=== PATIENT | male | born 1965 | race Caucasian/White ===

== ENCOUNTER 2017-08-17 21:53 | Inpatient (IN) | payer SELFPAY ==
[2017-08-17] MEDS ORDERED: Multivitamins, Adult 10 ML, Thiamine HCl 100 MG, Folic Acid 1 MG in Dextrose 5 %-0.45 %... IV SCH ×4 (22:30)
[2017-08-17 23:04] LABS: Acetaminophen Less than 6.0 mcg/mL (10.0-30.0); Lipase 147 U/L (8-78); Salicylate Less than 8.0 mg/dL (15.0-30.0)
--- NOTE | 2017-08-17 23:04 | RAD ---
PORTABLE CHEST: Date: 08/17/17 HISTORY: Chest pain. COMPARISON: 11/25/16. FINDINGS: Stranding in the upper lobes appear stable. No infiltrate or vascular congestion. Heart and mediastin um unremarkable. IMPRESSION: No acute finding or interval change apparent. POS: [facility]
[2017-08-17 23:05] LABS: ALT (SGPT) 85 U/L (8-55); AST (SGOT) 250 U/L (5-34); Albumin 2.7 g/dL (3.5-5.0); Alkaline Phosphatase 227 U/L (40-150); Anion Gap 16 mmol/L (10-20); BUN (Urea Nitrogen) 7 mg/dL (8.9-20.6); Bilirubin, Total 0.5 mg/dL (0.2-1.2); CK (CPK) 51 U/L (30-200); Calc. Creatinine Clearance 0 mL/min (70-130); Calcium 7.6 mg/dL (7.8-10.44); Carbon Dioxide 35 mmol/L (22-29); Chloride 92 mmol/L (98-107); Estimated GFR-MDRD Greater than 90; Glucose 109 mg/dL (70-105); Protein, Total 6.7 g/dL (6.0-8.3); Sodium 141 mmol/L (136-145)
--- NOTE | 2017-08-17 23:08 | CT ---
CT HEAD WITHOUT CONTRAST: Date: 08/17/17 Multiple axial tomograms obtained through the head without IV enhancement. HISTORY: Mental status change. FINDINGS: There is a focal lucency in the right cerebellum. This was present on a MRI from 2002 and is stable a nd represents possibly a benign cystic lesion or small focus of volume loss. There is no infarct, mass, or hemorrhage seen. IMPRESSION: No acute abnormality. POS: [facility]
[2017-08-17 23:09] LABS: Alcohol 445 mg/dL (Less than 10); CKMB 1.2 ng/mL (0-6.6); Potassium 2.2 mmol/L (3.5-5.1); Troponin I 0.032 ng/mL (< 0.028)
[2017-08-17 23:20] LABS: #Monocytes 0.4 thou/uL (0.11-0.59); #Neutrophils 7.2 thou/uL (1.40-6.50); %Basophils 0.4 % (0.0-1.0); %Eosinophils 0.3 % (0.0-10.0); %Lymphocytes 11.9 % (21.0-51.0); %Monocytes 4.7 % (0.0-10.0); %Neutrophils 82.7 % (42.0-75.0); Band 4 % (5-11); Eosinophils 1 % (0-10); Hemoglobin 11.3 g/dL (14.0-18.0); Lymphocytes 8 % (21-51); MDiff Complete? YES; Macrocytosis MODERATE=16-30 cells (100X) (0-5/hpf); Mean Corpuscular HGB CONC 33.2 g/dL (32.0-36.0); Mean Corpuscular Hemoglobin 36.2 pg (27.0-31.0); Mean Platelet Volume 7.8 fL (7.4-10.4); Monocytes 6 % (0-10); Neutrophil 80 % (42-75); PLT Morphology Comment Appears Adequate; Platelet Count 232 thou/uL (130-400); RBC Distribution Width 12.9 % (11.5-14.5); Reactive Lymphocytes 1 % (0-10); Red Blood Cell (RBC) Count 3.11 mill/uL (4.70-6.10); White Blood Cell (WBC) Count 8.7 thou/uL (4.8-10.8)
[2017-08-18] MEDS ORDERED: NS 0.9% w/ 40 MEQ KCL 1,000 ML IV SCH (00:30)
[2017-08-18] MEDS ORDERED: Lorazepam 2 MG/ML VIAL ONE ×2 (00:40→03:27)
[2017-08-18] MEDS ORDERED: Magnesium Sulfate 2 GM/100 ML BAG ONE (00:44)
--- NOTE | 2017-08-18 02:22 | PDOC.FPRHP ---
- History of Present Illness Chief Complaint: intoxication, found down History of Present Illness: Pt seen @ 0200 08/18 52 yo M w/ PMH of alcohol abuse, cirrhosis, and COPD presents via ems after family member found pt unresponsive, passed out with a bottle of alcohol next to him. Pt reports he is here "beacause of alcoholism." The pt is a poor historian and currently extremely intoxicated, but from what he did state he denied any cp, sob, fever, chills, nvdc, abd pain. He does report increased alcohol consumption over the last month and reports he drinks approx 1/2 bottle of liquor per day and is a current smoker. He also reports h/o of chronic pain. ED Course: 2mg ativan 2gm mag sulfate 40meq K+ 3.375 zosyn - Allergies/Adverse Reactions Allergies Allergy/AdvReac Type Severity Reaction Status Date / Time metaxalone [From Skelaxin] Allergy Verified 01/24/17 20:26 - Home Medications Medication Instructions Recorded Confirmed Type Acetaminophen With Codeine 1 tab PO BID 01/24/17 08/18/17 History [Tylenol with Codeine #4] tiZANidine HCl [Tizanidine HCl] 4 mg PO HS PRN 08/18/17 08/18/17 History - History PMHx: Cirrhosis, COPD, alcohol abuse, tobacco abuse PSHx: None FHx: Unable to obtain Social: Current everyday smoker, chronic alcohol abuse - Review of Systems ROS unobtainable: other (partially able to obtain, incomplete due to pts mentation) General: denies: fever/chills, night sweats, fatigue Respiratory: reports: cough. denies: congestion, shortness of breath Cardiovascular: denies: chest pain, palpitation Gastrointestinal: denies: nausea, vomiting, diarrhea, abdominal pain Genitourinary: reports: polyuria - Vital signs BP: 122/91 HR: 96 RR: 18 Tmax: 99.1 Pox: 92% on 3LNRB Wt: 57KG - Physical Exam Constitutional: other (intoxicated,) HEENT: normocephalic and atraumatic, PERRLA, EOMI, grossly normal hearing ( scleral icterus), MMM, oropharynx clear Neck: supple, trachea midline, no LAD, no thyromegaly, no bruits Chest: no-tender to palpation, no lesions Heart: RRR, normal S1/S2, no murmurs/rubs/gallops, pulses present, no edema Lungs: good air movement, no wheezing, no retractions, other (rhonchi, diffuse) Abdomen: soft, bowel sounds present, no masses/distention, other (ttp periumbilical, no epigastric pain) Neurological: no focal deficit, normal sensation Skin: no rash/lesions, good turgor, capillary refill <2 seconds, no jaundice Heme/Lymphatic: no unusual bruising or bleeding, no purpura Psychiatric: other (agitated while awake) FMR H&P: Results - Labs Result Diagrams: 08/17/17 22:39 08/18/17 16:10 Lab results: WBC 8.7 thou/uL (4.8-10.8) 08/17/17 22:39 Hgb 11.3 g/dL (14.0-18.0) L 08/17/17 22:39 Hct 34.0 % (42.0-52.0) L 08/17/17 22:39 MCV 109.0 fl (80.0-94.0) H 08/17/17 22:39 Plt Count 232 thou/uL (130-400) 08/17/17 22:39 Neutrophils % 82.7 % (42.0-75.0) H 08/17/17 22:39 Band Neuts % (Manual) 4 % (5-11) L 08/17/17 22:39 ESR Westergren 60 mm/hr (Less than 20) 08/17/17 22:39 Sodium 141 mmol/L (136-145) 08/17/17 22:39 Potassium 2.2 mmol/L (3.5-5.1) L* 08/17/17 22:39 Chloride 92 mmol/L (98-107) L 08/17/17 22:39 Carbon Dioxide 35 mmol/L (22-29) H 08/17/17 22:39 BUN 7 mg/dL (8.9-20.6) L 08/17/17 22:39 Creatinine 0.57 mg/dL (0.6-1.3) L 08/17/17 22:39 Glucose 109 mg/dL (70-105) H 08/17/17 22:39 Calcium 7.6 mg/dL (7.8-10.44) L 08/17/17 22:39 Total Bilirubin 0.5 mg/dL (0.2-1.2) 08/17/17 22:39 AST 250 U/L (5-34) H 08/17/17 22:39 ALT 85 U/L (8-55) H 08/17/17 22:39 Alkaline Phosphatase 227 U/L (40-150) H 08/17/17 22:39 Ammonia 31 umol/L (18-72) 08/17/17 22:39 Creatine Kinase 51 U/L (30-200) 08/17/17 22:39 CK-MB (CK-2) 1.2 ng/mL (0-6.6) 08/17/17 22:39 Serum Total Protein 6.7 g/dL (6.0-8.3) 08/17/17 22:39 Albumin 2.7 g/dL (3.5-5.0) L 08/17/17 22:39 Lipase 147 U/L (8-78) H 08/17/17 22:39 - EKG Interpretation EKG: sinus rhythm, 1st degree av block, rate 96, non-specific st changes - Radiology Interpretation CT scan - head Status: report reviewed by me Additional comment: No acute process Chest x-ray Status: report reviewed by me Additional comment: RENATO FMR H&P: A/P - Problem List (1) Respiratory failure Current Visit: Yes Status: Acute Code(s): J96.90 - RESPIRATORY FAILURE, UNSP , UNSP W HYPOXIA OR HYPERCAPNIA (2) Alcohol intoxication Current Visit: No Status: Acute (3) Hypokalemia Current Visit: Yes Status: Acute Code(s): E87.6 - HYPOKALEMIA (4) Transaminitis Current Visit: Yes Status: Acute Code(s): R74.0 - NONSPEC ELEV OF LEVELS OF TRANSAMNS & LACTIC ACID DEHYDRGNSE (5) Elevated troponin I level Current Visit: Yes Status: Acute Code(s): R74.8 - ABNORMAL LEVELS OF OTHER SERUM ENZYMES (6) Hypoalbuminemia Current Visit: Yes Status: Acute Code(s): E88.09 - OTH DISORDERS OF PLASMA- PROTEIN METABOLISM, NEC (7) Macrocytic anemia Current Visit: Yes Status: Acute Code(s): D53.9 - NUTRITIONAL ANEMIA, UNSPECIFIED - Plan 1) Acute alcohol intoxication - admit tele - Supportive care - IVF w/ NS @ 125 - ASE protocol 2) Hypokalemia: - 40 meq K+ given, recheck bmp - replace as needed - Check mag and replace if indicated - continuous cardiac monitoring 3) Transaminitis: - 2/2 alcohol abuse - subjective h/o cirrhosis - will trend 4) Elevated troponin - indeterminent, no ekg changes - admit to tele -have trended down 5) Respiratory failure: - 2/2 #1 - supportive care - maintain sats 88-92 6) COPD: - needs medication reconcilliation - duonebs prn until med rec, then continue home meds Disposition/LOS: >/= 2 days, stable, symptomatic meds will be provided FMR H&P: Upper Level - Pertinent history Patient is a 52yo CM with PMHx of chronic alcohol abuse, COPD and T2DM who presents in acute intoxication. Difficult to obtain history but states that he had a couple shots today and normally drinks about half a bottle of whiskey a day. Per ED report, patient was found unresponsive by caregiver with an almost empty bottle of whiskey next to him. Last seen normal around 8pm on 08/16. - Pertinent findings Vital signs BP 115/86 HR 117 RR 24 O2: 100% on non rebreather Gen: thin, no acute distress HEENT: pinpoint pupils BL, reactive to light, poor dentition Heart: S1 S2, RRR Lungs: dec BS BL Ext: no cyanosis or edema - Plan Date/Time: 08/18/17 0221 Bernard Reeves, have evaluated this patient and agree with findings/plan as outlined by corporate communications intern resident. Pertinent changes/additions are listed here. 1. Acute Alcohol Intoxication: initial alcohol level of 445. Cont IVF, thiamine and folate. 2. Acute Respiratory Failure: 2/2 #1 and possible aspiration. Currently on non- breather in no acute distress with O2 sats in 90s. 3. Hypokalemia: Given 40mEq IV and cont IVF with K+. Monitor. 4. Indeterminate troponins: trop of .032. Asymptomatic and no hx of CAD. Trend trops q3H. 5. Transaminitis: 2/2 chronic alcohol use. Monitor. 6. Elevated lipase: lipase of 147. Possible alcoholic pancreatitis but denies any epigastric pain. CT Abd/Pelv pending. Cont IVF and monitor. 7. T2DM: reports taking PO meds but doesnt know name. SSI and accuchecks ACHS. 8. Hypoalbuminemia: 2/2 alcohol use. 9. Macrocytic anemia: obtain B12 and rbc folate. 10. Diet: NPO 11. PPx: SCDs 12. Code Status: Full. Attending Addendum - Attending Addendum Date/Time: 08/18/17 6986 I personally evaluated the patient and discussed the management with Dr. Burleson. I have reviewed the H&P and it is repeated by me. I agree with the History, Examination, Assessment and Plan documented above with any addition or exceptions noted below.
[2017-08-18 02:55] LABS: Troponin I 0.064 ng/mL (< 0.028)
[2017-08-18] MEDS ORDERED: Piperacillin/Tazobactam 3.375 GM in Sodium Chloride 0.9% 100 ML IVPB SCH (03:00)
[2017-08-18 05:23] LABS: Troponin I 0.057 ng/mL (< 0.028)
[2017-08-18 07:02] LABS: Bilirubin Negative (Negative); Blood, Urine Trace (Negative); Clarity CLEAR (Clear); Glucose, Urine (Dipstick) Negative (Negative); Leukocyte Negative (Negative); Nitrite Positive (Negative); Protein, Urine (Dipstick) Trace mg/dL (Neg-Trace)
[2017-08-18 07:06] LABS: Bacteria/HPF 4+ HPF (None Seen); Hyaline Casts/LPF 0-3 HYALINE CAST LPF (0-3 Hyaline); Pathc Cast-AUWi Flag 0.27 (0-2.49); RBC/HPF 0-3 HPF (0-3); Squamous Epithelial 0-3 HPF (0-3)
[2017-08-18] MEDS ORDERED: Ondansetron HCl/PF 4 MG/2 ML Vial IVP PRN (07:26)
[2017-08-18] MEDS ORDERED: Dextrose 5% in Water 1,000 ML IV PRN (07:26)
[2017-08-18] MEDS ORDERED: Dextrose 50% Abboject 50 ML SYRINGE SLOW IVP PRN (07:26)
[2017-08-18] MEDS ORDERED: Acetaminophen 325 MG TAB PO PRN (07:26)
[2017-08-18 07:38] LABS: Amphetamine Not Detected (NotDetected); Barbiturates Screen Not Detected (NotDetected); Benzodiazepine Screen Not Detected (NotDetected); Cocaine Metabolite Screen Not Detected (NotDetected); Medtox Control Line Valid? VALID (VALID); Medtox Reader # READER 1; Methadone Not Detected (NotDetected); Methamphetamine Not Detected (NotDetected); Opiate Screen Detected (NotDetected); Oxycodone Screen Not Detected (NotDetected); Phencyclidine (PCP) Not Detected (NotDetected); THC/Cannabinoid Screen Not Detected (NotDetected); Tricyclic Screen Not Detected (NotDetected)
[2017-08-18] MEDS ORDERED: ISOVUE-370 76%-LOCM 1 ML ONE (07:42)
[2017-08-18] MEDS ORDERED: Potassium Chloride 40 MEQ in Sodium Chloride 0.9% 250 ML 250 ML IVPB SCH ×2 (08:00→13:00)
--- NOTE | 2017-08-18 08:23 | CT ---
PRELIMINARY REPORT/[facility]/EMERGENCY AFTER HOURS PROCEDURE: EXAM: CT Abdomen and Pelvis With Intravenous Contrast EXAM DATE/TIME: Exam ordered 08/18/2017 12:21 AM CLINICAL HISTORY: 52 years old, male; Pain; Abdominal pain; Generalized; Patient HX: Er 3; Abdominal pain (generalized) ; M52 is a chronic alcoholic that takes his pain RX with alcohol. HX of copd, diabetes, liver failure . 90% room air, glucose 168, BP 118/77 pulse 100, respirations 20. 100 thiamin, 500 fluids. TECHNIQUE: Axial computed tomography images of the abdomen and pelvis with intravenous contrast. Coronal reformatted images were created and reviewed. COMPARISON: No relevant prior studies available. FINDINGS: Lower thorax: Dependent consolidation in left lower lobe is suspicious for pneumonia/aspiration. ABDOMEN: Liver: Severe hepatic steatosis and hepatomegaly. Gallbladder and bile ducts: Unremarkable. No calcified stones. No ductal dilation. Pancreas: Unremarkable. No mass. No ductal dilation. Spleen: Unremarkable. No splenomegaly. Adrenals: Unremarkable. No mass. Kidneys and ureters: Unremarkable. No solid mass. No hydronephrosis. Stomach and bowel: Incidental transient nonobstructing non-strangulated short segment jejunaljejunal intussusception. Colonic diverticulosis. No diverticulitis. No bowel wall thickening or intestinal ob struction. Appendix: Normal appendix. PELVIS: Bladder: Unremarkable. No mass. Reproductive: Unremarkable as visualized. ABDOMEN and PELVIS: Intraperitoneal space: Unremarkable. No free air. No significant fluid collection. Bones/joints: No acute fracture. No dislocation. Soft tissues: Unremarkable. Vasculature: Unremarkable. No abdominal aortic aneurysm. Lymph nodes: Unremarkable. No enlarged lymph nodes. IMPRESSION: 1. Dependent consolidation in left lower lobe is suspicious for pneumonia/aspiration. 2. Severe hepatic steatosis and hepatomegaly. Thank you for allowing us to participate in the care of your patient. Dictated and Authenticated by: Jimmy Chavez MD 08/18/2017 12:45 AM Central Time ([place] & [place]) FINAL REPORT CT ABDOMEN AND PELVIS WITH CONTRAST: Date: 08/18/17 HISTORY: Abdominal pain. Liver failure. COMPARISON: None. FINDINGS: There is consolidation in the left lower lobe. No pericardial effusion. Severe hepatic steatosis. Transient small bowel with small bowel intussusception left upper quadrant of the abdomen. Extensive submucosal edema throughout the sigmoid colon, also the rectum. There is an intrapolar cyst right kidney. Aortoiliac contour is nonaneurysmal. Moderate atherosclerot ic plaque of the common iliac arteries. No abnormal enhancing liver mass. IMPRESSION: Findings and impression are concordant with preliminary report by Rosalee. In addition, there is transie nt small bowel with small bowel intussusception left upper quadrant of abdomen. In addition, there is severe submucosal edema of the sigmoid colon which may represent colitis, although in a patient of t his age, follow-up colonoscopy is recommended. POS: [facility]
[2017-08-18 08:45] LABS: Anion Gap 16 mmol/L (10-20); BUN (Urea Nitrogen) 5 mg/dL (8.9-20.6); Calc. Creatinine Clearance 0 mL/min (70-130); Calcium 6.8 mg/dL (7.8-10.44); Carbon Dioxide 30 mmol/L (22-29); Chloride 94 mmol/L (98-107); Estimated GFR-MDRD Greater than 90; Glucose 159 mg/dL (70-105); Sodium 137 mmol/L (136-145)
[2017-08-18 08:50] LABS: Potassium 2.5 mmol/L (3.5-5.1)
[2017-08-18] MEDS ORDERED: Folic Acid 1 MG TAB ONE (11:34)
[2017-08-18] MEDS ORDERED: Enoxaparin Sodium 40 MG/0.4 ML SYRINGE ONE (11:34)
[2017-08-18] MEDS ORDERED: Famotidine/PF 20 mg/2ml Vial ONE (11:35)
[2017-08-18 12:13] LABS: Alcohol 16 mg/dL (Less than 10); Anion Gap 13 mmol/L (10-20); BUN (Urea Nitrogen) 4 mg/dL (8.9-20.6); Calc. Creatinine Clearance 0 mL/min (70-130); Calcium 6.6 mg/dL (7.8-10.44); Carbon Dioxide 30 mmol/L (22-29); Chloride 93 mmol/L (98-107); Estimated GFR-MDRD Greater than 90; Glucose 132 mg/dL (70-105); Magnesium 1.1 mg/dL (1.6-2.6); Sodium 133 mmol/L (136-145)
[2017-08-18 12:20] LABS: Troponin I 0.053 ng/mL (< 0.028)
[2017-08-18 12:22] LABS: Potassium 2.5 mmol/L (3.5-5.1)
[2017-08-18] MEDS ORDERED: Acetaminophen 325 MG TAB ONE (13:06)
[2017-08-18 13:22] LABS: Folate (Folic Acid) 13.6 ng/mL (7.0-31.4)
[2017-08-18] MEDS: NS 0.9% w/ 40 MEQ KCL 1,000 ML IV SCH ×2 (15:46→17:08)
[2017-08-18] MEDS: Folic Acid 1 MG TAB PO SCH (15:48)
[2017-08-18] MEDS: Famotidine/PF 20 mg/2ml Vial SLOW IVP SCH ×2 (15:48→20:42)
[2017-08-18] MEDS: Nicotine 14 MG PATCH TD SCH (15:48)
[2017-08-18] MEDS: Enoxaparin Sodium 40 MG/0.4 ML SYRINGE SC SCH (15:48)
[2017-08-18 17:03] LABS: Potassium 2.5 mmol/L (3.5-5.1)
[2017-08-18] MEDS ORDERED: tiZANidine HCl 4 MG TAB PO PRN (17:39)
[2017-08-18] MEDS ORDERED: Sodium Chloride 0.9% 10 ML ONE (20:34)
[2017-08-18] MEDS: Acetaminophen/Codeine 30-300mg Tablet PO PRN (20:41)
[2017-08-19 00:54] LABS: Magnesium 1.1 mg/dL (1.6-2.6)
[2017-08-19 00:58] LABS: Potassium 2.8 mmol/L (3.5-5.1)
[2017-08-19] MEDS ORDERED: Magnesium 2 GM/NS 0.9% 100 ML 2 GM in Premix Bag 1 BAG IVPB SCH (01:30)
[2017-08-19] MEDS ORDERED: Sodium Chloride 0.9% 20 ML ONE (02:23)
[2017-08-19] MEDS ORDERED: Potassium Chloride 40 MEQ in Sodium Chloride 0.9% 250 ML 250 ML IVPB SCH (02:30)
[2017-08-19 05:48] LABS: #Eosinphils 0.1 thou/uL (0.0-0.7); #Lymphocytes 0.8 thou/uL (1.20-3.40); #Monocytes 0.3 thou/uL (0.11-0.59); #Neutrophils 6.8 thou/uL (1.40-6.50); %Basophils 0.3 % (0.0-1.0); %Eosinophils 0.8 % (0.0-10.0); %Lymphocytes 10.3 % (21.0-51.0); %Monocytes 3.9 % (0.0-10.0); %Neutrophils 84.8 % (42.0-75.0); Mean Corpuscular HGB CONC 31.4 g/dL (32.0-36.0); Mean Corpuscular Hemoglobin 34.6 pg (27.0-31.0); Mean Platelet Volume 9.2 fL (7.4-10.4); Platelet Count 150 thou/uL (130-400); RBC Distribution Width 13.2 % (11.5-14.5); Red Blood Cell (RBC) Count 2.31 mill/uL (4.70-6.10)
[2017-08-19 05:55] LABS: Anion Gap 10 mmol/L (10-20); BUN (Urea Nitrogen) Less than 4 mg/dL (8.9-20.6); Calc. Creatinine Clearance 133 mL/min (70-130); Calcium 7.4 mg/dL (7.8-10.44); Carbon Dioxide 32 mmol/L (22-29); Chloride 97 mmol/L (98-107); Estimated GFR-MDRD Greater than 90; Glucose 135 mg/dL (70-105); Sodium 136 mmol/L (136-145)
[2017-08-19] MEDS ORDERED: Sodium Chloride 0.9% 10 ML ONE (06:14)
[2017-08-19 06:21] LABS: Potassium 2.8 mmol/L (3.5-5.1)
[2017-08-19] MEDS: NS 0.9% w/ 40 MEQ KCL 1,000 ML IV SCH ×2 (06:23→16:12)
[2017-08-19] MEDS ORDERED: Potassium Chloride 20 MEQ TAB PO SCH (06:45)
[2017-08-19] MEDS: Potassium Chloride 20 MEQ TAB PO SCH ×2 (07:30→16:16)
[2017-08-19 08:45] VITALS: BMI 14.5
[2017-08-19] MEDS: Enoxaparin Sodium 40 MG/0.4 ML SYRINGE SC SCH (09:59)
[2017-08-19] MEDS: Nicotine 14 MG PATCH TD SCH (09:59)
[2017-08-19] MEDS: Folic Acid 1 MG TAB PO SCH (09:59)
[2017-08-19] MEDS: Magnesium Chloride 64 MG TAB PO SCH ×2 (09:59→21:23)
[2017-08-19] MEDS: Famotidine/PF 20 mg/2ml Vial SLOW IVP SCH ×2 (09:59→21:23)
[2017-08-19 11:53] LABS: Hemoglobin 8.9 g/dL (14.0-18.0); Mean Corpuscular HGB CONC 32.7 g/dL (32.0-36.0); Mean Corpuscular Hemoglobin 36.1 pg (27.0-31.0); Mean Platelet Volume 8.9 fL (7.4-10.4); Platelet Count 176 thou/uL (130-400); RBC Distribution Width 13.4 % (11.5-14.5); Red Blood Cell (RBC) Count 2.47 mill/uL (4.70-6.10); White Blood Cell (WBC) Count 7.5 thou/uL (4.8-10.8)
[2017-08-19 12:02] LABS: Anion Gap 11 mmol/L (10-20); BUN (Urea Nitrogen) Less than 4 mg/dL (8.9-20.6); Calc. Creatinine Clearance 133 mL/min (70-130); Calcium 7.6 mg/dL (7.8-10.44); Carbon Dioxide 29 mmol/L (22-29); Chloride 99 mmol/L (98-107); Estimated GFR-MDRD Greater than 90; Glucose 155 mg/dL (70-105); Potassium 3.4 mmol/L (3.5-5.1); Sodium 136 mmol/L (136-145)
--- NOTE | 2017-08-19 12:07 | PDOC.FM ---
- Subjective Subjective: This morning patient reports is feeling stronger. He reports that he had a few loose stools overnight. He denies feeling excessively shakes. He denies ESCALERA, nausea, or vomiting. - Objective Vital Signs & Weight: Vital Signs (12 hours) Temp Pulse Pulse Pulse Resp BP BP 08/19/17 11:05 97 99 128/90 08/19/17 09:57 98.6 F 91 18 08/19/17 04:00 98.6 F 97 20 133/84 08/19/17 00:20 133/88 BP BP Pulse Ox 08/19/17 11:05 134/89 08/19/17 09:57 131/90 76 L 08/19/17 04:00 133/84 95 08/19/17 00:20 98 Weight Admit Weight 51.982 kg Weight 51.256 kg I&O: 08/18/17 08/19/17 08/20/17 06:59 06:59 06:59 Intake Total 2499 Balance 2499 Result Diagrams: 08/19/17 11:36 08/19/17 11:36 <Louis Tomlinson - Last Filed: 08/19/17 13:56> - Objective Vital Signs & Weight: Vital Signs (12 hours) Temp Pulse Pulse Pulse Resp BP BP 08/19/17 12:44 98.7 F 91 18 08/19/17 11:05 97 99 128/90 08/19/17 09:57 98.6 F 91 18 08/19/17 04:00 98.6 F 97 20 133/84 BP BP Pulse Ox 08/19/17 12:44 132/93 H 96 08/19/17 11:05 134/89 08/19/17 09:57 131/90 76 L 08/19/17 04:00 133/84 95 Weight Admit Weight 51.982 kg Weight 51.256 kg I&O: 08/18/17 08/19/17 08/20/17 06:59 06:59 06:59 Intake Total 2499 Balance 2499 Result Diagrams: 08/19/17 11:36 08/19/17 11:36 <Ally Jaramillo - Last Filed: 08/19/17 15:06> Phys Exam - Physical Examination HEENT: PERRLA, moist MMs Neck: no nodes, full ROM Respiratory: no wheezing, clear to auscultation bilateral Cardiovascular: RRR, no significant murmur Gastrointestinal: soft, non-tender, no distention, positive bowel sounds Musculoskeletal: no edema, pulses present Neurological: non-focal, moves all 4 limbs Psychiatric: normal affect, A&O x 3 Skin: no rash, normal turgor, cap refill <2 seconds <Louis Tomlinson - Last Filed: 08/19/17 13:56> Dx/Plan (1) Hypoalbuminemia Code(s): E88.09 - OTH DISORDERS OF PLASMA-PROTEIN METABOLISM, NEC Status: Acute (2) Hypokalemia Code(s): E87.6 - HYPOKALEMIA Status: Acute (3) Macrocytic anemia Code(s): D53.9 - NUTRITIONAL ANEMIA, UNSPECIFIED Status: Acute (4) Respiratory failure Code(s): J96.90 - RESPIRATORY FAILURE, UNSP, UNSP W HYPOXIA OR HYPERCAPNIA Status: Acute (5) Transaminitis Code(s): R74.0 - NONSPEC ELEV OF LEVELS OF TRANSAMNS & LACTIC ACID DEHYDRGNSE Status: Acute (6) Alcohol intoxication Status: Acute - Plan Plan: 1) Acute alcohol intoxication - admit tele - Supportive care - IVF w/ NS @ 125 - ASE protocol 2) Hypokalemia: - Continue to replete - scheduled PO BID - Check mag and replace if indicated - continuous cardiac monitoring 3) Transaminitis: - 2/2 alcohol abuse - subjective h/o cirrhosis - will trend 4) Elevated troponin - indeterminent, no ekg changes - admit to tele -have trended down 5) Respiratory failure: - 2/2 #1 - supportive care - maintain sats 88-92 6) COPD: - needs medication reconcilliation - duonebs prn until med rec, then continue home meds 7) Anemia - Hgb dropped to 8.0 overnight - will recheck at noon - FOBT - Type and cross 8) Diarrhea - C diff labs pending - afebrile <Louis Tomlinson - Last Filed: 08/19/17 13:56> Attending Addendum - Attending Addendum Date/Time: 08/19/17 6065 I personally evaluated the patient and discussed the management with Dr. Tomlinson on 08/19/17. I agree with the History, Examination, Assessment and Plan documented above with any addition or exceptions noted below. Patient with severe alcoholism desiring to stop drinking. Continues to have severely depleted magnesium and postassium, likely from poor nutritional status. In addition, patient is C Diff antigen positive, C Diff toxin pending. Currently is starting to feel anxious and tremulous. Has never had DTs or seizures. Will observe and continue to discuss withdrawal management, including close outpatient follow up and possible benzo taper. <Ally Jaramillo - Last Filed: 08/19/17 15:06>
[2017-08-19 12:40] LABS: HIV (1/2) Antibody/Antigen Non-Reactive (NonReactive); HIV 1/2 INDEX 0.13 S/CO (<1.00)
[2017-08-19] MEDS ORDERED: HumaLOG 300 UNITS/3 ML VIAL SC PRN (13:06)
[2017-08-19] MEDS: chlordiazePOXIDE HCl 25 MG CAP PO SCH ×2 (14:08→21:23)
[2017-08-19] MEDS: Acetaminophen/Codeine 30-300mg Tablet PO PRN (14:08)
[2017-08-20] MEDS: NS 0.9% w/ 40 MEQ KCL 1,000 ML IV SCH ×3 (01:39→22:19)
[2017-08-20] MEDS: Acetaminophen/Codeine 30-300mg Tablet PO PRN (02:41)
[2017-08-20 05:27] LABS: #Eosinphils 0.1 thou/uL (0.0-0.7); #Lymphocytes 0.9 thou/uL (1.20-3.40); #Monocytes 0.2 thou/uL (0.11-0.59); %Basophils 0.6 % (0.0-1.0); %Eosinophils 1.9 % (0.0-10.0); %Lymphocytes 17.3 % (21.0-51.0); %Monocytes 3.9 % (0.0-10.0); %Neutrophils 76.2 % (42.0-75.0); Hemoglobin 8.3 g/dL (14.0-18.0); Mean Corpuscular HGB CONC 32.1 g/dL (32.0-36.0); Mean Corpuscular Hemoglobin 36.1 pg (27.0-31.0); Mean Platelet Volume 9.3 fL (7.4-10.4); Platelet Count 182 thou/uL (130-400); RBC Distribution Width 13.4 % (11.5-14.5); Red Blood Cell (RBC) Count 2.31 mill/uL (4.70-6.10); White Blood Cell (WBC) Count 5.3 thou/uL (4.8-10.8)
[2017-08-20 05:34] LABS: Anion Gap 9 mmol/L (10-20); BUN (Urea Nitrogen) 4 mg/dL (8.9-20.6); Calc. Creatinine Clearance 139 mL/min (70-130); Calcium 7.8 mg/dL (7.8-10.44); Carbon Dioxide 27 mmol/L (22-29); Chloride 104 mmol/L (98-107); Estimated GFR-MDRD Greater than 90; Glucose 97 mg/dL (70-105); Magnesium 1.3 mg/dL (1.6-2.6); Potassium 4.5 mmol/L (3.5-5.1); Sodium 135 mmol/L (136-145)
[2017-08-20] MEDS ORDERED: Magnesium 2 GM/NS 0.9% 100 ML 2 GM in Premix Bag 1 BAG IVPB SCH (06:00)
--- NOTE | 2017-08-20 08:01 | PDOC.FM ---
- Subjective Subjective: This morning patient states he had on/off sleep overnight due to chronic back/ neck pain which was relieved with a muscle relaxer. He denies headaches, shakes , or hallucinations. States his walking is improving, but still unable to walk on his own. He is not interested in help quitting drinking, he says he is going to quit cold turkey on his own. - Objective Vital Signs & Weight: Vital Signs (12 hours) Temp Pulse Resp BP BP BP Pulse Ox 08/20/17 04:01 132/93 H 08/20/17 04:00 98.4 F 86 18 132/93 H 94 L 08/20/17 00:40 97.9 F 114 H 16 143/87 H 143/87 H 95 08/19/17 21:27 99.6 F 98 16 131/92 H 94 L 08/19/17 20:34 16 Weight Admit Weight 51.982 kg Weight 51.211 kg I&O: 08/19/17 08/20/17 08/21/17 06:59 06:59 06:59 Intake Total 2499 3694 Output Total 1150 Balance 2499 2540 Result Diagrams: 08/20/17 04:57 08/20/17 04:57 <Louis Tomlinson - Last Filed: 08/20/17 09:36> - Objective Vital Signs & Weight: Vital Signs (12 hours) Temp Pulse Pulse Resp BP BP BP 08/20/17 11:21 85 121/81 08/20/17 04:01 132/93 H 08/20/17 04:00 98.4 F 86 18 132/93 H Pulse Ox Pulse Ox 08/20/17 11:21 96 08/20/17 04:01 08/20/17 04:00 94 L Weight Admit Weight 51.982 kg Weight 51.211 kg I&O: 08/19/17 08/20/17 08/21/17 06:59 06:59 06:59 Intake Total 2499 3694 Output Total 1150 Balance 2499 2544 Result Diagrams: 08/20/17 04:57 08/20/17 04:57 <Ally Jaramillo - Last Filed: 08/20/17 14:05> Phys Exam - Physical Examination HEENT: PERRLA, moist MMs Neck: no nodes, full ROM Respiratory: no wheezing, clear to auscultation bilateral Cardiovascular: RRR, no significant murmur Gastrointestinal: soft, non-tender, no distention, positive bowel sounds Musculoskeletal: no edema, pulses present Neurological: non-focal, moves all 4 limbs No liver flaps Psychiatric: normal affect, A&O x 3 Skin: no rash, normal turgor, cap refill <2 seconds <Louis Tomlinson - Last Filed: 08/20/17 09:36> Dx/Plan (1) Hypoalbuminemia Code(s): E88.09 - OTH DISORDERS OF PLASMA-PROTEIN METABOLISM, NEC Status: Acute (2) Hypokalemia Code(s): E87.6 - HYPOKALEMIA Status: Acute (3) Macrocytic anemia Code(s): D53.9 - NUTRITIONAL ANEMIA, UNSPECIFIED Status: Acute (4) Respiratory failure Code(s): J96.90 - RESPIRATORY FAILURE, UNSP, UNSP W HYPOXIA OR HYPERCAPNIA Status: Acute (5) Transaminitis Code(s): R74.0 - NONSPEC ELEV OF LEVELS OF TRANSAMNS & LACTIC ACID DEHYDRGNSE Status: Acute (6) Alcohol intoxication Status: Acute - Plan Plan: 1) Acute alcohol intoxication - Supportive care - IVF w/ NS @ 125 - ASE protocol - started librium 08/19 2) Hypokalemia: - up to 4.5 this AM - scheduled PO BID - Mag at 1.3 this AM, PO BID, added 2g IV this AM 3) Transaminitis: - 2/2 alcohol abuse - subjective h/o cirrhosis - will trend 4) Elevated troponin - indeterminent, no ekg changes -have trended down 5) Respiratory failure: - resolved, RA - supportive care 6) COPD: - resolved - duoneb PRN 7) Anemia - Hgb increased to 8.3 - Type and crossed 8) Diarrhea - diarrhea resolved - C diff labs antigen +, toxins negative - afebrile Dispo: possibly this PM pending PT eval and Mag re-check, patient does not want to attend alcoholic rehab <Louis Tomlinson - Last Filed: 08/20/17 09:36> Attending Addendum - Attending Addendum Date/Time: 08/20/17 1401 I personally evaluated the patient and discussed the management with Dr. Tomlinson on 08/20/17. I agree with the History, Examination, Assessment and Plan documented above with any addition or exceptions noted below. Patient's symptoms of withdrawal resolved on Librium taper. Discussed alcohol cessation at length, patient desires [facility] abstinence. Discussed benefit of Librium taper to help with withdrawal, but recommended treatment for alcohol cessation maintenance but patient declines. Also discussed danger of combining Librium and alcohol. Patient did fall this morning when he disregarded fall precautions, bed alarm, and bedside commode and tried to go to the restroom by himself. He had minor trauma to his skin on his back but otherwise no trauma. PT will reevaluate today for recommendations on dispo home with PT vs inpt rehab /SNF. <Ally Jaramillo - Last Filed: 08/20/17 14:05>
[2017-08-20] MEDS: Enoxaparin Sodium 40 MG/0.4 ML SYRINGE SC SCH (08:33)
[2017-08-20] MEDS: Famotidine/PF 20 mg/2ml Vial SLOW IVP SCH ×2 (08:33→21:05)
[2017-08-20] MEDS: chlordiazePOXIDE HCl 25 MG CAP PO SCH ×3 (08:34→21:05)
[2017-08-20] MEDS: Nicotine 14 MG PATCH TD SCH (08:34)
[2017-08-20] MEDS: Folic Acid 1 MG TAB PO SCH (08:34)
[2017-08-20] MEDS: Potassium Chloride 20 MEQ TAB PO SCH ×2 (08:34→16:30)
[2017-08-20] MEDS: Magnesium Chloride 64 MG TAB PO SCH ×2 (08:35→21:05)
[2017-08-21 06:13] LABS: Anion Gap 8 mmol/L (10-20); BUN (Urea Nitrogen) 4 mg/dL (8.9-20.6); Calc. Creatinine Clearance 133 mL/min (70-130); Calcium 8.3 mg/dL (7.8-10.44); Carbon Dioxide 22 mmol/L (22-29); Chloride 108 mmol/L (98-107); Estimated GFR-MDRD Greater than 90; Glucose 95 mg/dL (70-105); Potassium 5.1 mmol/L (3.5-5.1); Sodium 133 mmol/L (136-145)
[2017-08-21 06:16] LABS: Band 2 % (5-11); Eosinophils 2 % (0-10); Hemoglobin 8.9 g/dL (14.0-18.0); Lymphocytes 15 % (21-51); MDiff Complete? YES; Macrocytosis SLIGHT = 6-15 cells (100X) (0-5/hpf); Mean Corpuscular HGB CONC 32.5 g/dL (32.0-36.0); Mean Corpuscular Hemoglobin 36.1 pg (27.0-31.0); Mean Platelet Volume 8.8 fL (7.4-10.4); Monocytes 3 % (0-10); Neutrophil 78 % (42-75); Platelet Count 239 thou/uL (130-400); Red Blood Cell (RBC) Count 2.46 mill/uL (4.70-6.10); White Blood Cell (WBC) Count 7.8 thou/uL (4.8-10.8)
--- NOTE | 2017-08-21 08:19 | PDOC.FM ---
- Subjective Subjective: This morning patient states he is feeling well. He continues to have chronic back and neck pain bothering him at times. He denies headache, hallucinations, or shakes. He is still having difficulty walking on his own. States he is able to eat about 1/2 a meal. States he looks forward to ensure shakes today as he likes the taste. - Objective Vital Signs & Weight: Vital Signs (12 hours) Temp Pulse Resp BP BP Pulse Ox 08/21/17 04:00 97.5 F L 105 H 18 122/93 H 122/93 H 97 08/21/17 00:20 97 18 96 08/20/17 20:50 99.1 F 112 H 18 112/78 100 Weight Admit Weight 51.982 kg Weight 51.211 kg I&O: 08/20/17 08/21/17 08/22/17 06:59 06:59 06:59 Intake Total 3694 3280 Output Total 1150 950 Balance 2544 2330 Result Diagrams: 08/21/17 04:52 08/21/17 04:52 <Louis Tomlinson - Last Filed: 08/21/17 09:15> - Objective Vital Signs & Weight: Vital Signs (12 hours) Temp Pulse Pulse Pulse Pulse Resp BP 08/21/17 12:00 98.1 F 105 H 20 08/21/17 09:57 106 H 118 H 105 H 08/21/17 07:22 96.7 F L 100 18 111/81 08/21/17 04:00 97.5 F L 105 H 18 122/93 H BP BP BP BP Pulse Ox 08/21/17 12:00 97/72 08/21/17 09:57 110/85 110/82 107/80 08/21/17 07:22 111/81 98 08/21/17 04:00 122/93 H 97 Weight Admit Weight 51.982 kg Weight 51.211 kg I&O: 08/20/17 08/21/17 08/22/17 06:59 06:59 06:59 Intake Total 3694 3280 Output Total 1150 950 Balance 2544 2330 Result Diagrams: 08/21/17 04:52 08/21/17 04:52 <Ally Jaramlilo - Last Filed: 08/21/17 12:46> Phys Exam - Physical Examination Constitutional: NAD HEENT: PERRLA, moist MMs Neck: no nodes, full ROM Respiratory: no wheezing, clear to auscultation bilateral Cardiovascular: RRR, no significant murmur, no rub Gastrointestinal: soft, non-tender, no distention, positive bowel sounds Musculoskeletal: no edema, pulses present still unable to support his own weight for ambulation Neurological: non-focal, moves all 4 limbs Psychiatric: normal affect, A&O x 3 Skin: no rash, normal turgor, cap refill <2 seconds <Louis Tomlinson - Last Filed: 08/21/17 09:15> Dx/Plan (1) Hypoalbuminemia Code(s): E88.09 - [facility] DISORDERS OF PLASMA-PROTEIN METABOLISM, NEC Status: Acute (2) Hypokalemia Code(s): E87.6 - HYPOKALEMIA Status: Acute (3) Macrocytic anemia Code(s): D53.9 - NUTRITIONAL ANEMIA, UNSPECIFIED Status: Acute (4) Respiratory failure Code(s): J96.90 - RESPIRATORY FAILURE, UNSP, UNSP W HYPOXIA OR HYPERCAPNIA Status: Acute (5) Transaminitis Code(s): R74.0 - NONSPEC ELEV OF LEVELS OF TRANSAMNS & LACTIC ACID DEHYDRGNSE Status: Acute (6) Alcohol intoxication Status: Acute - Plan Plan: 1) Acute alcohol intoxication - Supportive care - IVF w/ NS @ 125 - ASE protocol - started librium 08/19 2) Hypokalemia: - 5.1 this AM, down to K 40meq once daily - Mag at 1.7 this AM 3) Transaminitis: - 2/2 alcohol abuse - subjective h/o cirrhosis - will trend 4) Elevated troponin - indeterminent, no ekg changes -have trended down 5) Respiratory failure: - resolved, RA - supportive care 6) COPD: - resolved - duoneb PRN 7) Anemia - Hgb increased to 8.9 - Type and crossed 8) Diarrhea - diarrhea resolved - C diff labs antigen +, toxins negative - FBOT+ - afebrile - will discuss outpatient colonoscopy Dispo: awating rehab placement <Louis Tomlinson - Last Filed: 08/21/17 09:15> Attending Addendum - Attending Addendum Date/Time: 08/21/17 1242 I personally evaluated the patient and discussed the management with Dr. Tomlinson on 08/21/17. I agree with the History, Examination, Assessment and Plan documented above with any addition or exceptions noted below. Patient's alcohol withdrawal improved on Librium. Is still extremely weak and unstable, will need to be discharged to either SNF or rehab, as he is safe to go home. Patient with 3 point drop in Hg and FOBT pos, will consult GI for colonoscopy. <Ally Jaramillo - Last Filed: 08/21/17 12:46>
[2017-08-21] MEDS: chlordiazePOXIDE HCl 25 MG CAP PO SCH ×3 (09:13→21:22)
[2017-08-21] MEDS: Enoxaparin Sodium 40 MG/0.4 ML SYRINGE SC SCH (09:14)
[2017-08-21] MEDS: Nicotine 14 MG PATCH TD SCH (09:14)
[2017-08-21] MEDS: Famotidine/PF 20 mg/2ml Vial SLOW IVP SCH ×2 (09:14→21:23)
[2017-08-21] MEDS: Folic Acid 1 MG TAB PO SCH (09:14)
[2017-08-21] MEDS: NS 0.9% w/ 40 MEQ KCL 1,000 ML IV SCH (09:14)
[2017-08-21] MEDS: Magnesium Chloride 64 MG TAB PO SCH ×2 (09:28→21:22)
--- NOTE | 2017-08-21 14:00 | CON ---
DATE OF CONSULTATION: 08/21/2017 REASON FOR CONSULTATION: Heme positive stool and anemia. HISTORY OF PRESENT ILLNESS: Mr. Serrano is a 52-year-old gentleman who was admitted to the hospital o n the after presenting to the emergency room with complaints of drinking too much. He tells me that is the main reason he came in to see if he could stop drinking. He does note he has had chronic problems with diarrhea and IBS, in fact, I saw for this in 2006 at which time he had upper and lower endoscopies which were negative. Biopsies were negative. Small bowel follow through was negative. He was diagnosed with functional bowel disorder. He also has issues with chronic pain, he sees a reji pain medicine doctor at [facility] where he gets Tylenol #3. He also sees Dr. Eligio borja. He drinks he states 8 shots of whiskey a day. According to H&P from Family Practice attending, he was brought in by EMS when the family members found him unresponsive, passed out next to an alcoh ol bottle. PAST MEDICAL HISTORY: Notable for IBS, COPD, chronic alcohol abuse, ongoing tobacco abuse, possible cirrhosis. ALLERGIES: METAXALONE. HOME MEDICATIONS: Tylenol with codeine, tizanidine. MEDICATIONS HERE: In the emergency room he received Ativan, mag sulfate, potassium and Zosyn. Prese ntly he is on Tylenol daily p.r.n., Librium, Lovenox, Pepcid, folic acid 1 mg a day, glucagon 1 mg a day, insulin sliding scale, magnesium b.i.d., nicotine patch, Zofran, Zanaflex, thiamine 100 mg daily , normal saline. REVIEW OF SYSTEMS: The patient denies any dysphasia, odynophagia. He had no vomiting. Nurses note no hematemesis, melena or hematochezia. IMAGING STUDIES: On 08/18/2017 - He had a CT scan of abdomen and pelvis showing fatty liver with hep atomegaly, possible pneumonia versus aspiration left lower lung. Chest x-ray, no acute changes. CT scan showed no signs of intracranial abnormalities. PHYSICAL EXAMINATION: GENERAL: The patient is sitting in bed. VITAL SIGNS: Temperature is 98, pulse is 105, blood pressure 97/72 to 111/81. HEENT: Cachectic mildly confused. He is mildly icteric. He has temporal wasting and generalized mu scle wasting. LUNGS: Clear with decreased breath sounds at bases. HEART: He is mildly tachycardic. ABDOMEN: Soft and nontender, without rebound or guarding. LABORATORY AND X-RAY FINDINGS: White count 7.8, hemoglobin 8.9, MCV 111, platelet count 293, 78 segs , 2 bands. INR was 1 on admission. Sodium 133, potassium 5.1, BUN and creatinine are 4 and 0.48. A dmission labs, AST of 250, ALT of 85, alkaline phosphatase 227. Magnesium was 1.7 on 08/20/2017, 1.4 on 08/18/2017, phosphorus has never been checked. Albumin is 2.7. B12 1679. TSH 1.4. ASSESSMENT: 1. Alcoholism. 2. Severe cachexia, malnutrition secondary to alcoholism, COPD is probably a contributing factor. 3. Abnormal liver enzymes likely related to fatty liver disease. 4. Severe malnutrition. 5. Heme positive stool by report with anemia with no signs of acute gastrointestinal bleeding. RECOMMENDATIONS: 1. Multivitamin, thiamine and folate daily. 2. With his relative hypotension will start him on some IV fluids with dextrose. 3. He needs to be on a calorie count and he needs to drink 3-4 Ensure's daily. I will remove all no n-nutritional beverages from his room. If he does not take much in calorie-dotson, he needs to have a Dobbhoff tube placed for feeding if he would be agreeable to that. 4. There is no role for endoscopy at this point in time. He is not a candidate for screening colono scopy. His anemia is likely related to his alcohol abuse and severe malnutrition. He is not a mi date for sedation at endoscopy presently. If he ever began to have acute bleeding, we could reconsid er that. 5. Would avoid Tylenol and hydrocodone with this patient alcoholic liver disease. This can exacerba te the issues of alcohol toxicity. At this time, he has been hospital 3 days, there is probably no r ole in checking alcohol level. I am not sure that he would benefit from placing him on, as his level was 445 on admission, it was 16 the day after. At that time it may have been reasonable to consider starting treatment for possible Tylenol toxicity with him being a daily alcohol user, would not take much in terms of Tylenol toxicity to bother him and you can see Tylenol toxicity develop more easily in daily alcohol drinkers. I would go ahead and get a Tylenol level now. We will follow along with you.
[2017-08-22 05:47] LABS: #Basophils 0.1 thou/uL (0.0-0.2); #Eosinphils 0.1 thou/uL (0.0-0.7); #Monocytes 0.9 thou/uL (0.11-0.59); #Neutrophils 7.3 thou/uL (1.40-6.50); %Basophils 0.6 % (0.0-1.0); %Lymphocytes 10.7 % (21.0-51.0); %Monocytes 9.2 % (0.0-10.0); %Neutrophils 78.5 % (42.0-75.0); Hemoglobin 8.7 g/dL (14.0-18.0); Mean Corpuscular HGB CONC 32.4 g/dL (32.0-36.0); Mean Corpuscular Hemoglobin 36.3 pg (27.0-31.0); Mean Platelet Volume 8.1 fL (7.4-10.4); Platelet Count 325 thou/uL (130-400); RBC Distribution Width 14.6 % (11.5-14.5); Red Blood Cell (RBC) Count 2.41 mill/uL (4.70-6.10); White Blood Cell (WBC) Count 9.3 thou/uL (4.8-10.8)
[2017-08-22 05:50] LABS: ALT (SGPT) 63 U/L (8-55); AST (SGOT) 83 U/L (5-34); Albumin 2.5 g/dL (3.5-5.0); Alkaline Phosphatase 185 U/L (40-150); Anion Gap 9 mmol/L (10-20); BUN (Urea Nitrogen) 6 mg/dL (8.9-20.6); Bilirubin, Total 0.7 mg/dL (0.2-1.2); Calc. Creatinine Clearance 119 mL/min (70-130); Calcium 8.3 mg/dL (7.8-10.44); Carbon Dioxide 24 mmol/L (22-29); Chloride 104 mmol/L (98-107); Estimated GFR-MDRD Greater than 90; Globulin 3.6 g/dL (2.4-3.5); Glucose 92 mg/dL (70-105); Magnesium 1.5 mg/dL (1.6-2.6); Phosphorus 3.3 mg/dL (2.3-4.7); Potassium 4.1 mmol/L (3.5-5.1); Protein, Total 6.1 g/dL (6.0-8.3); Sodium 133 mmol/L (136-145)
[2017-08-22 07:20] LABS: Acetaminophen Less than 6.0 mcg/mL (10.0-30.0)
[2017-08-22 07:50] VITALS: TEMP 98.3
[2017-08-22] MEDS ORDERED: Potassium Chloride 20 MEQ TAB PO SCH (08:00)
[2017-08-22] MEDS: Nicotine 14 MG PATCH TD SCH (08:30)
[2017-08-22] MEDS: chlordiazePOXIDE HCl 25 MG CAP PO SCH ×2 (08:31→14:50)
[2017-08-22] MEDS: Enoxaparin Sodium 40 MG/0.4 ML SYRINGE SC SCH (08:31)
[2017-08-22] MEDS: Magnesium Chloride 64 MG TAB PO SCH (08:31)
[2017-08-22] MEDS: Famotidine/PF 20 mg/2ml Vial SLOW IVP SCH (08:31)
[2017-08-22] MEDS: Folic Acid 1 MG TAB PO SCH (08:32)
--- NOTE | 2017-08-22 09:13 | PDOC.FM ---
- Subjective Subjective: This morning patient states he is still having chronic neck pain. States he thinks he is getting mildly stronger. States his goal is to be able to walk without feeling like he is going to fall. Discussed the importance of improving nutrition, avoiding alcohol, and continuing to participate in PT. - Objective Vital Signs & Weight: Vital Signs (12 hours) Temp Pulse Resp BP BP Pulse Ox 08/22/17 07:00 98.3 F 103 H 18 128/82 128/82 94 L 08/22/17 04:00 113/80 08/22/17 03:33 98.7 F 113 H 18 113/80 95 08/22/17 00:00 98.6 F 107 H 18 98/68 98/68 95 Weight Admit Weight 51.982 kg Weight 51.211 kg I&O: 08/21/17 08/22/17 08/23/17 06:59 06:59 06:59 Intake Total 3280 1330 Output Total 950 Balance 2330 1330 Result Diagrams: 08/22/17 04:51 08/22/17 04:51 <Louis Tomlinson - Last Filed: 08/22/17 09:14> - Objective Vital Signs & Weight: Weight Admit Weight 51.982 kg Weight 51.211 kg I&O: 08/22/17 08/23/17 08/24/17 06:59 06:59 06:59 Intake Total 1330 Balance 1330 Result Diagrams: 08/22/17 04:51 08/22/17 04:51 <Ally Jaramillo - Last Filed: 08/23/17 09:26> Phys Exam - Physical Examination HEENT: PERRLA, moist MMs Neck: no nodes, full ROM Respiratory: no wheezing, clear to auscultation bilateral Cardiovascular: RRR, no significant murmur Gastrointestinal: soft, non-tender, no distention, positive bowel sounds Musculoskeletal: no edema, pulses present Neurological: non-focal, moves all 4 limbs Psychiatric: normal affect, A&O x 3 Skin: no rash, normal turgor, cap refill <2 seconds <Louis Tomlinson - Last Filed: 08/22/17 09:14> Dx/Plan (1) Hypoalbuminemia Code(s): E88.09 - OTH DISORDERS OF PLASMA-PROTEIN METABOLISM, NEC Status: Acute (2) Hypokalemia Code(s): E87.6 - HYPOKALEMIA Status: Acute (3) Macrocytic anemia Code(s): D53.9 - NUTRITIONAL ANEMIA, UNSPECIFIED Status: Acute (4) Respiratory failure Code(s): J96.90 - RESPIRATORY FAILURE, UNSP, UNSP W HYPOXIA OR HYPERCAPNIA Status: Acute (5) Transaminitis Code(s): R74.0 - NONSPEC ELEV OF LEVELS OF TRANSAMNS & LACTIC ACID DEHYDRGNSE Status: Acute (6) Alcohol intoxication Status: Acute - Plan Plan: # Acute alcohol intoxication - Supportive care - IVF w/ NS @ 125 - ASE protocol - started librium 08/19, wean today # FOBT + - GI consulted, appreciate recs - checking tyl level, discussed improved nutrition w/ patient along w/ ensure , continue thiamine/folate supplementation - anemia likely 2/2 nutrition/alcoholism - patient scoped in 2006, hx of IBS - diarrhea resolved - C diff labs antigen +, toxins negative - afebrile # Hypokalemia: - 4.1 this AM, continue to monitor K+/mag # Transaminitis: - 2/2 alcohol abuse - subjective h/o cirrhosis - will trend # Elevated troponin - indeterminent, no ekg changes -have trended down # Respiratory failure: - resolved, RA - supportive care # COPD: - resolved - duoneb PRN # Anemia - Hgb increased to 8.9 - Type and crossed Dispo: awaiting rehab placement <Louis Tomlinson - Last Filed: 08/22/17 09:14> Attending Addendum - Attending Addendum Date/Time: 08/23/17924 I personally evaluated the patient and discussed the management with Dr. Tomlinson on 08/22/17. I agree with the History, Examination, Assessment and Plan documented above with any addition or exceptions noted below. DIscharge home without Librium per Dr. Monroe' recommendations. <Ally Jaramillo - Last Filed: 08/23/17 09:26>
[2017-08-22 14:47] VITALS: BP 125/77
--- NOTE | 2017-08-22 16:19 | PRG ---
DATE OF SERVICE: 08/22/2017 SUBJECTIVE: Mr. Serrano is eating some macaroni and cheese. He denies any pain, but he states he fee ls very weak. MEDICATIONS: Librium 50 t.i.d., Lovenox, Pepcid, Folvite, glucagon, Humalog, Slow-Mag, Nicoderm patc h, Zofran, thiamine, and Zanaflex. PHYSICAL EXAMINATION: GENERAL: He is cachectic, thin. VITAL SIGNS: Pulse rate is about 91-103, temperature is 98, blood pressure 125/75. SKIN: Nonicteric. Spider angioma and bruising on his skin. LUNGS: Clear. HEART: Regular rate and rhythm. ABDOMEN: Slightly protuberant, soft. There is no shifting dullness or fluid wave. EXTREMITIES: No clubbing, cyanosis or edema. LABORATORY STUDIES: Sodium 133, potassium 4.1, BUN and creatinine are 6 and 0.59, magnesium 1.5, aubrey irubin 0.7, AST and ALT are 83 and 63, alkaline phosphatase 185, albumin is 2.5, total protein is 6.1 . B12 was 1679. TSH 1.6. Tylenol level normal. Serology, HIV negative. White count of 9.3, hemogl obin 8.7, platelet count 325, MCV 112. ASSESSMENT: 1. Anemia, stable. No signs of overt gastrointestinal bleed. He was Hemoccult positive on admissio n. Previous endoscopies have been negative and this has been some time ago. At present status, he i s not a candidate for screening colonoscopy and he is not having active bleeding. 2. Chronic diarrhea with extensive workup for celiac in the past, negative. 3. C. diff toxin negative, antigen positive. No signs of overt Clostridium difficile colitis. 4. Alcohol abuse. He has been weaned off of alcohol. 5. Delirium tremens. He has completed withdrawals. He is still on high dose Librium however. RECOMMENDATIONS: 1. The holley to this gentleman having improvement in clinical status is nutrition. I have instructed him that he needs to be eating, drinking quite a bit of protein. Avoid carbohydrates and sugar free drinks. I recommend he drink 3 Ensures a day. 2. He needs to be on multivitamin, thiamine, and folate daily. 3. He needs to abstain completely from alcohol. 4. He has overall clinical improvement. Over time, we can consider screening colonoscopy; however, at this time, I think his anemia is multifactorial and related to mainly alcohol toxicity and poor nu trition. 5. With regard to his delirium tremens, these are complete. He is very sleepy and slurred in his sp eech. I think he needs to be weaned off the Librium. He does not need that now. We will continue t o follow along in the hospital.
--- NOTE | 2017-08-23 00:28 | DIS-2 ---
DATE OF ADMISSION: 08/18/2017 DATE OF DISCHARGE: 08/22/2017 RESIDENT: Louis Tomlinson MD ADMITTING ATTENDING: Dr. Paulie Manley. CONSULT: Gastroenterology. PROCEDURES: None. PRIMARY DIAGNOSIS: Alcohol withdrawal. SECONDARY DIAGNOSES: Malnutrition, hypokalemia, transaminitis, elevated troponin, respiratory failur e, chronic obstructive pulmonary disease, macrocytic anemia, hypoalbuminemia, deconditioning. DISCHARGE MEDICATIONS: Librium 25 mg t.i.d. for 3 days, folic acid 1 mg daily, magnesium 64 mg daily , thiamine 100 mg daily. DISCONTINUED MEDICATIONS: None. HISTORY OF PRESENT ILLNESS AND HOSPITAL COURSE: A 52-year-old male with history of alcohol abuse, ci rrhosis, and COPD, presented via EMS after family member found him unresponsive, passed out with a henrik ttle of alcohol next to him. The patient was alert and oriented in the ED and was able to state that he was there in the ER because of alcoholism. His alcohol level in the ER was 445. He denied chest pain, shortness of breath, fevers, chills, sweats, nausea, vomiting, or abdominal pain at the time o f admission. Patient stated he drinks approximately half a bottle of liquor a day. During the course of the hospital stay, the patient's electrolyte imbalances were managed. Specifica lly, he needed potassium and magnesium supplementation along with thiamine and folate. The patient w as seen and evaluated by GI because of a fecal occult blood positive test. GI attributed in his anem ia to malnutrition and alcoholism and noted that he had a colonoscopy in 2006 and one was not indicat ed for evaluation of anemia at this time. The patient was seen by dietitian who recommended diet sup plementation with Ensure. Attempted to obtain placement for the patient, but due to insurance issues and primary diagnosis, placement was unable to be obtained. Discussed with the family. Discussed h sammyg help at home, but the patient was not interested. The patient was also not interested in [facility] for placement and opted to go home with family who said that they would be able to handle his care. Patient is discharged home on Librium taper for 3 days. DISPOSITION: Stable. DISCHARGE INSTRUCTIONS: 1. Location: Home. 2. Diet: Regular. 3. Activity: As tolerated. 4. Followup: Follow up with PCP in 3-5 days.
--- NOTE | 2017-08-23 06:59 | ADD-PRG ---
ADDENDUM: 08/22/2017 RECOMMENDATIONS: Additionally, he should get magnesium replacement on discharge. I think he usually should be on probiotic daily with a Clostridium difficile antigen positive, toxin negative in the [facility].
--- NOTE | 2017-08-23 15:18 | EKG ---
Test Reason : Blood Pressure : / mmHG Vent. Rate : 096 BPM Atrial Rate : 096 BPM P-R Int : 230 ms QRS Dur : 102 ms QT Int : 362 ms P-R-T Axes : 079 096 127 degrees QTc Int : 457 ms Sinus rhythm with 1st degree A-V block Rightward axis Anterior infarct , age undetermined Abnormal ECG Confirmed by ENZO LOPEZ ([id number]), scientific publications editor JENY ROJAS ([id number]) on 08/23/2017 3:18:19 PM Referred By: Confirmed By:ENZO LOPEZ
== END 2017-08-22 17:09 | disposition home or self-care (01) | DRG 896 ==
LOC: ERS 21:53 → ERHOLD 08-18 05:17 → 2NO 08-18 14:44
PROVIDERS: ADMIT Emergency Medicine; ATTEND Emergency Medicine
DX: F10.231 Alcohol dependence with withdrawal delirium (principal); J96.00 Acute respiratory failure, unspecified whether with hypoxia or hypercapnia; E43 Unspecified severe protein-calorie malnutrition; E88.09 Other disorders of plasma-protein metabolism, not elsewhere classified; D53.9 Nutritional anemia, unspecified; E11.9 Type 2 diabetes mellitus without complications; E87.6 Hypokalemia; Z68.1 Body mass index [BMI] 19.9 or less, adult; F10.229 Alcohol dependence with intoxication, unspecified; J44.9 Chronic obstructive pulmonary disease, unspecified; R19.5 Other fecal abnormalities; R74.0 Nonspecific elevation of levels of transaminase and lactic acid dehydrogenase [LDH]; R74.8 Abnormal levels of other serum enzymes; F17.210 Nicotine dependence, cigarettes, uncomplicated; R19.7 Diarrhea, unspecified; Y90.8 Blood alcohol level of 240 mg/100 ml or more; Z88.8 Allergy status to other drugs, medicaments and biological substances
CPT/HCPCS: 36415; 36416; 70450; 71045; 74177; 80048; 80053; 80306; 80307; 81003; 81015; 82140; 82274; 82553; 82607; 82746; 83690; 83735; 84100; 84443; 84484; 85025; 85610; 85652; 87324; 87389; 87449; 87493; 93005; 94760; 96365; 96366; 96368; 96375; 99406; A4216; G8978-GP-CK; G8979-GP-CI; G8987-GO-CK; G8988-GO-CI; J1650; J2060; J2543; J3411; J3475; J3480; J7042; J7050; S0028

== ENCOUNTER 2017-11-23 13:24 | Inpatient (IN) | payer SELFPAY ==
[2017-11-23 13:48] LABS: Hemoglobin 15.2 g/dL (14.0-18.0); Mean Corpuscular HGB CONC 32.7 g/dL (32.0-36.0); Mean Corpuscular Hemoglobin 34.4 pg (27.0-31.0); Mean Platelet Volume 7.5 fL (7.4-10.4); Platelet Count 278 thou/uL (130-400); RBC Distribution Width 15.3 % (11.5-14.5); Red Blood Cell (RBC) Count 4.42 mill/uL (4.70-6.10); White Blood Cell (WBC) Count 5.5 thou/uL (4.8-10.8)
[2017-11-23 14:01] LABS: Acetaminophen Less than 6.0 mcg/mL (10.0-30.0); Alcohol 338 mg/dL (Less than 10); Salicylate Less than 8.0 mg/dL (15.0-30.0)
[2017-11-23 14:04] LABS: ALT (SGPT) 70 U/L (8-55); AST (SGOT) 153 U/L (5-34); Albumin 3.8 g/dL (3.5-5.0); Alkaline Phosphatase 122 U/L (40-150); Anion Gap 21 mmol/L (10-20); BUN (Urea Nitrogen) 9 mg/dL (8.9-20.6); Bilirubin, Total 0.7 mg/dL (0.2-1.2); Calc. Creatinine Clearance 0 mL/min (70-130); Calcium 8.6 mg/dL (7.8-10.44); Carbon Dioxide 22 mmol/L (22-29); Chloride 96 mmol/L (98-107); Estimated GFR-MDRD Greater than 90; Globulin 4.8 g/dL (2.4-3.5); Glucose 141 mg/dL (70-105); Lipase 182 U/L (8-78); Potassium 3.1 mmol/L (3.5-5.1); Protein, Total 8.6 g/dL (6.0-8.3); Sodium 136 mmol/L (136-145)
[2017-11-23 14:06] LABS: Troponin I 0.022 ng/mL (< 0.028)
[2017-11-23] MEDS ORDERED: Heparin 1,000 UNITS/ML VIAL ONE (14:17)
[2017-11-23 14:21] LABS: #Basophils 0.1 thou/uL (0.0-0.2); #Lymphocytes 1.2 thou/uL (1.20-3.40); #Monocytes 0.3 thou/uL (0.11-0.59); #Neutrophils 3.9 thou/uL (1.40-6.50); %Basophils 1.2 % (0.0-1.0); %Eosinophils 0.7 % (0.0-10.0); %Lymphocytes 21.3 % (21.0-51.0); %Monocytes 5.1 % (0.0-10.0); %Neutrophils 71.6 % (42.0-75.0)
[2017-11-23 14:22] LABS: Anisocytosis SLIGHT = 6-15 cells (100X) (0-5/hpf); MDiff Complete? YES; PLT Morphology Comment Appears Adequate
--- NOTE | 2017-11-23 14:46 | RAD ---
PORTABLE CHEST 1 VIEW: Date: 11/23/17 Time: 1339 hours HISTORY: Altered mental status. FINDINGS: Comparison made with exam of 08/17/17 . The heart size is normal. The aorta is tortuous. The lungs are expanded without focal areas of consol idation, pneumothorax, or pleural effusions. Chronic changes in the lung apices are again seen. IMPRESSION: No radiographic evidence of acute cardiopulmonary process. POS: [facility]
--- NOTE | 2017-11-23 15:12 | CT ---
BRAIN CT WITHOUT IV CONTRAST: Date: 11/23/17 HISTORY: 52-year-old male with history of altered mental status. COMPARISON: 08/17/17. 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 No focal mass or midline shift. No intra or extra-axial hemorrhage. 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 No mass or bleed. Stable from prior study. POS: [facility]
[2017-11-23] MEDS ORDERED: Multivitamins, Adult 10 ML, Thiamine HCl 100 MG, Folic Acid 1 MG in Dextrose 5 %-0.45 %... IV SCH (15:15)
[2017-11-23] MEDS ORDERED: Ondansetron HCl/PF 4 MG/2 ML Vial IVP PRN (18:16)
[2017-11-23] MEDS ORDERED: Milk Of Magnesia 30 ML UDCUP PO PRN (18:16)
[2017-11-23] MEDS ORDERED: Lorazepam 2 MG/ML VIAL SLOW IVP PRN (18:28)
[2017-11-23] MEDS ORDERED: Sodium Chloride 0.9% 1,000 ML IV SCH (18:30)
[2017-11-23] MEDS: Albuterol Sulfate 2.5 mg/3 ml Neb NEB SCH ×2 (19:10→23:45)
--- NOTE | 2017-11-23 19:10 | HP ---
PRIMARY CARE PHYSICIAN: None. PRESENTING COMPLAINT: Altered mental status and vomiting. HISTORY OF PRESENT ILLNESS: Mr. London Serrano is a 52-year-old man with a history of chronic alcohol abuse who presented to the emergency room after being brought by his family on account of altered mentation and vomiting. According to them, he had no vomiting since yesterday. He has a history of severe alcoholism, but reports that he has not drank anything about 4 days and believes he might be going into DTs. According to patient, however, he has been drinking much in the past 2 days and yesterday had multiple shots of whiskey. He complains of poor appetite. He reports he has been drinking throughout the day for the past months, usually drinking up to half a gallon of whiskey. In addition, patient has a history of chronic left shoulder pain for which he reports taking alcohol to help with the pain. He has been taking Tylenol for pain, but ran out of the medication about a month ago after which he significantly increased his drinking. He also reports generalized weakness, has been unable to get out of bed for several days and not walking. There is no history of fevers or chills. He denies chest pain, shortness of breath, PND , orthopnea, or lower extremity edema. PAST MEDICAL HISTORY: Alcohol abuse and chronic shoulder pain. PAST SURGICAL HISTORY: Shoulder surgery. FAMILY HISTORY: Reviewed and noncontributory. SOCIAL HISTORY: He smokes 1 pack of cigarettes a day and alcohol history as above. He denies using illicit drugs. ALLERGIES: Metaxalone. HOME MEDICATIONS: Folic acid 1 mg daily, magnesium chloride 64 mg b.i.d., thiamine 100 mg daily, and tizanidine 4 mg at bedtime. PHYSICAL EXAMINATION: VITAL SIGNS: Blood pressure 133/88, pulse rate 79, respiratory rate 18, oxygen saturation 95% on room air. GENERAL: Not in acute distress, sitting comfortably in bed. HEENT: Normocephalic, atraumatic. Not pale, anicteric. Dry mucous membranes. PERRLA, EOMI. NECK: Supple, full range of movement, no edema. CARDIOVASCULAR: S1, S2 only. Regular rate and rhythm. No murmurs, rubs or gallops. RESPIRATORY: Vesicular breath sounds bilaterally. No wheezes, rales or rhonchi. ABDOMEN: Soft, tender, not distended, no hepatosplenomegaly. Bowel sounds. NEUROLOGIC: Alert and oriented to time, place and person. No focal deficits. No tremors appreciated. PSYCHIATRIC: Normal mood and affect. SKIN: Warm, dry, well-perfused. No rashes or lesions. MUSCULOSKELETAL: No edema. LABORATORY DATA: CBC is only significant for macrocytosis. Serum chemistry showed hypokalemia, elevated anion gap, glucose of 141 and elevated transaminases. Troponin was 0.022. Urine toxicology showed plasma alcohol of 338. Brain CT shows no acute abnormalities and chest x-ray showed no acute pulmonary process. ASSESSMENT AND PLAN: 1. Dehydration 2/2 chronic alcohol abuse. Will hydrate parenterally. 2. Chronic alcohol abuse. Patient with reported chronic alcoholism, presenting with vomiting. It does not seem to be an acute pancreatitis for now as he does not have abdominal pain, although his lipase was markedly elevated. This could be of a chronic issue. We will start him on a clear liquid diet and he does not have abdominal pain and advance as tolerated. He has also been given a banana bag in the emergency room, so we will continue with IV hydration. He will also be given thiamine, folate, and multivitamins. He will be placed on CIWA protocol for alcohol withdrawal as well. 3. Elevated lipase: As above. 4. Chronic shoulder pain: We will put on pain control. 5. The patient reports being diagnosed with diabetes mellitus. We will obtain hemoglobin A1c. 6. Hypokalemia: Likely secondary to his chronic alcohol abuse and poor p.o. intake. We will replete and check serum magnesium. 7. Chronic tobacco abuse: The patient will be counseled on the importance of cessation and placed on nicotine patch while in the hospital. Deep venous thrombosis prophylaxis with subcutaneous heparin. CODE STATUS: FULL CODE. MTDD
[2017-11-23] MEDS ORDERED: Magnesium 2 GM/NS 0.9% 100 ML 2 GM in Premix Bag 1 BAG IVPB SCH (19:45)
[2017-11-23] MEDS: Nicotine 21 MG PATCH TD SCH (21:40)
[2017-11-23] MEDS: Magnesium Oxide 400 MG TAB PO SCH (21:41)
[2017-11-23] MEDS: Docusate 100 MG CAP PO SCH (21:41)
[2017-11-23] MEDS: Sodium Chloride 0.9% 1,000 ML IV SCH (21:41)
[2017-11-23] MEDS: Heparin 5,000 UNITS/ML VIAL SC SCH (21:47)
[2017-11-24 01:03] VITALS: BMI 15.3
[2017-11-24 04:47] LABS: Hemoglobin 11.2 g/dL (14.0-18.0); Mean Corpuscular Hemoglobin 33.9 pg (27.0-31.0); Mean Platelet Volume 7.7 fL (7.4-10.4); Platelet Count 206 thou/uL (130-400); White Blood Cell (WBC) Count 8.9 thou/uL (4.8-10.8)
[2017-11-24 04:50] LABS: Hemoglobin A1c 4.3 % (4.0-6.0)
[2017-11-24 05:18] LABS: ALT (SGPT) 46 U/L (8-55); AST (SGOT) 93 U/L (5-34); Albumin 3.1 g/dL (3.5-5.0); Alkaline Phosphatase 93 U/L (40-150); Anion Gap 12 mmol/L (10-20); BUN (Urea Nitrogen) 9 mg/dL (8.9-20.6); Bilirubin, Total 1.3 mg/dL (0.2-1.2); Calc. Creatinine Clearance 125 mL/min (70-130); Calcium 8.2 mg/dL (7.8-10.44); Carbon Dioxide 29 mmol/L (22-29); Chloride 95 mmol/L (98-107); Estimated GFR-MDRD Greater than 90; Globulin 3.6 g/dL (2.4-3.5); Glucose 86 mg/dL (70-105); Potassium 3.1 mmol/L (3.5-5.1); Protein, Total 6.7 g/dL (6.0-8.3); Sodium 133 mmol/L (136-145)
[2017-11-24 06:02] LABS: Folate (Folic Acid) 16.6 ng/mL (7.0-31.4)
[2017-11-24] MEDS: Albuterol Sulfate 2.5 mg/3 ml Neb NEB SCH (06:27)
[2017-11-24] MEDS: Sodium Chloride 0.9% 1,000 ML IV SCH ×4 (06:34→22:52)
[2017-11-24 08:29] LABS: Bilirubin Negative (Negative); Blood, Urine Large (Negative); Clarity TURBID (Clear); Glucose, Urine (Dipstick) Negative (Negative); Leukocyte Large (Negative); Nitrite Positive (Negative); Protein, Urine (Dipstick) 30 mg/dL (Neg-Trace); Specific Gravity, Urine 1.015 (1.002-1.036); pH, Urine 7.5 (5.0-9.0)
[2017-11-24 08:32] LABS: Bacteria/HPF 4+ HPF (None Seen); Hyaline Casts/LPF 0-3 HYALINE CAST LPF (0-3 Hyaline); Pathc Cast-AUWi Flag 0.43 (0-2.49); RBC/HPF 21-50 HPF (0-3); Squamous Epithelial 0-3 HPF (0-3)
[2017-11-24] MEDS: Potassium Chloride 20 MEQ TAB PO SCH ×2 (09:37→17:18)
[2017-11-24] MEDS: Magnesium Oxide 400 MG TAB PO SCH ×2 (09:37→20:18)
[2017-11-24] MEDS: Heparin 5,000 UNITS/ML VIAL SC SCH ×3 (09:38→20:17)
[2017-11-24] MEDS: Folic Acid/Vit B Comp W-C PO SCH (09:38)
[2017-11-24] MEDS: Docusate 100 MG CAP PO SCH ×2 (09:38→20:18)
[2017-11-24 10:04] LABS: Magnesium 1.8 mg/dL (1.6-2.6); Phosphorus 2.2 mg/dL (2.3-4.7)
--- NOTE | 2017-11-24 12:41 | PDOC.PN ---
- Subjective Encounter Start Date: 11/24/17 Encounter Start Time: 12:40 Patient seen and examined following admission for dehydration 2/2 chronic acohol abuse, hypokalemia and pneumaturia. He only complains of suprapubic tenderness this morning. No acute events overnight. - Objective Resuscitation Status: Resuscitation Status FULL:Full Resuscitation MAR Reviewed: Yes Vital Signs & Weight: Vital Signs (12 hours) Temp Pulse Resp BP BP Pulse Ox 11/24/17 12:00 98.1 F 88 20 146/94 H 95 11/24/17 08:04 98.2 F 91 18 147/90 H 93 L 11/24/17 06:27 100 16 94 L Weight Admit Weight 119 lb 0.794 oz Weight 119 lb 0.794 oz I&O: 11/23/17 11/24/17 11/25/17 06:59 06:59 06:59 Intake Total 2000 500 Output Total 600 Balance 1400 500 Result Diagrams: 11/24/17 03:26 11/24/17 03:26 Phys Exam - Physical Examination Constitutional: NAD HEENT: PERRLA, moist MMs, sclera anicteric, oral pharynx no lesions Neck: no JVD, supple, full ROM Respiratory: no wheezing, no rales, no rhonchi, clear to auscultation bilateral Cardiovascular: RRR, no significant murmur, no rub Gastrointestinal: soft, no distention, positive bowel sounds suprapubic tenderness Musculoskeletal: no edema, pulses present Neurological: non-focal, moves all 4 limbs Psychiatric: normal affect, A&O x 3 Skin: no rash, normal turgor Dx/Plan (1) Pneumaturia Code(s): R39.89 - OTHER SYMPTOMS AND SIGNS INVOLVING THE GENITOURINARY SYSTEM Status: Acute Comment: Reports 2 weeks of pnumaturia. No signs of sepsis. Concern for possible enterovesical fistula. GI consulted for colonoscopy. (2) Chronic alcohol abuse Code(s): F10.10 - ALCOHOL ABUSE, UNCOMPLICATED Status: Chronic Comment: Stable. Monitor for signs of alcohol withdrawal. THiamine, Folate and multivitamins. (3) Tobacco abuse Code(s): Z72.0 - TOBACCO USE Status: Acute Comment: Counselled on cessation. Nicotine patch while in hospital. (4) Dehydration Code(s): E86.0 - DEHYDRATION Status: Acute Comment: Improving with hydration. (5) Hypokalemia Code(s): E87.6 - HYPOKALEMIA Status: Acute Comment: Replete. Monitor magnesium and phosphorus. (6) Malnutrition of moderate degree Code(s): E44.0 - MODERATE PROTEIN-CALORIE MALNUTRITION Status: Chronic Comment: 2/2 chronic alcohol abuse. Continue nutritional supplements. - Plan cont current plan of care, PT/OT, respiratory therapy, out of bed/ambulate, DVT proph w/heparin GI consult for colonoscopy. Might also need surgical intervention depending on scope findings. NPO from now. Review of Systems - Review of Systems Gastrointestinal: Other (suprapubic tenderness) - Medications/Allergies Allergies/Adverse Reactions: Allergies Allergy/AdvReac Type Severity Reaction Status Date / Time metaxalone [From Skelaxin] Allergy Verified 01/24/17 20:26 Medications: Current Medications Hydrocodone Bitart/Acetaminophen ([place] 5/325) 1 tab PO Q4H PRN PRN Reason: Severe Pain (7-10) Albuterol/Ipratropium (Duoneb) 3 ml NEB Q4H PRN PRN Reason: SOB Docusate Sodium (Colace) 100 mg PO BID [facility] Last Admin: 11/24/17 09:38 Dose: 100 mg Heparin Sodium (Porcine) (Heparin) 5,000 units SC TID [facility] Last Admin: 11/24/17 09:38 Dose: 5,000 units Sodium Chloride (Normal Saline 0.9%) 1,000 mls @ 125 mls/hr IV .Q8H [facility] Last Admin: 11/24/17 06:44 Dose: 1,000 mls Levofloxacin 750 mg/ Device 150 mls @ 100 mls/hr IVPB Q24HR@0800 [facility] Last Admin: 11/24/17 09:37 Dose: 150 mls Lorazepam (Ativan) 1 mg SLOW IVP Q4H PRN PRN Reason: Anxiety/Agitation Magnesium Hydroxide (Milk Of Magnesium) 30 ml PO DAILYPRN PRN PRN Reason: Constipation Magnesium Oxide (Magnesium Oxide) 400 mg PO BID [facility] Last Admin: 11/24/17 09:37 Dose: 400 mg Nicotine (Nicoderm Patch) 21 mg TD Q24HR [facility] Last Admin: 11/23/17 21:40 Dose: 21 mg Ondansetron HCl (Zofran) 4 mg IVP Q6H PRN PRN Reason: Nausea/Vomiting Last Admin: 11/24/17 06:41 Dose: 4 mg Potassium Chloride (K-Dur) 40 meq PO BID-[facility] Stop: 11/25/17 17:01 Last Admin: 11/24/17 09:37 Dose: 40 meq Sodium Chloride (Flush - Normal Saline) 10 ml IVF Q12HR [facility] Last Admin: 11/24/17 09:39 Dose: Not Given Sodium Chloride (Flush - Normal Saline) 10 ml IVF PRN PRN PRN Reason: Saline Flush Thiamine HCl (Thiamine) 100 mg PO DAILY [facility] Last Admin: 11/24/17 09:38 Dose: 100 mg Tramadol HCl (Ultram) 50 mg PO Q6H PRN PRN Reason: Moderate Pain (4-6) Vitamin B Complex/Vit C/Folic Acid (Nephro-Melissa Tablet) 1 tab PO DAILY [facility] Last Admin: 11/24/17 09:38 Dose: 1 tab
--- NOTE | 2017-11-24 13:22 | CON ---
DATE OF CONSULTATION: DATE 11/24/2017 REASON FOR CONSULTATION: Possible enterovesical fistula. HISTORY: Mr. Serrano is a 52-year-old gentleman admitted to the hospital on 08/2017 for abdominal pain and vomiting. He was brought in by his family. The patient has a long history of alcohol abuse. They became worried about him due to altered mental status and vomiting. After admission, a catheter was placed for a urine sample and significantly contaminated urine was noted consistent with possible fistula. The patient actually denies any significant urinary symptoms. When asked about his urine quality states it is kind of dark (kind of dark yellow). Denies any gross hematuria. On further questioning, he does state that he has been passing gas through his urinary tract for approximately 2 -3 weeks. Denies fevers or chills. His prior history is significant for diverticulosis noted on a CT scan in the past. He also has a history of jejunojejunal intussusception. He denies gross hematuria. Denies fevers or chills. PAST MEDICAL HISTORY: Chronic alcohol abuse, chronic shoulder pain, diverticulosis. SOCIAL HISTORY: He abuses alcohol and cigarettes. MEDICATIONS: METAXALONE medicines at home, THIAMIN, FOLIC ACID, MAGNESIUM CHLORIDE. REVIEW OF SYSTEMS: Respiratory: No shortness of breath. Cardiovascular: Denies chest pain or palpitations. Gastrointestinal: Please see history of present illness. Genitourinary: Please see history of present illness. Neurologic: Denies prior history of stroke. PHYSICAL EXAMINATION: SKIN: He is thin to the point of appearing cachectic. VITAL SIGNS: Most recent, temperature 98.1, blood pressure 146/94, pulse 88, respiratory rate 20. HEENT: Normocephalic, atraumatic. NECK: Supple, without masses. CHEST: Clear to auscultation. ABDOMEN: No peritoneal signs noted. No palpable masses noted. No hernias noted. GENITOURINARY: Penis is circumcised. No penile lesions. Urethral meatus appears normal. Scrotum: No lesions. Testicles palpably normal bilaterally without lesions. LABORATORY DATA: On admission, white count 5.5, hemoglobin 15.2, hematocrit 46.4, platelet count 278. Chemistry: Sodium 133, potassium 3.1, chloride 95, CO2 29, BUN 9, creatinine 0.54. Urinalysis demonstrates bacteria. IMPRESSION: Mr. Serrano is a 52-year-old gentleman with pneumaturia and abnormal urine consistent with enterovesical fistula. 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 He will need colonoscopy to rule out the possibility of a colon malignancy as a source of his enterovesical fistula. In addition, we will send urine for cytology, although bladder cancer is a rare cause of enterovesical fistula, we will obtain a urine cytology. RECOMMENDATIONS: 1. Urine for cytology. 2. GI consultation. 3. Eventual surgical consultation will be necessary 4. CT abdomen and pelvis. [facility]
[2017-11-24] MEDS ORDERED: ISOVUE-370 76%-LOCM 1 ML ONE (14:55)
[2017-11-24] MEDS ORDERED: Iopamidol 370 76% 50 ML VIAL FS ONE (14:55)
--- NOTE | 2017-11-24 18:18 | CT ---
CT ABDOMEN AND PELVIS PERFORMED WITH CONTRAST ENHANCEMENT: HISTORY: Intravesicular fistula. The patient states he feels air when he urinates. COMPARISON: 08/18/2017 FINDINGS: ABDOMEN: The lung bases show some minimal linear interstitial change, which could represent atelecta sis. There are diffuse fatty changes of the liver, which measures 18.3 cm in length. The spleen is within normal limits. The pancreas and gallbladder regions appear unremarkable. The right and left adrenal glands and the right and left kidneys are normal in size. There is no sig nificant periaortic or mesenteric adenopathy present. PELVIS: There is air present within the bladder. There is bladder wall thickening, and there is wal l thickening to the sigmoid colon. There are some diverticular changes in this area. This is direct ly along the posterior border of the bladder and associated with an area of bladder wall thickening a long the posterior bladder wall. I believe this is the probable site of a fistulous connection with the sigmoid. The wall thickening appears more than what would be expected on just the basis of diver ticular disease. IMPRESSION: 1. Moderate wall thickening of the sigmoid colon. This was noted on the prior examination. This is directly adjacent to the base of the bladder, where there is some asymmetric wall thickening, and th ere is air within the bladder. A colovesical fistula is felt to be the underlying etiology of the ai r within the bladder. The cause of the bladder wall thickening is unclear. It could represent colit is. There are diverticular changes in this area, and it could just be related to diverticulitis. Th ere appears to be an outpouching of barium, which is probably related to a diverticulum, which is dir ectly adjacent to the base of the bladder, best seen on axial image 70. This is felt to be the likel y point of the fistula. A neoplasm is not excluded and colonoscopy is recommended. 2. Diffuse fatty changes of the liver, which is borderline in size. POS: TOM
[2017-11-24] MEDS: Nicotine 21 MG PATCH TD SCH (20:14)
[2017-11-25] MEDS ORDERED: Dextrose 5 % And 0.9 % NaCl 1,000 ML IV SCH (00:45)
--- NOTE | 2017-11-25 01:39 | CON ---
DATE OF CONSULTATION: 11/24/2017 REASON FOR CONSULT: Request for colonoscopy for possible diverticulitis. HISTORY OF PRESENT ILLNESS: Mr. Serrano is a 52-year-old who was admitted to the hospital on 11/24/19 18 with vomiting and altered mental status. His family brought him in because they were concerned th at he was confused and he had vomiting for a couple of days. They are also concerned that if he is u ndergoing any DTs as he had not been drank any alcohol in 4 days. He has been drinking heavily befor e that. The patient has a history of chronic diarrhea, poor appetite. He reports he has IBS. He has been a heavy abuser of alcohol. He is actually here in the hospital recently in July and he was [facility] [place] [facility] in early August. At that time, he came in mainly discharge to stop drinking and was found to have alcoholic hepatitis, macrocytic anemia, COPD and he had a CAT scan showing some questionable si gmoid thickening and possible intussusception that was on 08/18/2017. He had no signs of diverticuli tis at that time and has some shortness of breath, jejunal intussusception and he had severe he patic steatosis. At that time, he did have some stool positive for Clostridium difficile antigen and we treated empirically for C. diff. The patient notes at this time he came back in mainly for confusion. I was asked to see him in his l ast visit, he was Hemoccult positive, but at that time he had no acute bleeding. PAST MEDICAL HISTORY: Alcohol abuse, chronic shoulder pain, IBS COPD FAMILY HISTORY: Noncontributory. SOCIAL HISTORY: The patient continues to smoke. Drinks alcohol daily. Denies drug use. HOME MEDICATIONS: Folic acid, magnesium, thiamine, tizanidine. PRESENT MEDICATIONS HERE: Albuterol, Colace, heparin, hydrocodone, lorazepam, Milk of Magnesia, mag oxide, Nicoderm patch, Zofran, potassium, multivitamin, thiamine, and folate. PHYSICAL EXAMINATION: VITAL SIGNS: Temperature is 98.1, pulse 88, blood pressure 146/94. GENERAL: The patient looks drawn out. He is awake. He is cachectic. LUNGS: Decreased breath sounds at bases. HEART: Has regular rhythm. ABDOMEN: Soft. There is really no tenderness, no rebound or guarding. EXTREMITIES: No clubbing, cyanosis or edema. HOSPITAL COURSE: He had a consult with Urology today for possible enterovesicular fistula. He notic ed he had been passing air when he urinates at times. Urologist thought he should have a colonoscopy to rule out a cancer and another CAT scan. The patient denies any symptoms such as this in the past . LABORATORY DATA: White count is 8.9, hemoglobin 11.2, platelet count 206, MCV is 103. INR is 1. So dium is 133, potassium is 3.1, BUN and creatinine are 9 and 0.54, bilirubin is 1.3, AST and ALT are 9 3 and 46, albumin 3.1, protein 6.7, B12 is 759, magnesium was 1.4 yesterday and 1.8 today. Phosphoru s 2.2. HIV nonreactive in July of this year. Serum ETOH this admission was 338. Urine showed 21-50 red blood cells and greater than 15 red cells, 4+ bacteria. Microbiology, occult blood last admission was positive. C. diff last visit was positive for antigen. No toxin was ever d etected. ASSESSMENT: The patient reports some history of pneumaturia. He has known diverticular disease on t he CAT scan in July, but there were no signs of acute diverticulitis or inflammation. Urology wa s concerned about the possibility of malignancy causing a fistula. If that is positive, we will cert ainly consider the most common cause of coloenteric fistulas with the diverticular disease. At this point in time, the patient does have a history of chronic diarrhea, but relates this to IBS as he is a chronic alcoholic as well and tends to have diarrhea, poor nutrition. RECOMMENDATIONS: The first step in working up the concern for possible colovesicular fistula at this time, would be to repeat his CAT scan with oral and IV contrast. We will follow along with you.
[2017-11-25 05:19] LABS: ALT (SGPT) 39 U/L (8-55); AST (SGOT) 71 U/L (5-34); Albumin 3.2 g/dL (3.5-5.0); Alkaline Phosphatase 93 U/L (40-150); Anion Gap 12 mmol/L (10-20); BUN (Urea Nitrogen) Less than 4 mg/dL (8.9-20.6); Bilirubin, Total 1.6 mg/dL (0.2-1.2); Calc. Creatinine Clearance 132 mL/min (70-130); Calcium 8.6 mg/dL (7.8-10.44); Carbon Dioxide 26 mmol/L (22-29); Chloride 99 mmol/L (98-107); Estimated GFR-MDRD Greater than 90; Globulin 3.9 g/dL (2.4-3.5); Glucose 70 mg/dL (70-105); Potassium 3.3 mmol/L (3.5-5.1); Protein, Total 7.1 g/dL (6.0-8.3); Sodium 134 mmol/L (136-145)
[2017-11-25] MEDS: Docusate 100 MG CAP PO SCH ×2 (08:07→20:21)
[2017-11-25] MEDS: Folic Acid/Vit B Comp W-C PO SCH (08:07)
[2017-11-25] MEDS: Potassium Chloride 20 MEQ TAB PO SCH ×2 (08:07→16:48)
[2017-11-25] MEDS: Magnesium Oxide 400 MG TAB PO SCH ×2 (08:08→20:21)
[2017-11-25] MEDS ORDERED: Morphine 4 MG/ML VIAL IV SCH (09:30)
[2017-11-25] MEDS: Dextrose 5 %-0.45 % NaCl 1,000 ML IV SCH ×2 (09:37→19:29)
[2017-11-25] MEDS: Heparin 5,000 UNITS/ML VIAL SC SCH ×3 (09:37→20:21)
--- NOTE | 2017-11-25 13:38 | PDOC.PN ---
- Subjective Encounter Start Date: 11/25/17 Encounter Start Time: 13:37 Patient seen and examined following admission for dehydration 2/2 chronic acohol abuse, hypokalemia and pneumaturia. HE also c/o pneumaturia and CT abdomen confirmed a colovesical fistula. GI consulted. No acute events overnight. - Objective Resuscitation Status: Resuscitation Status FULL:Full Resuscitation MAR Reviewed: Yes Vital Signs & Weight: Vital Signs (12 hours) Temp Pulse Pulse Pulse Resp BP BP 11/25/17 11:00 97.8 F 91 16 11/25/17 08:55 93 94 148/99 H 146/87 H 11/25/17 08:00 98.2 F 91 20 11/25/17 07:43 146/94 H 148/111 H 11/25/17 07:11 98.2 F 91 16 11/25/17 04:00 98.2 F 101 H 16 11/25/17 03:56 BP BP BP Pulse Ox Pulse Ox Pulse Ox 11/25/17 11:00 141/96 H 95 11/25/17 08:55 96 97 11/25/17 08:00 148/101 H 96 11/25/17 07:43 11/25/17 07:11 11/25/17 04:00 144/93 H 95 11/25/17 03:56 96 Weight Admit Weight 119 lb 0.794 oz Weight 119 lb 0.794 oz I&O: 11/24/17 11/25/17 11/26/17 06:59 06:59 06:59 Intake Total 1999 2614 Output Total 600 Balance 1400 2614 Result Diagrams: 11/24/17 03:26 11/25/17 04:41 Additional Labs: Accuchecks 11/25/17 11/25/17 11/25/17 11:51 06:18 00:10 POC Glucose 96 93 71 Phys Exam - Physical Examination Constitutional: NAD HEENT: moist MMs, sclera anicteric, oral pharynx no lesions Neck: supple, full ROM Respiratory: no wheezing, no rales, no rhonchi, clear to auscultation bilateral Cardiovascular: RRR, no significant murmur, no rub Gastrointestinal: soft, no distention, positive bowel sounds mild suprapubic discomfort Musculoskeletal: no edema, pulses present Neurological: non-focal, moves all 4 limbs Psychiatric: normal affect, A&O x 3 Dx/Plan (1) [place]-vesical fistula Code(s): N32.1 - VESICOINTESTINAL FISTULA Status: Acute Comment: Reports 2 weeks of pnumaturia. No signs of sepsis. GI on board. (2) Chronic alcohol abuse Code(s): F10.10 - ALCOHOL ABUSE, UNCOMPLICATED Status: Chronic Comment: Stable. Monitor for signs of alcohol withdrawal. THiamine, Folate and multivitamins. (3) Tobacco abuse Code(s): Z72.0 - TOBACCO USE Status: Chronic Comment: Counselled on cessation. Nicotine patch while in hospital. (4) Hypokalemia Code(s): E87.6 - HYPOKALEMIA Status: Acute Comment: Replete. Monitor magnesium and phosphorus. (5) Malnutrition of moderate degree Code(s): E44.0 - MODERATE PROTEIN-CALORIE MALNUTRITION Status: Chronic Comment: 2/2 chronic alcohol abuse. Continue nutritional supplements. - Plan cont current plan of care, PT/OT, out of bed/ambulate, DVT proph w/heparin * . Review of Systems - Medications/Allergies Allergies/Adverse Reactions: Allergies Allergy/AdvReac Type Severity Reaction Status Date / Time metaxalone [From Skelaxin] Allergy Verified 01/24/17 20:26 Medications: Current Medications Hydrocodone Bitart/Acetaminophen ([place] 5/325) 1 tab PO Q4H PRN PRN Reason: Severe Pain (7-10) Albuterol/Ipratropium (Duoneb) 3 ml NEB Q4H PRN PRN Reason: SOB Docusate Sodium (Colace) 100 mg PO BID [facility] Last Admin: 11/25/17 08:07 Dose: Not Given Heparin Sodium (Porcine) (Heparin) 5,000 units SC TID [facility] Last Admin: 11/25/17 09:37 Dose: Not Given Levofloxacin 750 mg/ Device 150 mls @ 100 mls/hr IVPB Q24HR@0800 [facility] Last Admin: 11/25/17 09:40 Dose: 150 mls Dextrose/Sodium Chloride (D5 1/2 Ns) 1,000 mls @ 100 mls/hr IV .Q10H [facility] Last Admin: 11/25/17 09:37 Dose: 1,000 mls Lorazepam (Ativan) 1 mg SLOW IVP Q4H PRN PRN Reason: Anxiety/Agitation Magnesium Hydroxide (Milk Of Magnesium) 30 ml PO DAILYPRN PRN PRN Reason: Constipation Magnesium Oxide (Magnesium Oxide) 400 mg PO BID [facility] Last Admin: 11/25/17 08:08 Dose: Not Given Morphine Sulfate (Morphine) 2 mg SLOW IVP Q4H PRN PRN Reason: Severe Pain (7-10) Nicotine (Nicoderm Patch) 21 mg TD Q24HR [facility] Last Admin: 11/24/17 20:14 Dose: 21 mg Ondansetron HCl (Zofran) 4 mg IVP Q6H PRN PRN Reason: Nausea/Vomiting Last Admin: 11/24/17 06:41 Dose: 4 mg Polyethylene Glycol/Electrolytes (Golytely) 4,000 ml PO ONE [facility] Stop: 11/26/17 16:01 Potassium Chloride (K-Dur) 40 meq PO BID-[facility] Stop: 11/25/17 17:01 Last Admin: 11/25/17 08:07 Dose: Not Given Sodium Chloride (Flush - Normal Saline) 10 ml IVF Q12HR [facility] Last Admin: 11/25/17 08:08 Dose: Not Given Sodium Chloride (Flush - Normal Saline) 10 ml IVF PRN PRN PRN Reason: Saline Flush Sodium Chloride (Flush - Normal Saline) 10 ml IVF PRN PRN PRN Reason: Saline Flush Thiamine HCl (Thiamine) 100 mg PO DAILY [facility] Last Admin: 11/25/17 08:08 Dose: Not Given Tramadol HCl (Ultram) 50 mg PO Q6H PRN PRN Reason: Moderate Pain (4-6) Vitamin B Complex/Vit C/Folic Acid (Nephro-Melissa Tablet) 1 tab PO DAILY [facility] Last Admin: 11/25/17 08:07 Dose: Not Given
[2017-11-25] MEDS ORDERED: GoLYTELY 4,000 ml Bottle PO SCH (16:00)
[2017-11-25] MEDS: HYDROcodone/Acetaminophen 5/325 mg Tablet PO PRN (19:27)
[2017-11-25] MEDS: Nicotine 21 MG PATCH TD SCH (19:29)
[2017-11-26 05:23] LABS: ALT (SGPT) 31 U/L (8-55); AST (SGOT) 48 U/L (5-34); Albumin 3.2 g/dL (3.5-5.0); Alkaline Phosphatase 90 U/L (40-150); Anion Gap 10 mmol/L (10-20); BUN (Urea Nitrogen) Less than 4 mg/dL (8.9-20.6); Bilirubin, Total 0.9 mg/dL (0.2-1.2); Calc. Creatinine Clearance 125 mL/min (70-130); Calcium 8.4 mg/dL (7.8-10.44); Carbon Dioxide 30 mmol/L (22-29); Chloride 98 mmol/L (98-107); Estimated GFR-MDRD Greater than 90; Globulin 3.7 g/dL (2.4-3.5); Glucose 88 mg/dL (70-105); Protein, Total 6.9 g/dL (6.0-8.3); Sodium 135 mmol/L (136-145)
[2017-11-26 05:31] LABS: Potassium 2.9 mmol/L (3.5-5.1)
--- NOTE | 2017-11-26 05:39 | PRG ---
DATE OF SERVICE: 11/25/2017 SUBJECTIVE: Mr. Serrano denies any pain. OBJECTIVE: ABDOMEN: Soft and nontender. VITAL SIGNS: Stable. He is afebrile. LABORATORY DATA: No labs today. Sodium 134, potassium 3.3, BUN and creatinine are 4 and 0.51, bilir ubin 1.6, AST 71, ALT 39, albumin 3.2, protein 3.1. ASSESSMENT: Alcoholic liver disease came in yesterday with alcohol 338 and not drinking presently th ree days ago, no signs of DTs at this time. CT scan with a colovesicular fistula. This could be malignancy or could be related to diverticular d isease that would be the most likely diagnosis. He states he had had some pain in the lower abdomen a few weeks ago. When he was here in July, denied any abdominal pain, but he did have some mild thickening in the sigmoid colon and no leukocytosis at that time. PLAN: Colonoscopy tomorrow, colovesicular fistula inflammatory versus malignant cause.
[2017-11-26] MEDS ORDERED: Potassium Chloride 20 MEQ in Premix Bag 1 BAG IVPB SCH (06:00)
[2017-11-26] MEDS: Dextrose 5 %-0.45 % NaCl 1,000 ML IV SCH ×3 (06:35→21:29)
[2017-11-26] MEDS: MEROPENEM 1 GM/50 ML 1 GM in Premix Bag 1 BAG IVPB SCH ×4 (09:17→21:27)
[2017-11-26] MEDS: Docusate 100 MG CAP PO SCH ×2 (09:18→20:35)
[2017-11-26] MEDS: Folic Acid/Vit B Comp W-C PO SCH ×2 (09:19→15:21)
[2017-11-26] MEDS: Magnesium Oxide 400 MG TAB PO SCH ×3 (09:19→20:35)
[2017-11-26] MEDS: Heparin 5,000 UNITS/ML VIAL SC SCH ×3 (09:19→20:35)
--- NOTE | 2017-11-26 13:05 | PDOC.PN ---
- Subjective Encounter Start Date: 11/26/17 Encounter Start Time: 08:20 Pt seen for followup re: UTI. Denies chest pain or shortness of breath. Nursing staff report an episode of disorientation. - Objective Resuscitation Status: Resuscitation Status FULL:Full Resuscitation Vital Signs & Weight: Vital Signs (12 hours) Temp Pulse Resp BP BP Pulse Ox 11/26/17 11:43 97.7 F 87 16 145/102 H 100 11/26/17 08:00 97.9 F 84 18 134/101 H 11/26/17 07:45 97.9 F 84 18 181/101 H 93 L Weight Admit Weight 119 lb 0.794 oz Weight 119 lb 0.794 oz I&O: 11/25/17 11/26/17 11/27/17 06:59 06:59 06:59 Intake Total 2614 2960 Balance 2614 2960 Result Diagrams: 11/24/17 03:26 11/26/17 03:55 Additional Labs: Accuchecks 11/26/17 11/26/17 11/26/17 11:46 07:45 05:30 POC Glucose 104 110 114 H 11/25/17 11/25/17 20:58 16:36 POC Glucose 123 H 88 Phys Exam - Physical Examination Constitutional: NAD HEENT: moist MMs, sclera anicteric, oral pharynx no lesions, 2+ tonsils Neck: no nodes, no JVD, supple, full ROM Respiratory: no wheezing, no rales, no rhonchi, clear to auscultation bilateral Cardiovascular: RRR, no rub S1, S2 Gastrointestinal: soft, non-tender, no distention, positive bowel sounds Neurological: moves all 4 limbs Psychiatric: normal affect Deviation from normal: Oriented to person and place only, not to time Dx/Plan (1) UTI (urinary tract infection) Status: Acute Comment: E. coli resistant to levofloxacin, switch to meropenem. True infection vs. bacteria entering urinary tract via colovesical fistula. (2) [place]-vesical fistula Code(s): N32.1 - VESICOINTESTINAL FISTULA Status: Acute Comment: For colonoscopy today (3) Pneumaturia Code(s): R39.89 - OTHER SYMPTOMS AND SIGNS INVOLVING THE GENITOURINARY SYSTEM Status: Acute Comment: secondary to colovesical fistula. (4) Chronic alcohol abuse Code(s): F10.10 - ALCOHOL ABUSE, UNCOMPLICATED Status: Chronic Comment: Continue thiamine, Folate and multivitamins. Start ASE protocol. (5) Tobacco abuse Code(s): Z72.0 - TOBACCO USE Status: Chronic Comment: Continue nicotine replacement therapy (6) Moderate protein-calorie malnutrition Code(s): E44.0 - MODERATE PROTEIN-CALORIE MALNUTRITION Status: Chronic - Plan * . Review of Systems - Review of Systems Constitutional: negative: fever, chills, sweats, weakness, malaise Respiratory: negative: Cough, Shortness of Breath, SOB with Excertion, Pleuritic Pain, Wheezing Cardiovascular: negative: chest pain, palpitations, orthopnea, paroxysmal nocturnal dyspnea, edema, light headedness Gastrointestinal: negative: Nausea, Vomiting, Abdominal Pain, Diarrhea, Constipation, Melena, Hematochezia Genitourinary: Other (Pneumaturia). negative: Dysuria, Frequency, Incontinence , Hematuria, Retention - Medications/Allergies Allergies/Adverse Reactions: Allergies Allergy/AdvReac Type Severity Reaction Status Date / Time metaxalone [From Skelaxin] Allergy Verified 01/24/17 20:26 Medications: Current Medications Hydrocodone Bitart/Acetaminophen ([place] 5/325) 1 tab PO Q4H PRN PRN Reason: Severe Pain (7-10) Last Admin: 11/25/17 19:27 Dose: 1 tab Albuterol/Ipratropium (Duoneb) 3 ml NEB Q4H PRN PRN Reason: SOB Docusate Sodium (Colace) 100 mg PO BID [facility] Last Admin: 11/26/17 09:18 Dose: Not Given Heparin Sodium (Porcine) (Heparin) 5,000 units SC TID [facility] Last Admin: 11/26/17 09:19 Dose: Not Given Dextrose/Sodium Chloride (D5 1/2 Ns) 1,000 mls @ 100 mls/hr IV .Q10H [facility] Last Admin: 11/26/17 06:35 Dose: Not Given Meropenem 1 gm/ Device 50 mls @ 100 mls/hr IVPB Q8HR [facility] Last Admin: 11/26/17 09:17 Dose: 50 mls Lorazepam (Ativan) 1 mg SLOW IVP Q4H PRN PRN Reason: Anxiety/Agitation Magnesium Hydroxide (Milk Of Magnesium) 30 ml PO DAILYPRN PRN PRN Reason: Constipation Magnesium Oxide (Magnesium Oxide) 400 mg PO BID [facility] Last Admin: 11/26/17 09:19 Dose: Not Given Morphine Sulfate (Morphine) 2 mg SLOW IVP Q4H PRN PRN Reason: Severe Pain (7-10) Nicotine (Nicoderm Patch) 21 mg TD Q24HR [facility] Last Admin: 11/25/17 19:29 Dose: 21 mg Ondansetron HCl (Zofran) 4 mg IVP Q6H PRN PRN Reason: Nausea/Vomiting Last Admin: 11/24/17 06:41 Dose: 4 mg Polyethylene Glycol/Electrolytes (Golytely) 4,000 ml PO ONE [facility] Stop: 11/26/17 16:01 Sodium Chloride (Flush - Normal Saline) 10 ml IVF Q12HR [facility] Last Admin: 11/26/17 09:18 Dose: Not Given Sodium Chloride (Flush - Normal Saline) 10 ml IVF PRN PRN PRN Reason: Saline Flush Thiamine HCl (Thiamine) 100 mg PO DAILY [facility] Last Admin: 11/26/17 09:19 Dose: Not Given Tramadol HCl (Ultram) 50 mg PO Q6H PRN PRN Reason: Moderate Pain (4-6) Vitamin B Complex/Vit C/Folic Acid (Nephro-Melissa Tablet) 1 tab PO DAILY [facility] Last Admin: 11/26/17 09:19 Dose: Not Given
[2017-11-26] MEDS ORDERED: Meropenem 1 GM in Sodium Chloride 0.9% 100 ML IVPB SCH (14:00)
--- NOTE | 2017-11-26 14:26 | OP ---
PREOPERATIVE DIAGNOSIS: Colovesical fistula. PROCEDURE IN DETAIL: After informed consent was obtained, the patient was placed in the left lateral decubitus position. Anesthesia was administered per the Anesthesia Department. Forward-viewing col onoscope was inserted into the rectum and passed to the hepatic flexure with much difficulty secondar y to a fixed colon. The scope was removed with difficulty again secondary to a fixed colon and sigmo id edema was noted. No signs of malignancy were seen. As previously mentioned, the colon was very t hick. The sigmoid colon was very fixed and difficult to transverse. Sigmoid diverticula were noted. In the proximal sigmoid, a pedunculated polyp was seen. This was unable to be removed secondary to the edema of fixed colon and multiple other factors. Incomplete colonoscopy to this hepatic flexure as previously mentioned. ASSESSMENT: 1. Sigmoid edema and fixed sigmoid colon. 2. Sigmoid diverticulosis coli. 3. Proximal sigmoid pedunculated polyp - unable to remove secondary to edema and fixed colon; this p olyp appears benign. 4. Incomplete colonoscopy to hepatic flexure. RECOMMENDATIONS: 1. Proceed with surgery. 2. Completion colonoscopy 8 weeks after surgery.
[2017-11-26] MEDS ORDERED: Lidocaine 1% PF 5 ML VIAL ONE (15:09)
[2017-11-26] MEDS ORDERED: PROPOFOL 200 MG/20 ML VIAL ONE (15:09)
[2017-11-26] MEDS: traMADol HCl 50 MG TAB PO PRN (19:40)
[2017-11-26] MEDS: Nicotine 21 MG PATCH TD SCH (19:43)
--- NOTE | 2017-11-26 20:03 | PRG ---
DATE OF SERVICE: 11/26/2017 CHIEF COMPLAINT: No new complaints. PHYSICAL EXAMINATION: VITAL SIGNS: Blood pressure 135/91, temperature 97.2, pulse 80, O2 sats 95%, and respiratory rate 16. GENERAL: Patient is awake and alert. He is in no distress at this time. Urine culture results E. coli resistant to ampicillin, ceftazidime, ceftriaxone , Cipro, gentamicin, Levaquin, and Bactrim. IMPRESSION: Status post colonoscopy today. No evidence of malignancy noted. Findings consistent with diverticulitis and associated enterovesical fistula as a result of diverticular disease. He is now on appropriate antibiotic therapy based on urine culture results and remains clinically stable without evidence of sepsis RECOMMENDATIONS: No new recommendations at this time. Will defer to General Surgery in regards to management of the enterovesical fistula. [facility]
[2017-11-26] MEDS: HYDROcodone/Acetaminophen 5/325 mg Tablet PO PRN (20:36)
[2017-11-27] MEDS: MEROPENEM 1 GM/50 ML 1 GM in Premix Bag 1 BAG IVPB SCH ×3 (05:07→21:15)
[2017-11-27 05:27] LABS: Hemoglobin 11.2 g/dL (14.0-18.0); Mean Corpuscular HGB CONC 33.7 g/dL (32.0-36.0); Mean Corpuscular Hemoglobin 35.3 pg (27.0-31.0); Mean Platelet Volume 8.1 fL (7.4-10.4); Platelet Count 194 thou/uL (130-400); RBC Distribution Width 14.2 % (11.5-14.5); Red Blood Cell (RBC) Count 3.17 mill/uL (4.70-6.10); White Blood Cell (WBC) Count 5.8 thou/uL (4.8-10.8)
[2017-11-27 05:32] LABS: ALT (SGPT) 26 U/L (8-55); AST (SGOT) 35 U/L (5-34); Albumin 2.8 g/dL (3.5-5.0); Alkaline Phosphatase 77 U/L (40-150); Anion Gap 11 mmol/L (10-20); BUN (Urea Nitrogen) Less than 4 mg/dL (8.9-20.6); Bilirubin, Total 0.6 mg/dL (0.2-1.2); Calc. Creatinine Clearance 125 mL/min (70-130); Calcium 8.3 mg/dL (7.8-10.44); Carbon Dioxide 27 mmol/L (22-29); Chloride 101 mmol/L (98-107); Estimated GFR-MDRD Greater than 90; Globulin 3.4 g/dL (2.4-3.5); Glucose 102 mg/dL (70-105); Protein, Total 6.2 g/dL (6.0-8.3); Sodium 136 mmol/L (136-145)
[2017-11-27 05:41] LABS: Potassium 2.8 mmol/L (3.5-5.1)
[2017-11-27 07:06] LABS: Magnesium 1.4 mg/dL (1.6-2.6)
[2017-11-27 07:10] LABS: Potassium 2.7 mmol/L (3.5-5.1)
[2017-11-27] MEDS: Potassium Chloride 20 MEQ TAB PO SCH ×2 (08:09→13:09)
[2017-11-27] MEDS: Docusate 100 MG CAP PO SCH ×2 (08:09→20:01)
[2017-11-27] MEDS: Folic Acid/Vit B Comp W-C PO SCH (08:09)
[2017-11-27] MEDS: Heparin 5,000 UNITS/ML VIAL SC SCH ×3 (08:10→20:01)
[2017-11-27] MEDS: Magnesium Oxide 400 MG TAB PO SCH ×2 (08:10→20:01)
[2017-11-27] MEDS: traMADol HCl 50 MG TAB PO PRN ×2 (08:18→17:45)
--- NOTE | 2017-11-27 10:16 | CON ---
DATE OF CONSULTATION: 11/27/2017 REQUESTING PHYSICIAN: Dr. Butler HISTORY OF PRESENT ILLNESS: This is a 52-year-old man with history of chronic alcoholism. The patient was admitted 4 days ago with acute pancreatitis and delirium tremens. He further gave a history of passing gas when he urinates. The patient reports chronic fatigue. Denies any hematochezia or melena. He reports significant weight loss which he attributes to anorexia as he has replaced his calorie intake with a half a gallon of whiskey, which he consumes per day. He has not had any colonoscopy prior to this admission. CT scan of the abdomen and pelvis was obtained 3 days ago, which revealed thickening of the sigmoid colonic wall with evidence of a colovesical fistula. The patient underwent attempted colonoscopy yesterday where diverticulosis coli was noted. There was significant edema involving the sigmoid colon and the endoscopist was unable to go beyond the hepatic flexure. Currently, the patient denies any abdominal pain. He does indeed confirm that when he urinates he passes gas through his penis. Denies any fevers or chills. PAST MEDICAL HISTORY: Pertinent for chronic pain syndrome. PAST SURGICAL HISTORY: He denies any previous surgeries to his abdomen or chest. He did have some surgery to his left shoulder in 1992. This has left him with chronic pain. SOCIAL HISTORY: He lives independently. He drinks half a gallon of whiskey per day and has done so for many years now. He smokes a pack and half of cigarettes per day and has done so for over 20 years. He denies any illicit drug abuse. FAMILY HISTORY: Notable for colon cancer in a grandfather. He denies any family history of diabetes mellitus, heart disease or essential hypertension. PREHOSPITAL MEDICATION: Includes Tylenol, which he had been taking for a couple weeks prior to admission. ALLERGIES: METAXALONE. REVIEW OF SYSTEMS: A 10 point review of systems essentially unremarkable except for as stated in past medical history and chief complaint. PHYSICAL EXAMINATION: GENERAL: This reveals a 52-year-old cachectic appearing man who is otherwise coherent and interactive and appears stated age. The patient is alert and oriented x3, appears to be in no acute distress at the time of my evaluation. VITAL SIGNS: Includes blood pressure 144/98, pulse is 78, respiratory rate is 20, temperature is 97.9 degrees Fahrenheit, oxygen saturation is 97% on room air. HEENT: Reveals normocephalic and atraumatic. Pupils equal, round, reactive to light and accommodation. Extraocular movements are intact bilaterally. No sclerae icterus present. HEART: Reveals regular rate and rhythm, no murmurs or gallops auscultated. LUNGS: Clear to auscultation bilaterally. Breathing regular and unlabored. ABDOMEN: Soft and scaphoid. He has no abdominal tenderness to palpation. Liver and spleen nonpalpable below costal margins. EXTREMITIES: Reveals 2+ radial and pedal pulses bilaterally. No ankle edema is present. NEUROLOGIC: Reveals no focal deficits present. PERTINENT LABORATORY DATA: Today includes a CBC which is stable with 5800 white blood cells today. Hemoglobin and hematocrit 11.2 and 33.2 respectively. Platelet count is 194,000. Metabolic profile: Sodium 136, potassium is 2.8, chloride is 101, bicarbonate is 27, BUN less than 4, creatinine 0.54, glucose 102. AST and ALT noted at 35 and 26 respectively. Total bilirubin normal at 0.6. I have personally reviewed the CT scan of the abdomen and pelvis obtained on 09/2017 which indeed does reveal thickening of the sigmoid colonic wall. There is a small collection of gas in the sigmoid colon wall right adjacent to the urinary bladder. There is also gas within the urinary bladder itself. IMPRESSION: 1. Acute on chronic diverticulitis. 2. Colovesical fistula secondary to chronic diverticulitis. RECOMMENDATIONS: 1. Complete a 2 week course of antibiotic therapy to treat the acute diverticulitis. 2. Following completion of the antibiotic therapy the patient will need a prepped colon, repeat colonoscopy to evaluate the remainder of the colon following which the patient will undergo elective sigmoidectomy with primary anastomosis, this should treat the colovesicular fistula. 3. There is no acute surgical indication for this patient at this time. An operative intervention right now will probably lead to a diverting colostomy which really could be avoided if the patient could be adequately prepped following completion of the antibiotic treatment. 4. Given the patient has a significant history of chronic alcoholism, I am recommending that that the patient be transferred to either a skilled facility unit or swing bed during the duration of the antibiotic treatment to avoid the temptation of return to alcoholism during the course of this treatment. The patient will be considering this approach. 5. Once the colonoscopy has been performed beyond the antibiotic treatment, the patient will be reevaluated for operative intervention. The patient indicates understanding of the information I have given him today. I have answered his questions. Thank you again, Dr. Butler for allowing me the opportunity to participate in the care of this patient. HARRISON
[2017-11-27] MEDS: Dextrose 5 %-0.45 % NaCl 1,000 ML IV SCH ×2 (13:10→21:15)
--- NOTE | 2017-11-27 13:48 | PDOC.PN ---
- Subjective Encounter Start Date: 11/27/17 Encounter Start Time: 13:47 Pt seen for followup re: UTI. More alert today. Denies chest pain, shortness of breath, fevers or chills. - Objective Resuscitation Status: Resuscitation Status FULL:Full Resuscitation MAR Reviewed: Yes Vital Signs & Weight: Vital Signs (12 hours) Temp Pulse Resp BP BP BP Pulse Ox 11/27/17 10:56 97.8 F 78 14 125/95 H 11/27/17 08:00 97.8 F 78 14 125/95 H 11/27/17 07:51 97.9 F 74 14 136/94 H 94 L 11/27/17 04:32 97.9 F 78 20 144/98 H 97 Weight Admit Weight 119 lb 0.794 oz Weight 119 lb 0.794 oz I&O: 11/26/17 11/27/17 11/28/17 06:59 06:59 06:59 Intake Total 2960 4060 Output Total 900 Balance 2960 3160 Result Diagrams: 11/27/17 04:01 11/27/17 06:49 Additional Labs: Accuchecks 11/27/17 11/27/17 11/26/17 10:59 04:41 20:28 POC Glucose 78 184 H 198 H 11/26/17 16:52 POC Glucose 134 H Labs reviewed by me Phys Exam - Physical Examination Constitutional: NAD HEENT: moist MMs, sclera anicteric, oral pharynx no lesions, 2+ tonsils Neck: no nodes, no JVD, supple, full ROM Respiratory: no wheezing, no rales, no rhonchi, clear to auscultation bilateral Cardiovascular: RRR, no rub Gastrointestinal: soft, non-tender, no distention, positive bowel sounds Neurological: moves all 4 limbs Psychiatric: normal affect Deviation from normal: Oriented to person and place, not to time Dx/Plan (1) UTI (urinary tract infection) Status: Acute Comment: True infection vs. bacteria entering urinary tract via colovesical fistula. Consult ID for opinion and help with management. (2) [place]-vesical fistula Code(s): N32.1 - VESICOINTESTINAL FISTULA Status: Acute Comment: d/w general surgery, plan to treat infection first (3) Pneumaturia Code(s): R39.89 - OTHER SYMPTOMS AND SIGNS INVOLVING THE GENITOURINARY SYSTEM Status: Acute Comment: secondary to colovesical fistula. (4) Chronic alcohol abuse Code(s): F10.10 - ALCOHOL ABUSE, UNCOMPLICATED Status: Chronic Comment: Continue ASE protocol. (5) Tobacco abuse Code(s): Z72.0 - TOBACCO USE Status: Chronic Comment: Continue nicotine replacement therapy (6) Moderate protein-calorie malnutrition Code(s): E44.0 - MODERATE PROTEIN-CALORIE MALNUTRITION Status: Chronic - Plan * . Review of Systems - Review of Systems Constitutional: negative: fever, chills, sweats, weakness, malaise Cardiovascular: negative: chest pain, palpitations, orthopnea, paroxysmal nocturnal dyspnea, edema, light headedness Gastrointestinal: negative: Nausea, Vomiting, Abdominal Pain, Diarrhea, Constipation, Melena, Hematochezia Genitourinary: Other (pneumaturia). negative: Dysuria, Frequency, Incontinence , Hematuria, Retention Skin: negative: Rash, Lesions, Ganga, Bruising Neurological: negative: Weakness, Numbness, Incoordination, Change in Speech, Confusion, Seizures - Medications/Allergies Allergies/Adverse Reactions: Allergies Allergy/AdvReac Type Severity Reaction Status Date / Time metaxalone [From Skelaxin] Allergy Verified 01/24/17 20:26 Medications: Current Medications Hydrocodone Bitart/Acetaminophen ([place] 5/325) 1 tab PO Q4H PRN PRN Reason: Severe Pain (7-10) Last Admin: 11/26/17 20:36 Dose: 1 tab Albuterol/Ipratropium (Duoneb) 3 ml NEB Q4H PRN PRN Reason: SOB Docusate Sodium (Colace) 100 mg PO BID [facility] Last Admin: 11/27/17 08:09 Dose: Not Given Heparin Sodium (Porcine) (Heparin) 5,000 units SC TID [facility] Last Admin: 11/27/17 08:10 Dose: 5,000 units Dextrose/Sodium Chloride (D5 1/2 Ns) 1,000 mls @ 100 mls/hr IV .Q10H [facility] Last Admin: 11/27/17 13:10 Dose: 1,000 mls Meropenem 1 gm/ Device 50 mls @ 100 mls/hr IVPB Q8HR [facility] Last Admin: 11/27/17 13:13 Dose: 50 mls Lorazepam (Ativan) 1 mg SLOW IVP Q4H PRN PRN Reason: Anxiety/Agitation Magnesium Hydroxide (Milk Of Magnesium) 30 ml PO DAILYPRN PRN PRN Reason: Constipation Magnesium Oxide (Magnesium Oxide) 400 mg PO BID [facility] Last Admin: 11/27/17 08:10 Dose: 400 mg Morphine Sulfate (Morphine) 2 mg SLOW IVP Q4H PRN PRN Reason: Severe Pain (7-10) Nicotine (Nicoderm Patch) 21 mg TD Q24HR [facility] Last Admin: 11/26/17 19:43 Dose: 21 mg Ondansetron HCl (Zofran) 4 mg IVP Q6H PRN PRN Reason: Nausea/Vomiting Last Admin: 11/24/17 06:41 Dose: 4 mg Sodium Chloride (Flush - Normal Saline) 10 ml IVF Q12HR [facility] Last Admin: 11/27/17 09:18 Dose: Not Given Sodium Chloride (Flush - Normal Saline) 10 ml IVF PRN PRN PRN Reason: Saline Flush Thiamine HCl (Thiamine) 100 mg PO DAILY [facility] Last Admin: 11/27/17 08:10 Dose: 100 mg Tramadol HCl (Ultram) 50 mg PO Q6H PRN PRN Reason: Moderate Pain (4-6) Last Admin: 11/27/17 08:18 Dose: 50 mg Vitamin B Complex/Vit C/Folic Acid (Nephro-Melissa Tablet) 1 tab PO DAILY [facility] Last Admin: 11/27/17 08:09 Dose: 1 tab
--- NOTE | 2017-11-27 19:53 | PRG ---
DATE OF SERVICE: 11/27/2017 SUBJECTIVE: Mr. Serrano had colonoscopy yesterday. He had basically an immobile colon with signs of intraabdominal fixation of the colon. There were chronic inflammatory changes in the sigmoid colon, which was difficult to traverse. There was also pedunculated polyp in his proximal sigmoid colon, wh ich is not able to be removed secondary to edema and the fixed nature of the colon. The colon could not be examined past the hepatic flexure. The patient today has no pain. He still has fistula sympt oms. He has got no fever. OBJECTIVE: VITAL SIGNS: Temperature is 97, pulse 78, blood pressure 125/95. CAT scan of the abdomen and pelvis again from 11/24/2017 showed moderate wall thickening in the sigmo id colon, similar to the CAT scan 3 months ago, there was some wall thickening there. There was a fi stula. There was no evidence of abscesses or fat stranding. ASSESSMENT: 1. Chronic diverticulitis. 2. Fixed sigmoid colon, unable to traverse to complete colonoscopy. 3. Proximal sigmoid colon polyp. RECOMMENDATIONS: 1. Surgery at Surgery's discretion. 2. Completion colonoscopy 8 weeks after surgical resection. At this time, we will sign off and follow from a distance. We will be happy to see him back once the surgery is complete.
[2017-11-27] MEDS: Nicotine 21 MG PATCH TD SCH (20:01)
[2017-11-28] MEDS: traMADol HCl 50 MG TAB PO PRN ×2 (04:00→21:00)
[2017-11-28] MEDS: MEROPENEM 1 GM/50 ML 1 GM in Premix Bag 1 BAG IVPB SCH ×3 (05:13→21:05)
[2017-11-28 05:15] LABS: ALT (SGPT) 29 U/L (8-55); AST (SGOT) 35 U/L (5-34); Albumin 3.1 g/dL (3.5-5.0); Alkaline Phosphatase 80 U/L (40-150); Anion Gap 11 mmol/L (10-20); BUN (Urea Nitrogen) 4 mg/dL (8.9-20.6); Bilirubin, Total 0.4 mg/dL (0.2-1.2); Calc. Creatinine Clearance 118 mL/min (70-130); Calcium 8.9 mg/dL (7.8-10.44); Carbon Dioxide 26 mmol/L (22-29); Chloride 104 mmol/L (98-107); Estimated GFR-MDRD Greater than 90; Globulin 3.7 g/dL (2.4-3.5); Glucose 122 mg/dL (70-105); Potassium 3.8 mmol/L (3.5-5.1); Protein, Total 6.8 g/dL (6.0-8.3); Sodium 137 mmol/L (136-145)
[2017-11-28] MEDS: Heparin 5,000 UNITS/ML VIAL SC SCH ×3 (08:10→21:04)
[2017-11-28] MEDS: Folic Acid/Vit B Comp W-C PO SCH (08:10)
[2017-11-28] MEDS: Magnesium Oxide 400 MG TAB PO SCH ×2 (08:10→21:04)
[2017-11-28] MEDS: Docusate 100 MG CAP PO SCH ×2 (08:10→21:04)
[2017-11-28] MEDS: Dextrose 5 %-0.45 % NaCl 1,000 ML IV SCH ×2 (08:12→21:11)
--- NOTE | 2017-11-28 11:18 | PRG ---
DATE OF SERVICE: 11/28/2017 Mr. Serrano is a 52-year-old man with a history of chronic diverticulitis and a colovesicular fistula. The patient has a significant history of chronic alcoholism. I discussed with him today the option of going to a skilled facility unit for a 2 week course of anti biotic therapy is not available to the patient due to funds. I am concerned that the patient wants to go home. He would certainly not be compliant with antibioti c therapy which ultimately will lead to an exploratory laparotomy and colostomy for failed treatment of a chronic diverticulitis. In this setting, I discussed with the patient this morning about michael vaughan with a sigmoidectomy with end colostomy and eventual reversal at 6 months. At time, he reports adequate pain control. He has no fevers or chills. He tolerates oral intake. H e does pass flatus. PHYSICAL EXAMINATION: VITAL SIGNS: Includes blood pressure 133/87, pulse 70, respiratory rate 14, maximum temperature in t he last 24 hours is 98 degrees Fahrenheit, oxygen saturation 97% on room air. HEART: Reveals regular rate and rhythm, no murmurs or gallops auscultated. CHEST: Clear to auscultation bilaterally. Breathing regular and unlabored. ABDOMEN: Soft and nondistended. Bowel sounds in all 4 quadrants appear normoactive. NEUROLOGIC: Reveals no focal deficits present. LABORATORY DATA: Today includes metabolic profile: Sodium 137, potassium 3.8, chloride is 104, bica rbonate is 26, BUN 4, creatinine 0.57, glucose is 122, AST and ALT noted at 35 and 29 respectively. IMPRESSION: 1. Acute on chronic diverticulitis. 2. Colovesicular fistula. PLAN: 1. Continue with antibiotic therapy. 2. Exploratory laparotomy, sigmoidectomy with end colostomy and closure of colovesicular fistula. I have made the patient aware that if this fistula is not mature, it is unlikely to be found, however , end colostomy will probably be adequate for ultimate fistula closure. The patient indicates understanding of the information given. I have advised him of the risk and hailey efits of the proposed surgery. Risks include, but not limited to bleeding, infection, injury to surr ounding structures. I will ask Urology to see patient for possible placement of a left ureteral stent prior to abdominal exploration. The patient indicates understanding of this information. I have answered his questions.
--- NOTE | 2017-11-28 13:42 | PDOC.PN ---
- Subjective Encounter Start Date: 11/28/17 Encounter Start Time: 08:40 Pt seen for followup re: UTI. Feels better, denies chest pain or fevers. Reports rectal spasm when urinating. - Objective Resuscitation Status: Resuscitation Status FULL:Full Resuscitation MAR Reviewed: Yes Vital Signs & Weight: Vital Signs (12 hours) Temp Pulse Resp BP BP Pulse Ox 11/28/17 08:00 98.0 F 70 14 133/87 97 11/28/17 04:00 97.8 F 72 18 149/94 H 97 Weight Admit Weight 119 lb 0.794 oz Weight 119 lb 0.794 oz I&O: 11/27/17 11/28/17 11/29/17 06:59 06:59 06:59 Intake Total 4060 2870 600 Output Total 900 500 Balance 3160 2370 600 Result Diagrams: 11/27/17 04:01 11/28/17 04:17 Additional Labs: Accuchecks 11/28/17 11/28/17 11/27/17 11:32 05:16 20:23 POC Glucose 89 179 H 148 H Labs reviewed by me Phys Exam - Physical Examination Constitutional: NAD HEENT: moist MMs, sclera anicteric, oral pharynx no lesions, 2+ tonsils Neck: no nodes, no JVD, supple, full ROM Respiratory: no wheezing, no rales, no rhonchi, clear to auscultation bilateral Cardiovascular: RRR, no significant murmur, no rub S1, S2 Gastrointestinal: soft, non-tender, no distention, positive bowel sounds Neurological: moves all 4 limbs Psychiatric: normal affect, A&O x 3 Dx/Plan (1) UTI (urinary tract infection) Status: Acute Comment: True infection vs. bacteria entering urinary tract via colovesical fistula. Continue antibiotics, await ID input. (2) [place]-vesical fistula Code(s): N32.1 - VESICOINTESTINAL FISTULA Status: Acute Comment: d/w general surgery, plan to treat infection first (3) Pneumaturia Code(s): R39.89 - OTHER SYMPTOMS AND SIGNS INVOLVING THE GENITOURINARY SYSTEM Status: Acute Comment: secondary to colovesical fistula. Plan to treat with IV antibiotics prior to surgery (4) Chronic alcohol abuse Code(s): F10.10 - ALCOHOL ABUSE, UNCOMPLICATED Status: Chronic Comment: Continue ASE protocol. (5) Tobacco abuse Code(s): Z72.0 - TOBACCO USE Status: Chronic Comment: On nicotine replacement therapy (6) Moderate protein-calorie malnutrition Code(s): E44.0 - MODERATE PROTEIN-CALORIE MALNUTRITION Status: Chronic - Plan * . Review of Systems - Review of Systems Constitutional: negative: fever, chills, sweats, weakness, malaise Respiratory: negative: Cough, Dry, Shortness of Breath, Hemoptysis, SOB with Excertion, Pleuritic Pain, Sputum, Wheezing Cardiovascular: other. negative: chest pain, palpitations, orthopnea, paroxysmal nocturnal dyspnea, edema, light headedness Gastrointestinal: negative: Nausea, Vomiting, Abdominal Pain, Diarrhea, Constipation, Melena, Hematochezia Genitourinary: Other (Rectal spasm with urination; pneumaturia) Skin: negative: Rash, Lesions, Ganga, Bruising - Medications/Allergies Allergies/Adverse Reactions: Allergies Allergy/AdvReac Type Severity Reaction Status Date / Time metaxalone [From Skelaxin] Allergy Verified 01/24/17 20:26 Medications: Current Medications Hydrocodone Bitart/Acetaminophen ([place] 5/325) 1 tab PO Q4H PRN PRN Reason: Severe Pain (7-10) Last Admin: 11/26/17 20:36 Dose: 1 tab Albuterol/Ipratropium (Duoneb) 3 ml NEB Q4H PRN PRN Reason: SOB Docusate Sodium (Colace) 100 mg PO BID [facility] Last Admin: 11/28/17 08:10 Dose: 100 mg Heparin Sodium (Porcine) (Heparin) 5,000 units SC TID [facility] Last Admin: 11/28/17 08:10 Dose: 5,000 units Dextrose/Sodium Chloride (D5 1/2 Ns) 1,000 mls @ 100 mls/hr IV .Q10H [facility] Last Admin: 11/28/17 08:12 Dose: 1,000 mls Meropenem 1 gm/ Device 50 mls @ 100 mls/hr IVPB Q8HR [facility] Last Admin: 11/28/17 05:13 Dose: 50 mls Lorazepam (Ativan) 1 mg SLOW IVP Q4H PRN PRN Reason: Anxiety/Agitation Magnesium Hydroxide (Milk Of Magnesium) 30 ml PO DAILYPRN PRN PRN Reason: Constipation Magnesium Oxide (Magnesium Oxide) 400 mg PO BID [facility] Last Admin: 11/28/17 08:10 Dose: 400 mg Morphine Sulfate (Morphine) 2 mg SLOW IVP Q4H PRN PRN Reason: Severe Pain (7-10) Nicotine (Nicoderm Patch) 21 mg TD Q24HR [facility] Last Admin: 11/27/17 20:01 Dose: 21 mg Ondansetron HCl (Zofran) 4 mg IVP Q6H PRN PRN Reason: Nausea/Vomiting Last Admin: 11/24/17 06:41 Dose: 4 mg Sodium Chloride (Flush - Normal Saline) 10 ml IVF Q12HR [facility] Last Admin: 11/28/17 08:15 Dose: Not Given Sodium Chloride (Flush - Normal Saline) 10 ml IVF PRN PRN PRN Reason: Saline Flush Thiamine HCl (Thiamine) 100 mg PO DAILY [facility] Last Admin: 11/28/17 08:10 Dose: 100 mg Tramadol HCl (Ultram) 50 mg PO Q6H PRN PRN Reason: Moderate Pain (4-6) Last Admin: 11/28/17 04:00 Dose: 50 mg Vitamin B Complex/Vit C/Folic Acid (Nephro-Melissa Tablet) 1 tab PO DAILY [facility] Last Admin: 11/28/17 08:10 Dose: 1 tab
--- NOTE | 2017-11-28 14:53 | EKG ---
Test Reason : Blood Pressure : / mmHG Vent. Rate : 087 BPM Atrial Rate : 087 BPM P-R Int : 186 ms QRS Dur : 084 ms QT Int : 466 ms P-R-T Axes : 088 132 059 degrees QTc Int : 560 ms Normal sinus rhythm Right axis deviation Anteroseptal infarct , age undetermined T wave abnormality, consider lateral ischemia Prolonged QT Abnormal ECG Confirmed by JUANITA BLAKE, GARRY ([id number]), scientific publications editor MAYDA ACHARYA ([id number]) on 11/28/2017 2:52:29 PM Referred By: Confirmed By:GARRY GRANT MD
[2017-11-28] MEDS: Nicotine 21 MG PATCH TD SCH (21:04)
--- NOTE | 2017-11-28 21:27 | CON ---
DATE OF CONSULTATION: 11/29/2017 REASON FOR CONSULTATION: Enterovesical fistula with cystitis. HISTORY OF PRESENT ILLNESS: Zach is a 52-year-old gentleman who has a history of alcoholism, malnu trition, and COPD with chronic smoking as well as chronic liver disease due to alcoholism, who presen annika on 11/23 with altered mental status and vomiting. He apparently has a chronic pain in the cervic al area, posterior aspect of shoulders. Reportedly drinks alcoholic beverages to alleviate the pain. He had discontinued drinking for the past 3-4 days before admission. There had been no reported he adaches, no visual symptoms, sore throat odynophagia, dysphagia. No vomiting, no bleeding, no dyspne a, or cough. No abdominal pain until the past 2 days. Now every time, he has a bowel movement. He complains of cramps in the anorectal area. Every time he voids, he also has cramps in the lower abdo lidya anorectal area. PAST MEDICAL HISTORY: Alcoholism, chronic back pain and shoulder pain. PAST SURGICAL HISTORY: Some form of shoulder surgery probably arthroscopy. FAMILY HISTORY: Noncontributory. ALLERGIES: METAXALONE. 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 Lives in [place], by himself, still smoking and still dri nking heavily. No IV drug use history. CURRENT MEDICATIONS: [place], DuoNeb, Colace, heparin, Ativan, magnesium, meropenem, morphine, thiamin e, vitamin D. PHYSICAL EXAMINATION: VITAL SIGNS: T-max 98, blood pressure 130/87, pulse 70, respirations 14, O2 sat 97%. GENERAL: Appears chronically ill, but in no acute distress. SKIN: Few areas of excoriation in the upper anterior chest area quite superficial. Some bruising in the forearm and there is a round shaped area of superficial ulceration measuring about [address] with granulation based and an area of cellulitis surrounding this site. There is an irregular ul cer is smaller than this initial one immediately lower to this to the right side more to the midline in this lumbosacral skin area. No lymphadenopathy. Quite significant maceration. Temporal wasting noted. Quite a bit of muscle wasting in the upper and lower extremities. No lymphadenopathy. HEENT: Ocular movements conjugate. Conjunctivae are somewhat pale. Nasal passages are patent. Ora l cavity with still quite a few teeth in place with some decay and gum disease. No thrush. NECK: Supple. No jugular vein distention, no carotid bruits. LUNGS: Symmetric clear breath sounds. HEART: S1, S2, without murmurs. No S3, S4. Left shoulder is tender to range of motion. No swellin g or erythema. ABDOMEN: Soft, not distended, or tender. No ascites. No bladder distention, no organomegaly. GENITOURINARY: Genital examination was normal. EXTREMITIES: No joint inflammatory activity noted. Pulses 1+ in dorsalis pedis. NEUROLOGIC: Plantar responses are flexure. No clonus. Cognitive function: The patient is awake, k nows his name, knows where he is. Follows commands. Recollection: Seems to be intact. LABORATORY DATA: WBC count 5.5 and now 5.8, hemoglobin 11, MCV 105, platelets 194, normal differenti al. Sodium 137, creatinine 0.57. AST 35, ALT 29, alkaline phosphatase 80, albumin 3.1. Urinalysis greater than 50 wbc's. Plasma alcohol level on the admission was 338 and reports include an abdomen and pelvis CT scan from 11/24/2017 showed moderate wall thickening of the sigmoid colon. Some asymme tric wall thickening and air within bladder. Diverticular changes in the area and outpouching of bar ium probably related to diverticulum directly adjacent to the base of the bladder, fatty liver change s in the liver. E. coli identified from urine culture with resistant profile susceptible only to ab openem, nitrofurantoin, and Zosyn, which has basically had an ESBL phenotype. A C. diff antigen toxi n showed antigen positive, but no toxigenic C. diff identified by PCR. ASSESSMENT AND DISCUSSION: 1. Malnutrition secondary to alcoholism. 2. Colovesical fistula with cystitis. DISCUSSION: Patient will need PICC line placement and continuation of meropenem and then transitione d to Invanz for outpatient management. Patient is eligible for repair of the fistula or will be elig ible once his nutritional status improved and infection is treated. Evidently as long as the coloves ical fistula remains, he is liable to become colonized by resistant pathogen associated with antimicr obial therapy administration. Therefore, I would not wait too long before repairing this communicati on.
[2017-11-29] MEDS: Dextrose 5 %-0.45 % NaCl 1,000 ML IV SCH ×2 (04:00→16:54)
[2017-11-29 05:07] LABS: ALT (SGPT) 23 U/L (8-55); AST (SGOT) 25 U/L (5-34); Albumin 2.7 g/dL (3.5-5.0); Alkaline Phosphatase 68 U/L (40-150); Anion Gap 8 mmol/L (10-20); BUN (Urea Nitrogen) 5 mg/dL (8.9-20.6); Bilirubin, Total 0.3 mg/dL (0.2-1.2); Calc. Creatinine Clearance 135 mL/min (70-130); Calcium 8.1 mg/dL (7.8-10.44); Carbon Dioxide 28 mmol/L (22-29); Chloride 103 mmol/L (98-107); Estimated GFR-MDRD Greater than 90; Globulin 3.1 g/dL (2.4-3.5); Glucose 87 mg/dL (70-105); Protein, Total 5.8 g/dL (6.0-8.3); Sodium 136 mmol/L (136-145)
[2017-11-29] MEDS: MEROPENEM 1 GM/50 ML 1 GM in Premix Bag 1 BAG IVPB SCH ×3 (05:35→22:30)
[2017-11-29] MEDS ORDERED: Iothalamate Meglumine 60% 50 ML VIAL FS ONE (06:47)
[2017-11-29] MEDS ORDERED: HYDROmorphone 0.5 MG/0.5 ML SYRINGE ONE (07:22)
[2017-11-29] MEDS ORDERED: Fentanyl 100 MCG/2 ML VIAL ONE (07:22)
[2017-11-29] MEDS ORDERED: CEFAZOLIN/Water 2 GM/20 ML SYRINGE ONE (07:33)
[2017-11-29] MEDS: Docusate 100 MG CAP PO SCH ×2 (08:20→19:58)
[2017-11-29] MEDS: Magnesium Oxide 400 MG TAB PO SCH ×2 (08:20→19:58)
[2017-11-29] MEDS: Folic Acid/Vit B Comp W-C PO SCH (08:20)
[2017-11-29] MEDS: Heparin 5,000 UNITS/ML VIAL SC SCH (08:30)
[2017-11-29] MEDS ORDERED: Ondansetron HCl/PF 4 MG/2 ML Vial IVP PRN ×3 (11:40→12:16)
[2017-11-29] MEDS ORDERED: Promethazine HCl 25 MG/ML VIAL IM PRN ×2 (11:40→12:14)
[2017-11-29] MEDS ORDERED: Promethazine HCl 25 MG/ML VIAL SLOW IVP PRN (11:40)
[2017-11-29] MEDS ORDERED: Midazolam HCl 2 mg/2 ml Vial SLOW IVP PRN (11:40)
[2017-11-29] MEDS ORDERED: HYDROmorphone 2 MG/ML VIAL SLOW IVP PRN (11:40)
[2017-11-29] MEDS ORDERED: Zolpidem Tartrate 5 MG TAB PO PRN (12:14)
[2017-11-29] MEDS ORDERED: Ketorolac Tromethamine 30 MG/ML VIAL IVP PRN (12:14)
[2017-11-29] MEDS ORDERED: diphenhydrAMINE 50 MG/ML VIAL IVP PRN (12:14)
[2017-11-29] MEDS ORDERED: Naloxone HCl 0.4 mg/ml Vial IV PRN (12:14)
[2017-11-29] MEDS ORDERED: diphenhydrAMINE 25 MG CAP PO PRN (12:14)
[2017-11-29] MEDS ORDERED: diphenhydrAMINE 50 MG/ML VIAL IM PRN ×2 (12:14→12:16)
[2017-11-29] MEDS ORDERED: Communication Order-Pharmacy FS SCH ×2 (12:15→12:30)
--- NOTE | 2017-11-29 12:46 | RAD ---
ABDOMEN 1 VIEW: HISTORY: Feeding tube placement. FINDINGS: Visualized bowel gas pattern is nonspecific. Circular device over the left abdomen has the appearanc e of an ostomy appliance. Opaque tube is coiled within the stomach with metallic tip overlying the expected location of the gas tric body lesser curvature. Prominent arterial calcification. Osseous structures are demineralized. IMPRESSION: 1. Metallic tip of Dobbhoff feeding catheter overlies the gastric body. 2. Osteoporosis. 3. Atherosclerosis. POS: TOM
--- NOTE | 2017-11-29 13:27 | OP ---
DATE OF PROCEDURE: 11/29/2017, on behalf of Dr. Elder PREOPERATIVE DIAGNOSIS: Diverticulitis with colovesical fistula. POSTOPERATIVE DIAGNOSIS: Diverticulitis with colovesical fistula. PROCEDURE: Cystoscopy, insertion of a left external ureteral stent. SURGEON: Izzy Murillo M.D. ANESTHESIA: General with ET tube. FINDINGS: Inflammatory changes in the trigone, left greater than right, consistent with existing colovesical fistula, otherwise the bladder was within normal limits, and the prostate did not appear to be obstructing. SPECIMEN: None. DRAINS REMAINING: External ureteral stent and 20 Macedonian Castro. COMPLICATIONS: No complications. ESTIMATED BLOOD LOSS: No blood loss. INDICATIONS: The patient is a 52-year-old male, who was seen by Dr. Elder previously as a consultation, but I was consulted by Dr. Camarena since he was taking him to the OR on the weekend that I am on-call--in order to help with placement of a ureteral stent in anticipation of bowel surgery. TECHNIQUE: The patient was brought into the room by Anesthesia, laid on the table in supine position. After receiving general anesthetic, his legs placed in lithotomy position, and his perineum was prepped and draped in sterile fashion. Using a 22-Macedonian cystoscope and 30-degree lens, the urethra was traversed and the bladder inspected. There were no lesions noted; however, there was significant inflammatory reaction in the trigone, left greater than right, consistent with a known history of colovesical fistula. The left ureteral orifice was identified and attempted intubation with the Pollack catheter, but required a wire. So, wire was easily placed into the UO and the Pollack catheter advanced over the wire. The wire was removed. Pollack catheter advanced as far as how the scope would allow and then care was taken to break open the scope hanging on to the ureteral stent, drained the bladder, and carefully removed the scope, leaving the ureteral stent in place. Then, a 20 Macedonian Castro was placed, again keeping the ureteral stent in place. Castro catheter was then pulled out, not on tension, so that it could be secured to the ureteral stent with the stent being inserted into the base of the Castro so they could all drain into one bag. Silk ties were used to secure the ureteral stent to the urethral Castro and then it was placed to drainage bag. The patient tolerated the procedure well and the rest of the procedure will be dictated by Dr. Camarena. HARRISON
[2017-11-29] MEDS: HYDROmorphone 10 mg/100 ml CADD IVPB PRN (13:40)
--- NOTE | 2017-11-29 14:31 | PDOC.PN ---
- Subjective Encounter Start Date: 11/29/17 Encounter Start Time: 14:28 Pt seen for followup re: UTI. Sleepy but arousable, not answering questions. Unable to complete ROS. - Objective Resuscitation Status: Resuscitation Status FULL:Full Resuscitation MAR Reviewed: Yes Vital Signs & Weight: Vital Signs (12 hours) Temp Pulse Resp BP BP Pulse Ox 11/29/17 07:20 133/96 H 11/29/17 07:15 97.7 F 87 16 133/96 H 100 11/29/17 05:00 97.7 F 75 17 138/88 138/88 96 Weight Admit Weight 119 lb 0.794 oz Weight 119 lb 0.794 oz I&O: 11/28/17 11/29/17 11/30/17 06:59 06:59 06:59 Intake Total 2870 2800 Output Total 500 Balance 2370 2800 Result Diagrams: 11/27/17 04:01 11/29/17 04:21 Additional Labs: Accuchecks 11/29/17 11/28/17 04:57 20:26 POC Glucose 96 104 Labs reviewed by me Phys Exam - Physical Examination HEENT: moist MMs, sclera anicteric, oral pharynx no lesions, 2+ tonsils Respiratory: no wheezing, no rales, no rhonchi, clear to auscultation bilateral Cardiovascular: RRR, no rub S1, S2 Gastrointestinal: soft, non-tender, positive bowel sounds LLQ ostomy+ Neurological: moves all 4 limbs Psychiatric: normal affect Deviation from normal: Oriented to person, unable to assess orientation to place or time Dx/Plan (1) UTI (urinary tract infection) Status: Acute Comment: continue meropenem IV (2) [place]-vesical fistula Code(s): N32.1 - VESICOINTESTINAL FISTULA Status: Acute Comment: s/p ureteric stent and colostomy, pt is now on surgical floor (3) Pneumaturia Code(s): R39.89 - OTHER SYMPTOMS AND SIGNS INVOLVING THE GENITOURINARY SYSTEM Status: Acute Comment: s/p surgery as above (4) Chronic alcohol abuse Code(s): F10.10 - ALCOHOL ABUSE, UNCOMPLICATED Status: Chronic Comment: Continue ASE protocol. (5) Tobacco abuse Code(s): Z72.0 - TOBACCO USE Status: Chronic Comment: continue nicotine replacement therapy (6) Moderate protein-calorie malnutrition Code(s): E44.0 - MODERATE PROTEIN-CALORIE MALNUTRITION Status: Chronic Comment: dietitian following - Plan * . Review of Systems - Medications/Allergies Allergies/Adverse Reactions: Allergies Allergy/AdvReac Type Severity Reaction Status Date / Time metaxalone [From Skelaxin] Allergy Verified 01/24/17 20:26 Medications: Current Medications Albuterol/Ipratropium (Duoneb) 3 ml NEB Q4H PRN PRN Reason: SOB Diphenhydramine HCl (Benadryl) 25 mg IVP Q3H PRN PRN Reason: Itching Diphenhydramine HCl (Benadryl) 25 mg PO Q3H PRN PRN Reason: Itching Diphenhydramine HCl (Benadryl) 25 mg IM Q3H PRN PRN Reason: Itching Docusate Sodium (Colace) 100 mg PO BID [facility] Last Admin: 11/29/17 08:20 Dose: Not Given Enoxaparin Sodium (Lovenox) 40 mg SC 09 [facility] Fentanyl (Pacu-Sublimaze) 50 mcg SLOW IVP Q10MIN PRN PRN Reason: Moderate to Severe Pain (6-10) Stop: 11/29/17 14:40 Hydromorphone HCl (Pacu-Dilaudid) 0.5 mg SLOW IVP Q10MIN PRN PRN Reason: Moderate to Severe Pain (6-10) Stop: 11/29/17 14:40 Hydromorphone HCl (Dilaudid Cadd) 0 mg IVPB INF PRN PRN Reason: Pain Last Admin: 11/29/17 13:40 Dose: 10 mg Dextrose/Sodium Chloride (D5 1/2 Ns) 1,000 mls @ 100 mls/hr IV .Q10H [facility] Last Admin: 11/29/17 04:00 Dose: 1,000 mls Meropenem 1 gm/ Device 50 mls @ 100 mls/hr IVPB Q8HR [facility] Last Admin: 11/29/17 05:35 Dose: 50 mls Ketorolac Tromethamine (Toradol) 30 mg IVP Q6H PRN PRN Reason: Moderate Pain (4-6) Stop: 12/02/17 12:15 Magnesium Hydroxide (Milk Of Magnesium) 30 ml PO DAILYPRN PRN PRN Reason: Constipation Magnesium Oxide (Magnesium Oxide) 400 mg PO BID [facility] Last Admin: 11/29/17 08:20 Dose: Not Given Miscellaneous Information (Communication Order-Pharmacy) 1 each FS ASDIR [facility] Morphine Sulfate (Pacu-Morphine Sulfate) 4 mg SLOW IVP ONE PRN PRN Reason: Moderate to Severe Pain (6-10) Stop: 11/29/17 14:40 Naloxone HCl (Narcan) 0.2 mg IV Q5MIN PRN PRN Reason: Opiate Reversal Nicotine (Nicoderm Patch) 21 mg TD Q24HR [facility] Last Admin: 11/28/17 21:04 Dose: 21 mg Ondansetron HCl (Pacu-Zofran) 4 mg IVP ONE PRN PRN Reason: Nausea/Vomiting Stop: 11/29/17 14:40 Ondansetron HCl (Zofran) 4 mg IVP Q6H PRN PRN Reason: Nausea/Vomiting Promethazine HCl (Pacu-Phenergan) 6.25 mg SLOW IVP ONE PRN PRN Reason: Nausea/Vomiting Stop: 11/29/17 14:40 Promethazine HCl (Pacu-Phenergan) 6.25 mg IM ONE PRN PRN Reason: Nausea/Vomiting Stop: 11/29/17 14:40 Promethazine HCl (Phenergan) 12.5 mg IM Q4H PRN PRN Reason: Nausea/Vomiting Sodium Chloride (Flush - Normal Saline) 10 ml IVF Q12HR [facility] Last Admin: 11/29/17 08:30 Dose: Not Given Sodium Chloride (Flush - Normal Saline) 10 ml IVF PRN PRN PRN Reason: Saline Flush Thiamine HCl (Thiamine) 100 mg PO DAILY [facility] Last Admin: 11/29/17 08:20 Dose: Not Given Vitamin B Complex/Vit C/Folic Acid (Nephro-Melissa Tablet) 1 tab PO DAILY [facility] Last Admin: 11/29/17 08:20 Dose: Not Given Zolpidem Tartrate (Ambien) 5 mg PO HSPRN PRN PRN Reason: Insomnia
--- NOTE | 2017-11-29 14:52 | OP ---
DATE OF OPERATION: 11/29/2017 PREOPERATIVE DIAGNOSES: 1. Chronic sigmoid colon diverticulitis. 2. Colovesicular fistula. POSTOPERATIVE DIAGNOSES: 1. Chronic sigmoid colon diverticulitis. 2. Colovesicular fistula. OPERATIONS PERFORMED: 1. Exploratory laparotomy. 2. Sigmoidectomy. 3. Closure of colovesicular fistula. 4. End-colostomy. 5. Placement of feeding nasojejunal tube. SURGEON: Marquise Camarena D.O. ANESTHESIA: General endotracheal. ESTIMATED BLOOD LOSS: 50 mL FLUIDS GIVEN: 1800 mL crystalloids. SPONGE AND INSTRUMENT COUNT: Certified as correct x2. COMPLICATIONS: None apparent. INDICATIONS FOR PROCEDURE: This is a 52-year-old man with history of chronic alcoholism. The patient presented with abdominal pain. Clinical radiographic examination was consistent with acute on chronic diverticulitis for which patie nt has been on antibiotics. CT scan of the abdomen and pelvis also revealed a colovesicular fistula. The patient was brought to the operating room today for sigmoidectomy and closure of the colovesicula r fistula. DESCRIPTION OF PROCEDURE: Following informed consent, the patient was brought to the operating room and placed in supine position. General anesthesia was initiated by Anesthesia Department. Following this, cystoscopy and placement of a left ureteral stent was accomplished by Dr. Murillo with Urology Department. Following this, patient was placed in a supine position. The abdomen was then sterilely prepped and draped in the usual fashion. A Castro catheter was placed to bedside drain. A midline incision was made using a #10 scalpel. Incision was carried through subcutaneous tissues luly ntaining hemostasis using thermocautery. Fascia incised in midline exposing the peritoneum beneath w hich was grasped x2 with hemostats. The peritoneal cavity was sharply entered using Metzenbaum sciss ors. Incision was then extended through superiorly and inferiorly. Bookwalter retractor was put in place to gain exposure. Extensive adhesiolysis was accomplished using Metzenbaum scissors. The adhe sions involved small and large bowel. Care was taken to avoid enterotomies. The small bowel was then mobilized upwards impact of using a large malleable retractor. The sigmoid colon was then mobilized along the white line of Toldt down to the pelvis which was sucke d in. Care was taken to mobilize the sigmoid colon off the urinary bladder. We stayed out of the re troperitoneum. Care was taken to avoid injuries to the left ureter specifically speaking. We contin ued our dissection down to the deep pelvis identifying the much colovesicular fistula. This was then divided between clamps. The stump at the posterior superior dome of the bladder was closed using pu rsestring suture of 2-0 silk. This was then imbricated with another layer of 3-0 silk suture in Lemb ert fashion. We then continued dissection distal to the side of the colon vesicular fistula. Normal colorectal junction was then identified in this area. Next, we created a rent through the mes orectum through which a contour stapler was then introduced and bowel was divided. We then mobilized the left colon upwards along the white line of Toldt, taken down the splenic flexure with Metzenbaum scissors, ensuring good hemostasis. I then created a rent in the proximal sigmoid colon approximate ly 4 cm proximal to the involved chronic diverticular disease. Through this again the contour stapler was then introduced and the bowel was divided. Mesentery of t he specimen were sterilely divided using LigaSure device with good hemostasis. There was a sigmoid c olon specimen was passed off of the operative field forward transmission to pathology. Abdominal cav ity was copiously irrigated with saline. At this juncture, a feeding nasojejunal tube was inserted b y Anesthesia, tip of which was palpated myself within the gastric lumen. I then manipulated tip of t his catheter into proximal small bowel without resistance. FINDINGS: No other pathology at this juncture, we then decided to proceed with the colostomy. A cone incision was made in the left lower quadrant of the anterior abdomen using a #10 scalpel. Inc ision was carried through subcutaneous tissues using cautery achieving hemostasis down to the level o f the fascia. A crucifix incision was made here using cautery. The core defect was dilated to 2 fingerbreadths. Gorham forceps was introduced through this graspin g the staple end of the descending colon which was pulled through and secured within the abdominal ca vity using stay sutures of 3-0 silk at 3 points. At this juncture, all sponges and instruments were removed and accounted for. Small bowel was returned to normal anatomic location. Omentum was drawn over the remainder of the viscera. Fascia was approximated in the midline using a running stitch of #1 single stranded PDS. Subcutaneous tissues irrigated clear with saline solution, perfected hemosta sis using thermocautery. Skin was closed using a running stitch of 3-0 Monocryl suture in subcuticul ar fashion. Dermabond was applied over the incision. We then turned our attention to the colostomy site. The staple end of the descending colon was excised and a functional Charo colostomy is perfec annika using interrupted sutures of 2-0 chromic. Ostomy appliance was put in place. The patient tolera annika the operation without any apparent complication and was returned to the recovery room in satisfac tory condition.
[2017-11-29] MEDS ORDERED: ePHEDrine/0.9% NaCl/PF SYRINGE 50 mg/10 ml ONE (18:11)
[2017-11-29] MEDS ORDERED: PHENYLEPHRINE-NS 100 MCG/ML 10 ML SYRINGE ONE (18:11)
[2017-11-29] MEDS ORDERED: Glycopyrrolate 0.2 MG/ML 5 ML SYRINGE ONE (18:11)
[2017-11-29] MEDS ORDERED: PROPOFOL 200 MG/20 ML VIAL ONE (18:11)
[2017-11-29] MEDS ORDERED: Lidocaine 1% PF 5 ML VIAL ONE (18:11)
[2017-11-29] MEDS ORDERED: Ondansetron HCl/PF 4 MG/2 ML Vial ONE (18:11)
[2017-11-29] MEDS ORDERED: Dexamethasone 20 MG/5 ML VIAL ONE (18:11)
[2017-11-29] MEDS: Nicotine 21 MG PATCH TD SCH (22:31)
[2017-11-30] MEDS: Dextrose 5 %-0.45 % NaCl 1,000 ML IV SCH ×3 (01:20→22:18)
[2017-11-30 04:53] LABS: Hemoglobin 10.1 g/dL (14.0-18.0); Mean Corpuscular HGB CONC 32.4 g/dL (32.0-36.0); Mean Corpuscular Hemoglobin 35.2 pg (27.0-31.0); Mean Platelet Volume 7.2 fL (7.4-10.4); Platelet Count 318 thou/uL (130-400); RBC Distribution Width 13.9 % (11.5-14.5); Red Blood Cell (RBC) Count 2.88 mill/uL (4.70-6.10); White Blood Cell (WBC) Count 8.4 thou/uL (4.8-10.8)
[2017-11-30 05:23] LABS: ALT (SGPT) 22 U/L (8-55); AST (SGOT) 32 U/L (5-34); Albumin 2.5 g/dL (3.5-5.0); Alkaline Phosphatase 65 U/L (40-150); Anion Gap 10 mmol/L (10-20); BUN (Urea Nitrogen) 6 mg/dL (8.9-20.6); Bilirubin, Total 0.4 mg/dL (0.2-1.2); Calc. Creatinine Clearance 125 mL/min (70-130); Carbon Dioxide 28 mmol/L (22-29); Chloride 100 mmol/L (98-107); Estimated GFR-MDRD Greater than 90; Globulin 3.1 g/dL (2.4-3.5); Glucose 115 mg/dL (70-105); Potassium 4.1 mmol/L (3.5-5.1); Protein, Total 5.6 g/dL (6.0-8.3); Sodium 134 mmol/L (136-145)
[2017-11-30] MEDS: MEROPENEM 1 GM/50 ML 1 GM in Premix Bag 1 BAG IVPB SCH ×3 (06:40→22:17)
[2017-11-30] MEDS: Folic Acid/Vit B Comp W-C PO SCH (08:31)
[2017-11-30] MEDS: Magnesium Oxide 400 MG TAB PO SCH ×2 (08:31→22:43)
[2017-11-30] MEDS: Enoxaparin Sodium 40 MG/0.4 ML SYRINGE SC SCH (08:31)
[2017-11-30] MEDS: Docusate 100 MG CAP PO SCH ×2 (08:31→22:43)
[2017-11-30] MEDS: Pantoprazole 40 MG VIAL IVP SCH (09:39)
[2017-11-30] MEDS: Ketorolac Tromethamine 30 MG/ML VIAL IVP SCH ×3 (09:40→22:18)
--- NOTE | 2017-11-30 11:44 | PRG ---
DATE OF SERVICE: 11/30/2017 SUBJECTIVE: Mr. Serrano is a 52-year-old man who is postop day #1 today status post Becky's proced ure as well as a closure of a colovesicular fistula. The patient reports a 7/10 incisional pain this morning. He was not using his TOBACCO ROLLER effectively. He denies any nausea. He is having adequate urinar y output. OBJECTIVE: VITAL SIGNS: This morning includes blood pressure 146/92, pulse 69, respiratory rate 16, temperature 97.9 degrees Fahrenheit, oxygen saturation 99% on room air. HEENT: Reveals normocephalic and atraumatic. HEART: Reveals regular rate and rhythm, no murmurs or gallops auscultated. CHEST: Lungs clear to auscultation bilaterally. Breathing is regular and unlabored. ABDOMEN: Soft and nondistended. Incision is intact, clean, and dry. Colostomy is viable and edemat ous. He has no gross rebound tenderness on abdominal examination. EXTREMITIES: Reveals 2+ radial and pedal pulses bilaterally. No ankle edema is present. NEUROLOGIC: Reveals no focal deficits present. LABORATORY DATA: Today includes a stable CBC with 8400 white blood cells, hemoglobin and hematocrit 10.1 and 31.2 respectively. Platelet count 318,000. Metabolic profile: Sodium 134, potassium is 4. 1, chloride is 100, bicarbonate is 28, BUN 6, creatinine 0.54, and glucose is 115. IMPRESSION: Postoperative day #1 status post Becky's procedure as well as closure of a colovesicu lar fistula. The patient is hemodynamically stable. PLAN: 1. Optimize pain management. Increase activity as tolerated. 2. Continue with trophic level. Tube feeds until return of bowel function. Above findings and plan discussed with the patient who indicates understanding of information given. I answered his questions.
[2017-11-30] MEDS: traMADol HCl 50 MG TAB PO SCH ×2 (11:57→17:37)
--- NOTE | 2017-11-30 12:52 | PDOC.PN ---
- Subjective Encounter Start Date: 11/30/17 Encounter Start Time: 09:00 Pt seen for followup re: UTI. feels better. Denies chest pain, shortness of breath, fevers or chills. - Objective Resuscitation Status: Resuscitation Status FULL:Full Resuscitation MAR Reviewed: Yes Vital Signs & Weight: Vital Signs (12 hours) Temp Pulse Resp BP BP BP Pulse Ox 11/30/17 11:47 98.1 F 66 16 114/78 93 L 11/30/17 08:40 97.9 F 69 16 146/92 H 99 11/30/17 08:00 97.9 F 69 16 146/92 H 99 11/30/17 03:36 98 F 69 17 136/88 99 Weight Admit Weight 119 lb 0.794 oz Weight 119 lb 0.794 oz I&O: 11/29/17 11/30/17 12/01/17 06:59 06:59 06:59 Intake Total 2800 500 1640 Output Total 600 1150 Balance 2800 -100 490 Result Diagrams: 11/30/17 04:22 11/30/17 04:22 Additional Labs: Accuchecks 11/30/17 11/28/17 11/27/17 12:09 17:06 17:16 POC Glucose 108 96 116 H Labs reviewed by me Phys Exam - Physical Examination Malnourished HEENT: moist MMs, sclera anicteric, oral pharynx no lesions, 2+ tonsils NG tube Neck: no nodes, no JVD, supple, full ROM Respiratory: no wheezing, no rales, no rhonchi, clear to auscultation bilateral Cardiovascular: RRR, no rub S1, s2 Gastrointestinal: soft, no distention, positive bowel sounds ostomy+, surgical site is clean Musculoskeletal: pulses present Neurological: moves all 4 limbs Psychiatric: normal affect Dx/Plan (1) UTI (urinary tract infection) Status: Acute Comment: continue meropenem IV (2) [place]-vesical fistula Code(s): N32.1 - VESICOINTESTINAL FISTULA Status: Acute Comment: s/p ureteric stent and colostomy, pt clinically improving (3) Pneumaturia Code(s): R39.89 - OTHER SYMPTOMS AND SIGNS INVOLVING THE GENITOURINARY SYSTEM Status: Acute Comment: s/p ureteric stent (4) Chronic alcohol abuse Code(s): F10.10 - ALCOHOL ABUSE, UNCOMPLICATED Status: Chronic Comment: Continue ASE protocol. (5) Tobacco abuse Code(s): Z72.0 - TOBACCO USE Status: Chronic Comment: continue nicotine replacement therapy (6) Moderate protein-calorie malnutrition Code(s): E44.0 - MODERATE PROTEIN-CALORIE MALNUTRITION Status: Chronic Comment: dietitian following - Plan continue antibiotics * . Pt currently NPO Review of Systems - Review of Systems Constitutional: negative: fever, chills, sweats, weakness, malaise Respiratory: negative: Cough, Shortness of Breath, SOB with Excertion, Sputum, Wheezing Cardiovascular: negative: chest pain, palpitations, orthopnea, paroxysmal nocturnal dyspnea, edema, light headedness Gastrointestinal: Abdominal Pain. negative: Nausea, Vomiting, Diarrhea, Constipation, Melena, Hematochezia Skin: negative: Rash, Lesions, Ganga, Bruising Neurological: negative: Weakness, Numbness, Incoordination, Change in Speech, Confusion, Seizures - Medications/Allergies Allergies/Adverse Reactions: Allergies Allergy/AdvReac Type Severity Reaction Status Date / Time metaxalone [From Skelaxin] Allergy Verified 01/24/17 20:26 Medications: Current Medications Albuterol/Ipratropium (Duoneb) 3 ml NEB Q4H PRN PRN Reason: SOB Diphenhydramine HCl (Benadryl) 25 mg IVP Q3H PRN PRN Reason: Itching Diphenhydramine HCl (Benadryl) 25 mg PO Q3H PRN PRN Reason: Itching Diphenhydramine HCl (Benadryl) 25 mg IM Q3H PRN PRN Reason: Itching Docusate Sodium (Colace) 100 mg PO BID [facility] Last Admin: 11/30/17 08:31 Dose: 100 mg Enoxaparin Sodium (Lovenox) 40 mg SC 0900 [facility] Last Admin: 11/30/17 08:31 Dose: 40 mg Hydromorphone HCl (Dilaudid Cadd) 0 mg IVPB INF PRN PRN Reason: Pain Last Admin: 11/29/17 13:40 Dose: 10 mg Dextrose/Sodium Chloride (D5 1/2 Ns) 1,000 mls @ 100 mls/hr IV .Q10H [facility] Last Admin: 11/30/17 08:30 Dose: 1,000 mls Meropenem 1 gm/ Device 50 mls @ 100 mls/hr IVPB Q8HR [facility] Last Admin: 11/30/17 06:40 Dose: 50 mls Ketorolac Tromethamine (Toradol) 30 mg IVP Q6H [facility] Stop: 12/03/17 09:01 Last Admin: 11/30/17 09:40 Dose: 30 mg Magnesium Hydroxide (Milk Of Magnesium) 30 ml PO DAILYPRN PRN PRN Reason: Constipation Magnesium Oxide (Magnesium Oxide) 400 mg PO BID [facility] Last Admin: 11/30/17 08:31 Dose: 400 mg Miscellaneous Information (Communication Order-Pharmacy) 1 each FS ASDIR [facility] Naloxone HCl (Narcan) 0.2 mg IV Q5MIN PRN PRN Reason: Opiate Reversal Nicotine (Nicoderm Patch) 21 mg TD Q24HR [facility] Last Admin: 11/29/17 22:31 Dose: 21 mg Ondansetron HCl (Zofran) 4 mg IVP Q6H PRN PRN Reason: Nausea/Vomiting Pantoprazole Sodium (Protonix) 40 mg IVP DAILY [facility] Last Admin: 11/30/17 09:39 Dose: 40 mg Promethazine HCl (Phenergan) 12.5 mg IM Q4H PRN PRN Reason: Nausea/Vomiting Sodium Chloride (Flush - Normal Saline) 10 ml IVF Q12HR [facility] Last Admin: 11/30/17 09:40 Dose: 10 ml Sodium Chloride (Flush - Normal Saline) 10 ml IVF PRN PRN PRN Reason: Saline Flush Thiamine HCl (Thiamine) 100 mg PO DAILY [facility] Last Admin: 11/30/17 08:31 Dose: 100 mg Tramadol HCl (Ultram) 100 mg PO Q6HR [facility] Last Admin: 11/30/17 11:57 Dose: 100 mg Vitamin B Complex/Vit C/Folic Acid (Nephro-Melissa Tablet) 1 tab PO DAILY [facility] Last Admin: 11/30/17 08:31 Dose: 1 tab Zolpidem Tartrate (Ambien) 5 mg PO HSPRN PRN PRN Reason: Insomnia
--- NOTE | 2017-11-30 14:27 | PRG ---
DATE OF SERVICE: 11/30/2017 SUBJECTIVE: Mr. Serrano had surgical procedure on 11/29/2017, who was basically exploratory laparotom y, sigmoidectomy, closure of colovesical fistula and colostomy, placement of his nasojejunal tube. T he operative report was reviewed, inflammatory changes in the trigone during the cystoscopy. There w as an insertion of a left external ureteral stent. The bladder was not obstructing. He is feeling w ell. He is very hungry. He has a nasojejunal tube in place. OBJECTIVE: LUNGS: Lungs clear. CARDIOVASCULAR: S1, S2, regular rate. ABDOMEN: Flat, soft with a nice-appearing incision in the lateral abdominal region lower aspect. NEUROLOGIC: Ocular movements are conjugate. Malnutrition is noted before with muscle wasting in all extremities. LABORATORY DATA: White cell count 8.4, hemoglobin 10.1, platelets 318. Creatinine 0.54. Liver prof ile normal. Albumin 2.5. Microbiology as noted before. ASSESSMENT AND DISCUSSION: Malnutrition secondary to alcoholism, colovesical fistula with cystitis. The patient to continue on meropenem or Invanz, probably Invanz after discharge planning for another few weeks and points to be determined by the progress of the abdomen, clinical findings as well as i nflammatory markers, probably another 2 weeks after discharge approximately.
[2017-11-30] MEDS: HYDROmorphone 10 mg/100 ml CADD IVPB PRN (17:56)
[2017-11-30] MEDS: Nicotine 21 MG PATCH TD SCH (22:17)
[2017-12-01] MEDS: traMADol HCl 50 MG TAB PO SCH ×5 (01:11→23:29)
[2017-12-01] MEDS: Ketorolac Tromethamine 30 MG/ML VIAL IVP SCH ×4 (04:05→20:30)
[2017-12-01] MEDS: MEROPENEM 1 GM/50 ML 1 GM in Premix Bag 1 BAG IVPB SCH ×3 (06:34→21:42)
--- NOTE | 2017-12-01 07:35 | PRG ---
DATE OF SERVICE: 11/30/2017 The patient's surgery proceeded well the day prior and the ureteral stent had been removed without di fficulty. He still has an indwelling Castro. He has no complaints. PHYSICAL EXAMINATION: VITAL SIGNS: His vitals have been stable. It is difficult to assess his urine output as listed, but there is yellow urine in Castro and the ureteral stent has been removed. I insured that the balloon was not stuck in the prostate, carefully pushed this back in. His CBC shows mild anemia which is relatively stable. His creatinine is fine. ASSESSMENT AND PLAN: A 52-year-old gentleman status post colon resection for diverticular disease w hich resulted in a colovesical fistula without any injury to the ureter or significant bladder repair required. I would recommend the Castro catheter stay in at least 5-7 days and if there is any concern a cystogra m can be obtained prior to removal. He can follow up with Dr. Elder as needed for further issues.
[2017-12-01] MEDS: Dextrose 5 %-0.45 % NaCl 1,000 ML IV SCH ×3 (07:59→20:32)
[2017-12-01] MEDS: Docusate 100 MG CAP PO SCH ×2 (09:42→20:30)
[2017-12-01] MEDS: Enoxaparin Sodium 40 MG/0.4 ML SYRINGE SC SCH (09:42)
[2017-12-01] MEDS: Pantoprazole 40 MG VIAL IVP SCH (09:42)
[2017-12-01] MEDS: Folic Acid/Vit B Comp W-C PO SCH (09:42)
[2017-12-01] MEDS: Magnesium Oxide 400 MG TAB PO SCH ×2 (09:42→20:30)
--- NOTE | 2017-12-01 11:09 | PRG ---
DATE OF SERVICE: 12/01/2017 HISTORY OF PRESENT ILLNESS: [place] Serrano is doing well after 11/29/2017, 2 days ago laparo tyree, sigmoid resection, closure of colovesical fistula and colostomy, feeding nasojejunal tube. The patient is doing well. He reports he is hungry. He reports flatus and stool in his colostomy bag t hat was just emptied. He has not had any nausea or vomiting. OBJECTIVE: VITAL SIGNS: Temperature 97.9, 60, 16, 148/92. LABORATORY DATA: None today. LUNGS: Clear to auscultation. CARDIAC: Regular rate and rhythm without murmur or gallop. ABDOMEN: Soft, nondistended, occasional bowel sounds. EXTREMITIES: Unremarkable. ASSESSMENT AND PLAN: The patient is doing well. Would plan removal of his feeding tube, advancement of his diet. Colostomy care instructions and discharge home whenever he is tolerating his diet in t he next 2-3 days. The disease is thought due to diverticulitis, but we will wait for pathology repor t. Dr. Murillo placed a left ureteral stent, did cystoscopy.
--- NOTE | 2017-12-01 11:58 | SPC ---
ULTRASOUND GUIDED LEFT UPPER EXTREMITY PICC LINE PLACEMENT: DATE: 12/01/17. HISTORY: Diverticulitis, enterovesicular fistula. The patient needs long-term IV antibiotics. FLUOROSCOPY: Total time 0.2 minutes, total dose 24 mGy*^cm2. TECHNIQUE: After informed consent was obtained, the patient was placed on the angiography table in the supine po sition. The left upper extremity was meticulously prepped and draped in the usual sterile fashion. An appropriate access site was determined with ultrasound guidance. The left brachial vein was acces sed utilizing micropuncture technique and concurrent real-time ultrasound guidance. A [address] sheath was placed. The catheter was measured and cut to the appropriate length. The catheter was place over the guidewi re with the tip positioned overlying the distal SVC. Guidewire and peelaway sheath were removed. The catheter was accessed and aspirated/flushed easily. A dry sterile dressing was placed. The patient tolerated the procedure and without immediate complication. FINDINGS: Technically successful placement of a single lumen 5 [place]ian 39 cm PICC line via the left brachial vei n. The tip of the catheter overlies the distal SVC. Final spot fluoroscopic image of catheter place ment was obtained. IMPRESSION: Technically successful left upper extremity PICC line placement. POS: [facility]
--- NOTE | 2017-12-01 15:19 | PDOC.PN ---
- Subjective Encounter Start Date: 12/01/17 Encounter Start Time: 15:17 Pt seen for followup re: cystitis. Denies chest pain, shortness of breath, fevers or chills. - Objective Resuscitation Status: Resuscitation Status FULL:Full Resuscitation MAR Reviewed: Yes Vital Signs & Weight: Vital Signs (12 hours) Temp Pulse Resp BP BP BP Pulse Ox 12/01/17 11:35 97.9 F 58 L 12 135/82 94 L 12/01/17 08:00 97.9 F 58 L 12 12/01/17 07:57 97.9 F 60 16 148/92 H 98 12/01/17 03:47 137/81 12/01/17 03:21 98.1 F 65 20 137/81 95 Weight Admit Weight 119 lb 0.794 oz Weight 119 lb 0.794 oz I&O: 11/30/17 12/01/17 12/02/17 06:59 06:59 06:59 Intake Total 500 4670 Output Total 600 4350 Balance -100 320 Result Diagrams: 11/30/17 04:22 11/30/17 04:22 Additional Labs: Accuchecks 12/01/17 12/01/17 11/30/17 11:40 04:55 20:16 POC Glucose 110 109 104 Labs reviewed by me Phys Exam - Physical Examination Constitutional: NAD HEENT: moist MMs Neck: supple Respiratory: clear to auscultation bilateral Cardiovascular: RRR Gastrointestinal: soft Neurological: moves all 4 limbs Psychiatric: normal affect Dx/Plan (1) Cystitis Code(s): N30.90 - CYSTITIS, UNSPECIFIED WITHOUT HEMATURIA Status: Acute Comment: with multidrug resistant E. coli. Continue meropenem IV, change to Invanz at the time of discharge (2) [place]-vesical fistula Code(s): N32.1 - VESICOINTESTINAL FISTULA Status: Acute Comment: pt clinically improving s/p ureteric stent and colostomy (3) Pneumaturia Code(s): R39.89 - OTHER SYMPTOMS AND SIGNS INVOLVING THE GENITOURINARY SYSTEM Status: Acute Comment: s/p ureteric stent (4) Chronic alcohol abuse Code(s): F10.10 - ALCOHOL ABUSE, UNCOMPLICATED Status: Chronic Comment: Continue ASE protocol. (5) Tobacco abuse Code(s): Z72.0 - TOBACCO USE Status: Chronic Comment: continue nicotine replacement therapy (6) Moderate protein-calorie malnutrition Code(s): E44.0 - MODERATE PROTEIN-CALORIE MALNUTRITION Status: Chronic Comment: dietitian following - Plan * . Review of Systems - Review of Systems Constitutional: negative: fever, chills, sweats, weakness, malaise Respiratory: negative: Cough, Shortness of Breath, SOB with Excertion, Pleuritic Pain, Wheezing Cardiovascular: negative: chest pain, palpitations, orthopnea, paroxysmal nocturnal dyspnea, edema, light headedness - Medications/Allergies Allergies/Adverse Reactions: Allergies Allergy/AdvReac Type Severity Reaction Status Date / Time metaxalone [From Skelaxin] Allergy Verified 01/24/17 20:26 Medications: Current Medications Albuterol/Ipratropium (Duoneb) 3 ml NEB Q4H PRN PRN Reason: SOB Diphenhydramine HCl (Benadryl) 25 mg IVP Q3H PRN PRN Reason: Itching Diphenhydramine HCl (Benadryl) 25 mg PO Q3H PRN PRN Reason: Itching Diphenhydramine HCl (Benadryl) 25 mg IM Q3H PRN PRN Reason: Itching Docusate Sodium (Colace) 100 mg PO BID [facility] Last Admin: 12/01/17 09:42 Dose: 100 mg Enoxaparin Sodium (Lovenox) 40 mg SC 0900 [facility] Last Admin: 12/01/17 09:42 Dose: 40 mg Hydromorphone HCl (Dilaudid Cadd) 0 mg IVPB INF PRN PRN Reason: Pain Last Admin: 11/30/17 17:56 Dose: 10 mg Dextrose/Sodium Chloride (D5 1/2 Ns) 1,000 mls @ 0 mls/hr IV .Q0M CRISTOBAL PRN Reason: KVO Last Admin: 12/01/17 15:23 Dose: Not Given Meropenem 1 gm/ Device 50 mls @ 100 mls/hr IVPB Q8HR [facility] Last Admin: 12/01/17 14:54 Dose: 50 mls Ketorolac Tromethamine (Toradol) 30 mg IVP Q6H [facility] Stop: 12/03/17 09:01 Last Admin: 12/01/17 14:54 Dose: 30 mg Magnesium Hydroxide (Milk Of Magnesium) 30 ml PO DAILYPRN PRN PRN Reason: Constipation Magnesium Oxide (Magnesium Oxide) 400 mg PO BID [facility] Last Admin: 12/01/17 09:42 Dose: 400 mg Miscellaneous Information (Communication Order-Pharmacy) 1 each FS ASDIR [facility] Naloxone HCl (Narcan) 0.2 mg IV Q5MIN PRN PRN Reason: Opiate Reversal Nicotine (Nicoderm Patch) 21 mg TD Q24HR [facility] Last Admin: 11/30/17 22:17 Dose: 21 mg Ondansetron HCl (Zofran) 4 mg IVP Q6H PRN PRN Reason: Nausea/Vomiting Pantoprazole Sodium (Protonix) 40 mg IVP DAILY [facility] Last Admin: 12/01/17 09:42 Dose: 40 mg Promethazine HCl (Phenergan) 12.5 mg IM Q4H PRN PRN Reason: Nausea/Vomiting Sodium Chloride (Flush - Normal Saline) 10 ml IVF Q12HR [facility] Last Admin: 12/01/17 09:47 Dose: 10 ml Sodium Chloride (Flush - Normal Saline) 10 ml IVF PRN PRN PRN Reason: Saline Flush Thiamine HCl (Thiamine) 100 mg PO DAILY [facility] Last Admin: 12/01/17 09:42 Dose: 100 mg Tramadol HCl (Ultram) 100 mg PO Q6HR [facility] Last Admin: 12/01/17 11:47 Dose: Not Given Vitamin B Complex/Vit C/Folic Acid (Nephro-Melissa Tablet) 1 tab PO DAILY [facility] Last Admin: 12/01/17 09:42 Dose: 1 tab Zolpidem Tartrate (Ambien) 5 mg PO HSPRN PRN PRN Reason: Insomnia
[2017-12-01] MEDS: Nicotine 21 MG PATCH TD SCH (20:30)
[2017-12-02] MEDS: Ketorolac Tromethamine 30 MG/ML VIAL IVP SCH (02:40)
[2017-12-02] MEDS: HYDROmorphone 10 mg/100 ml CADD IVPB PRN (02:41)
[2017-12-02] MEDS: traMADol HCl 50 MG TAB PO SCH ×5 (05:30→23:11)
[2017-12-02] MEDS: MEROPENEM 1 GM/50 ML 1 GM in Premix Bag 1 BAG IVPB SCH (05:31)
[2017-12-02] MEDS ORDERED: diphenhydrAMINE 50 MG CAP PO PRN (09:45)
[2017-12-02] MEDS: Magnesium Oxide 400 MG TAB PO SCH ×2 (09:56→22:02)
[2017-12-02] MEDS: Pantoprazole 40 MG VIAL IVP SCH (09:56)
[2017-12-02] MEDS: Ibuprofen 800 MG TAB PO SCH ×2 (09:56→17:58)
[2017-12-02] MEDS: Folic Acid/Vit B Comp W-C PO SCH (09:56)
[2017-12-02] MEDS: Enoxaparin Sodium 40 MG/0.4 ML SYRINGE SC SCH (09:56)
[2017-12-02] MEDS: Docusate 100 MG CAP PO SCH ×2 (09:56→22:02)
[2017-12-02] MEDS: Acetaminophen 500 MG TAB PO SCH ×3 (09:56→22:01)
--- NOTE | 2017-12-02 14:02 | PRG ---
DATE OF SERVICE: 12/02/2017 SUBJECTIVE: Mr. Serrano is a 52-year-old man who is 3 days status post Becky's procedure. He repo rts adequate pain control. He is tolerating a liquid diet. He denies any nausea or vomiting. Denies any fevers or chills. OBJECTIVE: VITAL SIGNS: Today includes blood pressure 140/90, pulse 59, respiratory rate is 16, temperature is 98.2 degrees Fahrenheit, oxygen saturation 96% on room air. HEART: Reveals regular rate and rhythm, no murmurs or gallops auscultated. CHEST: Lungs are clear to auscultation bilaterally. Breathing is regular and unlabored. ABDOMEN: Soft, nondistended. An incision is intact, clean, and dry. Ostomy is viable. There was s ome output of stool and gas yesterday; however, at the moment there is no stool in the pouch. NEUROLOGIC: Reveals no focal deficits present. PERTINENT LABORATORY FINDINGS: No labs today. IMPRESSION: 1. Postoperative day #3 status post Becky's procedure. 2. The patient is hemodynamically stable. PLAN: 1. Meropenem will be discontinued today as patient has developed a drug rash. 2. We will start oral Cipro and metronidazole. 3. We will advance diet. 4. A Castro catheter will be discontinued. 5. I will increase activity as patient can tolerate. The above findings and plan discussed with the patient who indicates understanding of information giv en. I have answered his questions.
[2017-12-02] MEDS: metroNIDAZOLE 500 MG TAB PO SCH ×2 (14:27→22:01)
--- NOTE | 2017-12-02 17:00 | PDOC.PN ---
- Subjective Encounter Start Date: 12/02/17 Encounter Start Time: 16:55 Subjective: f/u s/p sigmoidectomy with closure of colovesicular fistula, POD # 3. Some -: abd discomfort but no N/V. Tx for UTI with MDR e. coli on Flagyl and Cipro. -: No new complaints. Had LUE PICC line placed today. - Objective Resuscitation Status: Resuscitation Status FULL:Full Resuscitation MAR Reviewed: Yes Vital Signs & Weight: Vital Signs (12 hours) Temp Pulse Resp BP BP Pulse Ox 12/02/17 15:40 98.0 F 64 16 110/79 95 12/02/17 11:30 97.9 F 70 16 114/80 95 12/02/17 08:30 98.2 F 59 L 16 140/90 96 12/02/17 08:00 98.2 F 59 L 16 Weight Admit Weight 119 lb 0.794 oz Weight 119 lb 0.794 oz I&O: 12/01/17 12/02/17 12/03/17 06:59 06:59 06:59 Intake Total 4670 2300 Output Total 4350 3500 150 Balance 320 -1200 -150 Result Diagrams: 11/30/17 04:22 11/30/17 04:22 Additional Labs: Accuchecks 12/02/17 12/02/17 12/01/17 11:01 06:14 21:01 POC Glucose 120 H 100 98 12/01/17 11/30/17 11/29/17 17:36 17:39 18:13 POC Glucose 122 H 71 147 H Phys Exam - Physical Examination Constitutional: NAD HEENT: PERRLA, oral pharynx no lesions Neck: no nodes, no JVD, supple, full ROM Respiratory: no wheezing, no rales, no rhonchi, clear to auscultation bilateral S1, S2 Cardiovascular: RRR, no significant murmur, no rub, gallop +ostomy intact Gastrointestinal: soft, no distention, positive bowel sounds Musculoskeletal: no edema, pulses present Neurological: non-focal, normal sensation, moves all 4 limbs Psychiatric: normal affect, A&O x 3 Skin: normal turgor, cap refill <2 seconds Dx/Plan (1) [place]-vesical fistula Code(s): N32.1 - VESICOINTESTINAL FISTULA Status: Acute Comment: pt clinically improving s/p ureteric stent and colostomy POD #3, continue pain control, monitor ostomy output (2) Pneumaturia Code(s): R39.89 - OTHER SYMPTOMS AND SIGNS INVOLVING THE GENITOURINARY SYSTEM Status: Acute Comment: s/p ureteric stent, see above (3) UTI (urinary tract infection) Status: Acute Comment: MDR e. coli on current Cipro and Flagyl, plan for Invanz after discharge (4) Chronic alcohol abuse Code(s): F10.10 - ALCOHOL ABUSE, UNCOMPLICATED Status: Chronic Comment: Continue ASE protocol. 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
[2017-12-02] MEDS ORDERED: Cipro 250 MG TAB PO SCH (20:00)
[2017-12-02] MEDS: Ciprofloxacin 500 MG TAB PO SCH (22:01)
[2017-12-02] MEDS: Senokot S 8.6-50 MG TAB PO SCH (22:02)
[2017-12-02] MEDS: Nicotine 21 MG PATCH TD SCH (22:02)
[2017-12-02] MEDS: Melatonin 3 MG TAB PO PRN (23:11)
[2017-12-03] MEDS: Acetaminophen 500 MG TAB PO SCH ×4 (02:25→21:56)
[2017-12-03] MEDS: Ibuprofen 800 MG TAB PO SCH ×3 (02:25→17:22)
[2017-12-03 05:09] LABS: #Basophils 0.1 thou/uL (0.0-0.2); #Eosinphils 0.1 thou/uL (0.0-0.7); #Lymphocytes 1.3 thou/uL (1.20-3.40); #Monocytes 0.9 thou/uL (0.11-0.59); #Neutrophils 5.1 thou/uL (1.40-6.50); %Basophils 1.3 % (0.0-1.0); %Eosinophils 1.2 % (0.0-10.0); %Lymphocytes 17.7 % (21.0-51.0); %Monocytes 12.3 % (0.0-10.0); %Neutrophils 67.5 % (42.0-75.0); Hemoglobin 10.6 g/dL (14.0-18.0); Mean Corpuscular HGB CONC 33.1 g/dL (32.0-36.0); Mean Corpuscular Hemoglobin 35.2 pg (27.0-31.0); Mean Platelet Volume 6.5 fL (7.4-10.4); Platelet Count 574 thou/uL (130-400); Red Blood Cell (RBC) Count 3.02 mill/uL (4.70-6.10); White Blood Cell (WBC) Count 7.5 thou/uL (4.8-10.8)
[2017-12-03] MEDS: Ciprofloxacin 500 MG TAB PO SCH ×2 (05:11→21:51)
[2017-12-03] MEDS: traMADol HCl 50 MG TAB PO SCH ×3 (05:11→17:20)
[2017-12-03 05:14] LABS: Anion Gap 12 mmol/L (10-20); BUN (Urea Nitrogen) 11 mg/dL (8.9-20.6); Calc. Creatinine Clearance 102 mL/min (70-130); Calcium 9.1 mg/dL (7.8-10.44); Carbon Dioxide 37 mmol/L (22-29); Chloride 92 mmol/L (98-107); Estimated GFR-MDRD Greater than 90; Glucose 87 mg/dL (70-105); Magnesium 1.8 mg/dL (1.6-2.6); Phosphorus 4.9 mg/dL (2.3-4.7); Potassium 3.9 mmol/L (3.5-5.1); Sodium 137 mmol/L (136-145)
[2017-12-03] MEDS: Senokot S 8.6-50 MG TAB PO SCH ×2 (09:17→21:51)
[2017-12-03] MEDS: Docusate 100 MG CAP PO SCH ×2 (09:17→21:51)
[2017-12-03] MEDS: Folic Acid/Vit B Comp W-C PO SCH (09:17)
[2017-12-03] MEDS: Pantoprazole 40 MG VIAL IVP SCH (09:18)
[2017-12-03] MEDS: Magnesium Oxide 400 MG TAB PO SCH ×2 (09:18→21:52)
[2017-12-03] MEDS: metroNIDAZOLE 500 MG TAB PO SCH ×3 (09:18→21:50)
[2017-12-03] MEDS: Enoxaparin Sodium 40 MG/0.4 ML SYRINGE SC SCH (09:19)
[2017-12-03] MEDS: Polyethylene Glycol 3350 17 GM Packet PO SCH (09:19)
[2017-12-03] MEDS ORDERED: Ondansetron ODT 4 MG TAB SL SCH (11:00)
[2017-12-03] MEDS ORDERED: Ondansetron ODT 4 MG TAB SL PRN (17:00)
[2017-12-03] MEDS: Ondansetron HCl/PF 4 MG/2 ML Vial IVP PRN (17:26)
[2017-12-03] MEDS: Sodium Chloride 0.9% 1,000 ML IV SCH (18:00)
--- NOTE | 2017-12-03 18:58 | RAD ---
SMALL BOWEL EXAM: 12/03/17 Patient was given gastrografin orally and sequential images of abdomen obtained. INDICATIONS: Abdominal pain and distention. Assess for small bowel obstruction. FINDINGS: Chorus Master film shows gas filled dilated loops of small bowel in the mid abdomen. There is stool seen in t he right colon. Initial images were obtained at one hour intervals out to four hours. These images out to four hours show opacification of dilated loops of proximal and mid small bowel. There is no progression beyond t he mid small bowel. A six hour exam was performed which again shows opacification of dilated loops of small bowel. There has been no progression to the distal small bowel and no evidence of contrast within the right colon. IMPRESSION: Findings suggests a moderately high grade mechanical small bowel obstruction of the mid to distal sma ll bowel. POS: [facility]
--- NOTE | 2017-12-03 19:19 | PDOC.PN ---
- Subjective Encounter Start Date: 12/03/17 Encounter Start Time: 16:40 Subjective: f/u for SBO/Ileus POD #4 s/p repair of colovesicular fistula and -: sigmoidectomy. Still c/o abd pain, N/V and minimal ostomy output. - Objective Resuscitation Status: Resuscitation Status FULL:Full Resuscitation MAR Reviewed: Yes Vital Signs & Weight: Vital Signs (12 hours) Temp Pulse Resp BP Pulse Ox 12/03/17 15:26 97.7 F 81 14 113/86 93 L 12/03/17 13:06 97.6 F 76 16 125/88 98 12/03/17 08:00 98.4 F 82 14 12/03/17 07:29 98.4 F 82 14 112/82 92 L Weight Admit Weight 119 lb 0.794 oz Weight 119 lb 0.794 oz I&O: 12/02/17 12/03/17 12/04/17 06:59 06:59 06:59 Intake Total 2300 1280 550 Output Total 3500 150 Balance -1200 1130 550 Result Diagrams: 12/03/17 04:30 12/03/17 04:30 Additional Labs: Accuchecks 12/03/17 12/03/17 12/03/17 15:30 13:02 05:44 POC Glucose 127 H 109 87 12/02/17 21:34 POC Glucose 112 H Radiology Reviewed by me: Yes (ABD x-ray - + SBO) Phys Exam - Physical Examination cachetic, alert, mild distress HEENT: PERRLA, sclera anicteric, oral pharynx no lesions Neck: no nodes, no JVD, supple, full ROM Respiratory: no wheezing, no rales, no rhonchi, clear to auscultation bilateral S1, S2 Cardiovascular: RRR, no significant murmur, no rub, gallop Firm, distended, TTP diffusely, ostomy in LUQ without output absent bowel sounds Musculoskeletal: no edema, pulses present Neurological: normal sensation, moves all 4 limbs Psychiatric: normal affect, A&O x 3 Skin: no rash, normal turgor, cap refill <2 seconds Dx/Plan (1) SBO (small bowel obstruction) Code(s): K56.609 - UNSP INTESTNL OBST, UNSP TO PARTIAL VERSUS COMPLETE OBST Status: Acute Comment: POD #4 with minimal ostomy output, X-rays showing obstruction, IVF's, NPO, surgery monitoring for progression, KUB in am (2) [place]-vesical fistula Code(s): N32.1 - VESICOINTESTINAL FISTULA Status: Acute Comment: s/p ureteric stent and colostomy POD #4, continue pain control, monitor ostomy output (3) Pneumaturia Code(s): R39.89 - OTHER SYMPTOMS AND SIGNS INVOLVING THE GENITOURINARY SYSTEM Status: Acute Comment: s/p ureteric stent, see above (4) UTI (urinary tract infection) Status: Acute Comment: MDR e. coli on current Cipro and Flagyl, plan for Invanz after discharge (5) Chronic alcohol abuse Code(s): F10.10 - ALCOHOL ABUSE, UNCOMPLICATED Status: Chronic Comment: Continue ASE protocol. 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 NGT -: Continue Cipro and Flagyl * AM lab: CBC * KUB in am
[2017-12-03] MEDS: Nicotine 21 MG PATCH TD SCH (21:52)
[2017-12-03] MEDS: Melatonin 3 MG TAB PO PRN (21:52)
[2017-12-04] MEDS: traMADol HCl 50 MG TAB PO SCH ×6 (00:13→23:41)
[2017-12-04] MEDS: Ondansetron HCl/PF 4 MG/2 ML Vial IVP PRN ×2 (00:42→06:38)
[2017-12-04] MEDS: Ibuprofen 800 MG TAB PO SCH (00:42)
[2017-12-04] MEDS: Acetaminophen 500 MG TAB PO SCH ×2 (04:29→11:11)
[2017-12-04 05:40] LABS: Band 4 % (5-11); Hemoglobin 12.5 g/dL (14.0-18.0); Lymphocytes 12 % (21-51); MDiff Complete? YES; Macrocytosis SLIGHT = 6-15 cells (100X) (0-5/hpf); Mean Corpuscular HGB CONC 33.1 g/dL (32.0-36.0); Mean Corpuscular Hemoglobin 36.1 pg (27.0-31.0); Mean Platelet Volume 6.4 fL (7.4-10.4); Metamyelocyte 1 % (0-0); Monocytes 10 % (0-10); Neutrophil 70 % (42-75); PLT Morphology Comment Appears Increased; Platelet Count 709 thou/uL (130-400); RBC Distribution Width 13.1 % (11.5-14.5); Reactive Lymphocytes 3 % (0-10); Red Blood Cell (RBC) Count 3.47 mill/uL (4.70-6.10); White Blood Cell (WBC) Count 11.3 thou/uL (4.8-10.8)
[2017-12-04] MEDS: Sodium Chloride 0.9% 1,000 ML IV SCH ×4 (06:20→23:54)
[2017-12-04] MEDS: Ketorolac Tromethamine 30 MG/ML VIAL IVP PRN ×2 (06:37→13:20)
[2017-12-04] MEDS: metroNIDAZOLE 500 MG/100 ML BAG IVPB SCH ×3 (06:37→20:08)
[2017-12-04] MEDS: Ciprofloxacin 500 MG TAB PO SCH (06:47)
--- NOTE | 2017-12-04 07:52 | RAD ---
KUB: Date: 12/04/17 COMPARISON: Small bowel follow-through dated 12/03/17. HISTORY: Small bowel obstruction/ileus. FINDINGS: This examination demonstrates numerous dilated loops of small bowel throughout the abdomen/pelvis, so me of which contain contrast media, and some of which are distended and gas-filled. There is an ostom y in the mid left abdomen. A nonspecific rounded 1.5 cm radiodensity overlies the left upper quadrant , new when compared to the 11/24/17 CT exam and of uncertain etiology. IMPRESSION: Prominent diffuse distention of small bowel throughout the abdomen/pelvis suggesting small bowel obst ruction, transition point uncertain on this exam. Follow-up CT may be beneficial. POS: [facility]
[2017-12-04] MEDS: Ciprofloxacin Lactate/D5W 400 mg/200 ml Premix IVPB SCH ×2 (08:50→20:09)
[2017-12-04] MEDS: Enoxaparin Sodium 40 MG/0.4 ML SYRINGE SC SCH (08:50)
[2017-12-04] MEDS: Docusate 100 MG CAP PO SCH ×3 (11:11→20:20)
[2017-12-04] MEDS: Polyethylene Glycol 3350 17 GM Packet PO SCH (11:11)
[2017-12-04] MEDS: Folic Acid/Vit B Comp W-C PO SCH (11:11)
[2017-12-04] MEDS: Magnesium Oxide 400 MG TAB PO SCH ×3 (11:11→20:20)
[2017-12-04] MEDS: Senokot S 8.6-50 MG TAB PO SCH ×3 (11:12→20:20)
--- NOTE | 2017-12-04 11:57 | PRG ---
DATE OF SERVICE: 12/04/2017 SUBJECTIVE: This is a 52-year-old male postop day #5 status post sigmoidectomy and colostomy. The patient has developed ileus postoperatively. A small bowel follow through was performed yesterday. It has been viewed by Dr. Camarena. Overnight, the patient had multiple bouts of emesis. He is currently n.p.o. Abdominal x-ray this morning demonstrates ileus. The patient states the vomiting has stopped, but is persistently nauseated this a.m. Otherwise, vocalizes no complaint. OBJECTIVE: VITAL SIGNS: Temperature 98.2, pulse 77, respiration 14, O2 sat 100% on room air, blood pressure 146/94. GENERAL: Well-developed male in no acute distress, resting in bed. PULMONARY: Normal work of breathing. Symmetric rise. GASTROINTESTINAL: The abdomen is mildly distended and somewhat firm. Ostomy is viable. The incision is clean, dry, and intact with minimal erythema surrounding the edges. The patient reports output of gas; however, there is no stool or gas in the pouch at this time. There are no signs of peritonitis. MUSCULOSKELETAL: Moves all extremities x4. NEUROLOGIC: No focal deficit is noted. LABORATORY DATA: WBC 11.3, hemoglobin 12.5, hematocrit 37.8, platelet count 709. RADIOGRAPHIC FINDINGS: Small bowel follow through reviewed by Dr. Camarena demonstrates ileus per his read. Abdominal x-ray this morning showed distended small bowel with unclear transition point. This was also reviewed by Dr. Camarena and read as persistent ileus. ASSESSMENT: 1. Status post sigmoidectomy and end colostomy. Postop day #5. 2. Diverticulitis with colovesical fistula on Cipro and Flagyl. 3. Escherichia coli cystitis, status post treatment with meropenem. 4. Postsurgical pain. 5. Ileus. PLAN: NG tube placement for symptomatic relief. The patient should be n.p.o. at this time. Gentle IV fluid hydration. Switch abx to IV. IV pain management. Ice chips sparingly. Encourage mobility. The patient was discussed with Dr. Camarena who agrees with the assessment and plan. [facility]
--- NOTE | 2017-12-04 13:01 | RAD ---
ABDOMEN 1 VIEW: HISTORY: Abdominal pain. Obstruction/ileus. COMPARISON: Earlier exam same date. FINDINGS: Dilated contrast-filled loops throughout the abdomen are again demonstrated, similar in appearance to the prior study. Contrast is not reliably demonstrated within the colon. Nasogastric tube is in pl [place]. IMPRESSION: No significant change. Acute high-grade distal small bowel obstruction versus ileus are primary cons iderations. POS: [facility]
[2017-12-04] MEDS ORDERED: Pantoprazole 40 MG VIAL IVP SCH (14:30)
[2017-12-04] MEDS: Acetaminophen 1,000 MG in Premix Bag 1 BAG IVPB SCH ×2 (14:57→20:09)
--- NOTE | 2017-12-04 19:13 | PDOC.PN ---
- Subjective Encounter Start Date: 12/04/17 Encounter Start Time: 18:00 Subjective: f/u for SBO s/p sigmoidectomy with ostomy POD #5. NGT placed with large vol -: output but feels better overall. Has not ambulated today due to sleeping. - Objective Resuscitation Status: Resuscitation Status FULL:Full Resuscitation MAR Reviewed: Yes Vital Signs & Weight: Vital Signs (12 hours) Temp Pulse Resp BP Pulse Ox 12/04/17 15:53 98.1 F 68 14 136/98 H 92 L 12/04/17 11:41 98.1 F 84 14 136/98 H 94 L 12/04/17 07:48 98.2 F 77 14 146/94 H 100 Weight Admit Weight 119 lb 0.794 oz Weight 119 lb 0.794 oz I&O: 12/03/17 12/04/17 12/05/17 06:59 06:59 06:59 Intake Total 1280 1900 Output Total 150 1200 Balance 1130 700 Result Diagrams: 12/04/17 03:58 12/03/17 04:30 Additional Labs: Accuchecks 12/04/17 12/04/17 12/04/17 16:08 11:09 05:25 POC Glucose 105 143 H 125 H 12/03/17 20:28 POC Glucose 122 H Radiology Reviewed by me: Yes (ABD x-ray - + SBO) Phys Exam - Physical Examination Constitutional: NAD HEENT: PERRLA, sclera anicteric, oral pharynx no lesions Neck: no nodes, no JVD, supple, full ROM Respiratory: no wheezing, no rales, no rhonchi, clear to auscultation bilateral S1, S2 Cardiovascular: RRR, no significant murmur, no rub, gallop mild TTP and firmness, midline incision intact + ostomy without drainage or contrast Musculoskeletal: no edema, pulses present Neurological: non-focal, normal sensation, moves all 4 limbs Dx/Plan (1) SBO (small bowel obstruction) Code(s): K56.609 - UNSP INTESTNL OBST, UNSP TO PARTIAL VERSUS COMPLETE OBST Status: Acute Comment: POD #5 with minimal ostomy output, X-rays showing obstruction, IVF's, NPO, surgery monitoring for progression, KUB in am, NGT LIWS (2) [place]-vesical fistula Code(s): N32.1 - VESICOINTESTINAL FISTULA Status: Acute Comment: s/p ureteric stent and colostomy POD #5, continue pain control, monitor ostomy output (3) Pneumaturia Code(s): R39.89 - OTHER SYMPTOMS AND SIGNS INVOLVING THE GENITOURINARY SYSTEM Status: Acute Comment: s/p ureteric stent, see above, resolved (4) UTI (urinary tract infection) Status: Acute Comment: MDR e. coli on current Cipro and Flagyl (5) Chronic alcohol abuse Code(s): F10.10 - ALCOHOL ABUSE, UNCOMPLICATED Status: Chronic Comment: Continue ASE protocol. continue Thiamine, Folate and Magnesium (6) Moderate protein-calorie malnutrition Code(s): E44.0 - MODERATE PROTEIN-CALORIE MALNUTRITION Status: Chronic Comment: Regular diet, Ensure TID (7) Tobacco abuse Code(s): Z72.0 - TOBACCO USE Status: Chronic Comment: Tobacco cessation, Nicotine patch - Plan continue antibiotics, out of bed/ambulate, DVT proph w/SCDs Stable overall -: Continue NGT LIWS -: NPO x ice chips/sips H2O -: OOB/ambulate -: Increase NS to 150ml/h * AM lab: Mg++, PO3, BMP
[2017-12-04] MEDS: Nicotine 21 MG PATCH TD SCH (20:09)
--- NOTE | 2017-12-05 00:57 | PRG ---
DATE OF SERVICE: 12/04/2017 Ms. Serrano has G-tube in place. He is n.p.o. He is having issues with ileus versus PSBO after surge ry. He had no vomiting. PHYSICAL EXAMINATION: VITAL SIGNS: Temperature is 98.2, pulse 77, blood pressure 150/93, NG output 2600. Input 1350. GENERAL: He is voiding. ABDOMEN: Slight protuberant, there is lack of bowel sounds. Ostomy site looks good. Bag, there was no content. LABORATORY STUDIES: White count 11.3 hemoglobin 12.5, platelet count 709,000. Pathology was reviewe d with resection. No polyp was seen. ASSESSMENT: Polyp noted on a colonoscopy and lower sigmoid colon, not removed secondary to fixed niko ure of the colon. RECOMMENDATIONS: When patient recovers, he will need a followup colonoscopy for removal of the polyp. informed on this and asked to follow up with me in the office, given my office number.
[2017-12-05] MEDS: Acetaminophen 1,000 MG in Premix Bag 1 BAG IVPB SCH ×4 (03:22→19:55)
[2017-12-05 04:33] LABS: Anion Gap 17 mmol/L (10-20); Carbon Dioxide 33 mmol/L (22-29); Chloride 92 mmol/L (98-107); Potassium 3.1 mmol/L (3.5-5.1); Sodium 139 mmol/L (136-145)
[2017-12-05 04:36] LABS: BUN (Urea Nitrogen) 23 mg/dL (8.9-20.6); Calc. Creatinine Clearance 48 mL/min (70-130); Calcium 8.7 mg/dL (7.8-10.44); Estimated GFR-MDRD 53; Glucose 100 mg/dL (70-105)
[2017-12-05] MEDS: metroNIDAZOLE 500 MG/100 ML BAG IVPB SCH (05:42)
[2017-12-05] MEDS: Pantoprazole 40 MG VIAL IVP SCH (08:14)
[2017-12-05] MEDS: Enoxaparin Sodium 40 MG/0.4 ML SYRINGE SC SCH (08:14)
[2017-12-05] MEDS: Ciprofloxacin Lactate/D5W 400 mg/200 ml Premix IVPB SCH (08:14)
[2017-12-05] MEDS: Polyethylene Glycol 3350 17 GM Packet PO SCH (08:23)
[2017-12-05] MEDS: Magnesium Oxide 400 MG TAB PO SCH ×2 (08:23→20:02)
[2017-12-05] MEDS: Docusate 100 MG CAP PO SCH ×2 (08:23→20:02)
[2017-12-05] MEDS: Senokot S 8.6-50 MG TAB PO SCH ×2 (08:23→20:02)
[2017-12-05] MEDS: Folic Acid/Vit B Comp W-C PO SCH (08:23)
[2017-12-05] MEDS ORDERED: Sodium Chloride 0.9% 1,000 ML IV SCH (09:15)
[2017-12-05] MEDS: Potassium Chloride 20 MEQ in Premix Bag 1 BAG IVPB SCH ×2 (10:17→11:32)
[2017-12-05] MEDS ORDERED: Chloraseptic Spray 180 ml Bottle PO PRN (10:19)
[2017-12-05] MEDS: Lactated Ringer's 1,000 ML IV SCH ×3 (11:32→19:55)
[2017-12-05] MEDS: Metoclopramide HCl 10 MG/2 ML VIAL IVP SCH ×3 (11:32→23:03)
[2017-12-05] MEDS: traMADol HCl 50 MG TAB PO SCH ×3 (11:33→22:53)
--- NOTE | 2017-12-05 11:46 | PRG ---
DATE OF SERVICE: 12/05/2017 SUBJECTIVE: This is a 52-year-old male postop day #6 status post sigmoidectomy and colostomy. The p atient has a postoperative ileus. An NG tube was placed yesterday with 2.6 liters of output. Overni ght, there were an additional 800 mL of output. This morning, the patient vocalized a chief complain t of throat pain and left sinus pressure. There is some stool in the colostomy. He has not been amb ulating well because of fatigue and multiple interruptions overnight. He states his pain is a 7/10. OBJECTIVE: VITAL SIGNS: Temperature 98.1, pulse 65, respirations 16, O2 sat 95% on room air, blood pressure 158 /93. GENERAL: Resting in bed in no acute distress. HEENT: NG tube is in place with green bilious drainage. PULMONARY: Normal work of breathing. Symmetric rise. CARDIOVASCULAR: Regular rate and rhythm. ABDOMEN: Incision is intact with mild erythema and no evidence of fluctuance. Abdomen is soft and s omewhat tympanic. Ostomy is viable with liquid and semi-solid stool. The patient reports passage of gas overnight. MUSCULOSKELETAL: Moves all extremities x4. NEUROLOGIC: No focal deficit is noted. LABORATORY FINDINGS: Sodium 139, potassium 3.1, chloride 92, carbon dioxide 33, BUN 23, creatinine 1 .41, glucose 100. ASSESSMENT: 1. Status post sigmoidectomy and end colostomy, postop day 6. 2. Diverticulitis with colovesicular fistula, status post antibiotic treatment. 3. E. coli cystitis, status post antibiotic treatment. 4. Postsurgical pain. 5. Postoperative ileus. 6. Contraction alkalosis. 7. Acute kidney injury. 8. Hypertension. 9. Acute hypokalemia. PLAN: Continue NG tube for symptomatic relief. Start Reglan 5 mg q.6 hours as a prokinetic. Discon tinue Cipro and Flagyl. IV analgesics. Continue IV fluid hydration; however, switch to lactated rin gers. A 1 liter IV fluid bolus. Replete electrolytes. Continue to encourage mobility. Discussed i mportance of minimizing nighttime interruptions with nursing staff. The patient was discussed with Dr. Camarena.
--- NOTE | 2017-12-05 18:54 | PRG ---
DATE OF SERVICE: 12/05/2017 SUBJECTIVE: Mr. Serrano had resection of the involved segment of colon with diverticulitis. He did n ot require any bladder repair. A stent was placed in the left ureter and is feeling better, has an N G tube in place at this time. No respiratory symptoms, mild abdominal pain. Moves all extremities e qually. PHYSICAL EXAMINATION: VITAL SIGNS: His temperature is normal, has been normal for a while. Other vital signs are not vanda rkable. O2 saturations 92%. GENERAL: Chronically ill appearing, NG tube, symmetric air entry. HEART: S1, S2, regular rate. ABDOMEN: Soft, not distended with the area of incision dried. No jessica are in place. Dried incis ion. No drainage. LABORATORY DATA: White cell count 11.3, hemoglobin 12.5, platelets 709,000. Creatinine 1.41 is a bi t higher than previous microbiology with E. coli with quite resistant profile. 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 DISCUSSION AND PLAN: The patient to continue on meropenem and eventually transitioned to Invanz and points will be improvement of the inflammatory process with normalization of C-reactive protein, whit e cell count. May need repeat CT of the area to evaluate for residual fluid collections probably ano ther 2 or 3 weeks of treatment.
[2017-12-05] MEDS ORDERED: Magnesium Citrate 300 ML BOT PO SCH (19:15)
[2017-12-05] MEDS: Nicotine 21 MG PATCH TD SCH (19:56)
--- NOTE | 2017-12-05 21:49 | PDOC.PN ---
- Subjective Encounter Start Date: 12/05/17 Encounter Start Time: 17:45 Subjective: f/u for SBO/ileus s/p colovesicular repair and sigmoidectomy POD #6. -: Feeling better and noted output in ostomy today. No N/V. - Objective Resuscitation Status: Resuscitation Status FULL:Full Resuscitation MAR Reviewed: Yes Vital Signs & Weight: Vital Signs (12 hours) Temp Pulse Resp BP BP BP Pulse Ox 12/05/17 20:29 98.1 F 59 L 16 153/88 H 95 12/05/17 20:00 98.1 F 59 L 16 12/05/17 16:00 144/92 H 12/05/17 15:31 98.3 F 63 14 144/92 H 92 L 12/05/17 12:00 152/91 H 12/05/17 11:17 98.5 F 62 16 152/91 H 96 Weight Admit Weight 119 lb 0.794 oz Weight 119 lb 0.794 oz I&O: 12/04/17 12/05/17 12/06/17 06:59 06:59 06:59 Intake Total 1900 3300 2400 Output Total 1200 4300 2685 Balance 700 -1000 -285 Result Diagrams: 12/04/17 03:58 12/05/17 03:19 Additional Labs: Accuchecks 12/05/17 12/05/17 12/05/17 20:57 15:47 11:49 POC Glucose 90 85 89 12/05/17 12/04/17 05:29 22:28 POC Glucose 96 134 H Laboratory Tests 12/03/17 12/05/17 04:30 03:19 Potassium 3.9 Creatinine 0.66 Phosphorus 4.0 Magnesium 2.0 Phys Exam - Physical Examination Constitutional: NAD HEENT: PERRLA, sclera anicteric, oral pharynx no lesions Neck: no nodes, no JVD, supple, full ROM Respiratory: no wheezing, no rales, no rhonchi, clear to auscultation bilateral S1, S2 Cardiovascular: RRR, no significant murmur, no rub, gallop TTP in periostomy region, +ostomy with liquid stool Gastrointestinal: soft, no distention, positive bowel sounds Musculoskeletal: no edema, pulses present Neurological: non-focal, normal sensation, moves all 4 limbs Psychiatric: normal affect, A&O x 3 Skin: no rash, normal turgor, cap refill <2 seconds Dx/Plan (1) SBO (small bowel obstruction) Code(s): K56.609 - UNSP INTESTNL OBST, UNSP TO PARTIAL VERSUS COMPLETE OBST Status: Acute Comment: POD #6 with improved ostomy output, X-rays showing obstruction, IVF's, NPO, surgery monitoring for progression, KUB in am, NGT LIWS , slowly resolving (2) [place]-vesical fistula Code(s): N32.1 - VESICOINTESTINAL FISTULA Status: Acute Comment: s/p ureteric stent and colostomy POD #6, continue pain control, monitor ostomy output (3) Pneumaturia Code(s): R39.89 - OTHER SYMPTOMS AND SIGNS INVOLVING THE GENITOURINARY SYSTEM Status: Acute Comment: s/p ureteric stent, see above, resolved (4) UTI (urinary tract infection) Status: Acute Comment: MDR e. coli, recommending Invanz after d/c (5) Chronic alcohol abuse Code(s): F10.10 - ALCOHOL ABUSE, UNCOMPLICATED Status: Chronic Comment: Continue ASE protocol. continue Thiamine, Folate and Magnesium (6) Moderate protein-calorie malnutrition Code(s): E44.0 - MODERATE PROTEIN-CALORIE MALNUTRITION Status: Chronic Comment: Regular diet, Ensure TID (7) Tobacco abuse Code(s): Z72.0 - TOBACCO USE Status: Chronic Comment: Tobacco cessation, Nicotine patch - Plan continue antibiotics, PT/OT, socially responsible investment adviser, out of bed/ambulate, DVT proph w/ SCDs Stable overall -: Continue IVF's, avoid nephrotoxic meds -: NGT LIWS, may consider clamping in next 24h -: OOB/ambulate -: AM lab: BMP, Mg++, PO3 * .
[2017-12-06] MEDS: traMADol HCl 50 MG TAB PO SCH ×3 (00:58→17:43)
[2017-12-06] MEDS: Acetaminophen 1,000 MG in Premix Bag 1 BAG IVPB SCH ×4 (04:07→21:07)
[2017-12-06] MEDS: Metoclopramide HCl 10 MG/2 ML VIAL IVP SCH ×4 (05:26→23:01)
[2017-12-06] MEDS: Lactated Ringer's 1,000 ML IV SCH ×3 (05:28→15:30)
[2017-12-06 05:49] LABS: Anion Gap 12 mmol/L (10-20); BUN (Urea Nitrogen) 13 mg/dL (8.9-20.6); Calc. Creatinine Clearance 109 mL/min (70-130); Calcium 8.6 mg/dL (7.8-10.44); Carbon Dioxide 34 mmol/L (22-29); Chloride 96 mmol/L (98-107); Estimated GFR-MDRD Greater than 90; Glucose 91 mg/dL (70-105); Magnesium 1.7 mg/dL (1.6-2.6); Phosphorus 2.1 mg/dL (2.3-4.7); Sodium 139 mmol/L (136-145)
[2017-12-06] MEDS: Pantoprazole 40 MG VIAL IVP SCH (09:31)
[2017-12-06] MEDS: Enoxaparin Sodium 40 MG/0.4 ML SYRINGE SC SCH (09:31)
[2017-12-06] MEDS: Docusate 100 MG CAP PO SCH ×2 (09:41→20:07)
[2017-12-06] MEDS: Folic Acid/Vit B Comp W-C PO SCH (09:41)
[2017-12-06] MEDS: Senokot S 8.6-50 MG TAB PO SCH ×2 (09:42→20:08)
[2017-12-06] MEDS: Magnesium Oxide 400 MG TAB PO SCH ×2 (09:42→20:08)
[2017-12-06] MEDS: Polyethylene Glycol 3350 17 GM Packet PO SCH (09:42)
[2017-12-06] MEDS ORDERED: Magnesium Citrate 300 ML BOT PER TUBE SCH (09:45)
[2017-12-06] MEDS ORDERED: TPN ELECTROLYTES IVPB PRN (11:02)
[2017-12-06] MEDS: hydrALAZINE 20 MG/ML VIAL SLOW IVP PRN ×2 (11:32→17:40)
[2017-12-06] MEDS: Sodium Acetate 2 mEq/ml 40 MEQ, Sodium Chloride 30 MEQ, Potassium Chloride 20 MEQ, Pota... IV SCH (14:21)
--- NOTE | 2017-12-06 16:21 | PDOC.PN ---
- Subjective Encounter Start Date: 12/06/17 Encounter Start Time: 16:15 Subjective: f/u for SBO s/p sigmoidectomy with colovesicula repair POD #7. Continues -: on NGT LIWS and TPN starting for nutritional support. - Objective Resuscitation Status: Resuscitation Status FULL:Full Resuscitation MAR Reviewed: Yes Vital Signs & Weight: Vital Signs (12 hours) Temp Pulse Resp BP BP Pulse Ox 12/06/17 11:32 49 L 189/96 H 12/06/17 11:24 97.9 F 51 L 12 186/96 H 94 L 12/06/17 08:12 97.9 F 51 L 14 154/84 H 94 L 12/06/17 06:00 98.2 F 66 18 140/82 96 Weight Admit Weight 119 lb 0.794 oz Weight 119 lb 0.794 oz I&O: 12/05/17 12/06/17 12/07/17 06:59 06:59 06:59 Intake Total 3300 4900 Output Total 4300 3985 Balance -1000 915 Result Diagrams: 12/04/17 03:58 12/06/17 05:23 Additional Labs: Accuchecks 12/06/17 12/06/17 12/05/17 11:23 05:25 20:57 POC Glucose 82 86 90 Laboratory Tests 12/03/17 12/05/17 04:30 03:19 Potassium 3.9 Creatinine 0.66 Phosphorus 4.0 Magnesium 2.0 Phys Exam - Physical Examination alert when directly engaged NGT in place HEENT: PERRLA, sclera anicteric, oral pharynx no lesions Neck: no nodes, no JVD, supple, full ROM Respiratory: no wheezing, no rales, no rhonchi, clear to auscultation bilateral S1, S2 Cardiovascular: RRR, no significant murmur, no rub, gallop firm, mild TTP, ostomy intact with liquid stool Gastrointestinal: positive bowel sounds LUE PICC line in place Musculoskeletal: no edema, pulses present Neurological: normal sensation, moves all 4 limbs Psychiatric: A&O x 3 Skin: no rash, normal turgor, cap refill <2 seconds Dx/Plan (1) SBO (small bowel obstruction) Code(s): K56.609 - UNSP INTESTNL OBST, UNSP TO PARTIAL VERSUS COMPLETE OBST Status: Acute Comment: POD #7 with slowly improved ostomy output, X-rays showing obstruction, IVF's, NPO, surgery monitoring for progression, NGT LIWS (2) [place]-vesical fistula Code(s): N32.1 - VESICOINTESTINAL FISTULA Status: Acute Comment: s/p ureteric stent and colostomy POD #7, continue pain control, monitor ostomy output (3) Pneumaturia Code(s): R39.89 - OTHER SYMPTOMS AND SIGNS INVOLVING THE GENITOURINARY SYSTEM Status: Acute Comment: s/p ureteric stent, see above, resolved (4) UTI (urinary tract infection) Status: Acute Comment: MDR e. coli, recommending Invanz after d/c (5) Chronic alcohol abuse Code(s): F10.10 - ALCOHOL ABUSE, UNCOMPLICATED Status: Chronic Comment: Continue ASE protocol. continue Thiamine, Folate and Magnesium (6) Moderate protein-calorie malnutrition Code(s): E44.0 - MODERATE PROTEIN-CALORIE MALNUTRITION Status: Chronic Comment: TPN for nutritional support given NPO status with SBO, continue to monitor (7) Tobacco abuse Code(s): Z72.0 - TOBACCO USE Status: Chronic Comment: Tobacco cessation, Nicotine patch - Plan continue antibiotics, PT/OT, director social welfare, out of bed/ambulate, DVT proph w/ SCDs Stable overall -: Nutritional support with TPN -: Continue Reglan, Protonix, Senna -: OOB/ambulate -: Continue MVI, Thiamine, Folate, Mg++ * AM lab: BMP, CBC, Mg++, PO3
[2017-12-06] MEDS ORDERED: Sodium Chloride 0.9% 500 ML IV SCH (18:30)
[2017-12-06] MEDS: Nicotine 21 MG PATCH TD SCH (21:07)
[2017-12-07] MEDS: traMADol HCl 50 MG TAB PO SCH ×4 (00:28→17:37)
[2017-12-07] MEDS: Acetaminophen 1,000 MG in Premix Bag 1 BAG IVPB SCH ×4 (02:22→21:32)
[2017-12-07] MEDS: Lactated Ringer's 1,000 ML IV SCH ×2 (04:17→08:59)
[2017-12-07 04:52] LABS: #Eosinphils 0.1 thou/uL (0.0-0.7); #Lymphocytes 1.1 thou/uL (1.20-3.40); #Monocytes 0.8 thou/uL (0.11-0.59); #Neutrophils 6.6 thou/uL (1.40-6.50); %Basophils 0.5 % (0.0-1.0); %Eosinophils 0.7 % (0.0-10.0); %Lymphocytes 12.7 % (21.0-51.0); %Monocytes 9.2 % (0.0-10.0); %Neutrophils 76.9 % (42.0-75.0); Hemoglobin 10.3 g/dL (14.0-18.0); Mean Corpuscular HGB CONC 32.7 g/dL (32.0-36.0); Mean Corpuscular Hemoglobin 34.4 pg (27.0-31.0); Mean Platelet Volume 6.1 fL (7.4-10.4); Platelet Count 643 thou/uL (130-400); Red Blood Cell (RBC) Count 2.98 mill/uL (4.70-6.10); White Blood Cell (WBC) Count 8.6 thou/uL (4.8-10.8)
[2017-12-07 04:58] LABS: BUN (Urea Nitrogen) 12 mg/dL (8.9-20.6); Calc. Creatinine Clearance 121 mL/min (70-130); Calcium 8.4 mg/dL (7.8-10.44); Estimated GFR-MDRD Greater than 90; Glucose 124 mg/dL (70-105); Magnesium 1.7 mg/dL (1.6-2.6)
[2017-12-07 05:07] LABS: Anion Gap 14 mmol/L (10-20); Carbon Dioxide 34 mmol/L (22-29); Chloride 95 mmol/L (98-107); Potassium 2.7 mmol/L (3.5-5.1); Sodium 140 mmol/L (136-145)
[2017-12-07] MEDS ORDERED: Potassium Chloride 20 MEQ TAB PO SCH (05:30)
[2017-12-07] MEDS: Metoclopramide HCl 10 MG/2 ML VIAL IVP SCH ×5 (06:00→17:37)
[2017-12-07] MEDS: Potassium Chloride 20 MEQ in Premix Bag 1 BAG IVPB SCH ×2 (06:34→09:25)
[2017-12-07] MEDS: Docusate 100 MG CAP PO SCH ×2 (08:38→22:13)
[2017-12-07] MEDS: Folic Acid/Vit B Comp W-C PO SCH (08:38)
[2017-12-07] MEDS: Magnesium Oxide 400 MG TAB PO SCH (08:39)
[2017-12-07] MEDS: Polyethylene Glycol 3350 17 GM Packet PO SCH (08:39)
[2017-12-07] MEDS: Senokot S 8.6-50 MG TAB PO SCH ×2 (08:39→22:14)
[2017-12-07] MEDS: Pantoprazole 40 MG VIAL IVP SCH ×2 (08:41→21:34)
[2017-12-07] MEDS: Enoxaparin Sodium 40 MG/0.4 ML SYRINGE SC SCH (08:42)
[2017-12-07] MEDS ORDERED: Magnesium Sulfate 2 GM in Sodium Chloride 0.9% 100 ML IVPB SCH (10:30)
--- NOTE | 2017-12-07 10:59 | PRG ---
DATE OF SERVICE: 12/07/2017 SUBJECTIVE: Mr. Serrano is a 52-year-old man who is 8 days status post sigmoidectomy with end colosto my. This morning, he reports 5/10 abdominal pain. He denies any nausea. His NG tube had put out 30 0 mL of succuss in the last 24 hours. His colostomy is putting out some pretty well formed stool, bu t no gas. OBJECTIVE: VITAL SIGNS: Today includes blood pressure 143/93, pulse is 70, respiratory rate is 16, temperature is 98.1 degrees Fahrenheit, oxygen saturation is 93% on room air. HEART: Reveals regular rate and rhythm, no murmurs or gallops auscultated. LUNGS: Clear to auscultation bilaterally. Breathing regular and unlabored. ABDOMEN: Soft and nondistended. The bowel sounds heard in all 4 quadrants and appear normoactive. Colostomy is viable with moderate amount of well-formed stool, no gas. LABORATORY FINDINGS: Today includes CBC with 8600 white blood cells, hemoglobin and hematocrit are 1 0.3 and 31.4 respectively. Platelet count is 643,000. Metabolic profile: Sodium 140, potassium 2.7 , chloride is 95, bicarbonate is 34, BUN is 12, creatinine 0.56, glucose is 124. Magnesium is 1.7, p hosphorus is 2.0. IMPRESSION: 1. Postop day #8 status post exploratory laparotomy with sigmoidectomy and end colostomy. 2. Prolonged adynamic ileus, rule out acute bowel obstruction. 2. Acute hypokalemia. 3. Acute hypomagnesemia. 4. Acute hypophosphatemia. PLAN: 1. Correct abnormal electrolytes. 2. We will obtain a CT scan of the abdomen and pelvis to rule out acute small-bowel obstruction vers us any intra-abdominal infection, which could be the etiology of this prolonged adynamic ileus. Above findings and plan discussed with the patient who indicates understanding of the information giv en. I have answered his questions.
[2017-12-07] MEDS ORDERED: Magnesium 2 GM/NS 0.9% 100 ML 2 GM in Premix Bag 1 BAG IVPB SCH (11:15)
[2017-12-07] MEDS ORDERED: Iopamidol 370 76% 50 ML VIAL FS ONE (11:32)
[2017-12-07] MEDS ORDERED: ISOVUE-370 76%-LOCM 1 ML ONE (11:32)
[2017-12-07] MEDS ORDERED: Ondansetron HCl/PF 4 MG/2 ML Vial ONE (11:56)
[2017-12-07] MEDS ORDERED: Lidocaine 1% PF 5 ML VIAL ONE (11:56)
[2017-12-07] MEDS ORDERED: Succinylcholine Chloride 20 MG/ML 10 ml SYRINGE FS ONE (11:56)
[2017-12-07] MEDS ORDERED: PROPOFOL 200 MG/20 ML VIAL ONE (11:56)
[2017-12-07] MEDS ORDERED: Glycopyrrolate 0.2 MG/ML 5 ML SYRINGE ONE (11:56)
--- NOTE | 2017-12-07 13:54 | CT ---
CT OF ABDOMEN AND PELVIS PERFORMED WITH IV CONTRAST ENHANCEMENT: Date: 12/07/17 COMPARISON: 11/24/17. HISTORY: Patient with recent colostomy. Evaluation for small bowel obstruction. FINDINGS: The lung bases show subsegmental atelectasis and tiny pleural effusions. The liver and spleen show no focal abnormalities. Pancreas and gallbladder regions also appear unrema rkable. Right and left adrenal glands are normal in size. Small cyst is seen involving the right kidney. No o bstruction. No significant periaortic or mesenteric adenopathy. Since the prior examination, there is now a left-sided colostomy present. The colon is completely dec ompressed. There is marked small bowel distention to the level of the more distal ileum where there i s a slight twisting of the mesenteric vessels and an abrupt transition from dilated to nondilated sma ll bowel consistent with a high grade obstruction. This is best appreciated on axial image 57, hernandez l image 39. There is free fluid seen within the abdomen, mainly around the liver. The bladder is dist ended. There is some air within the soft tissues in the left inguinal region which is of uncertain et iology and may be related to the recent procedure. There is a Becky's type pouch. There is no flui d collection near the anastomotic suture line. There are some tiny foci of free air in this region, w hich is within the fat, deeper within the pelvis, no definitely intra-abdominal. There are also a few tiny flecks of air which are seen along the right anterolateral abdominal wall, axial image 79. IMPRESSION: 1. High grade distal small bowel obstruction with some twisting of the mesenteric vessels in an abru pt transition zone. 2. There is some mild ascites associated with this. 3. There are some areas of air which do not appear to be truly within the abdomen. Some are deep wit hin the pelvis and some are along the left inguinal canal and anterior abdominal wall region, probabl y related to the surgical procedure. POS: TOM
[2017-12-07] MEDS: Sodium Acetate 2 mEq/ml 40 MEQ, Sodium Chloride 30 MEQ, Potassium Chloride 20 MEQ, Pota... IV SCH (14:36)
[2017-12-07] MEDS: Potassium Chloride 20 MEQ in Lactated Ringer's 1,000 ML IV SCH (14:52)
[2017-12-07 15:29] LABS: Potassium 2.7 mmol/L (3.5-5.1)
--- NOTE | 2017-12-07 15:37 | PDOC.PN ---
- Subjective Encounter Start Date: 12/07/17 (f/u hypokalemia) Encounter Start Time: 15:35 Subjective: Pt c/o pain - ready for additional pain meds. Denies any new -: symptoms or concerns - Objective Resuscitation Status: Resuscitation Status FULL:Full Resuscitation Vital Signs & Weight: Vital Signs (12 hours) Temp Pulse Resp BP BP Pulse Ox 12/07/17 12:22 62 149/90 H 12/07/17 11:55 98 F 64 16 162/68 H 98 12/07/17 08:30 97.8 F 70 16 93 L 12/07/17 08:07 97.8 F 70 16 143/93 H 93 L 12/07/17 04:00 98.1 F 75 16 142/91 H 142/91 H 95 Weight Admit Weight 119 lb 0.794 oz Weight 119 lb 0.794 oz I&O: 12/06/17 12/07/17 12/08/17 06:59 06:59 06:59 Intake Total 4900 2850 2098 Output Total 3985 2650 2800 Balance 915 200 -702 Result Diagrams: 12/07/17 03:53 12/07/17 15:08 Additional Labs: Accuchecks 12/07/17 12/06/17 12/06/17 05:41 20:45 16:54 POC Glucose 147 H 152 H 110 Phys Exam - Physical Examination Constitutional: NAD Respiratory: no wheezing, no rales, no rhonchi Cardiovascular: RRR, no significant murmur hypoactive bowel sounds, ttp throughout Musculoskeletal: no edema, pulses present Neurological: non-focal, moves all 4 limbs Psychiatric: normal affect Skin: no rash Dx/Plan (1) Hypokalemia Code(s): E87.6 - HYPOKALEMIA Status: Acute (2) [place]-vesical fistula Code(s): N32.1 - VESICOINTESTINAL FISTULA Status: Acute (3) SBO (small bowel obstruction) Code(s): K56.609 - UNSP INTESTNL OBST, UNSP TO PARTIAL VERSUS COMPLETE OBST Status: Acute (4) Malnutrition of moderate degree Code(s): E44.0 - MODERATE PROTEIN-CALORIE MALNUTRITION Status: Chronic Comment: 2/2 chronic alcohol abuse. Continue nutritional supplements. (5) Tobacco abuse Code(s): Z72.0 - TOBACCO USE Status: Chronic Comment: Tobacco cessation, Nicotine patch - Plan * Hypokalemia - rechecked after pt received 40 meq IV. Changed IVF to LR with 20meq/L of potassium. Will order an additional 40 meq of potassium as well. * * Surgery monitoring SBO, and tpn * * Continue other meds as ordered * * dvt prophy - scd's and lovenox * gi prophy - protonix * code status full * * reviewed plan of care with patient, no questions or further needs at end of eval.
[2017-12-07] MEDS ORDERED: Midazolam HCl 2 mg/2 ml Vial ONE (16:23)
[2017-12-07] MEDS ORDERED: Fentanyl 100 MCG/2 ML VIAL ONE ×3 (16:23→19:46)
[2017-12-07] MEDS ORDERED: HYDROmorphone 0.5 MG/0.5 ML SYRINGE ONE ×5 (16:24→20:02)
[2017-12-07] MEDS ORDERED: Ondansetron HCl/PF 4 MG/2 ML Vial IVP PRN ×2 (18:35→19:18)
[2017-12-07] MEDS ORDERED: HYDROmorphone 2 MG/ML VIAL SLOW IVP PRN (19:18)
[2017-12-07] MEDS: Nicotine 21 MG PATCH TD SCH (21:34)
[2017-12-07] MEDS: Potassium Chloride 10 MEQ in Premix Bag 1 BAG IVPB SCH ×2 (22:12→22:13)
[2017-12-07] MEDS ORDERED: diphenhydrAMINE 50 MG/ML VIAL IVP PRN (22:57)
[2017-12-07] MEDS ORDERED: diphenhydrAMINE 25 MG CAP PO PRN (22:57)
[2017-12-07] MEDS ORDERED: Naloxone HCl 0.4 mg/ml Vial IV PRN (22:57)
[2017-12-07] MEDS ORDERED: Promethazine HCl 25 MG/ML VIAL IM PRN (22:57)
[2017-12-07] MEDS ORDERED: diphenhydrAMINE 50 MG/ML VIAL IM PRN (22:57)
[2017-12-07] MEDS ORDERED: Zolpidem Tartrate 5 MG TAB PO PRN (22:57)
[2017-12-07] MEDS ORDERED: Communication Order-Pharmacy FS SCH (23:00)
--- NOTE | 2017-12-07 23:14 | OP ---
DATE OF OPERATION: 12/07/2017 PREOPERATIVE DIAGNOSES: 1. Status post-exploratory laparotomy with sigmoidectomy and end colostomy. 2. Acute small-bowel obstruction. POSTOPERATIVE DIAGNOSES: 1. Status post-exploratory laparotomy with sigmoidectomy and end colostomy. 2. Acute small-bowel obstruction. SURGERY PERFORMED: 1. Exploratory laparotomy. 2. Lysis of adhesions. SURGEON: Marquise Camarena D.O. ANESTHESIA: General endotracheal. ESTIMATED BLOOD LOSS: 20 mL. FLUIDS GIVEN: 1000 mL crystalloids. SPONGE AND INSTRUMENT COUNT: Certified as correct x2. COMPLICATIONS: None apparent at the time of operation. INDICATIONS FOR PROCEDURE: This is a 52-year-old man, who is postop day #8 today status post explora tory laparotomy, sigmoidectomy and end colostomy for obstructive sigmoid diverticulitis. A colovesic al fistula was also closed in the same time. The patient did well after the postop day #3 when he de veloped abdominal distention and intolerance to oral intake. Clinical and radiographic examination w as consistent with acute small-bowel obstruction, which failed conservative management. The patient was brought to the operating room for re-exploration. Findings are consistent with a distal small henrik wel obstruction secondary to intra-abdominal adhesions. DESCRIPTION OF PROCEDURE: Informed consent obtained from the patient who was brought to the operatin g room and placed in supine position. Following general anesthesia, a Castro catheter was inserted an d placed bedside drain. Previous nasogastric tube was placed to wall suction. Abdomen was sterilely prepped and draped in usual fashion. The colostomy was prepped of the operative field. The previou s incisional wound was reopened. The fascial sutures were excised and peritoneal cavity was entered. Moderate amount of straw-colored ascites was evacuated from the peritoneal cavity. Small bowel was then run from the ligament of Treitz down to terminal ileum. Approximately a foot and a half from t he terminal ileum, there was constricting adhesion causing a complete small-bowel obstruction. This was lysed without difficulties. This was in fact finger fractured. A clear transition zone was visi ble. The bowel distal to this was completely decompressed. The remainder of the small bowel inspect ed down to the level of the ileocecal junction. Remnant colon was inspected from the cecum through t he ascending, transverse, descending colon to the level of the exit of the colostomy. No other patho logies identified. Finding no other pathology, exploration was terminated. I placed one Seprafilm i n the deep pelvis prior to return of small bowel to normal anatomic location. I then placed 2 more p ieces of Seprafilm in between small bowel loops and omentum was then drawn over the remainder of the viscera. This was done after all sponges and instruments were removed and accounted for. Fascia was approximated in the midline using running stitch of #1 single stranded PDS. Subcutaneous tissues ir rigated clear with saline solution. Skin was closed using jessica. Sterile dressings were applied. A fresh ostomy appliance was then put in place. The patient tolerated the operation without any paola arent complication and was returned to the recovery room in satisfactory condition.
[2017-12-07] MEDS: Ketorolac Tromethamine 30 MG/ML VIAL IVP SCH (23:39)
[2017-12-08] MEDS: HYDROmorphone 10 mg/100 ml CADD IVPB PRN ×2 (00:35→15:08)
[2017-12-08] MEDS: Metoclopramide HCl 10 MG/2 ML VIAL IVP SCH ×6 (01:28→23:09)
[2017-12-08 05:25] LABS: #Eosinphils 0.1 thou/uL (0.0-0.7); #Lymphocytes 1.1 thou/uL (1.20-3.40); #Monocytes 0.5 thou/uL (0.11-0.59); #Neutrophils 10.4 thou/uL (1.40-6.50); %Basophils 0.2 % (0.0-1.0); %Eosinophils 0.7 % (0.0-10.0); %Lymphocytes 8.7 % (21.0-51.0); %Monocytes 4.3 % (0.0-10.0); %Neutrophils 86.2 % (42.0-75.0); Hemoglobin 11.4 g/dL (14.0-18.0); Mean Corpuscular HGB CONC 32.7 g/dL (32.0-36.0); Mean Corpuscular Hemoglobin 35.2 pg (27.0-31.0); Mean Platelet Volume 6.2 fL (7.4-10.4); Platelet Count 613 thou/uL (130-400); Red Blood Cell (RBC) Count 3.23 mill/uL (4.70-6.10); White Blood Cell (WBC) Count 12.1 thou/uL (4.8-10.8)
[2017-12-08] MEDS: Ketorolac Tromethamine 30 MG/ML VIAL IVP SCH ×4 (05:26→23:09)
[2017-12-08] MEDS: Potassium Chloride 20 MEQ in Premix Bag 1 BAG IVPB SCH ×3 (05:27→08:14)
[2017-12-08 06:00] LABS: Anion Gap 9 mmol/L (10-20); BUN (Urea Nitrogen) 14 mg/dL (8.9-20.6); Calc. Creatinine Clearance 113 mL/min (70-130); Carbon Dioxide 34 mmol/L (22-29); Chloride 95 mmol/L (98-107); Estimated GFR-MDRD Greater than 90; Glucose 130 mg/dL (70-105); Magnesium 1.7 mg/dL (1.6-2.6); Sodium 135 mmol/L (136-145)
[2017-12-08] MEDS ORDERED: Potassium Phosphate 30 MMOL, Magnesium Sulfate 4 GM in Sodium Chloride 0.9% 500 ML IVPB SCH (07:15)
[2017-12-08] MEDS ORDERED: Potassium Phosphate 30 MMOL in Sodium Chloride 0.9% 500 ML IVPB SCH (07:15)
[2017-12-08] MEDS ORDERED: Magnesium Sulfate 4 GM in Sodium Chloride 0.9% 250 ML 250 ML IVPB SCH (07:15)
[2017-12-08] MEDS: Pantoprazole 40 MG VIAL IVP SCH ×2 (08:06→20:49)
[2017-12-08] MEDS: Polyethylene Glycol 3350 17 GM Packet PO SCH (08:06)
[2017-12-08] MEDS: Enoxaparin Sodium 40 MG/0.4 ML SYRINGE SC SCH (08:06)
[2017-12-08] MEDS: Folic Acid/Vit B Comp W-C PO SCH (08:07)
[2017-12-08] MEDS: Docusate 100 MG CAP PO SCH ×2 (08:07→20:51)
[2017-12-08] MEDS: Senokot S 8.6-50 MG TAB PO SCH ×2 (08:07→20:51)
[2017-12-08] MEDS: Potassium Chloride 20 MEQ in Lactated Ringer's 1,000 ML IV SCH (08:15)
[2017-12-08] MEDS ORDERED: Clopidogrel Bisulfate 75 MG TAB ONE (09:03)
--- NOTE | 2017-12-08 11:29 | PDOC.PN ---
- Subjective Encounter Start Date: 12/08/17 Encounter Start Time: 11:15 Subjective: f/u for SBO s/p laparotomy with lysis of adhesions on 12/07/17. Still with -: NGT LIWS and CERTIFIED DRUG COUNSELOR pump. Some abd pain but improved with CERTIFIED DRUG COUNSELOR. -: Receiving TPN currently. - Objective Resuscitation Status: Resuscitation Status FULL:Full Resuscitation MAR Reviewed: Yes Vital Signs & Weight: Vital Signs (12 hours) Temp Pulse Resp BP BP Pulse Ox 12/08/17 08:23 98.0 F 93 18 117/86 95 12/08/17 08:00 98.0 F 93 18 95 12/08/17 03:49 97.6 F 90 16 134/87 94 L Weight Admit Weight 119 lb 0.794 oz Weight 119 lb 0.794 oz I&O: 12/07/17 12/08/17 12/09/17 06:59 06:59 06:59 Intake Total 2850 5360 Output Total 2650 5600 Balance 200 -240 Result Diagrams: 12/08/17 04:47 12/08/17 04:47 Additional Labs: Accuchecks 12/08/17 12/08/17 12/07/17 10:42 05:50 21:20 POC Glucose 135 H 126 H 110 12/07/17 12/07/17 16:25 11:53 POC Glucose 128 H 130 H Radiology Reviewed by me: Yes (CT abd/pel - high distal SBO) Phys Exam - Physical Examination alert, responsive, NGT in place HEENT: PERRLA, sclera anicteric, oral pharynx no lesions Neck: no nodes, no JVD, supple, full ROM Respiratory: no wheezing, no rales, no rhonchi, clear to auscultation bilateral S1, S2 Cardiovascular: RRR, no significant murmur, no rub, gallop rigid, TTP diffusely, surgical incision intact in midline, +ostomy without drainage Musculoskeletal: no edema, pulses present Neurological: non-focal, normal sensation, moves all 4 limbs Psychiatric: normal affect, A&O x 3 Skin: no rash, normal turgor, cap refill <2 seconds Dx/Plan (1) SBO (small bowel obstruction) Code(s): K56.609 - UNSP INTESTNL OBST, UNSP TO PARTIAL VERSUS COMPLETE OBST Status: Acute Comment: s/p laparotomy with lysis of adhesions POD #1, NGT LIWS, NPO, TPN (2) [place]-vesical fistula Code(s): N32.1 - VESICOINTESTINAL FISTULA Status: Acute Comment: s/o sigmoidectomy POD#9 (3) Pneumaturia Code(s): R39.89 - OTHER SYMPTOMS AND SIGNS INVOLVING THE GENITOURINARY SYSTEM Status: Acute Comment: s/p ureteric stent, see above, resolved (4) UTI (urinary tract infection) Status: Acute Comment: MDR e. coli, recommending Invanz after d/c (5) Chronic alcohol abuse Code(s): F10.10 - ALCOHOL ABUSE, UNCOMPLICATED Status: Chronic Comment: Continue ASE protocol. continue Thiamine, Folate and Magnesium (6) Moderate protein-calorie malnutrition Code(s): E44.0 - MODERATE PROTEIN-CALORIE MALNUTRITION Status: Chronic Comment: TPN for nutritional support given NPO status with SBO, continue to monitor (7) Tobacco abuse Code(s): Z72.0 - TOBACCO USE Status: Chronic Comment: Tobacco cessation, Nicotine patch - Plan continue antibiotics, PT/OT, criminal justice social worker, out of bed/ambulate, DVT proph w/ SCDs Stable currently -: Continue TPN for nutritional support -: CERTIFIED DRUG COUNSELOR for pain control -: OOB/ambulate as tolerated -: Reglan 5mg IV q6h * AM lab: CMP, CBC, Mg++, PO3
[2017-12-08] MEDS: Sodium Acetate 2 mEq/ml 40 MEQ, Sodium Chloride 30 MEQ, Potassium Chloride 20 MEQ, Pota... IV SCH (15:07)
--- NOTE | 2017-12-08 16:59 | PRG ---
DATE OF SERVICE: 12/08/2017 ATTENDING PHYSICIAN: Dr. Marquise Camarena. SUBJECTIVE: Mr. Serrano is a 52-year-old man, who is 9 days status post sigmoidectomy with end colost helen. A colovesical fistula was also closed at the same time. The patient was doing well until posto perative day #3 when he developed abdominal distention and intolerance to oral intake. Clinical and radiographic examination was consistent with acute small-bowel obstruction, which failed conservative management. He was then taken to the OR last p.m. for reexploration. Findings were consistent with a distal small-bowel obstruction. He had lysis of adhesions and subsequently was returned to the west rgical floor where he has done well overnight. OBJECTIVE: VITAL SIGNS: Temperature 98.0, pulse 93, respirations 18, O2 sat 95% on room air, blood pressure 117 /86. PULMONARY: Bilateral breath sounds clear. No respiratory distress. CARDIOVASCULAR: Regular rate and rhythm. Heart sounds normal. ABDOMEN: Soft, nontender, nondistended. Ostomy is pink and healthy appearing with small amount of c learish liquid drainage in ostomy device. LABORATORY DATA: CBC: WBC 12.1, RBC 3.23, hemoglobin 11.4, hematocrit 34.7, platelets 613. Completion Manager ry: Sodium 135, potassium 3.0, chloride 95, carbon dioxide 34, BUN 14, creatinine 0.60, glucose 130, calcium 8.0, magnesium 1.7. ASSESSMENT: 1. Postoperative day #9, status post exploratory laparotomy with sigmoidectomy and end colostomy. P ostoperative day #1, status post reexploration and lysis of adhesions. 2. Hypokalemia. 3. Hypomagnesemia. 4. NG tube output 250 mL over the last 12 hours. 5. Abdominal pain significantly improved per patient report. PLAN: 1. Continue n.p.o. with NG tube in place. 2. Continue TPN for nutritional support. 3. COMPUTER SYSTEM SPECIALIST for pain control. 4. Encourage ambulation. The patient was seen and examined with Dr. Camarena, who agrees with plan.
[2017-12-08] MEDS: Nicotine 21 MG PATCH TD SCH (20:48)
[2017-12-09] MEDS: Potassium Chloride 20 MEQ in Lactated Ringer's 1,000 ML IV SCH (00:10)
[2017-12-09 05:05] LABS: ALT (SGPT) 9 U/L (8-55); AST (SGOT) 22 U/L (5-34); Albumin 2.3 g/dL (3.5-5.0); Alkaline Phosphatase 44 U/L (40-150); Anion Gap 7 mmol/L (10-20); BUN (Urea Nitrogen) 19 mg/dL (8.9-20.6); Bilirubin, Total 0.4 mg/dL (0.2-1.2); Calc. Creatinine Clearance 125 mL/min (70-130); Calcium 7.9 mg/dL (7.8-10.44); Carbon Dioxide 34 mmol/L (22-29); Chloride 96 mmol/L (98-107); Estimated GFR-MDRD Greater than 90; Globulin 2.7 g/dL (2.4-3.5); Glucose 90 mg/dL (70-105); Magnesium 1.8 mg/dL (1.6-2.6); Phosphorus 3.2 mg/dL (2.3-4.7); Potassium 3.4 mmol/L (3.5-5.1); Sodium 134 mmol/L (136-145)
[2017-12-09 05:11] LABS: Band 12 % (5-11); Hemoglobin 9.3 g/dL (14.0-18.0); Lymphocytes 8 % (21-51); MDiff Complete? YES; Mean Corpuscular HGB CONC 33.7 g/dL (32.0-36.0); Mean Corpuscular Hemoglobin 35.6 pg (27.0-31.0); Mean Platelet Volume 6.6 fL (7.4-10.4); Monocytes 4 % (0-10); Neutrophil 76 % (42-75); PLT Morphology Comment Appears Increased; Platelet Count 535 thou/uL (130-400); RBC Distribution Width 13.5 % (11.5-14.5); Red Blood Cell (RBC) Count 2.62 mill/uL (4.70-6.10); White Blood Cell (WBC) Count 14.5 thou/uL (4.8-10.8)
[2017-12-09] MEDS: Metoclopramide HCl 10 MG/2 ML VIAL IVP SCH ×4 (05:27→23:28)
[2017-12-09] MEDS: Ketorolac Tromethamine 30 MG/ML VIAL IVP SCH ×4 (05:29→23:27)
[2017-12-09] MEDS: HYDROmorphone 10 mg/100 ml CADD IVPB PRN ×2 (08:17→23:05)
[2017-12-09] MEDS: Enoxaparin Sodium 40 MG/0.4 ML SYRINGE SC SCH (08:42)
[2017-12-09] MEDS: Senokot S 8.6-50 MG TAB PO SCH ×2 (08:42→20:41)
[2017-12-09] MEDS: Folic Acid/Vit B Comp W-C PO SCH (08:42)
[2017-12-09] MEDS: Pantoprazole 40 MG VIAL IVP SCH ×2 (08:42→20:39)
[2017-12-09] MEDS: Docusate 100 MG CAP PO SCH ×2 (08:42→20:41)
[2017-12-09] MEDS: Polyethylene Glycol 3350 17 GM Packet PO SCH (08:42)
--- NOTE | 2017-12-09 12:58 | PRG ---
DATE OF SERVICE: 12/09/2017 SUBJECTIVE: Mr. Serrano is a 52-year-old man postop day 10 status post Becky' s procedure. Postoperatively, the patient developed a small-bowel obstruction, which failed conservative management. He was taken to the operating room on for exploratory laparotomy and lysis of adhesions. Postoperatively, the patient has been doing well. Pain is controlled with WOOD FLOOR REFINISHER. NG tube output overnight was 550 Ml. Upon our evaluation, the patient vocalized no complaint. OBJECTIVE: VITAL SIGNS: Temperature 98.9, pulse 76, respiration 14, O2 sat 96% on room air , blood pressure 117/77. GENERAL: Resting in bed in no acute distress. PULMONARY: Normal work of breathing. Symmetric rise. CARDIOVASCULAR: Regular rate and rhythm. GASTROINTESTINAL: Abdomen is soft, mildly tender, nondistended. Surgical dressing is clean, dry, and intact. Recently changed by nursing staff. Ostomy is pink and healthy. There is no stool or gas in the ostomy bag. MUSCULOSKELETAL: Moves all extremities x4. NEUROLOGIC: No focal deficit noted. LABORATORY DATA: WBC 14.5, hemoglobin 9.3, hematocrit 27.7, platelet count 535. Sodium 134, potassium 3.4, chloride 96, carbon dioxide 34, BUN 19, creatinine 0.54. AST and ALT within normal limits. ASSESSMENT: 1. Postop day 10, status post exploratory laparotomy with Becky's procedure. Postop day #2 status post exploratory laparotomy and lysis of adhesions. 2. Hypokalemia. 3. Hypomagnesemia. 4. Status post colovesicular fistula, treated with antibiotics. 5. Status post Escherichia coli urinary tract infection treated with antibiotics. PLAN: Continue TPN at this time. Discussed with pharmacy regarding formulation for correction of electrolyte imbalance. Clamp NG tube. The patient may have popsicles at this time. Encourage mobility and ambulation. Encourage incentive spirometry. Pain control with WOOD FLOOR REFINISHER until patient is taking p.o. The patient was seen and evaluated with Dr. Camarena. HARRISON
[2017-12-09] MEDS ORDERED: POTASSIUM CHLORIDE IV SCH (14:00)
[2017-12-09] MEDS ORDERED: SODIUM CHLORIDE IV SCH (14:00)
[2017-12-09] MEDS ORDERED: SODIUM ACETATE IV SCH (14:00)
[2017-12-09] MEDS ORDERED: [UNRECOGNIZED DRUG - OTHER] IV SCH (14:00)
[2017-12-09] MEDS: SODIUM CHLORIDE IV SCH (15:03)
[2017-12-09] MEDS: POTASSIUM PHOSPHATE IV SCH (15:03)
[2017-12-09] MEDS: POTASSIUM CHLORIDE IV SCH (15:03)
[2017-12-09] MEDS: [UNRECOGNIZED DRUG - OTHER] IV SCH (15:03)
[2017-12-09] MEDS ORDERED: Sodium Chloride 0.9% 500 ML IV SCH (17:15)
--- NOTE | 2017-12-09 18:00 | PDOC.PN ---
- Subjective Encounter Start Date: 12/09/17 Encounter Start Time: 17:20 Subjective: f/u for SBO s/p lap with lysis of adhesions POD #2. Receiving TPN -: and NGT clamped. Some abd pain and minimal ostomy output. - Objective Resuscitation Status: Resuscitation Status FULL:Full Resuscitation MAR Reviewed: Yes Vital Signs & Weight: Vital Signs (12 hours) Temp Pulse Pulse Resp BP BP BP 12/09/17 16:00 98.1 F 75 14 108/64 12/09/17 11:45 98.7 F 84 16 160/98 H 12/09/17 11:42 76 142/92 H 12/09/17 11:20 148/90 H 12/09/17 08:00 99.4 F 73 14 138/82 Pulse Ox 12/09/17 16:00 94 L 12/09/17 11:45 12/09/17 11:42 12/09/17 11:20 12/09/17 08:00 96 Weight Admit Weight 119 lb 0.794 oz Weight 119 lb 0.794 oz I&O: 12/08/17 12/09/17 12/10/17 06:59 06:59 06:59 Intake Total 5360 3420 Output Total 5600 2225 250 Balance -240 1195 -250 Result Diagrams: 12/09/17 04:41 12/09/17 04:41 Additional Labs: Accuchecks 12/09/17 12/09/17 12/09/17 15:47 11:18 05:54 POC Glucose 123 H 105 126 H 12/09/17 01:18 POC Glucose 93 Laboratory Tests 12/03/17 12/05/17 12/07/17 04:30 03:19 15:08 WBC Hgb Plt Count Band Neuts % (Manual) Potassium 3.9 2.7 L* Creatinine 0.66 Phosphorus 4.0 Magnesium 2.0 12/08/17 12/08/17 12/09/17 04:47 04:47 04:41 WBC 12.1 H Hgb 11.4 L Plt Count 613 H Band Neuts % (Manual) 12 H Potassium 3.0 L Creatinine Phosphorus Magnesium Phys Exam - Physical Examination Constitutional: NAD HEENT: PERRLA, sclera anicteric, oral pharynx no lesions Neck: no nodes, no JVD, supple, full ROM Respiratory: no wheezing, no rales, no rhonchi, clear to auscultation bilateral S1, S2 Cardiovascular: RRR, no significant murmur, no rub, gallop firm, few scattered bowel sounds ostomy in place with scant fluid Musculoskeletal: no edema, pulses present Neurological: non-focal, normal sensation, moves all 4 limbs Psychiatric: normal affect, A&O x 3 Skin: no rash, normal turgor, cap refill <2 seconds Dx/Plan (1) SBO (small bowel obstruction) Code(s): K56.609 - UNSP INTESTNL OBST, UNSP TO PARTIAL VERSUS COMPLETE OBST Status: Acute Comment: s/p laparotomy with lysis of adhesions POD #2, NGT LIWS clamped currently, TPN (2) [place]-vesical fistula Code(s): N32.1 - VESICOINTESTINAL FISTULA Status: Acute Comment: s/o sigmoidectomy POD#10 (3) Pneumaturia Code(s): R39.89 - OTHER SYMPTOMS AND SIGNS INVOLVING THE GENITOURINARY SYSTEM Status: Acute Comment: s/p ureteric stent, see above, resolved (4) UTI (urinary tract infection) Status: Acute Comment: MDR e. coli, recommending Invanz after d/c (5) Chronic alcohol abuse Code(s): F10.10 - ALCOHOL ABUSE, UNCOMPLICATED Status: Chronic Comment: Continue ASE protocol. continue Thiamine, Folate and Magnesium (6) Moderate protein-calorie malnutrition Code(s): E44.0 - MODERATE PROTEIN-CALORIE MALNUTRITION Status: Chronic Comment: TPN for nutritional support given NPO status with SBO, continue to monitor (7) Tobacco abuse Code(s): Z72.0 - TOBACCO USE Status: Chronic Comment: Tobacco cessation, Nicotine patch - Plan PT/OT, sr. social media & mobile manager, incentive spirometry, out of bed/ambulate, DVT proph w/ SCDs Stable currently -: TPN for nutritional support -: KCL replacement -: Pain control with INCLUSION TEACHER -: Reglan IV q6h * AM lab: BMP, CBC, Mg++, PO3
--- NOTE | 2017-12-09 20:32 | PRG ---
DATE OF SERVICE: 12/09/2017 SUBJECTIVE: Mr. Serrano had worsening abdominal pain. He had a repeat CT, which showed a small-bowel obstruction. Dr. Camarena had to go back in. On 12/07/2017, the patient had an exploratory lap with l ysis of adhesions. The operative report was reviewed. Previous incisional wound was reopened. Faci al sutures were excised. The peritoneal cavity was entered. There is moderate amount of straw-color ed ascites evacuated. Small bowel was then run from the ligament of Treitz down to terminal ileum. Approximately a foot and a half from the terminal ileum, there was constricting adhesion causing comp lete small-bowel obstruction. This was lysed without difficulty. The patient is now receiving TPN, has an NG tube in place and denies any chest pain. He has an indwelling Castro catheter. OBJECTIVE: VITAL SIGNS: T-max 99.4, blood pressure 108/64, pulse 75, respirations 14-16. GENERAL: Chronically ill appearing. Awake and alert, NG tube, right upper extremity midline. LUNGS: Symmetric air entry. Lung sounds symmetric. HEART: S1, S2, regular rate. ABDOMEN: Somewhat taut. Not distended. Bowel sounds are diminished. Midline wound with a colostom y in place, which appears viable. EXTREMITIES: Muscle atrophy in lower extremities. He is able to move all extremities. LABORATORY DATA: White cell count up to 14.5, hemoglobin 9.3, platelets 535. Creatinine 0.54. Live r profile normal. Albumin 2.3. ASSESSMENT AND DISCUSSION: Malnutrition, secondary to alcoholism; colovesical fistula, which has bee n repaired and associated with cystitis and diverticulitis; and SBO, which required re-exploration wi th lysis of adhesions. The patient is currently on meropenem, to be continued for another 2 weeks ap proximately. The patient is on TPN and is at risk for fungal colonization of the lines and fungemia.
[2017-12-09] MEDS: Nicotine 21 MG PATCH TD SCH (20:39)
[2017-12-10] MEDS: Potassium Chloride 20 MEQ in Lactated Ringer's 1,000 ML IV SCH ×2 (01:33→23:43)
[2017-12-10 05:37] LABS: #Eosinphils 0.2 thou/uL (0.0-0.7); #Lymphocytes 1.2 thou/uL (1.20-3.40); #Monocytes 0.7 thou/uL (0.11-0.59); #Neutrophils 11.1 thou/uL (1.40-6.50); %Basophils 0.3 % (0.0-1.0); %Eosinophils 1.7 % (0.0-10.0); %Lymphocytes 9.1 % (21.0-51.0); %Monocytes 5.3 % (0.0-10.0); %Neutrophils 83.6 % (42.0-75.0); Hemoglobin 8.4 g/dL (14.0-18.0); Mean Corpuscular HGB CONC 33.7 g/dL (32.0-36.0); Mean Corpuscular Hemoglobin 35.2 pg (27.0-31.0); Mean Platelet Volume 6.7 fL (7.4-10.4); Platelet Count 551 thou/uL (130-400); RBC Distribution Width 13.5 % (11.5-14.5); Red Blood Cell (RBC) Count 2.37 mill/uL (4.70-6.10); White Blood Cell (WBC) Count 13.2 thou/uL (4.8-10.8)
[2017-12-10 05:59] LABS: Anion Gap 9 mmol/L (10-20); BUN (Urea Nitrogen) 15 mg/dL (8.9-20.6); Calc. Creatinine Clearance 135 mL/min (70-130); Calcium 8.2 mg/dL (7.8-10.44); Carbon Dioxide 31 mmol/L (22-29); Chloride 98 mmol/L (98-107); Estimated GFR-MDRD Greater than 90; Glucose 92 mg/dL (70-105); Magnesium 1.6 mg/dL (1.6-2.6); Phosphorus 3.1 mg/dL (2.3-4.7); Potassium 3.8 mmol/L (3.5-5.1); Sodium 134 mmol/L (136-145)
[2017-12-10] MEDS: Metoclopramide HCl 10 MG/2 ML VIAL IVP SCH ×4 (06:13→23:43)
[2017-12-10] MEDS ORDERED: Potassium Chloride 40 MEQ, Magnesium Sulfate 4 GM in Sodium Chloride 0.9% 250 ML 250 ML IVPB SCH (08:15)
[2017-12-10] MEDS ORDERED: Ibuprofen 600 MG TAB PO PRN (08:17)
[2017-12-10] MEDS: Folic Acid/Vit B Comp W-C PO SCH ×2 (08:42→10:58)
[2017-12-10] MEDS: Pantoprazole 40 MG VIAL IVP SCH ×2 (08:48→21:48)
[2017-12-10] MEDS: Enoxaparin Sodium 40 MG/0.4 ML SYRINGE SC SCH (08:49)
[2017-12-10] MEDS: Polyethylene Glycol 3350 17 GM Packet PO SCH (08:49)
[2017-12-10] MEDS: Senokot S 8.6-50 MG TAB PO SCH ×2 (08:50→21:46)
[2017-12-10] MEDS: Docusate 100 MG CAP PO SCH ×2 (08:50→21:45)
[2017-12-10] MEDS ORDERED: traMADol HCl 50 MG TAB PO SCH (09:00)
--- NOTE | 2017-12-10 11:27 | PRG ---
DATE OF SERVICE: 12/10/2017 The patient is status post a Becky's procedure, this is postop day #11. He is also postop from a small-bowel obstruction, which he had exploratory laparotomy and lysis of adhesions. The patient is currently on TPN or nutrition and utilizing a DREDGE LEVER OPERATOR for pain control. The patient today states that hi s pain is controlled. Denies abdominal pain. PHYSICAL EXAMINATION: VITAL SIGNS: Temperature 98.3, heart rate 67, blood pressure 119/75, respirations 16, oxygen saturat ion is 96% on room air. GENERAL: The patient is resting comfortably in bed, he appears in no distress. He is alert and orie nted x3. LUNGS: Clear to auscultation bilaterally. HEART: Regular rate and rhythm. ABDOMEN: Soft, flat, nontender. Surgical dressing is clean, dry, and intact. The ostomy appears to be maturing appropriately. There is no stool or gas in his ostomy bag though. EXTREMITIES: Neurovascularly intact x4. LABORATORY DATA: White blood cell count 13.2, hemoglobin 8.4, hematocrit 24.8, platelets 551. Sodiu m 134, potassium 3.8, chloride 98, CO2 31, BUN 15, creatinine 0.50, glucose 92, magnesium 1.6, phosph orus 3.1. No radiographs to review this morning. ASSESSMENT AND PLAN: 1. Status post exploratory laparotomy with Becky's procedure. 2. Status post exploratory laparotomy with lysis of adhesions. 3. Hypokalemia. 4. Hypomagnesemia. The plan will be to continue his TPN for nutrition. We will continue his DREDGE LEVER OPERATOR. We will get a 2-view abdominal series to obtain status of his abdomen. He does have bowel sounds, but we will be checking to see how dilated he may be in light of the ostomy bag still having no stool or air in it. The evaluation and examination were done with Dr. Camarena during rounds this morning.
[2017-12-10] MEDS: HYDROmorphone 10 mg/100 ml CADD IVPB PRN (11:38)
--- NOTE | 2017-12-10 11:46 | PDOC.PN ---
- Subjective Encounter Start Date: 12/10/17 Encounter Start Time: 11:35 Subjective: f/u for SBO s/p laparotomy with TEMITOPE POD #3 with persistent abd pain -: Ostomy output minimal. Taking clear liquids but has not noted any ostomy -: drainage. - Objective Resuscitation Status: Resuscitation Status FULL:Full Resuscitation MAR Reviewed: Yes Vital Signs & Weight: Vital Signs (12 hours) Temp Pulse Resp BP BP Pulse Ox 12/10/17 08:00 98.3 F 67 16 132/81 96 12/10/17 03:25 98.1 F 75 17 119/75 93 L 12/09/17 23:56 98.7 F 79 16 132/80 98 Weight Admit Weight 119 lb 0.794 oz Weight 119 lb 0.794 oz I&O: 12/09/17 12/10/17 12/11/17 06:59 06:59 06:59 Intake Total 3420 3150 Output Total 2225 1750 Balance 1195 1400 Result Diagrams: 12/10/17 05:00 12/10/17 05:00 Additional Labs: Accuchecks 12/10/17 12/10/17 12/09/17 05:43 00:26 15:47 POC Glucose 121 H 120 H 123 H 12/09/17 11:18 POC Glucose 105 Laboratory Tests 12/03/17 12/05/17 12/07/17 04:30 03:19 15:08 WBC Hgb Plt Count Band Neuts % (Manual) Potassium 3.9 2.7 L* Creatinine 0.66 Phosphorus 4.0 Magnesium 2.0 12/08/17 12/08/17 12/09/17 04:47 04:47 04:41 WBC 12.1 H Hgb 11.4 L Plt Count 613 H Band Neuts % (Manual) 12 H Potassium 3.0 L Creatinine Phosphorus Magnesium Laboratory Tests 12/10/17 05:00 Phosphorus 3.1 Magnesium 1.6 Radiology Reviewed by me: Yes (2V Abd - air fluid levels, distended bowel loops) Phys Exam - Physical Examination Constitutional: NAD mild distress HEENT: PERRLA, sclera anicteric, oral pharynx no lesions Neck: no nodes, no JVD, supple, full ROM Respiratory: no wheezing, no rales, no rhonchi, clear to auscultation bilateral S1, S2 Cardiovascular: RRR, no significant murmur, no rub, gallop firm, +TTP diffusely, ostomy in place, surgical incisions intact Musculoskeletal: no edema, pulses present Neurological: non-focal, normal sensation, moves all 4 limbs Psychiatric: A&O x 3 Skin: no rash, normal turgor, cap refill <2 seconds Dx/Plan (1) SBO (small bowel obstruction) Code(s): K56.609 - UNSP INTESTNL OBST, UNSP TO PARTIAL VERSUS COMPLETE OBST Status: Acute Comment: s/p laparotomy with lysis of adhesions POD #3, TPN, clear liquids, abx x-rays showing persistent obstructive process (2) [place]-vesical fistula Code(s): N32.1 - VESICOINTESTINAL FISTULA Status: Acute Comment: s/o sigmoidectomy POD#11 (3) Pneumaturia Code(s): R39.89 - OTHER SYMPTOMS AND SIGNS INVOLVING THE GENITOURINARY SYSTEM Status: Acute Comment: s/p ureteric stent, see above, resolved (4) UTI (urinary tract infection) Status: Acute Comment: MDR e. coli, recommending Invanz after d/c (5) Chronic alcohol abuse Code(s): F10.10 - ALCOHOL ABUSE, UNCOMPLICATED Status: Chronic Comment: Continue ASE protocol. continue Thiamine, Folate and Magnesium (6) Moderate protein-calorie malnutrition Code(s): E44.0 - MODERATE PROTEIN-CALORIE MALNUTRITION Status: Chronic Comment: TPN for nutritional support given NPO status with SBO, continue to monitor (7) Tobacco abuse Code(s): Z72.0 - TOBACCO USE Status: Chronic Comment: Tobacco cessation, Nicotine patch - Plan PT/OT, healthcare social worker, out of bed/ambulate, DVT proph w/SCDs Stable currently -: Continue supportive mgmt -: SCHEDULER for pain control -: ? colonoscopy for decompression -: TPN for nutritional support * Clear liquids, Bowel regimen * Reglan 5mg QID
[2017-12-10] MEDS ORDERED: Acetaminophen 500 MG TAB PO SCH (12:00)
--- NOTE | 2017-12-10 12:02 | RAD ---
TWO VIEWS ABDOMEN: Comparison: 12-07-17 History: Bowel obstruction. FINDINGS: Spine and upright views of the abdomen shows multiple air filled loops of small bowel. Contrast has p assed to the level of the right colon. An ostomy is seen in the left abdomen. Midline skin jessica ar e seen. There appears to be free air beneath the right hemidiaphragm. This may be from recent surgery . IMPRESSION: 1. Free air beneath the right hemidiaphragm is likely secondary to recent surgery. 2. Persistent dilated loops of small bowel may be secondary to persistent small bowel obstruction hugh yuval post-operative ileus. POS: [facility]
[2017-12-10] MEDS: POTASSIUM CHLORIDE IV SCH (15:12)
[2017-12-10] MEDS: POTASSIUM PHOSPHATE IV SCH (15:12)
[2017-12-10] MEDS: [UNRECOGNIZED DRUG - OTHER] IV SCH (15:12)
[2017-12-10] MEDS: SODIUM CHLORIDE IV SCH (15:12)
[2017-12-10] MEDS: Nicotine 21 MG PATCH TD SCH (21:58)
[2017-12-11] MEDS: HYDROmorphone 10 mg/100 ml CADD IVPB PRN (03:52)
[2017-12-11] MEDS: Metoclopramide HCl 10 MG/2 ML VIAL IVP SCH ×3 (05:35→18:02)
[2017-12-11 06:14] LABS: Anion Gap 9 mmol/L (10-20); BUN (Urea Nitrogen) 9 mg/dL (8.9-20.6); Calc. Creatinine Clearance 147 mL/min (70-130); Calcium 8.1 mg/dL (7.8-10.44); Carbon Dioxide 28 mmol/L (22-29); Chloride 101 mmol/L (98-107); Estimated GFR-MDRD Greater than 90; Glucose 89 mg/dL (70-105); Magnesium 1.5 mg/dL (1.6-2.6); Phosphorus 2.9 mg/dL (2.3-4.7); Sodium 134 mmol/L (136-145)
[2017-12-11 06:39] LABS: #Eosinphils 0.2 thou/uL (0.0-0.7); #Lymphocytes 0.8 thou/uL (1.20-3.40); #Monocytes 0.6 thou/uL (0.11-0.59); #Neutrophils 8.8 thou/uL (1.40-6.50); %Basophils 0.2 % (0.0-1.0); %Eosinophils 2.1 % (0.0-10.0); %Lymphocytes 7.7 % (21.0-51.0); %Monocytes 5.7 % (0.0-10.0); %Neutrophils 84.4 % (42.0-75.0); Hemoglobin 8.6 g/dL (14.0-18.0); Mean Corpuscular HGB CONC 32.8 g/dL (32.0-36.0); Mean Corpuscular Hemoglobin 34.7 pg (27.0-31.0); Mean Platelet Volume 6.8 fL (7.4-10.4); Platelet Count 628 thou/uL (130-400); RBC Distribution Width 13.3 % (11.5-14.5); Red Blood Cell (RBC) Count 2.47 mill/uL (4.70-6.10); White Blood Cell (WBC) Count 10.5 thou/uL (4.8-10.8)
[2017-12-11 06:40] LABS: PLT Morphology Comment Appears Increased
[2017-12-11] MEDS ORDERED: Magnesium Sulfate 4 GM in Sodium Chloride 0.9% 250 ML 250 ML IVPB SCH (08:00)
[2017-12-11] MEDS: Polyethylene Glycol 3350 17 GM Packet PO SCH (08:37)
[2017-12-11] MEDS: Docusate 100 MG CAP PO SCH ×2 (08:37→22:40)
[2017-12-11] MEDS: Enoxaparin Sodium 40 MG/0.4 ML SYRINGE SC SCH (08:37)
[2017-12-11] MEDS: Pantoprazole 40 MG VIAL IVP SCH ×2 (08:38→22:47)
[2017-12-11] MEDS: Folic Acid/Vit B Comp W-C PO SCH (08:38)
[2017-12-11] MEDS: Senokot S 8.6-50 MG TAB PO SCH ×2 (08:38→22:40)
[2017-12-11] MEDS ORDERED: HYDROmorphone 10 mg/100 ml CADD IVPB PRN (09:37)
[2017-12-11] MEDS ORDERED: Ketorolac Tromethamine 30 MG/ML VIAL IVP SCH (09:45)
[2017-12-11] MEDS: Neostigmine 0.5 MG in Admixture Fee 1 EACH SC SCH ×3 (10:05→22:38)
[2017-12-11] MEDS: Acetaminophen 1,000 MG in Premix Bag 1 BAG IVPB SCH ×2 (11:36→18:01)
[2017-12-11] MEDS: Ketorolac Tromethamine 30 MG/ML VIAL IVP SCH ×2 (11:37→18:00)
[2017-12-11] MEDS: POTASSIUM CHLORIDE IV SCH (14:45)
[2017-12-11] MEDS: SODIUM CHLORIDE IV SCH (14:45)
[2017-12-11] MEDS: POTASSIUM PHOSPHATE IV SCH (14:45)
[2017-12-11] MEDS: [UNRECOGNIZED DRUG - OTHER] IV SCH (14:45)
--- NOTE | 2017-12-11 15:31 | PDOC.PN ---
- Subjective Encounter Start Date: 12/11/17 Encounter Start Time: 15:05 Subjective: f/u SBO s/p laparotomy with TEMITOPE POD #4. + liquid stool in ostomy -: this pm. Feeling much better today. Receiving TPN without difficulty. -: SPECIAL EVENTS COORDINATOR for pain control. - Objective Resuscitation Status: Resuscitation Status FULL:Full Resuscitation MAR Reviewed: Yes Vital Signs & Weight: Vital Signs (12 hours) Temp Pulse Resp BP BP Pulse Ox 12/11/17 11:55 97.7 F 67 12 126/82 92 L 12/11/17 08:30 98.2 F 66 12 12/11/17 07:45 98.2 F 66 12 163/98 H 94 L 12/11/17 04:12 153/91 H 12/11/17 04:00 98.4 F 73 16 153/91 H 92 L Weight Admit Weight 119 lb 0.794 oz Weight 119 lb 0.794 oz I&O: 12/10/17 12/11/17 12/12/17 06:59 06:59 06:59 Intake Total 3150 3884 Output Total 1750 1740 Balance 1400 2144 Result Diagrams: 12/11/17 05:35 12/11/17 05:35 Additional Labs: Accuchecks 12/11/17 12/11/17 12/11/17 11:56 05:37 00:21 POC Glucose 135 H 90 122 H 12/10/17 12/10/17 20:19 17:28 POC Glucose 133 H 114 H Laboratory Tests 12/03/17 12/05/17 12/07/17 04:30 03:19 15:08 WBC Hgb Plt Count Band Neuts % (Manual) Potassium 3.9 2.7 L* Creatinine 0.66 Phosphorus 4.0 Magnesium 2.0 12/08/17 12/08/17 12/09/17 04:47 04:47 04:41 WBC 12.1 H Hgb 11.4 L Plt Count 613 H Band Neuts % (Manual) 12 H Potassium 3.0 L Creatinine Phosphorus Magnesium 12/10/17 12/11/17 05:00 05:35 WBC Hgb Plt Count Band Neuts % (Manual) Potassium Creatinine Phosphorus 3.1 2.9 Magnesium 1.6 1.5 L Phys Exam - Physical Examination Constitutional: NAD alert, responsive HEENT: PERRLA, sclera anicteric, oral pharynx no lesions Neck: no nodes, no JVD, supple, full ROM Respiratory: no wheezing, no rales, no rhonchi, clear to auscultation bilateral S1, S2 Cardiovascular: RRR, no significant murmur, no rub, gallop ostomy with brown/green liquid stool midline incision intact, mild erythema Gastrointestinal: soft, positive bowel sounds Musculoskeletal: no edema, pulses present Neurological: non-focal, normal sensation, moves all 4 limbs Psychiatric: normal affect, A&O x 3 Skin: no rash, normal turgor, cap refill <2 seconds Dx/Plan (1) SBO (small bowel obstruction) Code(s): K56.609 - UNSP INTESTNL OBST, UNSP TO PARTIAL VERSUS COMPLETE OBST Status: Acute Comment: s/p laparotomy with lysis of adhesions POD #4, TPN, clear liquids, improved and resolving, likely clear liquids and OOB/ambulating (2) [place]-vesical fistula Code(s): N32.1 - VESICOINTESTINAL FISTULA Status: Acute Comment: s/o sigmoidectomy POD#12 (3) Pneumaturia Code(s): R39.89 - OTHER SYMPTOMS AND SIGNS INVOLVING THE GENITOURINARY SYSTEM Status: Acute Comment: s/p ureteric stent, see above, resolved (4) UTI (urinary tract infection) Status: Acute Comment: MDR e. coli, completed tx (5) Chronic alcohol abuse Code(s): F10.10 - ALCOHOL ABUSE, UNCOMPLICATED Status: Chronic Comment: Continue Thiamine, Folate and Magnesium (6) Moderate protein-calorie malnutrition Code(s): E44.0 - MODERATE PROTEIN-CALORIE MALNUTRITION Status: Chronic Comment: TPN for nutritional support given NPO status with SBO, continue to monitor (7) Tobacco abuse Code(s): Z72.0 - TOBACCO USE Status: Chronic Comment: Tobacco cessation, Nicotine patch - Plan PT/OT, family welfare social work professor, out of bed/ambulate, DVT proph w/SCDs Stable overall -: Continue IVF's -: Continue TPN for nutritional support -: Likely start clear liquids -: OOB/ambulate * SPECIAL EVENTS COORDINATOR for pain control, wean as tolerated
[2017-12-11] MEDS: Potassium Chloride 20 MEQ in Lactated Ringer's 1,000 ML IV SCH (15:45)
[2017-12-11] MEDS: hydrALAZINE 20 MG/ML VIAL SLOW IVP PRN (15:55)
[2017-12-12] MEDS: Metoclopramide HCl 10 MG/2 ML VIAL IVP SCH ×5 (00:07→23:45)
[2017-12-12] MEDS: Acetaminophen 1,000 MG in Premix Bag 1 BAG IVPB SCH ×5 (00:07→23:45)
[2017-12-12] MEDS: Ketorolac Tromethamine 30 MG/ML VIAL IVP SCH ×5 (00:08→23:45)
[2017-12-12] MEDS: Neostigmine 0.5 MG in Admixture Fee 1 EACH SC SCH ×4 (03:29→20:30)
[2017-12-12] MEDS: Pantoprazole 40 MG VIAL IVP SCH ×2 (07:59→20:32)
[2017-12-12] MEDS: Enoxaparin Sodium 40 MG/0.4 ML SYRINGE SC SCH (07:59)
[2017-12-12] MEDS ORDERED: Acetaminophen 325 MG TAB PO SCH (08:00)
[2017-12-12] MEDS ORDERED: traMADol HCl 50 MG TAB PO SCH (08:00)
[2017-12-12] MEDS: Docusate 100 MG CAP PO SCH ×2 (08:07→20:31)
[2017-12-12] MEDS: Folic Acid/Vit B Comp W-C PO SCH (08:07)
[2017-12-12] MEDS: Polyethylene Glycol 3350 17 GM Packet PO SCH (08:07)
[2017-12-12] MEDS: Senokot S 8.6-50 MG TAB PO SCH ×2 (08:07→20:32)
[2017-12-12] MEDS ORDERED: HYDROmorphone 10 mg/100 ml CADD IVPB PRN (08:19)
[2017-12-12] MEDS ORDERED: HYDROcodone/Acetaminophen 10/325 mg Tablet PO PRN (08:24)
[2017-12-12 09:38] LABS: ALT (SGPT) 10 U/L (8-55); AST (SGOT) 18 U/L (5-34); Albumin 2.6 g/dL (3.5-5.0); Alkaline Phosphatase 91 U/L (40-150); Anion Gap 10 mmol/L (10-20); BUN (Urea Nitrogen) 8 mg/dL (8.9-20.6); Bilirubin, Total 0.3 mg/dL (0.2-1.2); Calc. Creatinine Clearance 138 mL/min (70-130); Calcium 8.5 mg/dL (7.8-10.44); Carbon Dioxide 25 mmol/L (22-29); Chloride 105 mmol/L (98-107); Estimated GFR-MDRD Greater than 90; Globulin 3.5 g/dL (2.4-3.5); Glucose 88 mg/dL (70-105); Magnesium 1.8 mg/dL (1.6-2.6); Phosphorus 3.5 mg/dL (2.3-4.7); Potassium 4.4 mmol/L (3.5-5.1); Protein, Total 6.1 g/dL (6.0-8.3); Sodium 136 mmol/L (136-145)
[2017-12-12] MEDS: Potassium Chloride 20 MEQ in Lactated Ringer's 1,000 ML IV SCH ×2 (10:34→14:48)
[2017-12-12] MEDS ORDERED: Magnesium 2 GM/NS 0.9% 100 ML 2 GM in Premix Bag 1 BAG IVPB SCH (11:15)
--- NOTE | 2017-12-12 11:16 | PRG ---
DATE OF SERVICE: 12/12/2017 SUBJECTIVE: This is a 52-year-old male status post Becky's procedure postop day 13. He is also p ostoperative day #5 status post exploratory laparotomy with lysis of adhesions secondary to small-bow el obstruction. He is currently on TPN and utilizing TEAM LEADER for pain control. The patient states the p ain today was better than yesterday. He did have some output from his ostomy after neostigmine, but did mobilize with physical therapy; however, ostomy output has slowed down overnight. There has been no passage of gas. Abdomen remains somewhat distended and tympanic. OBJECTIVE: VITAL SIGNS: Temperature 98.0, pulse 64, respirations 14, O2 sat 96% on room air, blood pressure 142 /82. GENERAL: Resting in bed, in no acute distress. PULMONARY: Normal work of breathing. Symmetric rise. CARDIOVASCULAR: Regular rate and rhythm. GASTROINTESTINAL: Abdomen mildly firm, distended and tympanic to percussion. Bowel sounds are activ e. Ostomy is pink and viable with no output or gas noted in the ostomy bag at this time. MUSCULOSKELETAL: Moves all extremities x4. NEUROLOGIC: No focal deficit noted. LABORATORY DATA: Sodium 136, potassium 4.4, chloride 105, carbon dioxide 25, BUN 8, creatinine 0.49, glucose 88, calcium 8.5, phosphorus 3.5, magnesium 1.8. AST and ALT within normal limits. ASSESSMENT: 1. Status post exploratory laparotomy and Becky's procedure, postoperative day 13. 2. Status post exploratory laparotomy with lysis of adhesions, postoperative day 5. 3. Postoperative ileus. 4. Hypomagnesemia. PLAN: Continue TPN for nutritional support. Continue TEAM LEADER at this time. The patient was started on neostigmine yesterday, we will continue at this time. Continue to encourage mobility. Continue IS a nd pulmonary toileting. Supportive care as ordered. The patient was discussed with Dr. Camarena.
--- NOTE | 2017-12-12 13:38 | PDOC.PN ---
- Subjective Encounter Start Date: 12/12/17 Encounter Start Time: 13:25 Subjective: f/u for SBO s/p laparotomy with TEMITOPE POD #5. No ostomy output today after -: having output 12/11/17. Trial of neostigmine in progress. Tolerating ice -: chips. - Objective Resuscitation Status: Resuscitation Status FULL:Full Resuscitation MAR Reviewed: Yes Vital Signs & Weight: Vital Signs (12 hours) Temp Pulse Resp BP BP BP Pulse Ox 12/12/17 11:00 97.8 F 62 14 137/83 97 12/12/17 08:00 98.0 F 64 14 12/12/17 07:34 98.0 F 64 14 142/82 H 96 12/12/17 04:35 151/73 H 12/12/17 03:39 97.9 F 64 16 151/73 H 94 L Weight Admit Weight 119 lb 0.794 oz Weight 119 lb 0.794 oz I&O: 12/11/17 12/12/17 12/13/17 06:59 06:59 06:59 Intake Total 3884 4006.5 Output Total 1740 3970 Balance 2144 36.5 Result Diagrams: 12/11/17 05:35 12/12/17 09:00 Additional Labs: Accuchecks 12/12/17 12/12/17 12/12/17 12:25 07:01 03:26 POC Glucose 112 H 112 H 129 H 12/11/17 12/11/17 21:06 17:58 POC Glucose 105 127 H Laboratory Tests 12/03/17 12/05/17 12/07/17 04:30 03:19 15:08 WBC Hgb Plt Count Band Neuts % (Manual) Potassium 3.9 2.7 L* Creatinine 0.66 Phosphorus 4.0 Magnesium 2.0 12/08/17 12/08/17 12/09/17 04:47 04:47 04:41 WBC 12.1 H Hgb 11.4 L Plt Count 613 H Band Neuts % (Manual) 12 H Potassium 3.0 L Creatinine Phosphorus Magnesium 12/10/17 12/11/17 05:00 05:35 WBC Hgb Plt Count Band Neuts % (Manual) Potassium Creatinine Phosphorus 3.1 2.9 Magnesium 1.6 1.5 L Phys Exam - Physical Examination Constitutional: NAD HEENT: PERRLA, sclera anicteric, oral pharynx no lesions Neck: no nodes, no JVD, supple, full ROM scattered rhonchi Respiratory: no wheezing, clear to auscultation bilateral S1, S2 Cardiovascular: RRR, no significant murmur, no rub, gallop firm, distention, JADE drains x 2, surgical incision intact Gastrointestinal: positive bowel sounds Musculoskeletal: no edema, pulses present Neurological: non-focal, normal sensation, moves all 4 limbs Psychiatric: normal affect, A&O x 3 Skin: no rash, normal turgor, cap refill <2 seconds Dx/Plan (1) SBO (small bowel obstruction) Code(s): K56.609 - UNSP INTESTNL OBST, UNSP TO PARTIAL VERSUS COMPLETE OBST Status: Acute Comment: s/p laparotomy with lysis of adhesions POD #5, TPN, clear liquids, improved slowly, OOB/ambulating (2) [place]-vesical fistula Code(s): N32.1 - VESICOINTESTINAL FISTULA Status: Acute Comment: s/o sigmoidectomy POD#13 (3) Pneumaturia Code(s): R39.89 - OTHER SYMPTOMS AND SIGNS INVOLVING THE GENITOURINARY SYSTEM Status: Acute Comment: s/p ureteric stent, see above, resolved (4) UTI (urinary tract infection) Status: Acute Comment: MDR e. coli, completed tx (5) Chronic alcohol abuse Code(s): F10.10 - ALCOHOL ABUSE, UNCOMPLICATED Status: Chronic Comment: Continue Thiamine, Folate and Magnesium (6) Moderate protein-calorie malnutrition Code(s): E44.0 - MODERATE PROTEIN-CALORIE MALNUTRITION Status: Chronic Comment: TPN for nutritional support given NPO status with SBO, continue to monitor (7) Tobacco abuse Code(s): Z72.0 - TOBACCO USE Status: Chronic Comment: Tobacco cessation, Nicotine patch - Plan PT/OT, criminal justice social worker, out of bed/ambulate, DVT proph w/SCDs Stable overall -: Continue TPN for nutritional support -: OOB/ambulate -: PATIENT ASSISTANT for pain control -: Trial of Neostigmine for SBO * .
[2017-12-12] MEDS: POTASSIUM PHOSPHATE IV SCH (14:32)
[2017-12-12] MEDS: POTASSIUM CHLORIDE IV SCH (14:32)
[2017-12-12] MEDS: HYDROmorphone 10 mg/100 ml CADD IVPB PRN (14:32)
[2017-12-12] MEDS: [UNRECOGNIZED DRUG - OTHER] IV SCH (14:32)
[2017-12-12] MEDS: SODIUM CHLORIDE IV SCH (14:32)
[2017-12-12] MEDS ORDERED: Magnesium Sulfate 2 GM in Sodium Chloride 0.9% 100 ML IVPB SCH (17:30)
[2017-12-13] MEDS: Neostigmine 0.5 MG in Admixture Fee 1 EACH SC SCH ×3 (04:00→15:12)
[2017-12-13] MEDS: Metoclopramide HCl 10 MG/2 ML VIAL IVP SCH ×4 (05:55→23:10)
[2017-12-13] MEDS: HYDROmorphone 10 mg/100 ml CADD IVPB PRN (05:58)
[2017-12-13] MEDS: Ketorolac Tromethamine 30 MG/ML VIAL IVP SCH ×4 (06:00→23:10)
[2017-12-13] MEDS: Acetaminophen 1,000 MG in Premix Bag 1 BAG IVPB SCH (06:01)
[2017-12-13] MEDS ORDERED: HYDROmorphone 10 mg/100 ml CADD IVPB PRN (09:07)
[2017-12-13] MEDS: Pantoprazole 40 MG VIAL IVP SCH ×3 (09:25→20:01)
[2017-12-13] MEDS: hydrALAZINE 20 MG/ML VIAL SLOW IVP PRN (09:25)
[2017-12-13] MEDS: Enoxaparin Sodium 40 MG/0.4 ML SYRINGE SC SCH (09:25)
[2017-12-13 09:53] LABS: Anion Gap 11 mmol/L (10-20); BUN (Urea Nitrogen) 10 mg/dL (8.9-20.6); Calc. Creatinine Clearance 144 mL/min (70-130); Calcium 8.3 mg/dL (7.8-10.44); Carbon Dioxide 25 mmol/L (22-29); Chloride 104 mmol/L (98-107); Estimated GFR-MDRD Greater than 90; Glucose 75 mg/dL (70-105); Magnesium 1.9 mg/dL (1.6-2.6); Phosphorus 3.9 mg/dL (2.3-4.7); Potassium 4.8 mmol/L (3.5-5.1); Sodium 135 mmol/L (136-145)
[2017-12-13] MEDS ORDERED: Acetaminophen 500 MG TAB PO SCH ×2 (10:00→18:00)
--- NOTE | 2017-12-13 10:57 | PRG ---
DATE OF SERVICE: 12/13/2017 SUBJECTIVE: This is a 52-year-old male status post Becky's procedure postop day 14. He is also p ostop day #6 status post exploratory laparotomy with lysis of adhesions secondary to small-bowel obst ruction after his first surgery. He is currently on TPN and utilizing a RN ONCOLOGY CLINICAL for pain control. Overn ight, the patient had multiple episodes of flatus with liquid stool in his ostomy bag this morning. He reports that his pain is stable and that his abdominal distention has improved. He endorses mobil izing multiple times yesterday evening. OBJECTIVE: VITAL SIGNS: Temperature 97.7, pulse 66, respirations 16, O2 sat 97% on room air, and blood pressure 165/104. GENERAL: Resting in bed in no acute distress. PULMONARY: Normal work of breathing. Symmetric rise. Lungs are clear to auscultation bilaterally. CARDIOVASCULAR: Regular rate and rhythm. GASTROINTESTINAL: Mildly firm, distended and tympanic to percussion. Bowel sounds remain active. O stomy is pink and viable with liquid stool in ostomy bag. No gas noted at this time. MUSCULOSKELETAL: Moves all extremities x4. NEUROLOGIC: No focal deficit noted. LABORATORY DATA: Pending. ASSESSMENT: 1. Status post exploratory laparotomy and Becky's procedure, postoperative day 14. 2. Status post exploratory laparotomy with lysis of adhesions, postoperative day #6. 3. Postoperative ileus, improving. 4. Hypertension. PLAN: Continue TPN for nutritional support. Start clear liquid diet. Transition to p.o. analgesics and reduce IV analgesics dose. Continue to encourage mobility and pulmonary toileting. Other suppo rtive care as ordered. The patient was discussed with Dr. Camarena.
[2017-12-13] MEDS ORDERED: Magnesium Sulfate 2 GM in Sodium Chloride 0.9% 100 ML IVPB SCH (12:00)
[2017-12-13] MEDS: traMADol HCl 50 MG TAB PO SCH ×2 (12:16→12:24)
[2017-12-13] MEDS: Folic Acid/Vit B Comp W-C PO SCH (12:16)
[2017-12-13] MEDS: Potassium Chloride 20 MEQ in Lactated Ringer's 1,000 ML IV SCH (12:19)
[2017-12-13] MEDS: Docusate 100 MG CAP PO SCH ×2 (12:20→20:02)
[2017-12-13] MEDS: Polyethylene Glycol 3350 17 GM Packet PO SCH (12:20)
[2017-12-13] MEDS: Senokot S 8.6-50 MG TAB PO SCH ×2 (12:20→20:02)
[2017-12-13] MEDS: [UNRECOGNIZED DRUG - OTHER] IV SCH (15:11)
[2017-12-13] MEDS: SODIUM CHLORIDE IV SCH (15:11)
[2017-12-13] MEDS: POTASSIUM PHOSPHATE IV SCH (15:11)
[2017-12-13] MEDS: POTASSIUM CHLORIDE IV SCH (15:11)
[2017-12-13] MEDS: HYDROcodone/Acetaminophen 10/325 mg Tablet PO PRN ×2 (15:18→23:10)
--- NOTE | 2017-12-13 15:23 | PDOC.PN ---
- Subjective Encounter Start Date: 12/13/17 Encounter Start Time: 15:05 Subjective: f/u for SBO s/p laparotomy with TEMITOPE POD #6. Feels better with ostomy -: output noted. Abd pain decreased. Ambulating in halls. - Objective Resuscitation Status: Resuscitation Status FULL:Full Resuscitation MAR Reviewed: Yes Vital Signs & Weight: Vital Signs (12 hours) Temp Pulse Resp BP BP Pulse Ox 12/13/17 11:38 98.1 F 72 16 109/58 L 93 L 12/13/17 09:25 66 165/104 H 12/13/17 07:43 97.7 F 66 16 165/104 H 97 12/13/17 04:30 157/93 H 12/13/17 04:00 98.0 F 88 18 157/93 H 98 Weight Admit Weight 119 lb 0.794 oz Weight 119 lb 0.794 oz I&O: 12/12/17 12/13/17 12/14/17 06:59 06:59 06:59 Intake Total 4006.5 3986.5 Output Total 3970 3050 Balance 36.5 936.5 Result Diagrams: 12/11/17 05:35 12/13/17 09:18 Additional Labs: Accuchecks 12/13/17 12/13/17 12/13/17 10:45 06:45 00:11 POC Glucose 107 97 116 H 12/12/17 16:06 POC Glucose 111 H Phys Exam - Physical Examination Constitutional: NAD HEENT: PERRLA, sclera anicteric, oral pharynx no lesions Neck: no nodes, no JVD, supple, full ROM Respiratory: no wheezing, no rales, no rhonchi, clear to auscultation bilateral S1, S2 Cardiovascular: RRR, no significant murmur, no rub, gallop mild distention, ostomy with liquid stool, incision in midline intact Gastrointestinal: positive bowel sounds Musculoskeletal: no edema, pulses present Neurological: non-focal, normal sensation, moves all 4 limbs Psychiatric: normal affect, A&O x 3 Skin: no rash, normal turgor, cap refill <2 seconds Dx/Plan (1) SBO (small bowel obstruction) Code(s): K56.609 - UNSP INTESTNL OBST, UNSP TO PARTIAL VERSUS COMPLETE OBST Status: Acute Comment: s/p laparotomy with lysis of adhesions POD #6, TPN, clear liquids, improved slowly, OOB/ambulating (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
[2017-12-13] MEDS: HYDROcodone/Acetaminophen 10/325 mg Tablet PO SCH ×2 (17:26→20:00)
[2017-12-14] MEDS: HYDROcodone/Acetaminophen 10/325 mg Tablet PO SCH ×6 (01:05→22:08)
[2017-12-14] MEDS: HYDROcodone/Acetaminophen 10/325 mg Tablet PO PRN ×2 (04:31→19:22)
[2017-12-14] MEDS: Metoclopramide HCl 10 MG/2 ML VIAL IVP SCH ×3 (04:34→18:47)
[2017-12-14] MEDS: Ketorolac Tromethamine 30 MG/ML VIAL IVP SCH (04:40)
[2017-12-14] MEDS: Potassium Chloride 20 MEQ in Lactated Ringer's 1,000 ML IV SCH (05:52)
[2017-12-14] MEDS: Enoxaparin Sodium 40 MG/0.4 ML SYRINGE SC SCH (07:56)
[2017-12-14] MEDS: Polyethylene Glycol 3350 17 GM Packet PO SCH (07:56)
[2017-12-14] MEDS: Pantoprazole 40 MG VIAL IVP SCH ×2 (07:56→22:09)
[2017-12-14] MEDS: Folic Acid/Vit B Comp W-C PO SCH (07:57)
[2017-12-14] MEDS: Docusate 100 MG CAP PO SCH ×2 (07:57→22:09)
[2017-12-14] MEDS: Senokot S 8.6-50 MG TAB PO SCH ×2 (07:57→22:09)
[2017-12-14 10:35] LABS: Anion Gap 12 mmol/L (10-20); BUN (Urea Nitrogen) 9 mg/dL (8.9-20.6); Calc. Creatinine Clearance 113 mL/min (70-130); Calcium 8.5 mg/dL (7.8-10.44); Carbon Dioxide 24 mmol/L (22-29); Chloride 104 mmol/L (98-107); Estimated GFR-MDRD Greater than 90; Glucose 83 mg/dL (70-105); Magnesium 1.5 mg/dL (1.6-2.6); Phosphorus 4.3 mg/dL (2.3-4.7); Potassium 4.7 mmol/L (3.5-5.1); Sodium 135 mmol/L (136-145)
[2017-12-14] MEDS ORDERED: Magnesium Sulfate 3 GM in Sodium Chloride 0.9% 100 ML IVPB SCH (11:30)
[2017-12-14] MEDS: cloNIDine 0.1 MG TAB PO SCH ×2 (12:45→18:35)
[2017-12-14] MEDS: Ibuprofen 800 MG TAB PO SCH ×2 (14:55→22:08)
--- NOTE | 2017-12-14 20:19 | PRG ---
DATE OF SERVICE: 12/14/2017 SUBJECTIVE: Mr. London Serrano is a 52-year-old male status post Becky's procedure postop day 15. He is postop day 7 status post exploratory laparotomy with lysis of adhesions. The patient has bee n transitioned to a regular diet and p.o. analgesics. There were no acute overnight events. This mo rning, the patient reports improving pain; however, it is still rated as an 8/10. He states that he is ambulating more frequently and for longer distances. He has been tolerating a general diet since last night. He continues to have flatus and liquid stool in his ostomy bag. OBJECTIVE: VITAL SIGNS: Temperature 97.9, pulse 74, respirations 16, O2 sat 92% on room air, blood pressure 136 /84, resting in bed, in no acute distress. PULMONARY: Normal work of breathing, symmetric rise. LUNGS: Clear to auscultation bilaterally. CARDIOVASCULAR: Regular rate and rhythm. GASTROINTESTINAL: Abdomen is softer today. Still mildly distended and tympanic. Ostomy is viable w ith liquid stool in the bag. MUSCULOSKELETAL: Moves all extremities x4. NEUROLOGIC: No focal deficit noted. LABORATORY DATA: Sodium 135, potassium 4.7, chloride 104, carbon dioxide 24, BUN 9, creatinine 0.60, glucose 83, phosphorus 4.3, magnesium 1.5. ASSESSMENT: 1. Status post Becky's procedure. 2. Status post exploratory laparotomy. 3. Postoperative ileus, improving. 4. Acute hypomagnesemia. 5. Acute pain. 6. Hypertension. PLAN: Continue supportive care as ordered. Continue regular diet. We will add clonidine 0.1 q.6 ho urs with hold parameters given the patient's pain rating of an 8 despite being on scheduled and p.r.n . [place]. Continue to encourage mobility and pulmonary toileting. Replete electrolytes. A.M. labs. The patient was discussed with trauma attending.
[2017-12-15] MEDS: Metoclopramide HCl 10 MG/2 ML VIAL IVP SCH ×2 (00:13→06:43)
[2017-12-15] MEDS: HYDROcodone/Acetaminophen 10/325 mg Tablet PO SCH ×6 (02:14→21:06)
[2017-12-15] MEDS: cloNIDine 0.1 MG TAB PO SCH ×5 (02:14→23:07)
[2017-12-15 05:00] LABS: #Eosinphils 0.3 thou/uL (0.0-0.7); #Neutrophils 7.7 thou/uL (1.40-6.50); %Basophils 0.2 % (0.0-1.0); %Eosinophils 2.8 % (0.0-10.0); %Lymphocytes 10.1 % (21.0-51.0); %Monocytes 9.7 % (0.0-10.0); %Neutrophils 77.1 % (42.0-75.0); Hemoglobin 8.2 g/dL (14.0-18.0); Mean Corpuscular HGB CONC 32.3 g/dL (32.0-36.0); Mean Corpuscular Hemoglobin 33.6 pg (27.0-31.0); Platelet Count 781 thou/uL (130-400); RBC Distribution Width 13.8 % (11.5-14.5); Red Blood Cell (RBC) Count 2.43 mill/uL (4.70-6.10)
[2017-12-15 05:25] LABS: Anion Gap 12 mmol/L (10-20); BUN (Urea Nitrogen) 12 mg/dL (8.9-20.6); Calc. Creatinine Clearance 98 mL/min (70-130); Calcium 8.7 mg/dL (7.8-10.44); Carbon Dioxide 24 mmol/L (22-29); Chloride 105 mmol/L (98-107); Estimated GFR-MDRD Greater than 90; Glucose 80 mg/dL (70-105); Magnesium 1.8 mg/dL (1.6-2.6); Potassium 4.6 mmol/L (3.5-5.1); Sodium 136 mmol/L (136-145)
[2017-12-15] MEDS: Ibuprofen 800 MG TAB PO SCH ×3 (05:47→22:57)
[2017-12-15] MEDS: Senokot S 8.6-50 MG TAB PO SCH ×2 (08:08→21:07)
[2017-12-15] MEDS: Docusate 100 MG CAP PO SCH (08:08)
[2017-12-15] MEDS: Polyethylene Glycol 3350 17 GM Packet PO SCH (08:09)
[2017-12-15] MEDS: Folic Acid/Vit B Comp W-C PO SCH (08:09)
[2017-12-15] MEDS: Enoxaparin Sodium 40 MG/0.4 ML SYRINGE SC SCH (08:09)
[2017-12-15] MEDS: Pantoprazole 40 MG VIAL IVP SCH (08:10)
--- NOTE | 2017-12-15 12:00 | PRG ---
DATE OF SERVICE: 12/15/2017 SUBJECTIVE: This is a 52-year-old male status post Becky's procedure postop day 16 and postop day #8 status post exploratory laparotomy with lysis of adhesions. The patient continues to tolerate a general diet and p.o. analgesics. There were no acute overnight events. There is still significant concern over the patient's nutritional status given his prolonged hospitalization. Upon our evaluati on this morning, the patient vocalized some generalized abdominal discomfort, but otherwise had no co mplaints. OBJECTIVE: VITAL SIGNS: Temperature 97.6, pulse 70, respirations 16, O2 sat 97% on room air, blood pressure 118 /82. GENERAL: Resting in bed in no acute distress. PULMONARY: Normal work of breathing. Symmetric rise. CARDIOVASCULAR: Regular rate and rhythm. GASTROINTESTINAL: The abdomen is soft with mild generalized tenderness. Ostomy is viable with stool and gas in the bag. Midline incision was inspected. There is some erythema surrounding the wound, but there is no fluctuance or drainage. The wound was cleaned at bedside and redressed by Dr. Camarena. LABORATORY DATA: WBC 10.0, hemoglobin 8.2, hematocrit 25.3, platelet count 781. Sodium 136, potassi um 4.6, chloride 105, carbon dioxide 24, BUN 12, creatinine 0.69, glucose 80, phosphorus 5.0, magnesi um 1.8. ASSESSMENT: 1. Status post Becky's procedure, postop day 16. 2. Status post exploratory laparotomy, postop day 8. 3. Postoperative ileus, improving. 4. Acute pain, stable. 5. Hypertension. PLAN: Continue supportive care as ordered. Continue PT and mobility. We have added a nutritional s upplement protocol per nutrition recommendations. Continue to monitor ostomy function. We will disc uss with case management regarding disposition and discharge planning. The patient was seen and evaluated with Dr. Camarena.
[2017-12-15] MEDS ORDERED: Docusate 100 MG CAP PO PRN (16:42)
[2017-12-15] MEDS ORDERED: Polyethylene Glycol 3350 17 GM Packet PO PRN (16:43)
--- NOTE | 2017-12-15 16:51 | PDOC.PN ---
- Subjective Encounter Start Date: 12/15/17 Encounter Start Time: 16:35 Subjective: f/u for SBO now resolved and tolerating po intake. No abd pain -: and ostomy output brisk. Ambulatory in halls. - Objective Resuscitation Status: Resuscitation Status FULL:Full Resuscitation MAR Reviewed: Yes Vital Signs & Weight: Vital Signs (12 hours) Temp Pulse Resp BP BP BP Pulse Ox 12/15/17 15:18 98.1 F 69 16 104/69 93 L 12/15/17 13:21 144/87 H 12/15/17 11:14 97.6 F 76 18 125/86 98 12/15/17 08:00 97.6 F 70 16 12/15/17 07:37 97.6 F 70 16 118/82 97 12/15/17 05:47 144/87 H Weight Admit Weight 119 lb 0.794 oz Weight 119 lb 0.794 oz I&O: 12/14/17 12/15/17 12/16/17 06:59 06:59 06:59 Intake Total 5105 2620 Output Total 4375 3550 Balance 730 -930 Result Diagrams: 12/15/17 04:40 12/15/17 04:40 Additional Labs: Laboratory Tests 12/03/17 12/05/17 12/07/17 04:30 03:19 15:08 WBC Hgb Plt Count Band Neuts % (Manual) Potassium 3.9 2.7 L* Creatinine 0.66 Phosphorus 4.0 Magnesium 2.0 12/08/17 12/08/17 12/09/17 04:47 04:47 04:41 WBC 12.1 H Hgb 11.4 L Plt Count 613 H Band Neuts % (Manual) 12 H Potassium 3.0 L Creatinine Phosphorus Magnesium 12/10/17 12/11/17 05:00 05:35 WBC Hgb Plt Count Band Neuts % (Manual) Potassium Creatinine Phosphorus 3.1 2.9 Magnesium 1.6 1.5 L Phys Exam - Physical Examination Constitutional: NAD HEENT: PERRLA, sclera anicteric, oral pharynx no lesions Neck: no nodes, no JVD, supple, full ROM Respiratory: no wheezing, no rales, no rhonchi, clear to auscultation bilateral S1, S2 Cardiovascular: RRR, no significant murmur, no rub, gallop ostomy with liquid stool, midline incision intact Gastrointestinal: soft, non-tender, no distention, positive bowel sounds Musculoskeletal: no edema, pulses present Neurological: non-focal, normal sensation, moves all 4 limbs flat affect Psychiatric: A&O x 3 Skin: no rash, normal turgor, cap refill <2 seconds Dx/Plan (1) SBO (small bowel obstruction) Code(s): K56.609 - UNSP INTESTNL OBST, UNSP TO PARTIAL VERSUS COMPLETE OBST Status: Acute Comment: s/p laparotomy with lysis of adhesions POD #8, resolved (2) Omega-vesical fistula Code(s): 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
[2017-12-16] MEDS: HYDROcodone/Acetaminophen 10/325 mg Tablet PO SCH ×5 (01:50→17:09)
[2017-12-16] MEDS: Ibuprofen 800 MG TAB PO SCH ×2 (05:46→13:16)
[2017-12-16] MEDS: cloNIDine 0.1 MG TAB PO SCH ×2 (05:47→12:18)
[2017-12-16] MEDS ORDERED: Ascorbic Acid 500 mg Chewable Tablet PO SCH (09:00)
[2017-12-16] MEDS: Enoxaparin Sodium 40 MG/0.4 ML SYRINGE SC SCH (10:25)
[2017-12-16] MEDS: Folic Acid/Vit B Comp W-C PO SCH (10:26)
[2017-12-16] MEDS: Senokot S 8.6-50 MG TAB PO SCH (10:28)
--- NOTE | 2017-12-16 11:56 | PRG ---
DATE OF SERVICE: 12/16/2017 ATTENDING PHYSICIAN: Dr. Marquise Camarena. SUBJECTIVE: Mr. Serrano is a 52-year-old man status post Becky's procedure postoperative day #17 a nd postoperative day #9 status post exploratory laparotomy with lysis of adhesions for small bowel ob struction. He is tolerating a regular diet and pain is well controlled. He has not been actively pa rticipating with wound care ostomy nurse teaching, but reports that he can manage his colostomy when he returns home. OBJECTIVE: VITAL SIGNS: Temperature 98.3, pulse 65, respirations 16, O2 sat 99% on room air, blood pressure 119 /77. GENERAL: Walking around the hallway without assistance. No respiratory distress. Symmetric chest m ovement. CARDIOVASCULAR: Regular rate and rhythm. ABDOMEN: Soft, mild tenderness around surgical incision and ostomy. Ostomy appears healthy and func tioning normally. Midline abdominal dressing changed at bedside by Dr. Camarena. LABORATORY DATA: None. ASSESSMENT: 1. Status post Becky's procedure, postoperative day #17. 2. Status post exploratory laparotomy, postoperative day #9. 3. Postoperative ileus, resolved. 4. Postoperative pain, well controlled. 5. Hypertension, well controlled. PLAN: The patient may be discharged from a trauma surgical standpoint. He has been given a prescrip tion for Wells and Augmentin. He will take Augmentin for 7 days and return to our clinic in 9 days. This has been discussed with the patient. Case management to setup home health wound care ostomy te aching visit. The patient was seen and examined with Dr. Camarena who agrees with the plan.
[2017-12-16 16:07] VITALS: BP 142/92; TEMP 97.9
[2017-12-16] MEDS ORDERED: Ferrous Sulfate 325 MG TAB PO SCH (17:00)
== END 2017-12-16 17:55 | disposition home health service (06) | DRG 330 ==
LOC: ERS 13:24 → T4-B 16:52 → SURG B 11-29 13:43
PROVIDERS: ADMIT Internal Medicine; ATTEND Internal Medicine
PROC: 0DJD8ZZ Inspection of Lower Intestinal Tract, Via Natural or Artificial Opening Endoscopic (ICD-10-PCS; 2017-11-26)
PROC: 0DTN0ZZ Resection of Sigmoid Colon, Open Approach (ICD-10-PCS; principal; 2017-11-29)
PROC: 0D1M0Z4 Bypass Descending Colon to Cutaneous, Open Approach (ICD-10-PCS; 2017-11-29)
PROC: 0TQB0ZZ Repair Bladder, Open Approach (ICD-10-PCS; 2017-11-29)
PROC: 0T778DZ Dilation of Left Ureter with Intraluminal Device, Via Natural or Artificial Opening Endoscopic (ICD-10-PCS; 2017-11-29)
PROC: 02HV33Z Insertion of Infusion Device into Superior Vena Cava, Percutaneous Approach (ICD-10-PCS; 2017-12-01)
PROC: B548ZZA Ultrasonography of Superior Vena Cava, Guidance (ICD-10-PCS; 2017-12-01)
PROC: 0DN80ZZ Release Small Intestine, Open Approach (ICD-10-PCS; 2017-12-07)
DX: K57.20 Diverticulitis of large intestine with perforation and abscess without bleeding (principal); N32.1 Vesicointestinal fistula; E44.0 Moderate protein-calorie malnutrition; Z68.1 Body mass index [BMI] 19.9 or less, adult; E87.3 Alkalosis; N17.9 Acute kidney failure, unspecified; K56.7 Ileus, unspecified; K56.52 Intestinal adhesions [bands] with complete obstruction; B96.20 Unspecified Escherichia coli [E. coli] as the cause of diseases classified elsewhere; Y90.9 Presence of alcohol in blood, level not specified; I10 Essential (primary) hypertension; E83.42 Hypomagnesemia; E87.6 Hypokalemia; E83.39 Other disorders of phosphorus metabolism; N30.90 Cystitis, unspecified without hematuria; J44.9 Chronic obstructive pulmonary disease, unspecified; F10.20 Alcohol dependence, uncomplicated
CPT/HCPCS: 36415; 36416; 36569; 70450; 71045; 74018; 74019; 74177; 74250; 80048; 80053; 80307; 81001; 82140; 82553; 82607; 82746; 83036; 83690; 83735; 84100; 84484; 85007; 85025; 85027; 86140; 86850; 86900; 86901; 87040; 87077; 87086; 87186; 88307; 93005; 94640; 96365; 96366; A4216; C1751; C1758; C9113; G8978-GP-CI; G8978-GP-CJ; G8978-GP-CK; G8978-GP-CL; G8979-GP-CH; G8979-GP-CI; G8979-GP-CJ; G8980-GP-CI; G8987-GO-CI; G8988-GO-CI; G8989-GO-CI; G8996-GN-CH; G8997-GN-CH; J0131; J0360; J0744; J1100; J1170; J1644; J1650; J1885; J1956; J2001; J2185; J2250; J2270; J2405; J2704; J2710; J2765; J3010; J3411; J3475; J3480; J7042; J7050; J7120; J7611; Q0162; Q9961

== ENCOUNTER 2018-05-09 22:57 | Emergency (ER) | payer SELFPAY ==
[2018-05-09 23:48] LABS: #Basophils 0.1 thou/uL (0.0-0.2); #Lymphocytes 1.6 thou/uL (1.20-3.40); #Monocytes 0.6 thou/uL (0.11-0.59); #Neutrophils 5.5 thou/uL (1.40-6.50); %Basophils 0.9 % (0.0-1.0); %Eosinophils 0.4 % (0.0-10.0); %Lymphocytes 20.9 % (21.0-51.0); %Monocytes 7.2 % (0.0-10.0); %Neutrophils 70.6 % (42.0-75.0); Hemoglobin 13.3 g/dL (14.0-18.0); Mean Corpuscular HGB CONC 32.6 g/dL (32.0-36.0); Mean Corpuscular Hemoglobin 32.1 pg (27.0-31.0); Mean Corpuscular Volume 98.7 fL (78.0-98.0); Mean Platelet Volume 7.2 fL (7.4-10.4); Platelet Count 319 thou/uL (130-400); RBC Distribution Width 14.5 % (11.5-14.5); Red Blood Cell (RBC) Count 4.13 mill/uL (4.70-6.10); White Blood Cell (WBC) Count 7.8 thou/uL (4.8-10.8)
[2018-05-09] MEDS ORDERED: Ketorolac Tromethamine 30 MG/ML VIAL ONE (23:58)
[2018-05-10] MEDS ORDERED: Multivitamins, Adult 10 ML, Thiamine HCl 100 MG, Folic Acid 1 MG in Dextrose 5 %-0.45 %... IV SCH (00:15)
[2018-05-10 00:16] LABS: ALT (SGPT) 18 U/L (8-55); AST (SGOT) 34 U/L (5-34); Alcohol 338 mg/dL (Less than 10); Alkaline Phosphatase 71 U/L (40-150); Anion Gap 21 mmol/L (10-20); BUN (Urea Nitrogen) 17 mg/dL (8.4-25.7); Bilirubin, Total 0.4 mg/dL (0.2-1.2); Calc. Creatinine Clearance 0 mL/min (70-130); Calcium 8.8 mg/dL (7.8-10.44); Carbon Dioxide 23 mmol/L (22-29); Chloride 100 mmol/L (98-107); Estimated GFR-MDRD Greater than 90; Globulin 4.2 g/dL (2.4-3.5); Glucose 82 mg/dL (70-105); Potassium 3.3 mmol/L (3.5-5.1); Protein, Total 8.2 g/dL (6.0-8.3); Sodium 141 mmol/L (136-145)
[2018-05-10 01:04] LABS: Acetaminophen Less than 6.0 mcg/mL (10.0-30.0); Alcohol 334 mg/dL (Less than 10); Salicylate Less than 8.0 mg/dL (15.0-30.0)
[2018-05-10] MEDS ORDERED: chlordiazePOXIDE HCl 25 MG CAP ONE (03:52)
[2018-05-10 05:05] LABS: Amphetamine Not Detected (NotDetected); Barbiturates Screen Not Detected (NotDetected); Benzodiazepine Screen Not Detected (NotDetected); Cocaine Metabolite Screen Not Detected (NotDetected); Medtox Reader # READER 1; Methadone Not Detected (NotDetected); Methamphetamine Not Detected (NotDetected); Opiate Screen Not Detected (NotDetected); Oxycodone Screen Not Detected (NotDetected); Phencyclidine (PCP) Not Detected (NotDetected); THC/Cannabinoid Screen Detected (NotDetected); Tricyclic Screen Not Detected (NotDetected)
[2018-05-10 05:06] LABS: Medtox Control Line Valid? VALID (VALID)
[2018-05-10] MEDS ORDERED: HYDROcodone/Acetaminophen 10/325 mg Tablet ONE (06:32)
[2018-05-10] MEDS ORDERED: Nicotine 14 MG PATCH TOP ONE (07:30)
--- NOTE | 2018-05-10 08:51 | RAD ---
PORTABLE CHEST 1 VIEW: Date: 05/10/18 Time: 0629 hours HISTORY: Shortness of breath. FINDINGS: Comparison made with exam of 11/23/17. The heart size is normal. The aorta is tortuous. Chronic changes in the lung apices again seen. No fo sandy areas of consolidation, pneumothoraces, or pleural effusions are identified. IMPRESSION: No acute process. POS: [facility]
[2018-05-10] MEDS ORDERED: Ondansetron ODT 4 MG TAB ONE (11:01)
[2018-05-10] MEDS ORDERED: Acetaminophen 500 MG TAB ONE (14:39)
== END 2018-05-10 19:21 | disposition home or self-care (01) ==
LOC: ERS 22:57
DX: F10.120 Alcohol abuse with intoxication, uncomplicated (principal); E11.9 Type 2 diabetes mellitus without complications; J44.9 Chronic obstructive pulmonary disease, unspecified; F17.210 Nicotine dependence, cigarettes, uncomplicated; F41.9 Anxiety disorder, unspecified; Y90.0 Blood alcohol level of less than 20 mg/100 ml
CPT/HCPCS: 36415; 71045; 80053; 80306; 80307; 84443; 85025; 93005; 96365; 96366; 96375; J1885; J3411; J7042; Q0162

== ENCOUNTER 2018-05-20 14:15 | Inpatient (IN) | payer SELFPAY ==
[2018-05-20 16:02] LABS: #Lymphocytes 0.6 thou/uL (1.20-3.40); #Monocytes 0.8 thou/uL (0.11-0.59); #Neutrophils 9.1 thou/uL (1.40-6.50); %Eosinophils 0.1 % (0.0-10.0); %Lymphocytes 5.5 % (21.0-51.0); %Monocytes 7.5 % (0.0-10.0); %Neutrophils 86.9 % (42.0-75.0); Hemoglobin 13.6 g/dL (14.0-18.0); Mean Corpuscular HGB CONC 33.5 g/dL (32.0-36.0); Mean Corpuscular Hemoglobin 33.2 pg (27.0-31.0); Mean Corpuscular Volume 99.3 fL (78.0-98.0); Mean Platelet Volume 7.1 fL (7.4-10.4); Platelet Count 304 thou/uL (130-400); RBC Distribution Width 14.4 % (11.5-14.5); Red Blood Cell (RBC) Count 4.11 mill/uL (4.70-6.10); White Blood Cell (WBC) Count 10.4 thou/uL (4.8-10.8)
--- NOTE | 2018-05-20 16:03 | RAD ---
CHEST PA AND LATERAL: 05/20/18 HISTORY: 53-year-old male with history of cough. COMPARISON: 05/10/18. Some hyperinflation changes are noted bilaterally with bullous emphysema changes in both apices worse on the right side. Heart size is normal. No confluent pneumonia, overt edema, or pleural effusion. IMPRESSION: Stable hyperinflation and chronic lung changes with biapical bullous changes unchanged from 05/10/18. POS: [facility]
[2018-05-20 16:27] LABS: ALT (SGPT) 34 U/L (8-55); AST (SGOT) 65 U/L (5-34); Alkaline Phosphatase 83 U/L (40-150); Anion Gap 22 mmol/L (10-20); BUN (Urea Nitrogen) 19 mg/dL (8.4-25.7); Bilirubin, Total 1.2 mg/dL (0.2-1.2); Calc. Creatinine Clearance 0 mL/min (70-130); Calcium 8.6 mg/dL (7.8-10.44); Carbon Dioxide 24 mmol/L (22-29); Chloride 93 mmol/L (98-107); Estimated GFR-MDRD Greater than 90; Globulin 4.5 g/dL (2.4-3.5); Glucose 154 mg/dL (70-105); Potassium 4.1 mmol/L (3.5-5.1); Protein, Total 8.5 g/dL (6.0-8.3); Sodium 135 mmol/L (136-145)
[2018-05-20 16:30] LABS: CKMB 1.2 ng/mL (0-6.6); Troponin I Less than 0.010 ng/mL (< 0.028)
[2018-05-20 16:34] LABS: Acetaminophen Less than 6.0 mcg/mL (10.0-30.0); Alcohol 173 mg/dL (Less than 10); Lipase 203 U/L (8-78); Salicylate Less than 8.0 mg/dL (15.0-30.0)
[2018-05-20 16:42] LABS: Amphetamine Not Detected (NotDetected); Barbiturates Screen Not Detected (NotDetected); Benzodiazepine Screen Detected (NotDetected); Cocaine Metabolite Screen Not Detected (NotDetected); Medtox Control Line Valid? VALID (VALID); Medtox Reader # READER 4; Methadone Not Detected (NotDetected); Methamphetamine Not Detected (NotDetected); Opiate Screen Detected (NotDetected); Oxycodone Screen Not Detected (NotDetected); Phencyclidine (PCP) Not Detected (NotDetected); THC/Cannabinoid Screen Detected (NotDetected); Tricyclic Screen Not Detected (NotDetected)
[2018-05-20] MEDS ORDERED: Nitroglycerin 0.4 MG TAB (25 Tab Bottle) ONE (16:53)
[2018-05-20] MEDS ORDERED: Pantoprazole 40 MG VIAL ONE (17:49)
[2018-05-20 18:54] LABS: Troponin I Less than 0.010 ng/mL (< 0.028)
[2018-05-20] MEDS ORDERED: hydrALAZINE 20 MG/ML VIAL SLOW IVP PRN (19:01)
[2018-05-20] MEDS ORDERED: Ondansetron PF 4 MG/2 ML Vial IVP PRN ×2 (19:01→19:02)
[2018-05-20] MEDS ORDERED: Ondansetron ODT 4 MG TAB PO PRN (19:01)
[2018-05-20] MEDS ORDERED: Lorazepam 1 MG TAB PO PRN (19:01)
[2018-05-20] MEDS ORDERED: Acetaminophen 325 MG TAB PO PRN (19:02)
[2018-05-20] MEDS ORDERED: Ondansetron ODT 4 MG TAB SL PRN (19:02)
[2018-05-20 19:34] VITALS: BMI 14.8
[2018-05-20] MEDS: Famotidine 20 MG TAB PO SCH (20:38)
[2018-05-20] MEDS: Acetaminophen 500 MG TAB PO PRN (20:38)
[2018-05-20] MEDS: Sodium Chloride 0.9% 1,000 ML IV SCH (20:38)
[2018-05-20] MEDS ORDERED: Nicotine 14 MG PATCH TD SCH (21:00)
[2018-05-20] MEDS ORDERED: Multivitamins, Adult 10 ML, Folic Acid 1 MG, Thiamine HCl 100 MG in Dextrose 5 %-0.45 %... IV SCH (21:00)
[2018-05-20 22:12] LABS: Troponin I 0.015 ng/mL (< 0.028)
[2018-05-21] MEDS ORDERED: Lorazepam 1 MG TAB PO PRN ×2 (01:01→01:03)
[2018-05-21] MEDS: Lorazepam 2 MG/ML VIAL SLOW IVP PRN ×6 (01:19→17:30)
[2018-05-21] MEDS: Acetaminophen 500 MG TAB PO PRN (03:23)
[2018-05-21] MEDS: Sodium Chloride 0.9% 1,000 ML IV SCH ×4 (05:55→17:30)
[2018-05-21 07:04] LABS: ALT (SGPT) 26 U/L (8-55); AST (SGOT) 46 U/L (5-34); Albumin 3.4 g/dL (3.5-5.0); Alkaline Phosphatase 63 U/L (40-150); Anion Gap 12 mmol/L (10-20); BUN (Urea Nitrogen) 16 mg/dL (8.4-25.7); Bilirubin, Total 1.9 mg/dL (0.2-1.2); Calc. Creatinine Clearance 79 mL/min (70-130); Calcium 8.6 mg/dL (7.8-10.44); Carbon Dioxide 29 mmol/L (22-29); Cardiac Risk 2.2 (Less than 4.5); Chloride 96 mmol/L (98-107); Cholesterol 138 mg/dl (< 200 Desired); Estimated GFR-MDRD Greater than 90; Globulin 3.4 g/dL (2.4-3.5); Glucose 88 mg/dL (70-105); HDL Cholesterol 63 mg/dL (>60 Neg Risk); LDL Cholesterol, Calculated 64 mg/dL; Lipase 61 U/L (8-78); Potassium 3.4 mmol/L (3.5-5.1); Protein, Total 6.8 g/dL (6.0-8.3); Sodium 134 mmol/L (136-145); Triglycerides 54 mg/dL (Less than 150)
[2018-05-21 07:37] LABS: Band 7 % (5-11); Hemoglobin 10.9 g/dL (14.0-18.0); Lymphocytes 31 % (21-51); MDiff Complete? YES; Mean Corpuscular HGB CONC 32.8 g/dL (32.0-36.0); Mean Corpuscular Hemoglobin 32.9 pg (27.0-31.0); Mean Platelet Volume 7.4 fL (7.4-10.4); Monocytes 10 % (0-10); Neutrophil 52 % (42-75); PLT Morphology Comment Appears Adequate; Platelet Count 211 thou/uL (130-400); Polychromasia SLIGHT = 2-3 cells (100X) (0-2/hpf); RBC Distribution Width 14.3 % (11.5-14.5); Red Blood Cell (RBC) Count 3.31 mill/uL (4.70-6.10); White Blood Cell (WBC) Count 4.8 thou/uL (4.8-10.8)
[2018-05-21] MEDS: Famotidine 20 MG TAB PO SCH (08:34)
[2018-05-21] MEDS ORDERED: Acetaminophen/Codeine 30-300mg Tablet PO PRN (10:50)
--- NOTE | 2018-05-21 12:19 | PDOC.PN ---
- Subjective Encounter Start Date: 05/21/18 Encounter Start Time: 12:05 Subjective: f/u for ETOH intoxication, withdrawal and ?CP. Feels groggy after -: tx with Ativan. No seizure activity reported. ASE protocol currently. - Objective Resuscitation Status - Order Detail: 05/20/18 17:56 Resuscitation Status Routine Resuscitation Status: FULL: Full Resuscitation MAR Reviewed: Yes Vital Signs & Weight: Vital Signs (12 hours) Temp Pulse Resp BP Pulse Ox 05/21/18 11:44 97.9 F 79 16 147/92 H 92 L 05/21/18 08:48 96 05/21/18 08:02 98.1 F 77 20 153/96 H 90 L 05/21/18 04:07 99.1 F 88 16 156/95 H 98 05/21/18 00:20 99.8 F H 91 16 128/80 92 L Weight Weight 115 lb 4.8 oz I&O: 05/20/18 05/21/18 05/22/18 06:59 06:59 06:59 Intake Total 2100 Output Total 200 Balance 1900 Result Diagrams: 05/21/18 06:14 05/21/18 06:14 Additional Labs: Accuchecks 05/20/18 20:18 POC Glucose 182 H Laboratory Tests 12/03/17 12/05/17 12/07/17 04:30 03:19 15:08 WBC Hgb Plt Count Neutrophils % Neutrophils % (Manual) Band Neuts % (Manual) Potassium 3.9 2.7 L* Creatinine 0.66 Phosphorus 4.0 Magnesium 2.0 Total Bilirubin AST Lipase Urine Opiates Screen U Benzodiazepines Scrn U Cannabinoids Screen Plasma Alcohol 12/08/17 12/08/17 12/09/17 04:47 04:47 04:41 WBC 12.1 H Hgb 11.4 L Plt Count 613 H Neutrophils % Neutrophils % (Manual) Band Neuts % (Manual) 12 H Potassium 3.0 L Creatinine Phosphorus Magnesium Total Bilirubin AST Lipase Urine Opiates Screen U Benzodiazepines Scrn U Cannabinoids Screen Plasma Alcohol 12/10/17 12/11/17 05/20/18 05:00 05:35 15:48 WBC Hgb Plt Count Neutrophils % Neutrophils % (Manual) Band Neuts % (Manual) Potassium 4.1 Creatinine Phosphorus 3.1 2.9 Magnesium 1.6 1.5 L Total Bilirubin 1.2 AST 65 H Lipase Urine Opiates Screen U Benzodiazepines Scrn U Cannabinoids Screen Plasma Alcohol 05/20/18 05/20/18 05/20/18 15:48 15:48 16:15 WBC Hgb 13.6 L Plt Count Neutrophils % 86.9 H Neutrophils % (Manual) Band Neuts % (Manual) Potassium Creatinine Phosphorus Magnesium Total Bilirubin AST Lipase 203 H Urine Opiates Screen Detected H U Benzodiazepines Scrn Detected H U Cannabinoids Screen Detected H Plasma Alcohol 173 H 05/21/18 05/21/18 06:14 06:14 WBC Hgb Plt Count Neutrophils % Neutrophils % (Manual) 52 Band Neuts % (Manual) Potassium Creatinine Phosphorus Magnesium Total Bilirubin 1.9 H AST 46 H Lipase 61 Urine Opiates Screen U Benzodiazepines Scrn U Cannabinoids Screen Plasma Alcohol EKG Reviewed by me: Yes (Tele - SR) Phys Exam - Physical Examination Constitutional: NAD lethargic, responds to questions HEENT: PERRLA, sclera anicteric, oral pharynx no lesions Neck: no nodes, no JVD, supple, full ROM Respiratory: no wheezing, no rales, no rhonchi, clear to auscultation bilateral S1, S2 Cardiovascular: RRR, no significant murmur, no rub, gallop + colostomy in place Gastrointestinal: soft, non-tender, no distention, positive bowel sounds generalized atrophy Musculoskeletal: no edema, pulses present no asterixis Neurological: normal sensation, moves all 4 limbs Skin: normal turgor, cap refill <2 seconds Dx/Plan (1) Alcohol intoxication Status: Acute Comment: Acute/chronic alcoholism, cessation resources, ASE protocol, Ativan, Banana bag (2) Hypokalemia Code(s): E87.6 - HYPOKALEMIA Status: Acute Comment: K-dur 40meq BID, serial monitoring (3) Macrocytic anemia Code(s): D53.9 - NUTRITIONAL ANEMIA, UNSPECIFIED Status: Chronic Comment: Serial H/H, MVI, Folate (4) Moderate protein-calorie malnutrition Code(s): E44.0 - MODERATE PROTEIN-CALORIE MALNUTRITION Status: Chronic Comment: Ensure Enlive TID (5) Tobacco abuse Code(s): Z72.0 - TOBACCO USE Status: Chronic Comment: Tobacco cessation, Nicotine patch - Plan 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
[2018-05-21] MEDS ORDERED: Potassium Chloride 20 MEQ TAB PO SCH (13:00)
[2018-05-21 15:42] VITALS: TEMP 98.4
[2018-05-21 20:29] VITALS: BP 150/102
[2018-05-22] MEDS ORDERED: Potassium Chloride 20 MEQ TAB PO SCH (08:00)
--- NOTE | 2018-05-22 18:31 | HP ---
PRIMARY CARE PROVIDER: Dr. Eligio Lord. CHIEF COMPLAINT: Chest pain and body aches. HISTORY OF PRESENT ILLNESS: This is a 53-year-old male who presents to [facility] Emergency Department complaining of right-sided chest pain after apparently falling multiple times at his home. The patient admits to binge drinking over the last 5 to 6 days with mainly alcohol intake over the last 5 days. The patient with known history of alcoholism and prior admissions for related conditions. The patient admits he fell several times landing on his side and shoulder due to the alcohol use. The patient was evaluated at [facility] Emergency Department on 05/11/2018, presenting with acute alcohol intoxication, receiving multiple medications, including banana bag, lithium, and intravenous normal saline. The patient with longstanding history of alcohol abuse, however, was evaluated by [facility] services and deemed appropriate for discharge. The patient returns with complaints of mild chest pain after repetitive falls and binge drinking. The patient denied any specific fever, chills, mild nausea without emesis. The patient denied any changes to his bowel habits, but does state that he has a colostomy that was placed earlier in the year of 2017. The patient also relates that he is evaluated by a ornamental painter at [facility] who has transitioned him to Tylenol No. 3 and discontinued all of his opiate therapy. In the emergency room, the patient underwent general evaluation with metabolic survey showing evidence of opiates, benzodiazepines, and cannabinoids as well as an alcohol level of 173 on drug screen. The patient was also evaluated with EKG with questionable T-wave changes. The patient received Protonix, aspirin, and nitroglycerine in the emergency room and was referred to Hospital Service for evaluation. PAST MEDICAL HISTORY: 1. Alcohol abuse. 2. Chronic shoulder pain. 3. Polysubstance use. 4. History of small bowel obstruction, status post sigmoidectomy with current colostomy. 5. Moderate protein-calorie malnutrition. 6. Tobacco abuse. PAST SURGICAL HISTORY: 1. Status post cystoscopy with ureteral stent placement. 2. Status post exploratory laparotomy with sigmoidectomy and closure of colovesicular fistula with colostomy placement. 3. Status post exploratory laparotomy with lysis of adhesions. 4. Status post colonoscopy. CURRENT MEDICATIONS: Tylenol No. 3. ALLERGIES: TO METAXALONE. FAMILY HISTORY: No inheritable diseases per patient report. SOCIAL HISTORY: The patient resides in [place], [place]. Smokes up to a pack of cigarettes daily. Daily alcohol use with binge drinking over the last 5 to 7 days. Positive cannabis use. REVIEW OF SYSTEMS: otherwise negative except as stated per HPI. PHYSICAL EXAMINATION: VITAL SIGNS: On admission, blood pressure 147/85, pulse 88, respiratory rate 20, temperature 97.1 degrees Fahrenheit, and O2 saturation is 95% on room air. GENERAL APPEARANCE: This is a 53-year-old male, frail and cachetic. Alert, in no acute distress. HEENT: Pupils are equal, round, and reactive to light and accommodation. Extraocular muscles are intact. No scleral icterus. No conjunctival injection. Nares are patent. OP is clear. Teeth in poor repair. NECK: Supple. No cervical adenopathy. No thyromegaly. No carotid bruits. No JVD appreciated. Cervical spine with full active and passive range of motion. No meningeal signs appreciated. CHEST: Lungs are clear to auscultation bilaterally. CARDIOVASCULAR: S1 and S2 without noted murmur, rub, or gallop. ABDOMEN: Scaphoid without tenderness to palpation. Left lower quadrant colostomy in place with brown liquid stool noted in colostomy bag. No rebound or guarding noted. EXTREMITIES: Generalized atrophy. Pulses palpable distally at the dorsalis pedis, posterior tibial, and popliteal arteries bilaterally. Capillary refill is less than 2 seconds. NEUROLOGIC: Cranial nerves 2 through 12 are grossly intact. No focal or lateralizing signs appreciated. PERTINENT LAB AND X-RAY FINDINGS: Sodium 135, potassium 4.1, chloride 93, CO2 of 24, BUN 19, creatinine 0.84, glucose 154, calcium 8.6. AST 65, ALT of 34, alkaline phosphatase 83. Troponin I negative x1. Albumin 4.0, lipase 203. CBC showed a white blood cell count of 10.4, hemoglobin 14, hematocrit 41, MCV 99, platelet count 304 with 87% neutrophilia. Urine drug screen dated 05/20/2018, positive for opiates, benzodiazepines, and cannabinoids with a plasma alcohol level of 173. Portable chest x-ray dated 05/20/2018 showed hyperinflation and chronic lung changes without acute infiltrate. EKG dated 05/20/2018 by my interpretation shows a sinus mechanism with heart rates in 80s, attenuated R-waves noted in the precordial leads, right axis deviation, T-wave inversion in lead V4 through V6 and leads II and III. ASSESSMENT AND PLAN: 1. Chest pain. The patient will be observed on the telemetry unit. Suspect musculoskeletal in origin given patient's repetitive falls in the context of chronic alcohol abuse. We will continue to trend cardiac biomarkers. Symptomatic and supportive management. 2. Acute alcohol intoxication. We will continue Ativan 1 mg p.o. q.4 hours p.r.n. withdrawal symptoms. ASE protocol. Banana bag daily. 3. Polysubstance use. We will offer cessation resources prior to discharge. Consider [facility] evaluation. 4. Tobacco abuse. We will offer smoking cessation resources. Nicotine transdermal patch 14 mg daily. 5. Prophylaxis. SCDs while in bed. Pepcid 20 mg p.o. b.i.d. 6. Code status is full. Surrogate medical decision maker not identified. Job ID: [id number]
== END 2018-05-21 21:07 | disposition left against medical advice (07) | DRG 894 ==
LOC: ERS 14:15 → 2SW 17:10 → OBSVTOIN 05-21 12:16
PROVIDERS: ADMIT Family Medicine; ATTEND Family Medicine
DX: F10.239 Alcohol dependence with withdrawal, unspecified (principal); E44.0 Moderate protein-calorie malnutrition; Z68.1 Body mass index [BMI] 19.9 or less, adult; F10.229 Alcohol dependence with intoxication, unspecified; T51.0X1A Toxic effect of ethanol, accidental (unintentional), initial encounter; E87.6 Hypokalemia; D53.9 Nutritional anemia, unspecified; F19.90 Other psychoactive substance use, unspecified, uncomplicated; Y90.6 Blood alcohol level of 120-199 mg/100 ml; K74.60 Unspecified cirrhosis of liver; J43.9 Emphysema, unspecified; F17.210 Nicotine dependence, cigarettes, uncomplicated; Z93.3 Colostomy status; W01.0XXA Fall on same level from slipping, tripping and stumbling without subsequent striking against object, initial encounter; R07.9 Chest pain, unspecified
CPT/HCPCS: 36415; 36416; 71046; 80053; 80061; 80306; 80307; 82553; 83690; 84484; 85007; 85025; 85027; 93005; 94760; 96374; C9113; G8978-GP-CL; G8979-GP-CJ; J2060; J2405; J3411; J7042

== ENCOUNTER 2018-05-24 11:01 | Observation (INO) | payer SELFPAY ==
[2018-05-24 11:51] LABS: #Eosinphils 0.1 thou/uL (0.0-0.7); #Lymphocytes 1.2 thou/uL (1.20-3.40); #Monocytes 0.5 thou/uL (0.11-0.59); #Neutrophils 6.6 thou/uL (1.40-6.50); %Basophils 0.4 % (0.0-1.0); %Lymphocytes 14.1 % (21.0-51.0); %Monocytes 5.5 % (0.0-10.0); Hemoglobin 12.8 g/dL (14.0-18.0); Mean Corpuscular HGB CONC 32.9 g/dL (32.0-36.0); Mean Corpuscular Hemoglobin 33.6 pg (27.0-31.0); Platelet Count 256 thou/uL (130-400); RBC Distribution Width 14.7 % (11.5-14.5); Red Blood Cell (RBC) Count 3.82 mill/uL (4.70-6.10); White Blood Cell (WBC) Count 8.4 thou/uL (4.8-10.8)
--- NOTE | 2018-05-24 11:55 | RAD ---
CHEST ONE VIEW: INDICATIONS: Syncope. COMPARISON: 05/10/2018 FINDINGS: Stable COPD change. Lungs are clear. No pleural effusion or pneumothorax is evident. No acute osse ous abnormality is evident. IMPRESSION: No acute cardiopulmonary abnormality. POS: [facility]
[2018-05-24 12:11] LABS: Acetaminophen Less than 6.0 mcg/mL (10.0-30.0); Alcohol Less than 10 mg/dL (Less than 10); Salicylate Less than 8.0 mg/dL (15.0-30.0)
[2018-05-24 12:12] LABS: ALT (SGPT) 20 U/L (8-55); AST (SGOT) 32 U/L (5-34); Alkaline Phosphatase 84 U/L (40-150); Anion Gap 16 mmol/L (10-20); BUN (Urea Nitrogen) 7 mg/dL (8.4-25.7); Bilirubin, Total 1.3 mg/dL (0.2-1.2); CK (CPK) 104 U/L (30-200); Calc. Creatinine Clearance 0 mL/min (70-130); Calcium 9.5 mg/dL (7.8-10.44); Carbon Dioxide 28 mmol/L (22-29); Chloride 95 mmol/L (98-107); Estimated GFR-MDRD Greater than 90; Globulin 4.6 g/dL (2.4-3.5); Glucose 138 mg/dL (70-105); Lipase 15 U/L (8-78); Potassium 3.6 mmol/L (3.5-5.1); Protein, Total 8.6 g/dL (6.0-8.3); Sodium 135 mmol/L (136-145)
[2018-05-24 12:14] LABS: CKMB 1.3 ng/mL (0-6.6); Troponin I Less than 0.010 ng/mL (< 0.028)
--- NOTE | 2018-05-24 12:28 | CT ---
CT BRAIN NONCONTRAST: HISTORY: A 53-year-old male status post syncope. FINDINGS: There is no midline shift or any other mass effect. There is no evidence of acute intracranial hemor rhage, large cortical infarct, obstructive hydrocephalus, or extraaxial fluid collection. The calvar ium is intact. IMPRESSION: No acute intracranial findings. ivette [] POS: [facility]
--- NOTE | 2018-05-24 12:30 | CT ---
CT CERVICAL SPINE NONCONTRAST: HISTORY: A 53-year-old male status post acute cervical trauma from fall due to syncope. FINDINGS: There are no jumped or perched facets. There is no evidence of acute fracture. The vertebral body h eights are maintained. There is no prevertebral soft tissue swelling. IMPRESSION: No evidence of acute fracture or acute traumatic subluxation. ivette [] POS: [facility]
--- NOTE | 2018-05-24 12:36 | CT ---
CT THORACIC SPINE WITHOUT CONTRAST: INDICATIONS: A 53-year-old male with right back pain and neck pain after syncope and collapse. FINDINGS: There is superior endplate compression deformity of T5, of undetermined chronicity. There is diffuse osteopenia. No additional acute osseous abnormality is evident. The osseous central canal appears preserved. There is scattered emphysema. There are coronary artery and thoracic aorta calcification s. IMPRESSION: 1. Age indeterminate superior endplate compression abnormality of T5. 2. Diffuse osteopenia. POS: [facility]
[2018-05-24 13:10] LABS: Bilirubin Negative (Negative); Blood, Urine Negative (Negative); Clarity CLEAR (Clear); Glucose, Urine (Dipstick) Negative (Negative); Leukocyte Negative (Negative); Nitrite Negative (Negative); Protein, Urine (Dipstick) 30 mg/dL (Neg-Trace); Specific Gravity, Urine 1.007 (1.002-1.036)
--- NOTE | 2018-05-24 13:10 | PDOC.FPRHP ---
- History of Present Illness Chief Complaint: seizure History of Present Illness: 53 yo M with chronic EtOH abuse brought in by EMS after being found down. Per report he had a seizure; patient is unable to recall any events prior to the seizure. He just remembers waking up to EMS arriving. Thus, it is unsure if there were witnesses that saw the seizure. He typically drinks 1/2 gallon of whiskey a day, last drink being 2-3 days ago stopping b/c he wanted to quit. He denies a prior hx of seizures. Also denies experiencing any tremors, hallucinations, or other symptoms since his last drink. Prior hospital record reviews reveal he has been here multiple times for EtOH related visits: chronic pancreatitis, EtOH withdrawals, etc. ED Course: Patient came in with nasal abrasion. Due to concern for headtrauma imaging was performed, all negative for acute bleeding and cervical and thoracic fracture. One exception of T5 compression fx, which is chronic in nature. Vitals stable in ED. Given norco for chronic back pain. - Allergies/Adverse Reactions Allergies Allergy/AdvReac Type Severity Reaction Status Date / Time metaxalone [From Skelaxin] Allergy Verified 01/24/17 20:26 - Home Medications Medication Instructions Recorded Confirmed Type Acetaminophen With Codeine 1 each PO BID PRN 05/20/18 05/24/18 History [Tylenol with Codeine #3 Tablet] - History PMHx: Chronic EtOH bause, tobacco abuse, reported DM2, COPD/emphysema, cirrhosis ?, HTN, macrocytic anemia PSHx: s/p sigmoidectomy with colostomy bag. FHx: father -alcoholic Social: 40 pack year history, 1/2 gallon whiskey every day, denies illicit drug use - Review of Systems General: denies: fever/chills, weight/appetite/sleep changes Eyes: denies: eye pain, vision changes ENT: denies: nasal congestion, rhinorrhea Respiratory: denies: cough, congestion, shortness of breath Cardiovascular: denies: chest pain, palpitation, edema Genitourinary: denies: incontinence, dysuria, polyuria Skin: reports: lesions. denies: jaundice Musculoskeletal: reports: pain, stiffness, arthritis/arthralgias, other (back pain in suprascapular area) Neurological: reports: seizure, weakness. denies: numbness - Vital signs BP: [150/92] HR: [81] RR: [20] Tmax: [98] Pox: [98]% on [RA] Wt: [54] - Physical Exam Constitutional: NAD, awake, alert and oriented HEENT: normocephalic and atraumatic, PERRLA, EOMI, conjunctiva clear Neck: supple, FROM Chest: no-tender to palpation -Chest: petechial lesions on BUE Heart: RRR, normal S1/S2, no murmurs/rubs/gallops Lungs: CTAB, no respiratory distress -Lungs: dec breath sounds diffusely Musculoskeletal: normal structure, normal tone Neurological: no focal deficit, CN II-XII intact -Neurological: minor left hand tremor evidenced with finger to nose test -Skin: superficial skin scrape lesion on nose -Psychiatric: poor immediate memory recall, slowed speech process FMR H&P: Results - Labs Result Diagrams: 05/24/18 11:40 05/24/18 11:40 Lab results: WBC 8.4 thou/uL (4.8-10.8) 05/24/18 11:40 Hgb 12.8 g/dL (14.0-18.0) L 05/24/18 11:40 Hct 38.9 % (42.0-52.0) L 05/24/18 11:40 MCV 102.0 fL (78.0-98.0) H 05/24/18 11:40 Plt Count 256 thou/uL (130-400) 05/24/18 11:40 Neutrophils % 79.0 % (42.0-75.0) H 05/24/18 11:40 Sodium 135 mmol/L (136-145) L 05/24/18 11:40 Potassium 3.6 mmol/L (3.5-5.1) 05/24/18 11:40 Chloride 95 mmol/L (98-107) L 05/24/18 11:40 Carbon Dioxide 28 mmol/L (22-29) 05/24/18 11:40 BUN 7 mg/dL (8.4-25.7) L 05/24/18 11:40 Creatinine 0.74 mg/dL (0.6-1.3) 05/24/18 11:40 Glucose 138 mg/dL (70-105) H 05/24/18 11:40 Calcium 9.5 mg/dL (7.8-10.44) 05/24/18 11:40 Total Bilirubin 1.3 mg/dL (0.2-1.2) H 05/24/18 11:40 AST 32 U/L (5-34) 05/24/18 11:40 ALT 20 U/L (8-55) 05/24/18 11:40 Alkaline Phosphatase 84 U/L (40-150) 05/24/18 11:40 Creatine Kinase 104 U/L (30-200) 05/24/18 11:40 CK-MB (CK-2) 1.3 ng/mL (0-6.6) 05/24/18 11:40 Serum Total Protein 8.6 g/dL (6.0-8.3) H 05/24/18 11:40 Albumin 4.0 g/dL (3.5-5.0) 05/24/18 11:40 Lipase 15 U/L (8-78) 05/24/18 11:40 - Radiology Interpretation CT scan - head Status: pending Other Status: pending FMR H&P: A/P - Problem List (1) Alcohol withdrawal seizure Current Visit: Yes Status: Acute Code(s): F10.239 - ALCOHOL DEPENDENCE WITH WITHDRAWAL, UNSPECIFIED; R56.9 - UNSPECIFIED CONVULSIONS (2) Hypomagnesemia Current Visit: Yes Status: Acute Code(s): E83.42 - HYPOMAGNESEMIA (3) QT prolongation Current Visit: Yes Status: Acute Code(s): R94.31 - ABNORMAL ELECTROCARDIOGRAM [ECG] [EKG] (4) Chronic alcohol abuse Current Visit: No Status: Chronic Code(s): F10.10 - ALCOHOL ABUSE, UNCOMPLICATED Comment: Continue Thiamine, Folate and Magnesium (5) Macrocytic anemia Current Visit: No Status: Chronic Code(s): D53.9 - NUTRITIONAL ANEMIA, UNSPECIFIED Comment: Serial H/H, MVI, Folate (6) Physical deconditioning Current Visit: Yes Status: Chronic Code(s): R53.81 - OTHER MALAISE (7) Hyperbilirubinemia Current Visit: Yes Status: Acute Code(s): E80.6 - OTHER DISORDERS OF BILIRUBIN METABOLISM (8) Synthetic cannabinoid abuse Current Visit: Yes Status: Acute Code(s): F19.10 - OTHER PSYCHOACTIVE SUBSTANCE ABUSE, UNCOMPLICATED (9) History of open sigmoidectomy Current Visit: Yes Status: Acute Code(s): Z98.890 - OTHER SPECIFIED POSTPROCEDURAL STATES; Z90.49 - ACQUIRED ABSENCE OF OTHER SPECIFIED PARTS OF DIGESTIVE TRACT (10) Tobacco abuse Current Visit: No Status: Chronic Code(s): Z72.0 - TOBACCO USE Comment: Tobacco cessation, Nicotine patch - Plan 53 yo M with chronic EtOH abuse here for alcohol withdrawal seizure Alcohol withdrawal seizure -Prolactin elevated at 22, supported by timeline of last drink -BAL below assay -Stable, VSS aside from mild HTN -ASE protocol placed, banana bag, started librium taper; ativan PRN -Patient not interested in any rn long term care program or antibuse at this point Chronic EtOH abuse -see above HTN -started ACEI -continue to monitor Hypomagnesemia -Replaced -AM Mg Hyperbilirubinemia -could be 2/2 to hepatic congestion from cirrhosis -will order RUQ US to assess Suspected cirrhosis -Based on history -Normal LFTs as consistent with diagnosis -Will obtain RUQ U/S to confirm -Also will order Hep panel, syhilis testing -HIV negative (06/2017 hospital records) Macrocytosis -Likely 2/2 chronic alcohol use Reported hx of DM2 -Per patient, was started on metformin, but never took it -A1c 4.3 -Will not start on any anti-glycemic meds; mild SS to cover -ACHS accuchecks-can consider discontinuing if stable trend Physical deconditioning -PT consult Cannibinoid abuse -Positive UDS S/P sigmoidectomy for SBO with colostomy bag -Wound care consult placed for aid with colostomy bag maintenance, recs appreciated DVT ppx: lovenox Dispo: Admit to medical obs. Dispo <2 nights. Continue monitoring for withdrawals with measures listed above Discussed with Dr. Mensah FMR H&P: Upper Level - Pertinent history 53 yo M found down and brought to ER via EMS. Patient apparently fell, however he remembers none of the incident only being woken up by EMS. He has a long hx of etoh abuse and states that he abruptly stopped drinking 3 days ago over averaging 0.5 gal of whisky daily. He states that he has quit for periods of time in the past without seizing. He denies dizziness, change in vision, or peripheral weakness or numbness. Prolactin in the ED was elevated. Trop negative. EKG is reassuring. He has been admitted multiple times in the past for etoh intoxication and etoh related pancreatitis. Social hx includes years of heavy etoh use, 40+ pack year hx of smoking, marijuana use, benzo use, opiate use, and hx of cocaine abuse. ROS General denies fever or chills Neuro complains of loss of consciousness. Denies peripheral symptoms of weakness or numbness. Denies changes in vision. HEENT abrasion to bridge of nose, otherwise atraumatic CV denies CP or palpitation Resp denies SOB or cough GI denies n/v See internal medicine doctor portion for full medical hx - Pertinent findings PE General A&O x4 HEENT abrasion to bridge of nose, hemostatic CV RRR no murmur Resp CTA b/l GI LLQ colostomy bag in place. BS x4. No TTP Neuro Normal strength in UE/LE. Normal sensation. PERRLA. EOMI. CN II-XII intact See internal medicine doctor portion for vitals and labs - Plan Date/Time: 05/24/18 4247 I, Jesus Gomes, DO, have evaluated this patient and agree with findings/plan as outlined by internal medicine doctor resident. Pertinent changes/additions are listed here. 1. Seizure, suspected - given elevated prolactin and hx from EMS, it is likely that his episode was a seizure most likely related to etoh withdrawal. - monitor on obs. - CT brain negative - Check hep panel, hiv, RUQ US 2. Acute alcohol withdrawal - admit for obs on ASE protocol - patient states that he wants to quit smoking, however declines consideration of rehab or medical options for relapse 3. Macrocytic anemia - asymptomatic, related to etoh abuse 4. Hyperbilirubinemia - patient likely has cirrhosis, will order RUQ us 5. hypomagnesemia - replace IV 6. multi drug abuse - certified alcohol counselor on cessation Code full Diet regular PPx SCD and frequent ambulation Attending Addendum - Attending Addendum Date/Time: 05/24/18 5578 I personally evaluated the patient and discussed the management with Dr. Ly and Eliseo. I agree with the History, Examination, Assessment and Plan documented above with any addition or exceptions noted below. The patient was found down with suspected seizure. Prolactin elevated. Pt stopped drinking a few days ago and this is presumed due to withdrawal. Will start librium taper as pt states he wants to try to quit. He has had multiple alcohol related hospitalizations. It should be noted that this patient has not seen Dr. Lord on 5-6 years at least. Eddie bobby ultrasound.
[2018-05-24 13:12] LABS: Bacteria/HPF None Seen HPF (None Seen); Hyaline Casts/LPF 0-3 HYALINE CAST LPF (0-3 Hyaline); Pathc Cast-AUWi Flag 0.43 (0-2.49); RBC/HPF 0-3 HPF (0-3); Squamous Epithelial 0-3 HPF (0-3); WBC/HPF 0-3 HPF (0-3)
[2018-05-24 13:23] LABS: Benzodiazepine Screen Detected (NotDetected); Medtox Reader # READER 4; Opiate Screen Detected (NotDetected); THC/Cannabinoid Screen Detected (NotDetected)
[2018-05-24 13:24] LABS: Amphetamine Not Detected (NotDetected); Barbiturates Screen Not Detected (NotDetected); Cocaine Metabolite Screen Not Detected (NotDetected); Medtox Control Line Valid? VALID (VALID); Methadone Not Detected (NotDetected); Methamphetamine Not Detected (NotDetected); Oxycodone Screen Not Detected (NotDetected); Phencyclidine (PCP) Not Detected (NotDetected); Tricyclic Screen Not Detected (NotDetected)
[2018-05-24] MEDS ORDERED: HYDROcodone/Acetaminophen 5/325 mg Tablet ONE (14:33)
[2018-05-24] MEDS ORDERED: Ondansetron ODT 4 MG TAB PO PRN (14:52)
[2018-05-24] MEDS ORDERED: Dextrose 5% in Water 1,000 ML IV PRN (15:01)
[2018-05-24] MEDS ORDERED: Dextrose 50% Abboject 50 ML SYRINGE SLOW IVP PRN (15:01)
[2018-05-24] MEDS ORDERED: HumaLOG 300 UNITS/3 ML VIAL SC PRN ×2 (15:01)
[2018-05-24] MEDS ORDERED: Lorazepam 2 MG/ML VIAL SLOW IVP PRN (15:28)
[2018-05-24] MEDS ORDERED: Multivitamins, Adult 10 ML, Folic Acid 1 MG, Thiamine HCl 100 MG in Dextrose 5 %-0.45 %... IV SCH ×2 (15:30)
[2018-05-24 15:31] VITALS: BMI 15.3
[2018-05-24 15:37] LABS: Hemoglobin A1c 4.3 % (4.0-6.0)
[2018-05-24 15:58] LABS: Magnesium 1.4 mg/dL (1.6-2.6); Phosphorus 3.1 mg/dL (2.3-4.7)
[2018-05-24] MEDS ORDERED: Nicotine 14 MG PATCH TD SCH (16:00)
[2018-05-24] MEDS ORDERED: Magnesium Sulfate 3 GM in Sodium Chloride 0.9% 100 ML IVPB SCH (16:45)
[2018-05-24 17:53] LABS: Syphilis Antibody Nonreactive (Nonreactive); Syphilis Antibody Index 0.11 S/CO (<1.00 Non-Reactive)
[2018-05-24 17:55] LABS: HBSAg Index 0.19 S/CO (0-0.99); Hep B Core Total Ab Non-Reactive (NonReactive); Hep B Core Total Index 0.08 S/CO (0-0.79); Hep B Surf AB Non-Reactive (NonReactive); Hep B Surf Ag Non-Reactive S/CO (NonReactive); Hep C IgG Ab Non-Reactive (NonReactive); Hep C Index 0.12 S/CO (0-0.79)
[2018-05-24] MEDS: Acetaminophen/Codeine 30-300mg Tablet PO PRN (17:55)
[2018-05-24] MEDS ORDERED: Magnesium Oxide 400 MG TAB PO SCH (21:00)
[2018-05-25] MEDS: Acetaminophen/Codeine 30-300mg Tablet PO PRN (03:19)
[2018-05-25 04:06] LABS: #Basophils 0.1 thou/uL (0.0-0.2); #Eosinphils 0.1 thou/uL (0.0-0.7); #Lymphocytes 1.6 thou/uL (1.20-3.40); #Monocytes 0.7 thou/uL (0.11-0.59); %Basophils 1.1 % (0.0-1.0); %Eosinophils 1.9 % (0.0-10.0); %Lymphocytes 21.1 % (21.0-51.0); %Monocytes 8.8 % (0.0-10.0); %Neutrophils 67.2 % (42.0-75.0); Hemoglobin 11.3 g/dL (14.0-18.0); Mean Corpuscular HGB CONC 32.2 g/dL (32.0-36.0); Mean Corpuscular Hemoglobin 33.1 pg (27.0-31.0); Mean Platelet Volume 8.2 fL (7.4-10.4); Platelet Count 245 thou/uL (130-400); RBC Distribution Width 14.7 % (11.5-14.5); Red Blood Cell (RBC) Count 3.43 mill/uL (4.70-6.10); White Blood Cell (WBC) Count 7.4 thou/uL (4.8-10.8)
[2018-05-25 04:22] LABS: Bilirubin, Total 0.6 mg/dL (0.2-1.2); Magnesium 2.1 mg/dL (1.6-2.6)
[2018-05-25 04:29] LABS: Anion Gap 10 mmol/L (10-20); BUN (Urea Nitrogen) 9 mg/dL (8.4-25.7); Calc. Creatinine Clearance 101 mL/min (70-130); Calcium 8.8 mg/dL (7.8-10.44); Carbon Dioxide 31 mmol/L (22-29); Chloride 99 mmol/L (98-107); Estimated GFR-MDRD Greater than 90; Glucose 96 mg/dL (70-105); Potassium 3.7 mmol/L (3.5-5.1); Sodium 136 mmol/L (136-145)
--- NOTE | 2018-05-25 05:26 | PDOC.FM ---
Addendum entered and electronically signed by Naima Mantilla MD 05/25/18 12:29 : Please append assessment: Will discharge today with a librium taper. Patient motivated to quit drinking and agrees to start a program. Patient will be moving in with best friend and states he will support his plan to quit drinking. Original Note: - Subjective Subjective: No overnight events. Patient does complain of crampy right foot pain. Patient states it started around 2000 last night that has persisted. States the tylenol 3 does not help this pain. States he has taken gabapentin in the past with no relief of symptoms. Denies SOB, tremors, seizure activity, chest pain, or NVD. - Objective Vital Signs & Weight: Vital Signs (12 hours) Temp Pulse Resp BP BP Pulse Ox 05/25/18 03:14 98.6 F 60 20 153/94 H 94 L 05/24/18 23:23 97.8 F 66 12 127/81 94 L 05/24/18 19:05 97.6 F 68 16 117/80 94 L Weight Weight 54.148 kg I&O: 05/23/18 05/24/18 05/25/18 06:59 06:59 06:59 Intake Total 1480 Output Total 1350 Balance 130 Result Diagrams: 05/25/18 03:22 05/25/18 03:22 <Naima Mantilla - Last Filed: 05/25/18 08:32> - Objective Vital Signs & Weight: Weight Weight 54.148 kg Result Diagrams: 05/25/18 03:22 05/25/18 03:22 <Alberto Ballard - Last Filed: 05/29/18 14:24> Phys Exam - Physical Examination Constitutional: NAD HEENT: PERRLA, moist MMs, sclera anicteric poor dentition Neck: supple, full ROM Respiratory: no wheezing, clear to auscultation bilateral Cardiovascular: RRR, no significant murmur Gastrointestinal: soft, non-tender, no distention, positive bowel sounds Musculoskeletal: no edema, pulses present Neurological: non-focal Psychiatric: normal affect, A&O x 3 Skin: no rash <Naima Mantilla - Last Filed: 05/25/18 08:32> Dx/Plan (1) Alcohol withdrawal seizure Code(s): F10.239 - ALCOHOL DEPENDENCE WITH WITHDRAWAL, UNSPECIFIED; R56.9 - UNSPECIFIED CONVULSIONS Status: Acute (2) History of open sigmoidectomy Code(s): Z98.890 - OTHER SPECIFIED POSTPROCEDURAL STATES; Z90.49 - ACQUIRED ABSENCE OF OTHER SPECIFIED PARTS OF DIGESTIVE TRACT Status: Acute (3) Hyperbilirubinemia Code(s): E80.6 - OTHER DISORDERS OF BILIRUBIN METABOLISM Status: Acute (4) Hypomagnesemia Code(s): E83.42 - HYPOMAGNESEMIA Status: Acute (5) Synthetic cannabinoid abuse Code(s): F19.10 - OTHER PSYCHOACTIVE SUBSTANCE ABUSE, UNCOMPLICATED Status: Acute (6) Macrocytic anemia Code(s): D53.9 - NUTRITIONAL ANEMIA, UNSPECIFIED Status: Chronic - Plan Plan: 53 yo M with chronic EtOH abuse here for alcohol withdrawal seizure Alcohol withdrawal seizure - Prolactin elevated at 22 - BAL below assay - Stable, VSS aside from mild HTN - ASE protocol placed, banana bag, started librium taper; ativan PRN - Patient not interested in any commercial escrow officer program or antibuse at this point Chronic EtOH abuse - see above HTN - started ACEI - hydralazine PRN for SBP > 170 - continue to monitor Hypomagnesemia, resolved - Will continue to monitor and replace as needed Hyperbilirubinemia, resolved - could be 2/2 to hepatic congestion from cirrhosis - will order RUQ US to assess Suspected cirrhosis - Based on history - Normal LFTs as consistent with diagnosis - RUQ U/S result pending - Hep panel, syhilis testing Neg - HIV negative (06/2017 hospital records) Macrocytosis - Likely 2/2 chronic alcohol use Reported hx of DM2 - Per patient, was started on metformin, but never took it - A1c 4.3 - Will not start on any anti-glycemic meds; mild SS to cover - [facility] accuchecks-can consider discontinuing if stable trend Physical deconditioning - PT consult Cannibinoid abuse - Positive UDS S/P sigmoidectomy for SBO with colostomy bag - Wound care consult placed for aid with colostomy bag maintenance, recs appreciated DVT ppx: lovenox Dispo: Continue monitoring for withdrawals with measures listed above Discussed with Dr. Ballard <Naima Mantilla - Last Filed: 05/25/18 08:32> Attending Addendum - Attending Addendum Date/Time: 05/29/18 1416 I personally evaluated the patient and discussed the management with Dr. Mantilla. I agree with the History, Examination, Assessment and Plan documented above with any addition or exceptions noted below. Has returned to baseline. Vitals Stable on Benzo. Pt. reports committed to abstinence. Stressed importance of structured recovery and accountability to success, such as AA. Pt. plans to enroll. Will d/c with Benzo taper to avoid recurrent sz. Warned against concomitant ETOH and Benzo use. <Alberto Ballard - Last Filed: 05/29/18 14:24>
[2018-05-25] MEDS ORDERED: hydrALAZINE 20 MG/ML VIAL SLOW IVP PRN (08:24)
--- NOTE | 2018-05-25 08:31 | ULT ---
ULTRASOUND ABDOMEN LIMITED: (RIGHT UPPER QUADRANT) DATE: 05/25/2018. HISTORY: A 53-year-old male with cirrhosis. FINDINGS: Gallbladder: Wall thickness at upper limits of normal, 3 mm. No pericholecystic fluid. No gallstone s or sludge identified. Common duct: 3 mm. Liver: Echogenicity within normal limits. Margins not nodular. Pancreas: Poorly visualized. Right kidney: No hydronephrosis. Small parenchymal 1 cm cyst. IMPRESSION: No definitive major pathology identified. [place] POS: TOM
[2018-05-25] MEDS ORDERED: Enoxaparin Sodium 40 MG/0.4 ML SYRINGE SC SCH (09:00)
[2018-05-25] MEDS ORDERED: Lisinopril 5 MG TAB PO SCH (09:00)
[2018-05-25] MEDS ORDERED: hydrALAZINE 20 MG/ML VIAL SLOW IVP SCH (09:15)
[2018-05-25 11:50] VITALS: TEMP 98.3
[2018-05-25 13:26] VITALS: BP 164/99
--- NOTE | 2018-05-27 09:07 | DIS ---
DATE OF ADMISSION: 05/24/2018 DATE OF DISCHARGE: 05/25/2018 RESIDENT: Naima Mantilla MD. ADMITTING ATTENDING: Cindy Mensah MD. DISCHARGE ATTENDING: Alberto Ballard MD. CONSULTS: Physical therapy and wound care. PROCEDURES: None. PRIMARY DIAGNOSES: Alcohol withdrawal seizure, chronic alcohol abuse. SECONDARY DIAGNOSES: Hypertension; hypomagnesemia, resolved; hyperbilirubinemia, resolved; suspected cirrhosis; macrocytosis; physical deconditioning; cannabinoid abuse; sigmoidectomy for small bowel obstruction with colostomy bag. DISCHARGE MEDICATIONS: 1. Librium. 2. Lisinopril 5 mg oral daily. 3. Tylenol with Codeine No. 3 one each oral twice daily as needed. DISCONTINUED MEDICATIONS: None. HISTORY OF PRESENT ILLNESS/HOSPITAL COURSE: This is a 53-year-old male with chronic alcohol abuse, brought in by EMS after being found down. Per report, the patient had seizure, but was unable to recall any other events prior to seizure. He last remembered he was waking after EMS arriving. Seizure was not witnessed. The patient admits to drinking half a gallon of whiskey a day, last drink being 2 to 3 days ago. The patient's motivation for stopping was due to him wanting to quit drinking. The patient denies prior history of seizures. The patient denies tremors, hallucinations, or other symptoms throughout his entire stay. Of note, the patient has had multiple prior hospital stays for alcohol related events including chronic pancreatitis and withdrawal. The patient came in with a nasal abrasion and due to concern for head trauma, imaging was performed. Imaging was negative for acute bleeding or fracture. The patient does have chronic T5 compression fracture. The patient was given [place] for chronic pain in the ED. The patient was started on Librium taper and will continue this upon discharge. The patient endorses being highly motivated to discontinue drinking. The patient will be moving in with his best friend, who will be supportive in his motivation to quit drinking. The patient states he will join in group such as Alcoholic Anonymous to support this as well. The patient was also given a banana bag in the ER and SAGAR protocol was started. The patient was started on an SAGAR inhibitor for high blood pressure and should follow up with his PCP for further management. The patient initially presented with hypomagnesemia, which resolved after being replaced. Due to hyperbilirubinemia, hep panel and syphilis testing were ordered, which proven to be negative. The patient reported a history of diabetes type 2. An A1c was obtained and was resulted as 4.3. No anti-glycemic medications were started. The patient had positive UDS for cannabinoid abuse. The patient also has history of SBO with sigmoidectomy and colostomy bag. Wound care was consulted for colostomy bag maintenance. DISPOSITION: Stable. DISCHARGE INSTRUCTIONS: 1. Location: Home. 2. Diet: Regular. 3. Activity: Ad erin. 4. Followup: With PCP within 1 week. Job ID: [id number]
== END 2018-05-25 13:48 | disposition home or self-care (01) ==
LOC: ERS 11:01 → 2SW 13:17
PROVIDERS: ADMIT Family Medicine; ATTEND Family Medicine
DX: F10.288 Alcohol dependence with other alcohol-induced disorder (principal); R56.9 Unspecified convulsions; G89.29 Other chronic pain; M54.9 Dorsalgia, unspecified; F17.210 Nicotine dependence, cigarettes, uncomplicated; E11.9 Type 2 diabetes mellitus without complications; I10 Essential (primary) hypertension; E83.42 Hypomagnesemia; D53.9 Nutritional anemia, unspecified; R53.81 Other malaise; E80.6 Other disorders of bilirubin metabolism; F19.10 Other psychoactive substance abuse, uncomplicated; Z88.8 Allergy status to other drugs, medicaments and biological substances; Z93.3 Colostomy status; Z90.49 Acquired absence of other specified parts of digestive tract
CPT/HCPCS: 36415; 36416; 70450; 71045; 72125; 72128; 76705; 80048; 80053; 80306; 80307; 81003; 81015; 82247; 82553; 83036; 83690; 83735; 84100; 84146; 84484; 85025; 86704; 86706; 86780; 86803; 87340; 93005; 96365; 96372; 96375; G0378; G8978-GP-CJ; G8979-GP-CI; J1650; J3411; J3475; J7042; J7050

== ENCOUNTER 2019-09-30 17:04 | Emergency (ER) | payer SELFPAY ==
[2019-09-30] MEDS ORDERED: Ondansetron PF 4 MG/2 ML Vial ONE (17:16)
[2019-09-30] MEDS ORDERED: Morphine 4 MG/ML VIAL ONE (17:34)
[2019-09-30 17:46] LABS: Hemoglobin 17.8 g/dL (14.0-18.0); Mean Corpuscular HGB CONC 33.1 g/dL (32.0-36.0); Mean Corpuscular Hemoglobin 35.2 pg (27.0-31.0); Mean Platelet Volume 7.5 fL (7.4-10.4); Platelet Count 346 thou/uL (130-400); RBC Distribution Width 11.5 % (11.5-14.5); Red Blood Cell (RBC) Count 5.07 mill/uL (4.70-6.10); White Blood Cell (WBC) Count 13.1 thou/uL (4.8-10.8)
[2019-09-30 17:53] LABS: ALT (SGPT) 26 U/L (8-55); AST (SGOT) 37 U/L (5-34); Albumin 5.2 g/dL (3.5-5.0); Alkaline Phosphatase 99 U/L (40-110); Anion Gap 18 mmol/L (10-20); BUN (Urea Nitrogen) 18 mg/dL (8.4-25.7); Calc. Creatinine Clearance 0 mL/min (70-130); Calcium 10.4 mg/dL (7.8-10.44); Carbon Dioxide 28 mmol/L (22-29); Chloride 99 mmol/L (98-107); Estimated GFR-MDRD 77; Glucose 115 mg/dL (70-105); Lipase 13 U/L (8-78); Potassium 4.6 mmol/L (3.5-5.1); Protein, Total 10.2 g/dL (6.0-8.3); Sodium 140 mmol/L (136-145)
[2019-09-30 17:57] LABS: Band 22 % (5-11); Lymphocytes 6 % (21-51); MDiff Complete? YES; Macrocytosis SLIGHT = 6-15 cells (100X) (0-5/hpf); Monocytes 3 % (0-10); Neutrophil 67 % (42-75); Platelet Morphology Comment Appears Adequate; Reactive Lymphocytes 2 % (0-10)
--- NOTE | 2019-09-30 18:40 | ULT ---
RIGHT UPPER QUADRANT ULTRASOUND: 09/30/19 PROVIDED CLINICAL HISTORY: Abdominal pain. FINDINGS: Comparison 05/25/18. The visualized portions of the pancreas appear normal. The liver demonstrates no mass or intrahepatic biliary ductal dilatation. The common duct is not dilated. Gallbladder demonstrates no stones, wall thickening, or pericholecystic fluid. Right kidney demonstrates no evidence for hydronephrosis or maria t id mass. Simple appearing 1 cm right renal cyst. IMPRESSION: No evidence for an acute process. POS: MATTHEW
--- NOTE | 2019-10-01 13:16 | EKG ---
Test Reason : N/V Blood Pressure : / mmHG Vent. Rate : 084 BPM Atrial Rate : 084 BPM P-R Int : 176 ms QRS Dur : 080 ms QT Int : 398 ms P-R-T Axes : 090 106 096 degrees QTc Int : 470 ms Suspect arm lead reversal, interpretation assumes no reversal Normal sinus rhythm Biatrial enlargement Rightward axis Pulmonary disease pattern Septal infarct , age undetermined Abnormal ECG Confirmed by JEROMY BLAKE, LUIS ([id number]), photographic editor MAYDA ACHARYA ([id number]) on 10/01/2019 1:16:30 PM Referred By: ANDRES Confirmed By:LUIS PINZON MD
== END 2019-09-30 19:14 | disposition home or self-care (01) ==
LOC: ERS 17:04
DX: R10.13 Epigastric pain (principal); R10.11 Right upper quadrant pain; E11.9 Type 2 diabetes mellitus without complications; K74.60 Unspecified cirrhosis of liver; J44.9 Chronic obstructive pulmonary disease, unspecified; F17.210 Nicotine dependence, cigarettes, uncomplicated; Z79.899 Other long term (current) drug therapy
CPT/HCPCS: 76705; 80053; 83690; 84484; 85025; 93005; 96361; 96374; 96375; J2270; J2405

== ENCOUNTER 2019-12-05 10:32 | Inpatient (IN) | payer SELFPAY ==
--- NOTE | 2019-12-05 11:47 | CT ---
Exam: Head CT without contrast HISTORY: Pain. Injury. Recent trauma and hit head on all rest. COMPARISON: 05/24/2020 FINDINGS: Hemorrhage: No intraparenchymal hemorrhage or extra-axial hematoma. Brain parenchyma: Cortical nieto-white matter differentiation is preserved. No mass effect or midline shift. Basilar cisterns are patent. Ventricular system: Ventricles and sulci are patent and symmetric. Calvarium: Intact. Sinuses and mastoid air cells: Incompletely evaluated mucous retention cyst in the left maxillary sin us. Stable sclerosis of the right mastoid air cells IMPRESSION: No intracranial posttraumatic sequelae.
--- NOTE | 2019-12-05 11:50 | CT ---
Exam: CT cervical spine without contrast HISTORY: Trauma. Pain. COMPARISON: 05/24/2018 FINDINGS: No craniocervical dissociation. Appropriate alignment of the lateral masses of C1 and C2. Intact odon toid process Appropriate alignment of the facets. Straightening of normal cervical lordosis may be due to patient position, muscle spasm or collar. Soft tissue neck structures: No mass, lymphadenopathy or hematoma. No prevertebral soft tissue swelli ng. Upper mediastinum and lung apices: Redemonstration of emphysematous changes in the visualized lung ap ices Central spinal canal: Stable central canal stenosis and foraminal narrowing due to degenerative cortes e. Technique limits evaluation. Vertebral bodies: Cervical spine vertebral body height is maintained. No fracture. IMPRESSION: 1. No fracture. 2. Straightening of cervical lordosis as above. If there is concern for ligamentous injury, consider MRI.
[2019-12-05 11:56] LABS: Hemoglobin 16.8 g/dL (14.0-18.0); Mean Corpuscular HGB CONC 33.7 g/dL (32.0-36.0); Mean Corpuscular Hemoglobin 36.4 pg (27.0-31.0); Mean Platelet Volume 7.7 fL (7.4-10.4); Platelet Count 201 thou/uL (130-400); RBC Distribution Width 10.6 % (11.5-14.5); Red Blood Cell (RBC) Count 4.63 mill/uL (4.70-6.10)
[2019-12-05 12:16] LABS: #Lymphocytes 0.8 thou/uL (1.20-3.40); #Monocytes 0.3 thou/uL (0.11-0.59); #Neutrophils 3.8 thou/uL (1.40-6.50); %Basophils 0.7 % (0.0-1.0); %Eosinophils 0.2 % (0.0-10.0); %Lymphocytes 15.4 % (21.0-51.0); %Monocytes 6.5 % (0.0-10.0); %Neutrophils 77.2 % (42.0-75.0); Large Platelets SLIGHT; MDiff Complete? YES; Macrocytosis MODERATE=16-30 cells (100X) (0-5/hpf); Platelet Morphology Comment Appears Adequate; White Blood Cell (WBC) Count 4.9 thou/uL (4.8-10.8)
[2019-12-05 12:26] LABS: ALT (SGPT) 96 U/L (8-55); AST (SGOT) 154 U/L (5-34); Albumin 4.3 g/dL (3.5-5.0); Alkaline Phosphatase 87 U/L (40-110); Anion Gap 21 mmol/L (10-20); BUN (Urea Nitrogen) 15 mg/dL (8.4-25.7); Bilirubin, Total 0.8 mg/dL (0.2-1.2); Calc. Creatinine Clearance 0 mL/min (70-130); Calcium 9.1 mg/dL (7.8-10.44); Carbon Dioxide 26 mmol/L (22-29); Chloride 93 mmol/L (98-107); Estimated GFR-MDRD Greater than 90; Glucose 194 mg/dL (70-105); Potassium 3.2 mmol/L (3.5-5.1); Protein, Total 8.3 g/dL (6.0-8.3); Sodium 137 mmol/L (136-145)
[2019-12-05] MEDS ORDERED: Metoclopramide HCl 10 MG/2 ML VIAL ONE (12:33)
[2019-12-05] MEDS ORDERED: diphenhydrAMINE 50 MG/ML VIAL ONE (12:33)
[2019-12-05] MEDS ORDERED: Ketorolac Tromethamine 30 MG/ML VIAL ONE (12:33)
[2019-12-05] MEDS ORDERED: Senokot S 8.6-50 MG TAB PO PRN (15:18)
[2019-12-05] MEDS ORDERED: Acetaminophen 325 MG TAB PO PRN (15:18)
[2019-12-05] MEDS ORDERED: Lorazepam 1 MG TAB PO PRN (15:20)
[2019-12-05] MEDS ORDERED: Potassium Chloride 20 MEQ TAB PO SCH (15:30)
[2019-12-05] MEDS ORDERED: Lorazepam 2 MG/ML VIAL SLOW IVP PRN (15:31)
--- NOTE | 2019-12-05 16:22 | HP ---
CHIEF COMPLAINT: Ataxia. HISTORY OF PRESENT ILLNESS: A 54-year-old, chronic alcohol use, hypertension, hyperlipidemia, history of alcohol withdrawal seizure, presented to the ER today because of his colostomy bag malfunction. The lead was replaced and it is working well. When he was ready to be discharged from the ER, he noted to be atoxic. The patient also attested that he has frequent fall and a week ago he did hit his head. The CT head and cervical spine scan were negative for any fractures. The patient states that he just could not walk without unsteady and he does not have any walking devices. He lives in the . He felt that he needs to come in to evaluate for the frequent fall. The patient does have history of chronic alcohol abuse. His labs are quite unremarkable except mild hypokalemia. He lives in . Appears that he does not have much risk exposure for COVID. His last drink was yesterday and he usually drinks couple of shots of hard liquor. REVIEW OF SYSTEMS: The patient denies any recent fever, night sweats, chills, productive cough. No chest pain, lower extremity edema. Denies any headache, blurriness, tingling, numbness in his extremities. ALLERGIES: HE IS ALLERGIC TO METOLAZONE. HOME MEDICATIONS: 1. Lisinopril 5 mg daily. 2. Tylenol 3 twice a day as needed. 3. Questionable Librium 10 mg three times a day. PAST MEDICAL HISTORY: 1. Hypertension. 2. Chronic alcohol abuse. 3. Alcohol withdrawal seizure. 4. Sigmoidectomy secondary to small bowel obstruction followed by colostomy bag. 5. Alcoholic cirrhosis. 6. Macrocytosis. 7. Marijuana abuse. 8. Hyperbilirubinemia. SOCIAL HISTORY: The patient states that he smokes a pack a day for the last 30 years. He takes a couple of shots daily hard liquor. The last drink yesterday. FAMILY HISTORY: No cancer runs in the family, but he refused to answer any further questions. PHYSICAL EXAMINATION: VITAL SIGNS: Temperature 98, pulse 83, and blood pressure 145/86. GENERAL: The patient looks cachectic and disheveled. Hygienic is questionable. HEENT: Mild icterus. Several bruises in his upper extremities and skin abrasions probably with scratches. CARDIOVASCULAR: Regular rate and rhythm without murmurs, rubs, or gallops. LUNGS: Clear to auscultation bilaterally without wheezing, rales, or rhonchi. ABDOMEN: Soft, nontender, nondistended. Good bowel sounds. EXTREMITIES: No pitting edema, but some chronic excoriations noted both in the upper and lower extremities. LABORATORY DATA: His CBC in the normal range. BMP; potassium 3.2, blood glucose 194. AST is 154, ALT 96, bilirubin is 0.8. CT head and CT cervical spine without any fractures. IMPRESSION AND PLAN: A 54-year-old, chronic alcohol use and recent small bowel obstruction, status post sigmoidectomy and colostomy bag, presented with malfunction of colostomy bag that has been corrected. 1. Main concern for admission is ataxia and frequent fall. The patient has strong underlying etiology for his ataxia, probably cerebellar degeneration with ongoing alcohol abuse. Low threshold for any HV[employer] ENGINEER abnormalities. However, we will check MRI for completeness of the workup. We will request physical therapy consult to assist the extent of his ataxia and deconditioning. 2. I will continue with his home regimen of Librium as needed at a low dose. We will give him Ativan if he is claustrophobic for MRI. Watch him for any withdrawal symptoms. He does have a history of alcohol withdrawal seizures in the past. We will check his mag level, B12, folate as well as TSH. We will use banana bag daily. Replace the potassium. 3. Hypertension. The patient is on low-dose lisinopril. His creatinine is in the normal range. We will continue his lisinopril. 4. History of sigmoidectomy. Continue routine colostomy bag care. 5. Rest of the management based on clinical course. Full code. Job ID: [id number] [facility]
[2019-12-05 16:30] LABS: Thyroid Stimulating Hormone 3.418 uIU/mL (0.35-4.94)
[2019-12-05] MEDS ORDERED: HYDROcodone/Acetaminophen 5/325 mg Tablet ONE (17:09)
[2019-12-05 18:42] VITALS: BMI 15.0
[2019-12-05] MEDS: Acetaminophen/Codeine 30-300mg Tablet PO PRN (19:53)
[2019-12-05] MEDS: Multivitamins, Adult 10 ML, Folic Acid 1 MG, Thiamine HCl 100 MG in Dextrose 5 %-0.45 %... IV SCH (19:54)
[2019-12-05] MEDS: Ondansetron ODT 4 MG TAB PO PRN (20:14)
[2019-12-05] MEDS: Nicotine 14 MG PATCH TD SCH (21:34)
[2019-12-06 05:15] LABS: ALT (SGPT) 57 U/L (8-55); AST (SGOT) 93 U/L (5-34); Albumin 3.2 g/dL (3.5-5.0); Alkaline Phosphatase 64 U/L (40-110); Anion Gap 9 mmol/L (10-20); BUN (Urea Nitrogen) 9 mg/dL (8.4-25.7); Bilirubin, Total 1.1 mg/dL (0.2-1.2); Calc. Creatinine Clearance 96 mL/min (70-130); Carbon Dioxide 31 mmol/L (22-29); Chloride 97 mmol/L (98-107); Estimated GFR-MDRD Greater than 90; Globulin 2.9 g/dL (2.4-3.5); Glucose 97 mg/dL (70-105); Potassium 3.2 mmol/L (3.5-5.1); Protein, Total 6.1 g/dL (6.0-8.3); Sodium 134 mmol/L (136-145)
[2019-12-06] MEDS: Acetaminophen/Codeine 30-300mg Tablet PO PRN ×2 (09:19→13:32)
[2019-12-06] MEDS: Lisinopril 5 MG TAB PO SCH (09:19)
--- NOTE | 2019-12-06 12:07 | MRI ---
EXAM: MRI of the brain without and with contrast HISTORY: Ataxia COMPARISON: None TECHNIQUE: Multiplanar multisequence MR images were obtained of the brain without and with IV contras t. FINDINGS: Scattered foci of high FLAIR signal in the subcortical and periventricular white matter are likely se condary to small vessel ischemic disease. No restricted diffusion. No abnormal enhancement. No hydronephrosis. No extra-axial fluid collection or intracranial hemorrhage. Thin cuts through the internal auditory canals shows a normal appearance of the 7th and 8th nerves. The cochlea and semicircular canals are symmetric. The expected flow voids are present. Corpus callosum, pituitary, and craniocervical junction are within normal limits. The calvarium and overlying soft tissues are unremarkable. Mucosal thickening is seen in the right sphenoid sinus. The other paranasal sinuses and mastoid air c ells are well aerated. IMPRESSION: No evidence of acute intracranial abnormality.
[2019-12-06] MEDS ORDERED: Magnevist 469MG/ML 20 ML VIAL ONE (13:40)
--- NOTE | 2019-12-06 14:15 | PDOC.HOSPP ---
- Subjective Encounter Date: 12/06/19 Encounter Time: 09:50 Subjective: sitting in the chair, walker nearby, suing it. pt states that he has RV w.. 2 big steps to climb and risk for keep falling [[what can we do? ] ramp is not an option for him, he states. - Objective Vital Signs & Weight: Vital Signs (12 hours) Temp Pulse Pulse Pulse Resp BP BP 12/06/19 13:35 130/96 H 12/06/19 12:09 98.1 F 87 16 12/06/19 10:01 86 104 H 134/94 H 12/06/19 09:24 134/94 H 12/06/19 09:18 98.7 F 83 16 12/06/19 05:00 98.5 F 64 18 BP BP BP Pulse Ox 12/06/19 13:35 12/06/19 12:09 130/96 H 100 12/06/19 10:01 135/99 H 12/06/19 09:24 12/06/19 09:18 134/94 H 95 12/06/19 05:00 152/81 H Weight Admit Weight 117 lb 4.8 oz Weight 117 lb 4.8 oz I&O: 12/05/19 12/06/19 12/07/19 06:59 06:59 06:59 Intake Total 900 Output Total 1400 575 Balance -500 -575 Result Diagrams: 12/05/19 11:45 12/06/19 04:08 Hospitalist ROS - Medication Medications: Active Medications Generic Name Dose Route Start Last Admin Trade Name Freq PRN Reason Stop Dose Admin Acetaminophen 650 mg 12/05/19 15:18 12/06/19 01:11 Tylenol PO 650 mg Q4H PRN Administration Headache/Fever/Mild Pain (1-3) Acetaminophen/Codeine Phosphate 1 tab 12/05/19 15:19 12/06/19 13:32 Tylenol #3 PO 1 tab BID PRN Administration Pain Chlordiazepoxide HCl 5 mg 12/05/19 15:20 12/06/19 06:37 Librium PO 5 mg TIDPRN PRN Administration Anxiety Multivitamins 10 ml/ Folic 1,011.2 mls @ 75 mls/hr 12/05/19 15:45 12/05/19 19 :54 Acid 1 mg/ Thiamine HCl 100 mg IV 12/08/19 15:46 1,011.2 mls / Dextrose/Sodium Chloride Q24HR CRISTOBAL Administration Lisinopril 5 mg 12/06/19 09:00 12/06/19 09:19 Zestril PO 5 mg DAILY CRISTOBAL Administration Lorazepam 1 mg 12/05/19 15:31 12/06/19 01:18 Ativan SLOW IVP 1 mg Q4H PRN Administration Seizures Nicotine 14 mg 12/05/19 21:00 12/05/19 21:34 Nicoderm Patch TD 14 mg Q24HR CRISTOBAL Administration Ondansetron HCl 4 mg 12/05/19 15:18 12/05/19 20:14 Zofran Odt PO 4 mg Q6H PRN Administration Nausea/Vomiting - Exam General Appearance: NAD, awake alert Eye: PERRL ENT: normocephalic atraumatic Neck: supple Heart: RRR Respiratory: CTAB Gastrointestinal: soft, normal bowel sounds Neurological: no focal deficits Psychiatric: A&O x 3 Hosp A/P - Plan Ataxia Gait impairment likely d/t chr alcohol use alcohol and tobacco abuse- cousnelling done -ativan and valium prn -MRI pending - PT consulted - needs to assess whether he would benefit w.. rehab at this time.
[2019-12-06] MEDS ORDERED: Potassium Chloride 20 MEQ TAB PO SCH (14:30)
[2019-12-06] MEDS ORDERED: Magnesium Oxide 400 MG TAB PO SCH (14:30)
[2019-12-06] MEDS: Multivitamins, Adult 10 ML, Folic Acid 1 MG, Thiamine HCl 100 MG in Dextrose 5 %-0.45 %... IV SCH (17:01)
[2019-12-06] MEDS: Magnesium Oxide 400 MG TAB PO SCH (21:37)
[2019-12-06] MEDS: Nicotine 14 MG PATCH TD SCH (21:37)
[2019-12-07] MEDS ORDERED: Ketorolac Tromethamine 10 MG TAB PO SCH (00:15)
[2019-12-07] MEDS: Melatonin 3 MG TAB PO PRN ×2 (00:56→23:34)
[2019-12-07] MEDS: Ondansetron ODT 4 MG TAB PO PRN (03:58)
[2019-12-07] MEDS: chlordiazePOXIDE HCl 5 MG CAP PO PRN ×2 (06:26→15:56)
[2019-12-07] MEDS ORDERED: Iopamidol-370 76% 500 ML 1 ML ONE (09:37)
[2019-12-07] MEDS: Lisinopril 5 MG TAB PO SCH (10:39)
[2019-12-07] MEDS: Folic Acid 1 MG TAB PO SCH (10:39)
[2019-12-07] MEDS: Acetaminophen/Codeine 30-300mg Tablet PO PRN (10:40)
[2019-12-07] MEDS: Magnesium Oxide 400 MG TAB PO SCH ×2 (10:40→20:51)
--- NOTE | 2019-12-07 12:37 | PDOC.HOSPP ---
- Subjective Encounter Date: 12/07/19 Encounter Time: 09:20 Subjective: pt feels somewhat unsteady -- head bothers him; just overall left facial numbness- No blurriness or vision changes, no pain behind the eyes, no hallucination [no sn fo alc wdl]. - Objective Vital Signs & Weight: Vital Signs (12 hours) Temp Pulse Resp BP BP Pulse Ox 12/07/19 12:32 98.8 F 73 18 142/95 H 97 12/07/19 12:00 142/95 H 12/07/19 10:39 162/68 H 12/07/19 08:20 162/68 H 12/07/19 03:40 97.7 F 66 16 106/70 96 Weight Admit Weight 117 lb 4.8 oz Weight 117 lb 4.8 oz I&O: 12/06/19 12/07/19 12/08/19 06:59 06:59 06:59 Intake Total 900 1315 300 Output Total 1400 1825 Balance -500 -510 300 Result Diagrams: 12/05/19 11:45 12/06/19 04:08 Additional Labs: Accuchecks 12/06/19 21:55 POC Glucose 108 Hospitalist ROS - Medication Medications: Active Medications Generic Name Dose Route Start Last Admin Trade Name Freq PRN Reason Stop Dose Admin Acetaminophen 650 mg 12/05/19 15:18 12/06/19 01:11 Tylenol PO 650 mg Q4H PRN Administration Headache/Fever/Mild Pain (1-3) Acetaminophen/Codeine Phosphate 1 tab 12/05/19 15:19 12/07/19 10:40 Tylenol #3 PO 1 tab BID PRN Administration Pain Chlordiazepoxide HCl 5 mg 12/07/19 05:49 12/07/19 06:26 Librium PO 5 mg TIDPRN PRN Administration Anxiety Folic Acid 1 mg 12/07/19 09:00 12/07/19 10:39 Folvite PO 1 mg DAILY CRISTOBAL Administration Multivitamins 10 ml/ Folic 1,011.2 mls @ 75 mls/hr 12/05/19 15:45 12/06/19 17 :01 Acid 1 mg/ Thiamine HCl 100 mg IV 12/08/19 15:46 1,011.2 mls / Dextrose/Sodium Chloride Q24HR CRISTOBAL Administration Lisinopril 5 mg 12/06/19 09:00 06/16/20 10:39 Zestril PO 5 mg DAILY CRISTOBAL Administration Lorazepam 1 mg 12/05/19 15:31 12/06/19 01:18 Ativan SLOW IVP 1 mg Q4H PRN Administration Seizures Magnesium Oxide 400 mg 12/06/19 21:00 12/07/19 10:40 Magnesium Oxide PO 400 mg BID CRISTOBAL Administration Melatonin 3 mg 12/07/19 00:13 12/07/19 00:56 Melatonin PO 3 mg HS PRN Administration Insomnia Nicotine 14 mg 12/05/19 21:00 12/06/19 21:37 Nicoderm Patch TD 14 mg Q24HR CRISTOBAL Administration Ondansetron HCl 4 mg 12/05/19 15:18 12/07/19 03:58 Zofran Odt PO 4 mg Q6H PRN Administration Nausea/Vomiting - Exam General Appearance: NAD, awake alert Eye: PERRL ENT: normocephalic atraumatic Neck: supple Heart: RRR, normal peripheral pulses Respiratory: CTAB, normal chest expansion Gastrointestinal: soft, normal bowel sounds Neurological: no focal deficits Psychiatric: A&O x 3 Hosp A/P - Plan Ataxia Gait impairment likely d/t chr alcohol use alcohol and tobacco abuse- cousnelling done -ativan and valium prn -MRI pending - PT consulted - needs to assess whether he would benefit w.. rehab at this time. Left facial sensory impairment -MRI - brain neg. -will get MRA, echo and neuro c/s and EEG -a1c, lipid, -start asa, statin if not on it no rehab as he is uninsured.
--- NOTE | 2019-12-07 13:45 | CON ---
NEUROLOGY CONSULTATION DATE OF CONSULTATION: 12/06/2019 REASON FOR CONSULTATION: Left facial numbness, rule out CVA. HISTORY OF PRESENT ILLNESS: Mr. Serrano is a 54-year-old male with history significant for hypertension, hyperlipidemia, history of alcohol withdrawal seizures, chronic alcohol abuse, presented to the emergency room yesterday because of his colostomy bag dysfunction. When he was discharged, he was found to be ataxic. The patient had frequent falls. CT of the cervical spine was done which was negative for acute fractures. Per patient, he lives in the and he was unable to climb the ramp and he also experienced left facial numbness. There was a concern about stroke, so he was admitted. Neurology was consulted for further workup. The patient drinks a couple of shots of hard liquor a day. The patient denies nausea , vomiting, headache, chest pain, focal weakness, abdominal pain associated with the episode. The patient denies any abnormal involuntary movements, vertigo, loss of vision or loss of consciousness. REVIEW OF SYSTEMS: All 14 systems were reviewed and were negative except the pertinent positives and negatives mentioned in the HPI. ALLERGIES: METOLAZONE. HOME MEDICATIONS: 1. Lisinopril 5 mg daily. 2. Tylenol No. 3 twice a day as needed. 3. Librium 10 mg 3times a day. PAST MEDICAL HISTORY: Hypertension, chronic alcohol abuse, sigmoidectomy secondary to small-bowel obstruction, alcoholic cirrhosis, macrocytosis, marijuana abuse, hyperbilirubinemia, withdrawal seizures. SOCIAL HISTORY: The patient lives in and smokes a pack a day for the last 30 years. He drinks a couple of shots of hard liquor daily. FAMILY HISTORY: The patient denies family history of stroke or seizures. Vital Signs & Weight: Vital Signs (12 hours) Temp Pulse Resp BP BP Pulse Ox 12/07/19 12:32 98.8 F 73 18 142/95 H 97 12/07/19 12:00 142/95 H 12/07/19 10:39 162/68 H 12/07/19 08:20 162/68 H 12/07/19 03:40 97.7 F 66 16 106/70 96 Weight Admit Weight 117 lb 4.8 oz Weight 117 lb 4.8 oz I&O: 12/06/19 12/07/19 12/08/19 06:59 06:59 06:59 Intake Total 900 1315 300 Output Total 1400 1825 Balance -500 -510 300 Result Diagrams: 12/05/19 11:45 12/06/19 04:08 Additional Labs: Accuchecks 12/06/19 21:55 POC Glucose 108 - Medication Medications: Active Medications Generic Name Dose Route Start Last Admin Trade Name Freq PRN Reason Stop Dose Admin Acetaminophen 650 mg 12/05/19 15:18 12/06/19 01:11 Tylenol PO 650 mg Q4H PRN Administration Headache/Fever/Mild Pain (1-3) Acetaminophen/Codeine Phosphate 1 tab 12/05/19 15:19 12/07/19 10:40 Tylenol #3 PO 1 tab BID PRN Administration Pain Chlordiazepoxide HCl 5 mg 12/07/19 05:49 12/07/19 06:26 Librium PO 5 mg TIDPRN PRN Administration Anxiety Folic Acid 1 mg 12/07/19 09:00 12/07/19 10:39 Folvite PO 1 mg DAILY CRISTOBAL Administration Multivitamins 10 ml/ Folic 1,011.2 mls @ 75 mls/hr 12/05/19 15:45 12/06/19 17 :01 Acid 1 mg/ Thiamine HCl 100 mg IV 12/08/19 15:46 1,011.2 mls / Dextrose/Sodium Chloride Q24HR CRISTOBAL Administration Lisinopril 5 mg 12/06/19 09:00 12/07/19 10:39 Zestril PO 5 mg DAILY CRISTOBAL Administration Lorazepam 1 mg 12/05/19 15:31 12/06/19 01:18 Ativan SLOW IVP 1 mg Q4H PRN Administration Seizures Magnesium Oxide 400 mg 12/06/19 21:00 12/07/19 10:40 Magnesium Oxide PO 400 mg BID CRISTOBAL Administration Melatonin 3 mg 12/07/19 00:13 12/07/19 00:56 Melatonin PO 3 mg HS PRN Administration Insomnia Nicotine 14 mg 12/05/19 21:00 12/06/19 21:37 Nicoderm Patch TD 14 mg Q24HR CRISTOBAL Administration Ondansetron HCl 4 mg 12/05/19 15:18 12/07/19 03:58 Zofran Odt PO 4 mg Q6H PRN Administration Nausea/Vomiting - Exam General Appearance: NAD, awake alert Eye: PERRL ENT: normocephalic atraumatic Neck: supple Heart: RRR, normal peripheral pulses Respiratory: CTAB, normal chest expansion Gastrointestinal: soft, normal bowel sounds Neurological: Mental status: The patient is alert and oriented to person, place, and time. Motor, muscle, tone and bulk are normal. Strength 5/5 bilaterally. Sensory: Withdraws to pinprick bilaterally. Reflexes symmetric bilaterally. Cerebellar: Finger-nose testing intact. Cranial nerves 2 through 12 intact. Gait: Deferred due to patient safety reasons LABORATORY DATA: I reviewed the head CT and CT of cervical spine, which were essentially unremarkable. ASSESSMENT AND PLAN: A 54-year-old male with history significant for chronic alcohol abuse, recent small-bowel obstruction, status post sigmoidectomy, hyperlipidemia, and hypertension presented with ataxia, which is most likely secondary to cervical spine pathology. He also complained of left facial numbness, so acute intracranial process cannot be ruled out. MRI of the brain was reviewed which was negative for acute intracranial pathology. . Ataxia may be secondary to cerebellar ataxia due to ongoing alcohol abuse. Neuro checks every 4 hours. Continue home medications, PT/OT/Speech. Check carotid dopplers abd Echo. Check hemoglobin A1c, lipid panel, and PSA. Continue aspirin and statin for secondary stroke prevention. Strict control of BP and BG.Continue medical management per primary team. The patient counseled about alcohol and tobacco abuse. Job ID: [id number] [facility]
[2019-12-07 13:47] LABS: Cardiac Risk 1.9 (Less than 4.5)
[2019-12-07] MEDS: Multivitamins, Adult 10 ML, Folic Acid 1 MG, Thiamine HCl 100 MG in Dextrose 5 %-0.45 %... IV SCH (15:54)
--- NOTE | 2019-12-07 17:20 | CT ---
EXAM: Noncontrast CT head CT angiogram head with IV contrast and 3-D reconstruction PROVIDED CLINICAL HISTORY: CVA. Left facial numbness. Gait unsteadiness. COMPARISON: Noncontrast CT head on 12/05/2019 FINDINGS: Noncontrast CT head: Again noted are linear low-density areas in the right cerebellar hemisphere most compatible with carli te infarction. Scattered areas of diminished attenuation are seen in the periventricular white matter which are nonspecific but likely reflective of chronic small vessel ischemic changes. There is no evidence of an acute cortical infarction, hemorrhage, mass effect, or midline shift. Ventricular system is normal in size, shape, and position. Mucosal thickening is present in the right sphenoid sinus. No other interval change when compared to prior study. CT angiogram head: The bilateral middle cerebral and anterior cerebral arteries are patent. Distal vertebral arteries an d basilar arteries as well as posterior cerebral arteries appear patent. No focal stenosis or branch occlusion is seen. No aneurysm is identified within the limitations of the technique of this e xam. IMPRESSION: 1. No acute intracranial abnormality demonstrated. 2. Chronic small vessel ischemic changes with remote infarction right cerebellar hemisphere. 3. No focal stenosis or branch occlusion is seen involving the [place] or vertebrobasilar sy stem.
[2019-12-07] MEDS: Nicotine 14 MG PATCH TD SCH (20:52)
[2019-12-07] MEDS ORDERED: Atorvastatin Calcium 20 MG TAB PO SCH (21:00)
[2019-12-08] MEDS: Acetaminophen/Codeine 30-300mg Tablet PO PRN (04:30)
[2019-12-08] MEDS ORDERED: Potassium Citrate 10 MEQ TAB PO SCH (08:45)
[2019-12-08] MEDS ORDERED: Nicotine 21 MG PATCH TD SCH (09:00)
[2019-12-08] MEDS ORDERED: Folic Acid/Vit B Comp W-C PO SCH (09:00)
[2019-12-08] MEDS ORDERED: Aspirin 81 mg Enteric Coated Tablet PO SCH (09:00)
[2019-12-08] MEDS: Lisinopril 5 MG TAB PO SCH (10:20)
[2019-12-08] MEDS: Magnesium Oxide 400 MG TAB PO SCH (10:21)
[2019-12-08] MEDS: Folic Acid 1 MG TAB PO SCH (10:21)
--- NOTE | 2019-12-08 11:02 | EEG ---
DATE OF SERVICE: 12/07/2019 This EEG was performed using 24-channel [employer] video digital EEG machine with 24-disk electrode. This was an extended 2 hours 10 minutes of inpatient video EEG recording. Digital analysis of the EEG was done for spike and seizure detection, which revealed no abnormalities. BACKGROUND: The posterior background rhythm is 9 to 10 hertz. The background rhythm attenuates with eye opening and enhances with eye closure. HYPERVENTILATION: No significant response seen with hyperventilation. PHOTIC STIMULATION: Bi-occipital symmetric driving responses observed. SLEEP: Drowsiness is observed. EEG DIAGNOSIS: Normal awake and drowsy EEG. Job ID: [id number]
[2019-12-08 12:15] VITALS: BP 132/83; TEMP 97.9
--- NOTE | 2019-12-08 14:22 | DIS ---
DATE OF ADMISSION: 12/05/2019 DATE OF DISCHARGE: 12/08/2019 DISCHARGE MEDICATIONS: 1. Folic acid 1 mg daily. 2. Aspirin 81 mg daily. DISCHARGE DIAGNOSES: 1. Fall secondary to ataxia and gait impairment. 2. Ataxia/gait impairment due to chronic alcohol abuse. 3. 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 4. Folic acid deficiency. 5. Hypomagnesemia. 6. History of sigmoidectomy and colostomy bag. IMAGING STUDIES: 1. He had MRI done, that did not show any acute intracranial abnormality. 2. CT [place] angio without contrast showed remote right cerebellar hemisphere infarct. 3. Electroencephalogram is negative. 4. 2D echo report is currently pending. PERTINENT LAB FINDINGS: TSH in the normal range. Folate 5.1, B12 of 564, LDL 64, creatinine 0.68. PHYSICAL EXAMINATION: VITAL SIGNS: On the day of discharge, temperature 97.8, pulse 61, sats 98% on room air, blood pressure 131/84. He is getting bedside echo during my rounds. GENERAL: He is comfortable. His discharge plan discussed and he is agreeable to be discharged home today. HEENT: He denies any blurriness or headache this morning. He also feels that his numbness on his left face seems to be improving. CARDIOVASCULAR: Regular rate and rhythm without murmurs, rubs, or gallops. LUNGS: Clear to auscultation bilaterally. ABDOMEN: Soft with good bowel sounds. NEUROLOGIC: No focal deficits. CONSULTATIONS: Neurology consult. HOSPITAL COURSE: This is a 54-year-old male, who came to the ER because of the colostomy bag being malfunctioned, that has been corrected in the ER. However, when they were ready to discharge him, he had significant ataxia and felt that needs to be looked into and evaluated if possible. So, he was admitted for observation. Physical therapy followed him. He is able to ambulate with the walker. The patient also had a fall couple of weeks ago. His home situation is such that he lives in the RV that has 2 steps, that he needs to use to get in and get out of the RV. Other options are explored with him. His friend also lives close by, who can keep an eye on him. He is also encouraged to have a walker. Unfortunately, we could not send him to the rehab because of his insurance situation. The patient also had episode of TIA with left facial numbness and sensory impairment, that seems to be improving. Stroke workup is negative, except remote infarct on the right cerebellar hemisphere. Counseling has been done for abstinence of alcohol. He is hemodynamically stable to be discharged home today. DISCHARGE INSTRUCTION: 1. Activity as tolerated. Please use walker for ambulation. Ask for help when you get in and get out of your RV. 2. Follow up with the primary care physician in 1 week. TIME SPENT: Discharge time took over 35 minutes. Job ID: [id number] [facility]
--- NOTE | 2019-12-10 04:12 | PQF ---
[place] Serrano SOUNDARI [id number] CLINICAL DOCUMENTATION CLARIFICATION FORM: POST DISCHARGE Addendum to original discharge summary date: ____ Late entry note date: __ Date:12/10/2019 ATTN: Jt Sotelo Please exercise your independent, professional judgment in responding to the clarification form. Clinical indicators are provided on the bottom of this form for your review Please check appropriate box(s): [x ] Protein Calorie Malnutrition: [x ] Mild [ ] Moderate [ ] Severe [ ] Other Malnutrition (please specify) __ [ ] Underweight without malnutrition [ ] Cachexia [ ] Other diagnosis [ ] Unable to determine In addition, please specify: Present on Admission (POA): [ ] Yes [ ] No [ ] Unable to determine CLINICAL INDICATORS - SIGNS / SYMPTOMS / LABS Laboratory 12/04 Serum Cande Protein 7.3, Albumin 3.2, Globulin 4.0, Ratio 1.1 Nutritional Assessment 12/05 - BMI of 15.1 Nutritional Assessment 12/05 Unsure weight loss and eating poorly Nutritional Assessment 12/05 Decreased appetite H&P p2 12/04 the patient looks cachectic Nutritional Assessment 12/05 alcoholism in underweight patient Nutritional Assessment 12/05 tricep fat wasting and clavicular muscle wasting Nutritional Assessment 12/05 suggestive of malnutrition in the context of chronic illness RISK FACTORS H&P p1 12/04 HTN H&P p1 12/04 Chronic alcohol abuse H&P p1 12/04 Smoker H&P p1 12/04 Alcoholic cirrhosis H&P p1 12/04 Marijuana abuse H&P p1 12/04 s/p sigmoidectomy with colostomy ED Notes 12/04 DM type 2 TREATMENT: Nutritional Assessment 12/05 - Dietary consult Nutritional Assessment 12/05 - Nutritional supplements Nutritional Assessment 12/05 Monitor weight Nutritional Assessment 12/05 Monitor intake Nutritional Assessment 12/05 Ensure Enlive TID Nutritional Assessment 12/05 Replaced electrolytes Moderate Malnutrition (in acute illness) Energy Intake: <75% of estimated energy requirement for > 7 days Weight Loss: 1-2%/1 week; 5%/ 1 month; 7.5%/3 months Other: mild body fat loss; mild muscle mass loss; mild fluid accumulation; Severe Malnutrition (in acute illness) Energy Intake: < 50% of estimated energy requirement for > 5 days Weight Loss: >1-2%/1 week; >5%/1 month; >7.5%/3 months Other: moderate body fat loss; moderate muscle mass loss; moderate- severe fluid accumulation; measurably reduced pecan mallow dipper strength Moderate Malnutrition (in chronic illness) Energy Intake: <75% of estimated energy requirement for >1 month Weight Loss: 5%/1 month; 7.5%/3 months; 10%/6 months; 20%/1 year Other: mild body fat loss; mild muscle mass loss; mild fluid accumulation Severe Malnutrition (in chronic illness) Energy Intake: <75% of estimated energy requirement for >1 month Weight Loss: >5%/1 month; >7.5%/3 months; >10%/6 months; >20%/1 year Other: severe body fat loss; severe muscle mass loss; severe fluid accumulation; measurably reduced pecan mallow dipper strength (This form is maintained as a part of the permanent medical record) 2014 [employer]. All Rights Reserved [email or web address]
== END 2019-12-08 13:38 | disposition home or self-care (01) | DRG 57 ==
LOC: ERS 10:32 → 2SE 18:29 → OBSVTOIN 18:29
PROVIDERS: ADMIT Internal Medicine; ATTEND Internal Medicine
PROC: 0D2 Gastrointestinal System, Change (ICD-10-PCS; principal; 2019-12-05)
DX: G31.2 Degeneration of nervous system due to alcohol (principal); G45.9 Transient cerebral ischemic attack, unspecified; K94.03 Colostomy malfunction; E44.1 Mild protein-calorie malnutrition; Z68.1 Body mass index [BMI] 19.9 or less, adult; E53.8 Deficiency of other specified B group vitamins; E83.42 Hypomagnesemia; F10.10 Alcohol abuse, uncomplicated; I10 Essential (primary) hypertension; E78.5 Hyperlipidemia, unspecified; R29.6 Repeated falls; Y83.3 Surgical operation with formation of external stoma as the cause of abnormal reaction of the patient, or of later complication, without mention of misadventure at the time of the procedure; E11.9 Type 2 diabetes mellitus without complications; J43.9 Emphysema, unspecified; G89.29 Other chronic pain; M54.9 Dorsalgia, unspecified; M54.2 Cervicalgia; K74.60 Unspecified cirrhosis of liver; F17.210 Nicotine dependence, cigarettes, uncomplicated; F12.10 Cannabis abuse, uncomplicated; F41.9 Anxiety disorder, unspecified; E87.6 Hypokalemia; Z86.73 Personal history of transient ischemic attack (TIA), and cerebral infarction without residual deficits; Z90.49 Acquired absence of other specified parts of digestive tract; Z91.81 History of falling; Z88.8 Allergy status to other drugs, medicaments and biological substances; F40.240 Claustrophobia
CPT/HCPCS: 36415; 36416; 70450; 70496; 70553; 72125; 80053; 80061; 82140; 82607; 82746; 83735; 84443; 85025; 93306; 95712; 95816; 95819; 95957; 96361; 96365; 96366; 96375; A9579; J1200; J1885; J2060; J2765; J3411; J7042; Q0162; Q9967